=== PATIENT | male | born 1965 | race Caucasian/White ===

== ENCOUNTER → 2018-02-03 14:46 | Outpatient (POV) | payer MEDICAID, SELFPAY ==
[2018-02-03 14:58] VITALS: BP 137/94; PULSE 87; RESP 18; O2SAT 98
--- NOTE | 2018-02-03 16:59 | HMH.PMCON ---
Assessment and Plan (1) Degenerative disc disease Current visit: Yes Status: Chronic Qualifiers: Spinal region: lumbar Qualified Code(s): M51.36 - Other intervertebral disc degeneration, lumbar region Category: Medical (2) Radiculopathy Current visit: Yes Status: Chronic Qualifiers: Spinal region: lumbar Qualified Code(s): M54.16 - Radiculopathy, lumbar region Category: Medical Code(s): M54.10 - Radiculopathy, site unspecified - Assessment and plan all Dx Assessment and Plan for all problems:: We will schedule patient for an L4-L5 lumbar epidural steroid injection. We will also try him on Lyrica 75 mg 1 p.o. twice daily. Patient is not on any any anticoagulation therapy. Patient's tried and failed physical therapy, massage therapy. Patient is still doing stretching therapy. I will follow-up with the patient after his injection. This note was dictated using voice recognition software and may contain errors or omissions HPI - Data of Consult Consult date: 02/03/18 Requesting Physician: Alice Gu APRN Primary Care Provider: Melissa Cordero - Consult Narrative Reason for consult: Arthritic pain History of present illness: Patient is a pleasant 53-year-old male who presents today for consultation in regards to his overall pain. Patient has been getting epidural injections from Dr. Kamara however due to the clinic closing down he was unable to continue with this. Patient is also on gabapentin and tramadol he states that this does not help much. Patient and I had a long discussion about his MRI and treatment options. Patient would like to start with some injective therapy. Patient's tried and failed physical therapy along with chiropractic therapy. Patient rates his pain a 6 out of 10 today. CC: Alice Gu APRN [facility] History I have reviewed the patient's past medical history: Yes Medical History: Reports:: Diabetes Mellitus Type 2, Hypertension Other Medical History: Reports: Arthritis - *Social History Smoking Status: Never smoker Alcohol Intake: never Occupational Status: other Housing: house - Psychiatric History Expresses thoughts of harming self/others: None Suicide Plan Description: No Plan *Family Hx:: Unable to obtain Review of Systems - Review of Systems ROS General: no recent weight change, no fever, no sleep disturbances Respiratory: no cough, no shortness of air, no recurring pulmonary infections Cardiovascular/Peripheral Vascular: No chest pain, No palpitations, no edema, no shortness of breath. Gastrointestinal: no incontinence, normal bowel movements reported Genitourinary: no incontinence Musculoskeletal: Back pain, multi-joint pain Psychiatric: normal mood/ affect Neurological: [denies weakness in extremities], [denies balance issues] Meds Home Medications Medication Instructions Recorded Confirmed Type Amlodipine Besylate [Amlodipine 5 mg PO DAILY 02/03/18 02/03/18 History 10mg Tab] Gabapentin [Gabapentin 400mg Cap] 400 mg PO DAILY 02/03/18 02/03/18 History Metformin HCl [Metformin 500mg 1,000 mg PO BID 02/03/18 02/03/18 History Tablet] Simvastatin 10 mg PO DAILY 02/03/18 02/03/18 History glyBURIDE [Diabeta 5mg tablet] 5 mg PO DAILY 02/03/18 02/03/18 History Objective Vital signs: Pulse Resp BP Pulse Ox 87 18 137/94 98 02/03/18 14:58 02/03/18 14:58 02/03/18 14:58 02/03/18 14:58 Narrative: Physical Exam General: Alert and oriented x3, no acute distress, pleasant and cooperative, [on room air] Lungs: Resps E/U, Symmetrical chest expansion Eyes: PERRL Musculoskeletal: Flexion and extension of lumbar spine somewhat guarded secondary to pain, deep tendon reflexes normal, strength in upper and lower extremities [5/5], [abnormal gait noted] Neurological: speech clear, director speech equal, no gross sensory deficits Opioid Risk Tool - Opioid Risk Tool-Female Family hx alcoh
--- NOTE | 2018-02-03 17:09 | P.CONS_ITS ---
Assessment and Plan (1) Degenerative disc disease Current visit: Yes Status: Chronic Qualifiers: Spinal region: lumbar Qualified Code(s): M51.36 - Other intervertebral disc degeneration, lumbar region Category: Medical (2) Radiculopathy Current visit: Yes Status: Chronic Qualifiers: Spinal region: lumbar Qualified Code(s): M54.16 - Radiculopathy, lumbar region Category: Medical Code(s): M54.10 - Radiculopathy, site unspecified - Assessment and plan all Dx Assessment and Plan for all problems:: We will schedule patient for an L4-L5 lumbar epidural steroid injection. We will also try him on Lyrica 75 mg 1 p.o. twice daily. Patient is not on any any anticoagulation therapy. Patient's tried and failed physical therapy, massage therapy. Patient is still doing stretching therapy. I will follow-up with the patient after his injection. This note was dictated using voice recognition software and may contain errors or omissions HPI - Data of Consult Consult date: 02/03/18 Requesting Physician: Alice Gu APRN Primary Care Provider: Melissa Cordero - Consult Narrative Reason for consult: Arthritic pain History of present illness: Patient is a pleasant 53-year-old male who presents today for consultation in regards to his overall pain. Patient has been getting epidural injections from Dr. Kamara however due to the clinic closing down he was unable to continue with this. Patient is also on gabapentin and tramadol he states that this does not help much. Patient and I had a long discussion about his MRI and treatment options. Patient would like to start with some injective therapy. Patient's tried and failed physical therapy along with chiropractic therapy. Patient rates his pain a 6 out of 10 today. CC: Alice Gu APRN [facility] History I have reviewed the patient's past medical history: Yes Medical History: Reports:: Diabetes Mellitus Type 2, Hypertension Other Medical History: Reports: Arthritis - *Social History Smoking Status: Never smoker Alcohol Intake: never Occupational Status: other Housing: house - Psychiatric History Expresses thoughts of harming self/others: None Suicide Plan Description: No Plan *Family Hx:: Unable to obtain Review of Systems - Review of Systems ROS General: no recent weight change, no fever, no sleep disturbances Respiratory: no cough, no shortness of air, no recurring pulmonary infections Cardiovascular/Peripheral Vascular: No chest pain, No palpitations, no edema, no shortness of breath. Gastrointestinal: no incontinence, normal bowel movements reported Genitourinary: no incontinence Musculoskeletal: Back pain, multi-joint pain Psychiatric: normal mood/ affect Neurological: [denies weakness in extremities], [denies balance issues] Meds Home Medications Medication Instructions Recorded Confirmed Type Amlodipine Besylate [Amlodipine 5 mg PO DAILY 02/03/18 02/03/18 History 10mg Tab] Gabapentin [Gabapentin 400mg Cap] 400 mg PO DAILY 02/03/18 02/03/18 History Metformin HCl [Metformin 500mg 1,000 mg PO BID 02/03/18 02/03/18 History Tablet] Simvastatin 10 mg PO DAILY 02/03/18 02/03/18 History glyBURIDE [Diabeta 5mg tablet] 5 mg PO DAILY 02/03/18 02/03/18 History Objective Vital signs: Pulse Resp BP Pulse Ox 87 18 137/94 98 02/03/18 14:58 02/03/18 14:58 02/03/18 14:58 0
== END ==
PROVIDERS: PCP Physician Assistant; Visit Provider Clinical Nurse Specialist Family Health
DX: M51.16 Intervertebral disc disorders with radiculopathy, lumbar region (principal)
CPT/HCPCS: 99202

== ENCOUNTER → 2018-02-24 12:12 | Outpatient (CLI) | payer MEDICAID, SELFPAY ==
--- NOTE | 2018-02-24 12:15 | XR_ITS ---
XR foot wt bearing RT 3V HISTORY: ITS.REASON: Pain ORDERING PHYSICIAN: Anh Langley DPM PATIENT AGE: 53 years COMPARISON: None FINDINGS: No fracture or dislocation. No lytic or blastic change. There is normal mineralization.. Flexion deformity involving the second through fifth toes. There is borderline pes planus with mild hypertrophic changes along the dorsal aspect of the navicular. There is mild lateral angulation of the distal phalanx of the great toe. Deformity involves the distal aspect of the fifth metatarsal which could be due to an old fracture best seen on the oblique view with mild osteoarthritic change of the metatarsophalangeal joint. IMPRESSION: Mild degenerative changes with flexion deformity of the toes with suspected old fracture at the distal aspect of the fifth metatarsal
--- NOTE | 2018-02-24 12:15 | XR_ITS ---
XR ankle wt bearing LT min 3V HISTORY: ITS.REASON: Pain ORDERING PHYSICIAN: Anh Langley DPM PATIENT AGE: 53 years Comparison: None FINDINGS: No fracture or dislocation. No lytic or blastic change. There is normal mineralization.. There is a separate calcific density at the medial malleolus region well-circumscribed and may be due to old injury. An usual appearance for an accessory center of ossification although that is a possibility as well. Otherwise negative. IMPRESSION: Old fracture versus accessory center of ossification at the medial malleolus
--- NOTE | 2018-02-24 12:15 | XR_ITS ---
XR ankle wt bearing RT min 3V HISTORY: ITS.REASON: pain ORDERING PHYSICIAN: Anh Langley DPM PATIENT AGE: 53 years Comparison: None FINDINGS: No fracture or dislocation. No lytic or blastic change. There is normal mineralization.. The joint spaces are well-preserved. No significant degenerative/arthritic changes. No erosive changes evident. IMPRESSION: Negative ankle, no acute finding
--- NOTE | 2018-02-24 12:15 | XR_ITS ---
XR foot wt bearing LT 3V HISTORY: ITS.REASON: Pain ORDERING PHYSICIAN: Anh Langley DPM PATIENT AGE: 53 years COMPARISON: None FINDINGS: There are mild osteoarthritic changes of the first metatarsophalangeal joint and there is mild pes planus. Small calcaneal spurs present at 5 mm. There is flexion of the second third and fourth toes with mild valgus angulation of the distal phalanx of the great toe. No fracture or dislocation. No lytic or blastic change. Small area of exostosis involves the distal tibia anteriorly IMPRESSION: 1. Pes planus with osteoarthritic change. 2. Flexion deformity of the toes
== END ==
PROVIDERS: PCP Physician Assistant; Visit Provider Podiatrist
DX: M79.671 Pain in right foot (principal); M79.672 Pain in left foot
CPT/HCPCS: 73610; 73630

== ENCOUNTER → 2018-03-11 10:22 | Outpatient (POV) | payer MEDICAID, SELFPAY ==
[2018-03-11 11:00] VITALS: BP 141/90; PULSE 65; RESP 18; O2SAT 98; BMI 36.9
--- NOTE | 2018-03-11 11:16 | P.CONS_ITS ---
[facility] Pain Management SOAP Note Subjective:: Is a pleasant 53-year-old white male who presents today for follow-up after his second lumbar epidural steroid injection. Patient states he got 80% relief from this injection. Patient is still having some relief. Patient rates his pain a 5 out of 10. Patient states he is having increased cervical pain. Patient also having radicular symptoms into his right shoulder. Patient has no recent imaging of this. I do believe it would be beneficial to get an MRI of his cervical spine. She would like to complete a series of epidural injections. he is not on any anticoagulation therapy. Patient was tried on Lyrica however he had side effects and limits unable to tolerate it. Patient rates his pain a 5 out of 10 today. ROS General: no recent weight change, no fever, no sleep disturbances Respiratory: no cough, no shortness of air, no recurring pulmonary infections Cardiovascular/Peripheral Vascular: No chest pain, No palpitations, no edema, no shortness of breath. Gastrointestinal: no incontinence, normal bowel movements reported Genitourinary: no incontinence Musculoskeletal: Cervical neck pain, low back pain, leg pain Psychiatric: normal mood/ affect Neurological: [denies weakness in extremities], [denies balance issues] Objective:: Physical Exam General: Alert and oriented x3, no acute distress, pleasant and cooperative, [on room air] Lungs: Resps E/U, Symmetrical chest expansion, Eyes: PERRL Musculoskeletal: Flexion and extension of cervical and lumbar spine somewhat guarded secondary to pain, deep tendon reflexes normal, strength in upper and lower extremities [5/5], slightly antalgic gait noted, positive straight leg raise test bilaterally at 30 degrees Neurological: speech clear, returned goods repairer equal, no gross sensory deficits Assessment:: Degenerative disc disease of the lumbar spine with lumbar radiculopathy, degenerative disc disease cervical spine Plan:: We will schedule cervical MRI for the patient to discern pathology. Patient has worsening pain along with new onset of radicular symptoms into his right shoulder. We will also schedule an L4-L5 lumbar epidural steroid injection to complete his series of injections. Patient states that he has had great relief with these and is much more functional. I will follow-up with the patient after his injection. This note was dictated using voice recognition software and may contain errors or omissions
== END ==
PROVIDERS: PCP Physician Assistant; Visit Provider Clinical Nurse Specialist Family Health
DX: M51.16 Intervertebral disc disorders with radiculopathy, lumbar region (principal); M50.30 Other cervical disc degeneration, unspecified cervical region
CPT/HCPCS: 99213

== ENCOUNTER → 2018-04-22 14:57 | Outpatient (POV) | payer MEDICAID, SELFPAY ==
[2018-04-22 15:04] VITALS: BP 143/87; PULSE 18; BMI 36.9
--- NOTE | 2018-04-22 15:22 | HMH.PAINSOAP ---
[facility] Pain Management SOAP Note Subjective:: Pleasant 53-year-old white male who presents today for follow-up after his second lumbar epidural steroid injection. Patient did get some relief for his pain is returning. Patient states most of his pain is when he is standing or walking. He says it is relieved if he is leaning forward. Patient does have an MRI showing spinal stenosis. Patient is going to bring the radiology disc for us to review for potential mild procedure. Patient states most of his pain today is in his cervical spine. He states is radiating into his arm. Patient is tried and failed 3 months of home stretching exercises however he continuing this. Patient is also on anti-inflammatories. Patient has failed 3 months of medications. Patient has no recent imaging and rates his pain 8 out of 10. ROS General: no recent weight change, no fever, no sleep disturbances Respiratory: no cough, no shortness of air, no recurring pulmonary infections Cardiovascular/Peripheral Vascular: No chest pain, No palpitations, no edema, no shortness of breath. Gastrointestinal: no incontinence, normal bowel movements reported Genitourinary: no incontinence Musculoskeletal: Neck pain, arm pain or back pain Psychiatric: normal mood/ affect Neurological: [denies weakness in extremities], [denies balance issues] Objective:: Physical Exam General: Alert and oriented x3, no acute distress, pleasant and cooperative, [on room air] Lungs: Resps E/U, Symmetrical chest expansion, Eyes: PERRL Musculoskeletal: Flexion and extension of lumbar and cervical spine somewhat guarded secondary to pain, deep tendon reflexes normal, strength in upper and lower extremities [5/5], slightly antalgic gait noted Neurological: speech clear, dry cure worker equal, no gross sensory deficits Assessment:: Degenerative disc disease lumbar spine with lumbar radiculopathy and spinal stenosis, degenerative disc disease cervical spine with cervical radiculopathy Plan:: Given the worsening of his cervical symptoms I believe that it would be beneficial to have a new MRI for the patient. Patient's tried and failed conservative measures. I will follow-up with the patient after his cervical MRI. We will review his lumbar MRI for potential mild procedure. This note was dictated using voice recognition software and may contain errors or omissions
--- NOTE | 2018-04-22 15:25 | P.CONS_ITS ---
[facility] Pain Management SOAP Note Subjective:: Pleasant 53-year-old white male who presents today for follow-up after his second lumbar epidural steroid injection. Patient did get some relief for his pain is returning. Patient states most of his pain is when he is standing or walking. He says it is relieved if he is leaning forward. Patient does have an MRI showing spinal stenosis. Patient is going to bring the radiology disc for us to review for potential mild procedure. Patient states most of his pain today is in his cervical spine. He states is radiating into his arm. Patient is tried and failed 3 months of home stretching exercises however he continuing this. Patient is also on anti-inflammatories. Patient has failed 3 months of medications. Patient has no recent imaging and rates his pain 8 out of 10. ROS General: no recent weight change, no fever, no sleep disturbances Respiratory: no cough, no shortness of air, no recurring pulmonary infections Cardiovascular/Peripheral Vascular: No chest pain, No palpitations, no edema, no shortness of breath. Gastrointestinal: no incontinence, normal bowel movements reported Genitourinary: no incontinence Musculoskeletal: Neck pain, arm pain or back pain Psychiatric: normal mood/ affect Neurological: [denies weakness in extremities], [denies balance issues] Objective:: Physical Exam General: Alert and oriented x3, no acute distress, pleasant and cooperative, [on room air] Lungs: Resps E/U, Symmetrical chest expansion, Eyes: PERRL Musculoskeletal: Flexion and extension of lumbar and cervical spine somewhat guarded secondary to pain, deep tendon reflexes normal, strength in upper and lower extremities [5/5], slightly antalgic gait noted Neurological: speech clear, warehouse manager equal, no gross sensory deficits Assessment:: Degenerative disc disease lumbar spine with lumbar radiculopathy and spinal st enosis, degenerative disc disease cervical spine with cervical radiculopathy Plan:: Given the worsening of his cervical symptoms I believe that it would be beneficial to have a new MRI for the patient. Patient's tried and failed conservative measures. I will follow-up with the patient after his cervical MRI. We will review his lumbar MRI for potential mild procedure. This note was dictated using voice recognition software and may contain errors or omissions
== END ==
PROVIDERS: PCP Physician Assistant; Visit Provider Clinical Nurse Specialist Family Health
DX: M51.16 Intervertebral disc disorders with radiculopathy, lumbar region (principal); M50.10 Cervical disc disorder with radiculopathy, unspecified cervical region; M48.00 Spinal stenosis, site unspecified
CPT/HCPCS: 99213

== ENCOUNTER → 2018-05-14 13:27 | Outpatient (CLI) | payer MEDICAID, SELFPAY ==
--- NOTE | 2018-05-14 13:30 | MR_ITS ---
MR cervical spine wo con, MR 3-d myelogram/MRCP HISTORY: Neck and RT shoulder pain XYRS. Neck pain when turning head from side to side. ITS.REASON: NECK PAIN ORDERING PHYSICIAN: Alice Gu PATIENT AGE: 53 years Comparison: None TECHNIQUE: Standard multiplanar multiecho sequences are performed without contrast. 3-D MIP and myelographic images are also rendered and reviewed FINDINGS: There is normal alignment. The craniocervical junction has an unremarkable appearance. There are hypertrophic changes of the posterior longitudinal ligament from C2 to C7 causing posterior longitudinal ridging from C2 to C7.. C2-C3: Unremarkable. C3-C4: Hypertrophic change of the posterior longitudinal ligament with mild bulging disc. There is narrowing of the canal at 10 mm with mild bilateral foraminal narrowing. Small central disc protrusion versus prominent posterior longitudinal ligament noted with mild narrowing of the canal with minimal flattening of the cord anteriorly C4-C5: Prominent posterior longitudinal ligament versus small central disc protrusion. There is moderate narrowing of the canal at 7 mm. There is mild impingement upon the anterior aspect of the cord with mild cord flattening. C5-C6: Degenerative disc disease with bulging disc eccentric towards the right with canal narrowing of 8 mm and moderate lateral recess and foraminal narrowing on the right. There is mild flattening of the cord anteriorly from the bulging disc. C6-C7: Unremarkable. C7-T1: Unremarkable. IMPRESSION: 1. C3-C4: Hypertrophic change of the posterior longitudinal ligament with mild bulging disc. There is narrowing of the canal at 10 mm with mild bilateral foraminal narrowing. Small central disc protrusion versus prominent posterior longitudinal ligament noted with mild narrowing of the canal with minimal flattening of the cord anteriorly 2. C4-C5: Prominent posterior longitudinal ligament versus small central disc protrusion. There is moderate narrowing of the canal at 7 mm. There is mild impingement upon the anterior aspect of the cord with mild cord flattening. 3. C5-C6: Degenerative disc disease with bulging disc eccentric towards the right with canal narrowing of 8 mm and moderate lateral recess and foraminal narrowing on the right. There is mild flattening of the cord anteriorly from the bulging disc 4. No extruded herniated disc evident.
== END ==
PROVIDERS: PCP Physician Assistant; Visit Provider Clinical Nurse Specialist Family Health
DX: M54.2 Cervicalgia (principal)
CPT/HCPCS: 72141; 76376

== ENCOUNTER → 2018-05-19 13:29 | Outpatient (POV) | payer MEDICAID, SELFPAY ==
[2018-05-19 13:48] VITALS: BP 164/97; PULSE 74; RESP 18; O2SAT 98; BMI 36.2
--- NOTE | 2018-05-19 15:46 | HMH.PAINSOAP ---
[facility] Pain Management SOAP Note Subjective:: Patient is a pleasant 53-year-old white male who presents today for follow-up after cervical MRI. Patient is having worsening neck pain. Patient does have degenerative disc disease along with bulging disc and stenosis. Patient is also having left foot pain. Patient states is been mostly in the arch of his foot. He rates his pain today at 8 out of 10. Patient states his low back is doing better since his lumbar epidural steroid injection. He is interested in doing injections in his neck. Patient states that any kind of movement makes his pain worse. He also has radiation into his right arm. ROS General: no recent weight change, no fever, no sleep disturbances Respiratory: no cough, no shortness of air, no recurring pulmonary infections Cardiovascular/Peripheral Vascular: No chest pain, No palpitations, no edema, no shortness of breath. Gastrointestinal: no incontinence, normal bowel movements reported Genitourinary: no incontinence Musculoskeletal: Neck pain, foot pain Psychiatric: normal mood/ affect Neurological: [denies weakness in extremities], [denies balance issues] Objective:: Physical Exam General: Alert and oriented x3, no acute distress, pleasant and cooperative, [on room air] Lungs: Resps E/U, Symmetrical chest expansion, Eyes: PERRL Musculoskeletal: Flexion and extension of cervical spine somewhat guarded secondary to pain, deep tendon reflexes normal, strength in upper and lower extremities [5/5], slightly antalgic gait noted, positive Spurling's test Neurological: speech clear, food and beverage assistant equal, no gross sensory deficits Assessment:: Degenerative disc disease cervical spine with cervical radiculopathy along with degenerative disc disease lumbar spine lumbar radiculopathy, foot pain Plan:: We will set the patient up for C5-C6 cervical epidural. Patient is done well with epidurals in the past. I believe it would be beneficial for him. We will also set him up with the java user interface developer for his foot pain. Patient is not on any anticoagulation therapy. Patient is continuing a home stretching regimen. This note was dictated using voice recognition software and may contain errors or omissions
--- NOTE | 2018-05-19 15:49 | P.CONS_ITS ---
[facility] Pain Management SOAP Note Subjective:: Patient is a pleasant 53-year-old white male who presents today for follow-up after cervical MRI. Patient is having worsening neck pain. Patient does have degenerative disc disease along with bulging disc and stenosis. Patient is also having left foot pain. Patient states is been mostly in the arch of his foot. He rates his pain today at 8 out of 10. Patient states his low back is doing better since his lumbar epidural steroid injection. He is interested in doing injections in his neck. Patient states that any kind of movement makes his pain worse. He also has radiation into his right arm. ROS General: no recent weight change, no fever, no sleep disturbances Respiratory: no cough, no shortness of air, no recurring pulmonary infections Cardiovascular/Peripheral Vascular: No chest pain, No palpitations, no edema, no shortness of breath. Gastrointestinal: no incontinence, normal bowel movements reported Genitourinary: no incontinence Musculoskeletal: Neck pain, foot pain Psychiatric: normal mood/ affect Neurological: [denies weakness in extremities], [denies balance issues] Objective:: Physical Exam General: Alert and oriented x3, no acute distress, pleasant and cooperative, [on room air] Lungs: Resps E/U, Symmetrical chest expansion, Eyes: PERRL Musculoskeletal: Flexion and extension of cervical spine somewhat guarded secondary to pain, deep tendon reflexes normal, strength in upper and lower extremities [5/5], slightly antalgic gait noted, positive Spurling's test Neurological: speech clear, medical information officer equal, no gross sensory deficits Assessment:: Degenerative disc disease cervical spine with cervical radiculopathy along with degenerative disc disease lumbar spine lumbar radiculopathy, foot pain Plan:: We will set the patient up for C5-C6 cervical epidural. Patient is done well with epidurals in the past. I believe it would be beneficial for him. We will also set him up with the dump worker for his foot pain. Patient is not on any anticoagulation therapy. Patient is continuing a home stretching regimen. This note was dictated using voice recognition software and may contain errors or omissions
== END ==
PROVIDERS: PCP Physician Assistant; Visit Provider Clinical Nurse Specialist Family Health
DX: M50.10 Cervical disc disorder with radiculopathy, unspecified cervical region (principal); M51.16 Intervertebral disc disorders with radiculopathy, lumbar region; M79.672 Pain in left foot
CPT/HCPCS: 99213

== ENCOUNTER → 2018-07-01 08:57 | Outpatient (POV) | payer MEDICAID, SELFPAY ==
[2018-07-01 09:08] VITALS: BP 155/91; PULSE 80; RESP 18; O2SAT 99; BMI 36.9
--- NOTE | 2018-07-01 09:10 | HMH.PAINSOAP ---
[facility] Pain Management SOAP Note Subjective:: Is a 53-year-old white male who presents today for follow-up after cervical epidural steroid injection. Patient states his neck pain is much better however his lower back pain is still quite present. He rates his pain a 6 out of 10 today. Patient has tried multiple therapies including anti-inflammatories, medications, home stretching routines, physical therapy. Patient would like to follow-up in 1 month and reassess his symptoms at that time. ROS General: no recent weight change, no fever, no sleep disturbances Respiratory: no cough, no shortness of air, no recurring pulmonary infections Cardiovascular/Peripheral Vascular: No chest pain, No palpitations, no edema, no shortness of breath. Gastrointestinal: no incontinence, normal bowel movements reported Genitourinary: no incontinence Musculoskeletal: Neck pain, back pain, leg pain Psychiatric: normal mood/ affect Neurological: [denies weakness in extremities], [denies balance issues] Objective:: Physical Exam General: Alert and oriented x3, no acute distress, pleasant and cooperative, [on room air] Lungs: Resps E/U, Symmetrical chest expansion Eyes: PERRL Musculoskeletal: Flexion and extension of lumbar and cervical spine somewhat guarded secondary to pain, deep tendon reflexes normal, strength in upper and lower extremities [5/5], slightly antalgic gait noted Neurological: speech clear, intranet support equal, no gross sensory deficits Assessment:: Degenerative disc disease cervical spine with cervical radiculopathy and lumbar disc degenerative disc disease with lumbar radiculopathy Plan:: We will follow-up with the patient in 1 month and reassess his symptoms at that time patient's been instructed to call the office if he has any issues prior to his next appointment. This note was dictated using voice recognition software and may contain errors or omissions
--- NOTE | 2018-07-01 09:13 | P.CONS_ITS ---
[facility] Pain Management SOAP Note Subjective:: Is a 53-year-old white male who presents today for follow-up after cervical epidural steroid injection. Patient states his neck pain is much better however his lower back pain is still quite present. He rates his pain a 6 out of 10 today. Patient has tried multiple therapies including anti-inflammatories, medications, home stretching routines, physical therapy. Patient would like to follow-up in 1 month and reassess his symptoms at that time. ROS General: no recent weight change, no fever, no sleep disturbances Respiratory: no cough, no shortness of air, no recurring pulmonary infections Cardiovascular/Peripheral Vascular: No chest pain, No palpitations, no edema, no shortness of breath. Gastrointestinal: no incontinence, normal bowel movements reported Genitourinary: no incontinence Musculoskeletal: Neck pain, back pain, leg pain Psychiatric: normal mood/ affect Neurological: [denies weakness in extremities], [denies balance issues] Objective:: Physical Exam General: Alert and oriented x3, no acute distress, pleasant and cooperative, [on room air] Lungs: Resps E/U, Symmetrical chest expansion Eyes: PERRL Musculoskeletal: Flexion and extension of lumbar and cervical spine somewhat guarded secondary to pain, deep tendon reflexes normal, strength in upper and lower extremities [5/5], slightly antalgic gait noted Neurological: speech clear, 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 This note was dictated using voice recognition software and may contain errors or omissions
== END ==
PROVIDERS: PCP Physician Assistant; Visit Provider Clinical Nurse Specialist Family Health
DX: M50.10 Cervical disc disorder with radiculopathy, unspecified cervical region (principal); M51.16 Intervertebral disc disorders with radiculopathy, lumbar region
CPT/HCPCS: 99213

== ENCOUNTER 2019-10-07 08:32 | Outpatient (CLI) | payer MEDICARE, OTHER, SELFPAY ==
[2019-10-07] VITALS (8 sets, daily range): BP systolic 99–118; BP diastolic 62–75; PULSE 70–80; RESP 18; TEMP 36.4; O2SAT 98–99; BMI 37.1
== END 2019-10-07 11:55 | disposition home or self-care (01) ==
LOC: INF 08:36
PROVIDERS: PCP Nurse Practitioner Family; Visit Provider Nurse Practitioner Family
DX: L40.59 Other psoriatic arthropathy (principal)
CPT/HCPCS: 96413; 96415; J1745

== ENCOUNTER 2019-11-18 08:50 | Outpatient (CLI) | payer MEDICARE, OTHER, SELFPAY ==
[2019-11-18] VITALS (9 sets, daily range): BP systolic 122–141; BP diastolic 71–92; PULSE 65–77; RESP 18; TEMP 36.1
== END 2019-11-18 12:15 | disposition home or self-care (01) ==
LOC: INF 08:54
PROVIDERS: Visit Provider Nurse Practitioner Family
DX: L40.59 Other psoriatic arthropathy (principal)
CPT/HCPCS: 96413; 96415; J1745

== ENCOUNTER 2019-12-30 08:32 | Outpatient (CLI) | payer MEDICARE, OTHER, SELFPAY ==
[2019-12-30] VITALS (9 sets, daily range): BP systolic 133–145; BP diastolic 77–88; PULSE 72–79; RESP 18–20; TEMP 36.3; O2SAT 99–100
== END 2019-12-30 11:35 | disposition home or self-care (01) ==
LOC: INF 08:35
PROVIDERS: Visit Provider Nurse Practitioner Family
DX: L40.59 Other psoriatic arthropathy (principal)
CPT/HCPCS: 96413; 96415; J1745

== ENCOUNTER 2020-02-10 08:35 | Outpatient (CLI) | payer MEDICARE, OTHER, SELFPAY ==
[2020-02-10] VITALS (9 sets, daily range): BP systolic 141–165; BP diastolic 73–97; PULSE 69–90; RESP 18–20; TEMP 35.9; O2SAT 97
== END 2020-02-10 11:55 | disposition home or self-care (01) ==
LOC: INF 08:38
PROVIDERS: Visit Provider Nurse Practitioner Family
DX: M15.9 Polyosteoarthritis, unspecified; L40.59 Other psoriatic arthropathy
CPT/HCPCS: 96413; 96415; J1745

== ENCOUNTER 2020-03-25 08:51 | Outpatient (CLI) | payer MEDICARE, OTHER, SELFPAY ==
[2020-03-25] VITALS (11 sets, daily range): BP systolic 110–138; BP diastolic 65–75; PULSE 68–77; RESP 16–18; TEMP 36.6–36.7; O2SAT 97–98; BMI 36.8
[2020-03-25 09:23] LABS: Basophils % 0.8 % (0.1-2.0); Eosinophils # 0.2 K/mm3 (0.0-0.4); Eosinophils % 3.1 % (0.1-12.0); Hematocrit 46.4 % (42.0-52.0); Hemoglobin 15.5 g/dL (14.1-18.0); Lymphocytes # 2.1 K/mm3 (0.7-4.5); Lymphocytes % 44.1 % (10-50); Mean Corpuscular HGB Conc 33.4 g/dL (31.8-35.4); Mean Corpuscular Hemoglobin 30.2 pg (27.0-31.2); Mean Corpuscular Volume 90.5 fl (80-94); Mean Platelet Volume 7.4 fl (7.4-10.4); Monocytes # 0.3 K/mm3 (0.1-1.0); Monocytes % 5.7 % (1.7-9.3); Neutrophils # 2.2 K/mm3 (1.8-7.8); Neutrophils % 46.2 % (37.0-80.0); Platelet Count 169 K/mm3 (142-424); Red Blood Count 5.13 M/mm3 (4.60-6.20); White Blood Count 4.8 K/mm3 (4.8-10.8)
[2020-03-25 09:57] LABS: Alanine Aminotransferase 64 U/L (12-78); Albumin Level 4.2 g/dl (3.5-5.0); Alkaline Phosphatase 43 U/L (38-126); Aspartate Amino Transferase 50 U/L (17-59); Bilirubin,Direct 0.1 mg/dl (0.0-0.4); Bilirubin,Indirect 1.8 mg/dL (0.0-0.9); Bilirubin,Total 1.9 mg/dl (0.2-1.3); Bilirubin,Unconjugated 1.8 mg/dL (0.0-1.1); Total Protein,Serum 7.2 g/dl (6.3-8.2)
== END 2020-03-25 13:30 | disposition home or self-care (01) ==
LOC: INF 08:51
PROVIDERS: Visit Provider Nurse Practitioner Family
DX: L40.59 Other psoriatic arthropathy (principal)
CPT/HCPCS: 80076; 85025; 96413; 96415; J1745

== ENCOUNTER 2020-05-03 09:06 | Outpatient (CLI) | payer MEDICARE, OTHER, SELFPAY ==
[2020-05-03] VITALS (10 sets, daily range): BP systolic 134–148; BP diastolic 75–86; PULSE 62–71; RESP 16–18; TEMP 36.2–36.6; O2SAT 97–98
== END 2020-05-03 13:35 | disposition home or self-care (01) ==
LOC: INF 09:06
PROVIDERS: Visit Provider Nurse Practitioner Family
DX: L40.59 Other psoriatic arthropathy (principal)
CPT/HCPCS: 96413; 96415; J1745

== ENCOUNTER 2020-06-14 08:46 | Outpatient (CLI) | payer MEDICARE, OTHER, SELFPAY ==
[2020-06-14] VITALS (10 sets, daily range): BP systolic 116–158; BP diastolic 68–79; PULSE 59–76; RESP 16–18; TEMP 36.6–36.7; O2SAT 97–99; BMI 38.0
[2020-06-14 09:13] LABS: Basophils % 0.5 % (0.1-2.0); Eosinophils # 0.1 K/mm3 (0.0-0.4); Eosinophils % 2.2 % (0.1-12.0); Hemoglobin 15.7 g/dL (14.1-18.0); Lymphocytes # 2.2 K/mm3 (0.7-4.5); Lymphocytes % 45.8 % (10-50); Mean Corpuscular HGB Conc 32.8 g/dL (31.8-35.4); Mean Corpuscular Hemoglobin 30.1 pg (27.0-31.2); Mean Corpuscular Volume 91.6 fl (80-94); Mean Platelet Volume 6.8 fl (7.4-10.4); Monocytes # 0.3 K/mm3 (0.1-1.0); Monocytes % 5.1 % (1.7-9.3); Neutrophils # 2.3 K/mm3 (1.8-7.8); Neutrophils % 46.4 % (37.0-80.0); Platelet Count 190 K/mm3 (142-424); Red Blood Count 5.24 M/mm3 (4.60-6.20); Red Cell Distribution Width 14.5 % (11.5-17.5); White Blood Count 4.9 K/mm3 (4.8-10.8)
[2020-06-14 09:22] LABS: Alanine Aminotransferase 71 U/L (12-78); Albumin Level 4.4 g/dl (3.5-5.0); Alkaline Phosphatase 45 U/L (38-126); Aspartate Amino Transferase 55 U/L (17-59); Bilirubin,Direct 0.2 mg/dl (0.0-0.4); Bilirubin,Total 2.2 mg/dl (0.2-1.3); Total Protein,Serum 7.8 g/dl (6.3-8.2)
== END 2020-06-14 13:00 | disposition home or self-care (01) ==
LOC: INF 08:46
PROVIDERS: Visit Provider Nurse Practitioner Family
DX: L40.59 Other psoriatic arthropathy (principal)
CPT/HCPCS: 80076; 85025; 96413; 96415; J1745

== ENCOUNTER 2020-07-26 08:40 | Outpatient (CLI) | payer MEDICARE, OTHER, SELFPAY ==
[2020-07-26] VITALS (11 sets, daily range): BP systolic 107–122; BP diastolic 70–80; PULSE 68–81; RESP 18–20; TEMP 36.9; O2SAT 95
== END 2020-07-26 13:32 | disposition home or self-care (01) ==
LOC: INF 08:40
PROVIDERS: Visit Provider Nurse Practitioner Family
DX: L40.59 Other psoriatic arthropathy (principal)
CPT/HCPCS: 96413; 96415; J1745

== ENCOUNTER 2020-09-08 08:45 | Outpatient (CLI) | payer MEDICARE, OTHER, SELFPAY ==
[2020-09-08] VITALS (15 sets, daily range): BP systolic 121–151; BP diastolic 62–87; PULSE 67–90; RESP 16–18; TEMP 36.1; O2SAT 97; BMI 37.3
[2020-09-08 09:22] LABS: Basophils % 0.4 % (0.1-2.0); Eosinophils # 0.1 K/mm3 (0.0-0.4); Eosinophils % 1.7 % (0.1-12.0); Hematocrit 46.7 % (42.0-52.0); Hemoglobin 15.5 g/dL (14.1-18.0); Lymphocytes % 42.7 % (10-50); Mean Corpuscular HGB Conc 33.2 g/dL (31.8-35.4); Mean Corpuscular Hemoglobin 29.9 pg (27.0-31.2); Mean Platelet Volume 7.4 fl (7.4-10.4); Monocytes # 0.2 K/mm3 (0.1-1.0); Monocytes % 4.6 % (1.7-9.3); Neutrophils # 2.3 K/mm3 (1.8-7.8); Neutrophils % 50.6 % (37.0-80.0); Platelet Count 174 K/mm3 (142-424); Red Blood Count 5.19 M/mm3 (4.60-6.20); Red Cell Distribution Width 14.5 % (11.5-17.5); White Blood Count 4.6 K/mm3 (4.8-10.8)
[2020-09-08 09:30] LABS: Alanine Aminotransferase 78 U/L (12-78); Alkaline Phosphatase 50 U/L (38-126); Aspartate Amino Transferase 62 U/L (17-59); Bilirubin,Indirect 2.1 mg/dL (0.0-0.9); Bilirubin,Total 2.1 mg/dl (0.2-1.3); Bilirubin,Unconjugated 2.2 mg/dL (0.0-1.1)
[2020-09-08 09:31] LABS: Albumin Level 4.6 g/dl (3.5-5.0); Total Protein,Serum 7.9 g/dl (6.3-8.2)
== END 2020-09-08 13:45 | disposition home or self-care (01) ==
LOC: INF 08:53
PROVIDERS: Visit Provider Nurse Practitioner Family
DX: L40.59 Other psoriatic arthropathy (principal)
CPT/HCPCS: 80076; 85025; 96413; 96415; J1745

== ENCOUNTER 2020-10-19 08:45 | Outpatient (CLI) | payer MEDICARE, OTHER, SELFPAY ==
[2020-10-19] VITALS (7 sets, daily range): BP systolic 125–137; BP diastolic 57–73; PULSE 61–84; RESP 16–17; TEMP 36.4; O2SAT 97–99
== END 2020-10-19 13:37 | disposition home or self-care (01) ==
PROVIDERS: Visit Provider Nurse Practitioner Family
DX: L40.59 Other psoriatic arthropathy (principal)
CPT/HCPCS: 96365; 96366; 96413; 96415; J1745

== ENCOUNTER 2020-12-28 08:30 | Outpatient (CLI) | payer MEDICARE, OTHER, SELFPAY ==
[2020-12-28] VITALS (8 sets, daily range): BP systolic 136–148; BP diastolic 74–88; PULSE 63–81; RESP 18; O2SAT 98; BMI 37.3
[2020-12-28 08:54] LABS: Basophils # 0.1 K/mm3 (0-0.2); Basophils % 0.9 % (0.1-2.0); Eosinophils # 0.1 K/mm3 (0.0-0.4); Eosinophils % 2.4 % (0.1-12.0); Hematocrit 43.5 % (42.0-52.0); Hemoglobin 15.3 g/dL (14.1-18.0); Lymphocytes # 2.6 K/mm3 (0.7-4.5); Lymphocytes % 47.6 % (10-50); Mean Corpuscular HGB Conc 35.3 g/dL (31.8-35.4); Mean Corpuscular Hemoglobin 30.2 pg (27.0-31.2); Mean Corpuscular Volume 85.6 fl (80-94); Mean Platelet Volume 7.2 fl (7.4-10.4); Monocytes # 0.3 K/mm3 (0.1-1.0); Neutrophils # 2.3 K/mm3 (1.8-7.8); Neutrophils % 43.2 % (37.0-80.0); Platelet Count 180 K/mm3 (142-424); Red Blood Count 5.08 M/mm3 (4.60-6.20); Red Cell Distribution Width 14.9 % (11.5-17.5); White Blood Count 5.4 K/mm3 (4.8-10.8)
[2020-12-28 09:27] LABS: Alanine Aminotransferase 50 U/L (12-78); Albumin Level 4.6 g/dl (3.5-5.0); Albumin/Globulin Ratio 1.4 (1.1-1.8); Alkaline Phosphatase 44 U/L (38-126); Anion Gap 16.8 mEq/L (5-15); Aspartate Amino Transferase 48 U/L (17-59); Bilirubin,Total 1.9 mg/dl (0.2-1.3); Blood Urea Nitrogen 15 mg/dl (9-20); Calcium 9.3 mg/dl (8.4-10.2); Carbon Dioxide 28 mmol/L (22.0-30.0); Chloride 99 mmol/L (98-107); Creatinine Clearance Estimated 124 mL/min (50-200); Estimated Glomerular Filt Rate 69 ml/min (>60); GFR (African American) 83 ML/MIN (>60); Globulin 3.3 g/dL (1.3-3.2); Glucose 205 mg/dl (74-100); Potassium 3.8 mmoL/L (3.5-5.1); Sodium 140 mmol/L (136-145); Total Protein,Serum 7.9 g/dl (6.3-8.2)
[2020-12-28 09:33] LABS: C-Reactive Protein 1.3 mg/L (0-4)
--- NOTE | 2020-12-28 15:29 | PC.NURSE ---
1535-faxed lab reports to
== END 2020-12-28 12:50 | disposition home or self-care (01) ==
LOC: INF 08:34
PROVIDERS: Visit Provider Internal Medicine
DX: L40.59 Other psoriatic arthropathy
CPT/HCPCS: 80053; 85025; 86140; 96413; 96415; J1745

== ENCOUNTER 2021-01-11 11:00 | Outpatient (RCR) | payer MEDICARE, OTHER, SELFPAY | END 2021-02-14 13:26 | disposition home or self-care (01) | LOC: PT.CARL 11:00 | PROVIDERS: PCP Nurse Practitioner Family; Visit Provider Podiatrist Foot & Ankle Surgery | DX: M20.41 Other hammer toe(s) (acquired), right foot (principal) | CPT/HCPCS: 97010; 97012; 97110; 97140; 97163 ==

== ENCOUNTER 2021-02-08 08:37 | Outpatient (CLI) | payer MEDICARE, OTHER, SELFPAY ==
[2021-02-08] VITALS (14 sets, daily range): BP systolic 127–154; BP diastolic 73–91; PULSE 67–86; RESP 16–18; TEMP 36.6; O2SAT 96
== END 2021-02-08 13:40 | disposition home or self-care (01) ==
LOC: INF 08:39
PROVIDERS: PCP Nurse Practitioner Family; Visit Provider Internal Medicine
DX: L40.59 Other psoriatic arthropathy (principal)
CPT/HCPCS: 96413; 96415; J1745

== ENCOUNTER 2021-03-22 08:39 | Outpatient (CLI) | payer MEDICARE, OTHER, SELFPAY ==
[2021-03-22] VITALS (10 sets, daily range): BP systolic 106–134; BP diastolic 64–78; PULSE 68–77; RESP 18; TEMP 36.4; O2SAT 98; BMI 37.1
[2021-03-22 09:10] LABS: Basophils % 0.9 % (0.1-2.0); Eosinophils # 0.1 K/mm3 (0.0-0.4); Eosinophils % 1.8 % (0.1-12.0); Hematocrit 46.3 % (42.0-52.0); Hemoglobin 15.3 g/dL (14.1-18.0); Lymphocytes # 1.9 K/mm3 (0.7-4.5); Lymphocytes % 42.2 % (10-50); Mean Corpuscular Hemoglobin 29.9 pg (27.0-31.2); Mean Corpuscular Volume 90.6 fl (80-94); Mean Platelet Volume 8.4 fl (7.4-10.4); Monocytes # 0.3 K/mm3 (0.1-1.0); Monocytes % 6.9 % (1.7-9.3); Neutrophils # 2.2 K/mm3 (1.8-7.8); Neutrophils % 48.2 % (37.0-80.0); Platelet Count 179 K/mm3 (142-424); Red Blood Count 5.11 M/mm3 (4.60-6.20); Red Cell Distribution Width 14.4 % (11.5-17.5); White Blood Count 4.5 K/mm3 (4.8-10.8)
[2021-03-22 09:17] LABS: Chloride 97 mmol/L (98-107); Potassium 3.2 mmoL/L (3.5-5.1); Sodium 137 mmol/L (136-145)
[2021-03-22 09:20] LABS: Alanine Aminotransferase 51 U/L (12-78); Albumin/Globulin Ratio 1.3 (1.1-1.8); Alkaline Phosphatase 48 U/L (38-126); Anion Gap 14.2 mEq/L (5-15); Aspartate Amino Transferase 41 U/L (17-59); Bilirubin,Total 1.7 mg/dl (0.2-1.3); Blood Urea Nitrogen 9 mg/dl (9-20); Carbon Dioxide 29 mmol/L (22.0-30.0); Creatinine Clearance Estimated 167 mL/min (50-200); Estimated Glomerular Filt Rate 99 ml/min (>60); GFR (African American) 120 ML/MIN (>60); Globulin 3.1 g/dL (1.3-3.2); Total Protein,Serum 7.1 g/dl (6.3-8.2)
[2021-03-22 09:21] LABS: Calcium 9.1 mg/dl (8.4-10.2); Glucose 225 mg/dl (74-100)
== END 2021-03-22 13:25 | disposition home or self-care (01) ==
PROVIDERS: PCP Nurse Practitioner Family; Visit Provider Internal Medicine
DX: L40.59 Other psoriatic arthropathy (principal)
CPT/HCPCS: 80053; 85025; 86140; 96413; 96415; J1745

== ENCOUNTER 2021-05-03 08:38 | Outpatient (CLI) | payer MEDICARE, OTHER, SELFPAY ==
[2021-05-03] VITALS (16 sets, daily range): BP systolic 135–160; BP diastolic 58–92; PULSE 57–76; RESP 17; TEMP 36.7; O2SAT 98
== END 2021-05-03 13:42 | disposition home or self-care (01) ==
LOC: INF 08:39
PROVIDERS: PCP Nurse Practitioner Family; Visit Provider Internal Medicine
DX: L40.59 Other psoriatic arthropathy (principal)
CPT/HCPCS: 96413; 96415; J1745

== ENCOUNTER 2021-06-28 08:36 | Outpatient (CLI) | payer MEDICARE, OTHER, SELFPAY ==
[2021-06-28] VITALS (14 sets, daily range): BP systolic 120–156; BP diastolic 68–99; PULSE 59–82; RESP 16–18; O2SAT 98; BMI 37.1
[2021-06-28 09:24] LABS: Basophils # 0.1 K/mm3 (0-0.2); Basophils % 0.9 % (0.1-2.0); Eosinophils # 0.1 K/mm3 (0.0-0.4); Eosinophils % 2.1 % (0.1-12.0); Hematocrit 51.5 % (42.0-52.0); Hemoglobin 16.8 g/dL (14.1-18.0); Lymphocytes # 2.5 K/mm3 (0.7-4.5); Lymphocytes % 43.6 % (10-50); Mean Corpuscular HGB Conc 32.7 g/dL (31.8-35.4); Mean Corpuscular Hemoglobin 30.3 pg (27.0-31.2); Mean Corpuscular Volume 92.7 fl (80-94); Mean Platelet Volume 7.6 fl (7.4-10.4); Monocytes # 0.4 K/mm3 (0.1-1.0); Monocytes % 6.2 % (1.7-9.3); Neutrophils # 2.7 K/mm3 (1.8-7.8); Neutrophils % 47.2 % (37.0-80.0); Platelet Count 221 K/mm3 (142-424); Red Blood Count 5.56 M/mm3 (4.60-6.20); Red Cell Distribution Width 14.8 % (11.5-17.5); White Blood Count 5.7 K/mm3 (4.8-10.8)
[2021-06-28 09:43] LABS: Alanine Aminotransferase 71 U/L (12-78); Albumin Level 4.6 g/dl (3.5-5.0); Albumin/Globulin Ratio 1.4 (1.1-1.8); Alkaline Phosphatase 48 U/L (38-126); Anion Gap 14.5 mEq/L (5-15); Aspartate Amino Transferase 67 U/L (17-59); Bilirubin,Total 2.4 mg/dl (0.2-1.3); Blood Urea Nitrogen 18 mg/dl (9-20); Calcium 9.7 mg/dl (8.4-10.2); Carbon Dioxide 31 mmol/L (22.0-30.0); Chloride 92 mmol/L (98-107); Creatinine Clearance Estimated 134 mL/min (50-200); Estimated Glomerular Filt Rate 77 ml/min (>60); GFR (African American) 93 ML/MIN (>60); Globulin 3.3 g/dL (1.3-3.2); Glucose 345 mg/dl (74-100); Potassium 3.5 mmoL/L (3.5-5.1); Sodium 134 mmol/L (136-145); Total Protein,Serum 7.9 g/dl (6.3-8.2)
[2021-06-28 09:48] LABS: C-Reactive Protein 1.6 mg/L (0-4)
== END 2021-06-28 13:25 | disposition home or self-care (01) ==
LOC: INF 08:38
PROVIDERS: PCP Nurse Practitioner Family; Visit Provider Internal Medicine
DX: L40.59 Other psoriatic arthropathy (principal)
CPT/HCPCS: 80053; 85025; 86140; 96413; 96415; J1745

== ENCOUNTER → 2021-06-29 08:03 | Outpatient (POV) | payer MEDICARE, OTHER, SELFPAY ==
[2021-06-29 08:31] VITALS: BP 148/83; PULSE 88; RESP 18; O2SAT 96; BMI 35.5
--- NOTE | 2021-06-29 08:53 | HMH.PMCON ---
Assessment and Plan (1) Degenerative joint disease of cervical spine Status: Chronic Category: Medical Code(s): M47.812 - Spondylosis without myelopathy or radiculopathy, cervical region (2) Cervical radiculopathy Status: Chronic Category: Medical Code(s): M54.12 - Radiculopathy, cervical region (3) Low back pain Status: Chronic Category: Medical Code(s): M54.50 - Low back pain, unspecified (4) Lumbar radiculopathy Status: Chronic Category: Medical Code(s): M54.16 - Radiculopathy, lumbar region - Assessment and plan all Dx Assessment and Plan for all problems:: Patient is referred for chronic neck and low back pain. He has had injections in the past. MRI shows patient to have mild flattening of cord see if for C5 C5-C6. He does not have recent imaging of lumbar spine. For now he would like to proceed with an injection to cervical spine. We will schedule him for a cervical epidural steroid injection at C5-C6 area. He is diabetic and is not on anticoagulation therapy. Following the epidural to the cervical spine we will then proceed to the lumbar spine. He has deferred on any imaging lumbar spine at this time. Possible side effects of corticosteroids have been discussed with the patient. Risks and benefits of the procedure have been explained to the patient. Patient would like to proceed with the procedure. Patient has been instructed to contact the clinic with any concerns before the next appointment. Dr. Negro has reviewed this note and agrees with this plan of care. This note was dictated using voice recognition software and make contain errors or omissions. HPI - Data of Consult Patient: new to practice Consult date: 06/29/21 Requesting Physician: Martina Medina APRN - Consult Narrative Reason for consult: Neck and low back pain History of present illness: Mr. Knapp is a 56 year old male who presents today for consultation for chronic neck and low back pain. He has been seen in the clinic in the past and did undergo epidural steroid injections with a series of injections to his lumbar spine and 1 injection to his cervical spine. He does feel he got relief, however, the pain has returned. He has had pain for many years. In the low back, he has radiation into right leg and right foot. Patient is having pain in his neck that radiates into bilateral upper extremities. He does have numbness and tingling in bilateral upper and lower extremities. He does have a history of neuropathy and is diabetic. He did have a right foot hammertoe surgery November 2020. Following that surgery, he does feel it did improve his low back pain somewhat. The pain is worse with standing and walking and improves with sitting. Bending forward does ease the pain. The pain is described as aching and throbbing to the low back and a aching sensation to the neck. The pain is not made worse in the neck with movement. He has tried physical therapy for more than 6 weeks in the past and continues with home stretching. He has also tried anti-inflammatories in the past with minimal relief. He has not had any recent injective therapy. CC: Martina Medina APRN [facility] History I have reviewed the patient's past medical history: Yes Medical History: Reports:: Diabetes Mellitus Type 2, Gastroesophageal Reflux Disease(GERD), Hyperlipidemia, Hypertension Denies:: Cancer, Diabetes Mellitus Type 1, MRSA, Seizures *Have you ever received a pneumonia vaccine?: Yes *Have you received a flu vaccine this season?: Yes Other Medical History: Reports: Arthritis (PSORIATIC), Cataracts. Denies: Blood Transfusion Reaction Other Surgeries: Yes: No Previous Surgery, Cholecystectomy, Colonoscopy, EGD Amputation: No Fractures: No - *Social History Smoking Status: Never smoker Alcohol Intake: never Alcohol Intake Frequency:: other *Occupational Status:: retired Housing: house Household Members: none *Travel in the last 8 weeks: None Family Hx:: Cancer, Diabetes,
== END ==
PROVIDERS: Visit Provider Clinical Nurse Specialist Family Health
DX: M47.892 Other spondylosis, cervical region (principal); M54.12 Radiculopathy, cervical region; M54.50 Low back pain, unspecified; M54.16 Radiculopathy, lumbar region
CPT/HCPCS: 99202; G0463

== ENCOUNTER 2021-07-14 08:43 | Day surgery (SDC) | payer MEDICARE, OTHER, SELFPAY ==
[2021-07-14 09:00] VITALS: BP 159/95; PULSE 70; RESP 18; TEMP 36.3; O2SAT 98; BMI 36.2
[2021-07-14 09:44] VITALS: BP 137/86; PULSE 67; RESP 18; O2SAT 96
[2021-07-14 09:45] VITALS: PULSE 69; RESP 18; O2SAT 97
--- NOTE | 2021-07-14 09:59 | HMH.PMPROC ---
- Procedure Date: 07/14/21 Time: 10:04 Anesthesiologist:: Gigi Negro MD Complications:: None Pre-procedure Diagnosis:: Degenerative disc disease of the cervical spine with cervical radiculopathy symptoms Post-procedure Diagnosis:: Same Indications for Procedure:: This patient is a pleasant 56-year-old white male who we are treating for neck pain with cervical radicular symptoms. He has increasing neck pain radiating to the shoulders. We will plan on cervical epidural steroid injection today to see if this helps with his pain symptoms. Procedure Details:: Cervical epidural steroid injection under fluoroscopy Informed consent was obtained and the risks and benefits of the procedure was explained to the patient. The patient was taken to the procedure room placed prone on the procedure table. The neck was prepped using ChloraPrep. The skin and subcutaneous tissues were anesthetized using lidocaine. I placed a 18-gauge epidural needle into the C5-C6 interspace and advanced using [id number] to air and fluoroscopic guidance. After confirmation of needle placement in the epidural space with dye, I injected 3 mL's lidocaine 1.5% and Depo-Medrol 80 mg. The patient tolerated the procedure well with no complications. Plan and Disposition:: We will follow-up with him in 2 weeks. Will reevaluate symptoms at that time.
[2021-07-14 10:05] VITALS: BP 157/89; PULSE 63; RESP 20; O2SAT 98
== END 2021-07-14 10:05 | disposition home or self-care (01) ==
LOC: SC.PAINP 08:43
PROVIDERS: PCP Nurse Practitioner Family; Visit Provider Anesthesiology
DX: E78.5 Hyperlipidemia, unspecified; I10 Essential (primary) hypertension; K21.9 Gastro-esophageal reflux disease without esophagitis; E11.9 Type 2 diabetes mellitus without complications; M50.13 Cervical disc disorder with radiculopathy, cervicothoracic region
CPT/HCPCS: 62321; J1040; Q9966

== ENCOUNTER → 2021-07-31 10:03 | Outpatient (POV) | payer MEDICARE, OTHER, SELFPAY ==
[2021-07-31 10:21] VITALS: BP 138/91; PULSE 69; RESP 20; TEMP 36.6; O2SAT 96; BMI 36.2
--- NOTE | 2021-07-31 11:25 | HMH.PAINSOAP ---
[facility] Pain Management SOAP Note Subjective:: This patient is a very pleasant 56-year-old white male who presents today for follow-up. He is currently being treated for degenerative disease of the cervical spine with cervical radiculopathy. He recently underwent cervical epidural steroid injection at C5-C6 under fluoroscopy #[address] NHUNG Rodrigues on July 06, 2021 and unfortunately he states he only received 10% pain relief for a very short time. He states the pain has since returned. He continues to experience chronic neck pain that radiates into his arms. He notes very minimal shoulder pain. He is not taking any controlled substances currently. He rates his pain today is a 4 out of 10. Objective:: General: Alert and oriented x3, no acute distress, pleasant and cooperative Lungs: Resps E/U, symmetric chest expansion Eyes: PERRL Musculoskeletal: limited flexion and extension of the cervical spine secondary to pain. Deep tendon reflexes were normal in bilateral or and lower extremities. Motor exam was grossly intact in the bilateral and lower extremities, antalgic gait noted. Positive Spurling's on the right Neurological: Speech is clear, roll icer equal, no gross sensory deficits Assessment:: Degenerative disc disease of the cervical spine Cervical radiculopathy Plan:: I discussed with the patient that we will schedule him for repeat cervical epidural steroid injection under fluoroscopy at C7-T1 for better pain relief of his chronic pain symptoms. We will schedule him for the above injection to be performed in 2 to 3 weeks. [facility] #[id number] and prior drug screens were reviewed and appropriate. [facility] History Medical History: Reports:: Diabetes Mellitus Type 2, Gastroesophageal Reflux Disease(GERD), Hyperlipidemia, Hypertension Denies:: Cancer, Diabetes Mellitus Type 1, MRSA, Seizures *Have you ever received a pneumonia vaccine?: No *Have you received a flu vaccine this season?: Yes Other Medical History: Reports: Anemia, Arthritis (PSORIATIC), Cataracts. Denies: Blood Transfusion Reaction Other Surgeries: Yes: No Previous Surgery, Cholecystectomy, Colonoscopy, EGD Amputation: No Fractures: No - *Social History Smoking Status: Never smoker Alcohol Intake: never Alcohol Intake Frequency:: other *Occupational Status:: employed Housing: house Household Members: none *Travel in the last 8 weeks: None Family Hx:: Other
== END ==
PROVIDERS: Visit Provider Anesthesiology Pain Medicine
DX: M50.10 Cervical disc disorder with radiculopathy, unspecified cervical region (principal)
CPT/HCPCS: 99212; G0463

== ENCOUNTER 2021-08-22 08:47 | Outpatient (CLI) | payer MEDICARE, OTHER, SELFPAY ==
[2021-08-22] VITALS (11 sets, daily range): BP systolic 122–145; BP diastolic 70–96; PULSE 65–81; RESP 20; TEMP 36.7; O2SAT 98–99; BMI 37.3
[2021-08-22 09:16] LABS: Basophils # 0.1 K/mm3 (0-0.2); Basophils % 1.8 % (0.1-2.0); Eosinophils # 0.1 K/mm3 (0.0-0.4); Eosinophils % 1.9 % (0.1-12.0); Hematocrit 48.9 % (42.0-52.0); Hemoglobin 15.8 g/dL (14.1-18.0); Lymphocytes # 2.1 K/mm3 (0.7-4.5); Lymphocytes % 44.5 % (10-50); Mean Corpuscular HGB Conc 32.3 g/dL (31.8-35.4); Mean Corpuscular Hemoglobin 30.1 pg (27.0-31.2); Mean Corpuscular Volume 93.2 fl (80-94); Mean Platelet Volume 7.5 fl (7.4-10.4); Monocytes # 0.3 K/mm3 (0.1-1.0); Monocytes % 6.2 % (1.7-9.3); Neutrophils # 2.2 K/mm3 (1.8-7.8); Neutrophils % 45.7 % (37.0-80.0); Platelet Count 228 K/mm3 (142-424); Red Blood Count 5.25 M/mm3 (4.60-6.20); Red Cell Distribution Width 15.1 % (11.5-17.5); White Blood Count 4.7 K/mm3 (4.8-10.8)
[2021-08-22 09:24] LABS: Alanine Aminotransferase 70 U/L (12-78); Albumin Level 4.2 g/dl (3.5-5.0); Albumin/Globulin Ratio 1.4 (1.1-1.8); Alkaline Phosphatase 40 U/L (38-126); Anion Gap 11.5 mEq/L (5-15); Aspartate Amino Transferase 55 U/L (17-59); Bilirubin,Total 2.1 mg/dl (0.2-1.3); Blood Urea Nitrogen 13 mg/dl (9-20); Calcium 8.7 mg/dl (8.4-10.2); Carbon Dioxide 27 mmol/L (22.0-30.0); Chloride 99 mmol/L (98-107); Creatinine Clearance Estimated 149 mL/min (50-200); Estimated Glomerular Filt Rate 87 ml/min (>60); GFR (African American) 105 ML/MIN (>60); Globulin 2.9 g/dL (1.3-3.2); Glucose 325 mg/dl (74-100); Potassium 3.5 mmoL/L (3.5-5.1); Sodium 134 mmol/L (136-145); Total Protein,Serum 7.1 g/dl (6.3-8.2)
[2021-08-22 09:30] LABS: C-Reactive Protein 2.6 mg/L (0-4)
== END 2021-08-22 13:55 | disposition home or self-care (01) ==
LOC: INF 08:48
PROVIDERS: PCP Nurse Practitioner Family; Visit Provider Internal Medicine
DX: L40.59 Other psoriatic arthropathy (principal)
CPT/HCPCS: 80053; 85025; 86140; 96413; 96415; J1745

== ENCOUNTER 2021-08-25 08:49 | Day surgery (SDC) | payer MEDICARE, OTHER, SELFPAY ==
[2021-08-25 08:53] VITALS: BP 146/92; BP 147/90; PULSE 75; PULSE 95; RESP 18; TEMP 36.3; O2SAT 97; O2SAT 98; BMI 36.2
[2021-08-25 09:05] VITALS: BP 164/99; PULSE 72; RESP 20; O2SAT 99
[2021-08-25 09:10] VITALS: BP 150/94; PULSE 79; RESP 20; O2SAT 95
--- NOTE | 2021-08-25 09:30 | HMH.PMPROC ---
- Procedure Date: 08/25/21 Time: 09:30 Anesthesiologist:: Gigi Negro MD Complications:: None Pre-procedure Diagnosis:: Degenerative disc disease of the cervical spine with cervical radiculopathy symptoms Post-procedure Diagnosis:: Same Indications for Procedure:: Patient is a pleasant 56-year-old white male who we are treating for neck pain with cervical radicular symptoms. Most of his pain is in the neck radiating to the right shoulder and right arm. We will plan on cervical epidural steroid injection today to see if this helps with his pain symptoms. Procedure Details:: Cervical epidural steroid injection under fluoroscopy Informed consent was obtained and the risks and benefits of the procedure was explained to the patient. The patient was taken to the procedure room placed prone on the procedure table. The neck was prepped using ChloraPrep. The skin and subcutaneous tissues were anesthetized using lidocaine. I placed a 18-gauge epidural needle into the C7-T1 interspace and advanced using [id number] to air and fluoroscopic guidance. After confirmation of needle placement in the epidural space with dye, I injected 3 mL's lidocaine 1.5% and Depo-Medrol 80 mg. The patient tolerated the procedure well with no complications. Plan and Disposition:: We will follow-up with him in 2 weeks. Will reevaluate symptoms at that time.
== END 2021-08-25 09:05 | disposition home or self-care (01) ==
LOC: SC.PAINP 08:50
PROVIDERS: PCP Nurse Practitioner Family; Visit Provider Anesthesiology
DX: E78.5 Hyperlipidemia, unspecified; I10 Essential (primary) hypertension; K21.9 Gastro-esophageal reflux disease without esophagitis; E11.9 Type 2 diabetes mellitus without complications; M50.13 Cervical disc disorder with radiculopathy, cervicothoracic region
CPT/HCPCS: 62321; J1040; Q9966

== ENCOUNTER → 2021-09-21 09:14 | Outpatient (POV) | payer MEDICARE, OTHER, SELFPAY ==
[2021-09-21 09:19] VITALS: BP 153/89; PULSE 75; RESP 20; O2SAT 98; BMI 35.5
--- NOTE | 2021-09-21 10:11 | HMH.PAINSOAP ---
[facility] Pain Management SOAP Note Subjective:: Patient is a pleasant 56-year-old male who is here for a follow up after cervical epidural steroid injection on August 25, 2021. Patient is currently being treated for degenerative disc disease of the cervical and lumbar spine with cervical and lumbar radiculopathy symptoms, right hip pain. After the procedure, patients reports 80 to 90% relief that lasted for about a week and rates pain today at 4 out of 10. Patient denies any issues after the procedure. Today, patient is complaining more of pain around his right upper buttock that radiates to his right thigh and does not cross his knee. Patient states that he can tolerate his neck pain but his right hip pain is more debilitating. Patient states that he cannot tolerate any prolonged activity such as sitting, standing, and walking. He says that he has been having trouble watching dishes and doing daily tasks because of the pain. Denies any recent falls or traumas. Denies any loss of bowel and bladder functions. We have done lumbar epidural steroid injections with this patient with some relief in his low back but no relief in his right hip. He has tried physical therapy and at home exercises for greater than 6 weeks in the past with minimal relief of symptoms. [facility] number [phone] with an active morphine equivalent 0. Drug screens have been reviewed and appropriate. Review of Systems: General: No recent weight changes, no fever, no sleep disturbances Respiratory: No cough, no shortness of air, no recurring pulmonary infections Cardiovascular/peripheral vascular: No chest pain, no palpitations, no edema, no shortness of breath Gastrointestinal: No new onset incontinence, normal bowel movements reported Genitourinary: No new onset incontinence Musculoskeletal: Neck pain, low back pain, right hip pain Psychiatric: [Normal mood/affect] Neurological: [Denies weakness in extremities], [denies balance issues] Objective:: Physical Exam: General: Alert and oriented x3, no acute distress, pleasant and cooperative, [on room air] Lungs: Respirations even and unlabored, symmetrical chest expansion Eyes: PERRL Musculoskeletal: Flexion and extension of cervical and lumbar [spine] somewhat guarded secondary to pain, [antalgic gait noted]; right SI is positive for FABBY, Ashvin's, [place]'s, [place]ens[place]'s, compression, and distraction. Neurological: Speech clear, no gross sensory deficit Assessment:: Degenerative disc disease of the cervical and lumbar spine with cervical and lumbar radiculopathy symptoms Right sacroiliitis Plan:: Patient has significant relief after the cervical epidural steroid injection that lasted for about a week. He says that he started to have some neck pain back. He states that he does not need any repeat cervical epidural steroid injection at the moment. He says that his right hip pain is bothering him more. He says that he cannot tolerate any prior activity such as standing, sitting, and walking. His right SI is positive for FABBY, Ashvin's, [place]'s, [place]'s, compression, and distraction. Patient has tried physical therapy and at home exercise program in 6 weeks in the past. We will schedule the patient for a right SI injection. Risk and benefits have been discussed with the patient. Patient would like to proceed with the procedure. If patient continues to have increasing neck and low back pain. We will consider getting updated imaging of his cervical and lumbar spine. His cervical MRI in 2018 showed multilevel central canal stenosis and multiple degenerative disc changes. We can also refer this patient to neurosurgery for further evaluation. Patient is a bit hesitant in moving forward with any surgical interventions at this moment. Patient has been instructed to contact the clinic with any concerns before the next appointment. Dr. Negro has reviewed this note and agrees with this plan of care. This note was dictated
== END ==
PROVIDERS: Visit Provider Student in an Organized Health Care Education/Training Program
DX: M50.10 Cervical disc disorder with radiculopathy, unspecified cervical region (principal); M51.16 Intervertebral disc disorders with radiculopathy, lumbar region; M46.1 Sacroiliitis, not elsewhere classified
CPT/HCPCS: 99212; G0463

== ENCOUNTER 2021-09-29 08:37 | Day surgery (SDC) | payer MEDICARE, OTHER, SELFPAY ==
[2021-09-29 08:41] VITALS: BP 141/85; PULSE 70; RESP 16; TEMP 36.3; O2SAT 96; BMI 35.5
[2021-09-29 09:12] VITALS: BP 154/101; PULSE 72; RESP 20; O2SAT 93
[2021-09-29 09:13] VITALS: BP 158/101; PULSE 72; RESP 20; O2SAT 94
--- NOTE | 2021-09-29 09:17 | HMH.PMPROC ---
- Procedure Date: 09/29/21 Time: 09:17 Anesthesiologist:: Kaushal Hernandez CRNA Complications:: None Pre-procedure Diagnosis:: Right sacroiliitis Post-procedure Diagnosis:: Same Indications for Procedure:: Very pleasant 56-year-old white male that comes our clinic today for right SI joint injection. He is had some response in a positive manner to epidural injections. In the lumbar spine. However, still having some right SI joint pain. We will inject his right SI joint today. Procedure Details:: Procedure: Right sacroliliac joint injection under fluoroscopy Informed consent was obtained and the risk and benefits of the procedure were explained to the patient.~ The patient was taken to the procedure room and noninvasive monitors were placed including noninvasive blood pressure cuff and pulse oximeter.~ The patient was placed prone on the procedure table.~ The~ right hip was cleansed using Betadine as a cleansing solution.~ C-arm fluorosocpy was used to view the right SI joint.~ The skin and subcutaneous tissues were anesthetized using Lidocaine 1.5% and a 25-gauge needle.~ After this, a 22-gauge spinal needle was inserted under fluoroscopic guidance into the inferior aspect of the right SI joint.~ Omnipaque dye was injected and a good spread was seen throughout the joint.~ After this, approximately 5 mL of bupivacaine 0.25% and Depo-Medrol 40 mg was incrementally injected into the sacroiliac joint.~ The patient tolerated the procedure well with no complications.~ The patient was observed in the Pain Clinic, then discharged home neurologically intact.~ Plan and Disposition:: Patient was reevaluated 15 minutes post procedure. Patient reports significant improvement terms of right hip pain.
[2021-09-29 09:22] VITALS: BP 136/84; PULSE 67; RESP 18; O2SAT 97
== END 2021-09-29 09:23 | disposition home or self-care (01) ==
LOC: SC.PAINP 08:38
PROVIDERS: PCP Nurse Practitioner Family; Visit Provider Nurse Anesthetist, Certified Registered
DX: M46.1 Sacroiliitis, not elsewhere classified (principal); E11.9 Type 2 diabetes mellitus without complications; K21.9 Gastro-esophageal reflux disease without esophagitis; E78.5 Hyperlipidemia, unspecified; I10 Essential (primary) hypertension; D64.9 Anemia, unspecified; M19.90 Unspecified osteoarthritis, unspecified site
CPT/HCPCS: 27096; G0260; J1040

== ENCOUNTER 2021-10-03 08:42 | Outpatient (CLI) | payer MEDICARE, OTHER, SELFPAY ==
[2021-10-03] VITALS (16 sets, daily range): BP systolic 125–158; BP diastolic 69–85; PULSE 59–81; RESP 16–19; TEMP 35.9–36.6; O2SAT 97–99
== END 2021-10-03 13:35 | disposition home or self-care (01) ==
LOC: INF 08:43
PROVIDERS: PCP Nurse Practitioner Family; Visit Provider Internal Medicine
DX: L40.59 Other psoriatic arthropathy (principal)
CPT/HCPCS: 96413; 96415; J1745

== ENCOUNTER 2021-11-14 08:34 | Outpatient (CLI) | payer MEDICARE, OTHER, SELFPAY ==
[2021-11-14] VITALS (12 sets, daily range): BP systolic 135–161; BP diastolic 70–85; PULSE 56–68; RESP 14–18; TEMP 36.4–36.6; O2SAT 97–99; BMI 37.8
[2021-11-14 09:18] LABS: Basophils # 0.1 K/mm3 (0-0.2); Basophils % 2.1 % (0.1-2.0); Eosinophils # 0.1 K/mm3 (0.0-0.4); Eosinophils % 1.8 % (0.1-12.0); Hematocrit 43.5 % (42.0-52.0); Hemoglobin 15.1 g/dL (14.1-18.0); Lymphocytes # 2.1 K/mm3 (0.7-4.5); Lymphocytes % 35.9 % (10-50); Mean Corpuscular HGB Conc 34.6 g/dL (31.8-35.4); Mean Corpuscular Hemoglobin 31.8 pg (27.0-31.2); Mean Corpuscular Volume 91.9 fl (80-94); Monocytes # 0.4 K/mm3 (0.1-1.0); Monocytes % 6.4 % (1.7-9.3); Neutrophils # 3.1 K/mm3 (1.8-7.8); Neutrophils % 53.7 % (37.0-80.0); Platelet Count 177 K/mm3 (142-424); Red Blood Count 4.73 M/mm3 (4.60-6.20); Red Cell Distribution Width 14.9 % (11.5-17.5); White Blood Count 5.7 K/mm3 (4.8-10.8)
[2021-11-14 09:33] LABS: Alanine Aminotransferase 46 U/L (12-78); Albumin/Globulin Ratio 1.3 (1.1-1.8); Anion Gap 12.6 mEq/L (5-15); Aspartate Amino Transferase 64 U/L (17-59); Bilirubin,Total 2.9 mg/dl (0.2-1.3); Blood Urea Nitrogen 16 mg/dl (9-20); Calcium 8.9 mg/dl (8.4-10.2); Carbon Dioxide 26 mmol/L (22.0-30.0); Chloride 98 mmol/L (98-107); Creatinine Clearance Estimated 152 mL/min (50-200); Estimated Glomerular Filt Rate 87 ml/min (>60); GFR (African American) 105 ML/MIN (>60); Globulin 3.2 g/dL (1.3-3.2); Glucose 293 mg/dl (74-100); Potassium 4.6 mmoL/L (3.5-5.1); Sodium 132 mmol/L (136-145); Total Protein,Serum 7.2 g/dl (6.3-8.2)
[2021-11-14 09:34] LABS: Alkaline Phosphatase < 20 U/L (38-126)
[2021-11-14 09:38] LABS: C-Reactive Protein 1.3 mg/L (0-4)
== END 2021-11-14 13:21 | disposition home or self-care (01) ==
PROVIDERS: PCP Nurse Practitioner Family; Visit Provider Internal Medicine
DX: L40.50 Arthropathic psoriasis, unspecified (principal)
CPT/HCPCS: 80053; 85025; 86140; 96413; 96415; J1745

== ENCOUNTER 2021-12-26 08:51 | Outpatient (CLI) | payer MEDICARE, OTHER, SELFPAY ==
[2021-12-26] VITALS (9 sets, daily range): BP systolic 122–149; BP diastolic 71–91; PULSE 65–80; RESP 18; O2SAT 96
== END 2021-12-26 13:13 | disposition home or self-care (01) ==
LOC: INF 08:52
PROVIDERS: PCP Nurse Practitioner Family; Visit Provider Nurse Practitioner Family
DX: L40.59 Other psoriatic arthropathy (principal)
CPT/HCPCS: 96413; 96415; J1745

== ENCOUNTER 2022-02-06 08:40 | Outpatient (CLI) | payer MEDICARE, OTHER, SELFPAY ==
[2022-02-06] VITALS (11 sets, daily range): BP systolic 127–152; BP diastolic 72–90; PULSE 65–88; RESP 18; TEMP 36.4; O2SAT 96–97; BMI 36.6
[2022-02-06 09:09] LABS: Basophils # 0.1 K/mm3 (0-0.2); Basophils % 1.3 % (0.1-2.0); Eosinophils # 0.1 K/mm3 (0.0-0.4); Eosinophils % 2.1 % (0.1-12.0); Hematocrit 51.6 % (42.0-52.0); Hemoglobin 15.8 g/dL (14.1-18.0); Lymphocytes % 40.5 % (10-50); Mean Corpuscular HGB Conc 30.5 g/dL (31.8-35.4); Mean Corpuscular Hemoglobin 29.1 pg (27.0-31.2); Mean Corpuscular Volume 95.5 fl (80-94); Mean Platelet Volume 7.8 fl (7.4-10.4); Monocytes # 0.3 K/mm3 (0.1-1.0); Monocytes % 6.7 % (1.7-9.3); Neutrophils # 2.4 K/mm3 (1.8-7.8); Neutrophils % 49.4 % (37.0-80.0); Platelet Count 190 K/mm3 (142-424); Red Blood Count 5.41 M/mm3 (4.60-6.20); Red Cell Distribution Width 14.2 % (11.5-17.5); White Blood Count 4.8 K/mm3 (4.8-10.8)
[2022-02-06 09:12] LABS: Chloride 98 mmol/L (98-107); Sodium 135 mmol/L (136-145)
[2022-02-06 09:13] LABS: Potassium 3.5 mmoL/L (3.5-5.1)
[2022-02-06 09:15] LABS: Alanine Aminotransferase 57 U/L (12-78); Albumin Level 4.2 g/dl (3.5-5.0); Albumin/Globulin Ratio 1.4 (1.1-1.8); Alkaline Phosphatase 47 U/L (38-126); Anion Gap 9.5 mEq/L (5-15); Aspartate Amino Transferase 46 U/L (17-59); Bilirubin,Total 2.6 mg/dl (0.2-1.3); Blood Urea Nitrogen 14 mg/dl (9-20); Carbon Dioxide 31 mmol/L (22.0-30.0); Creatinine Clearance Estimated 145 mL/min (50-200); Estimated Glomerular Filt Rate 86 ml/min (>60); GFR (African American) 105 ML/MIN (>60); Globulin 3.1 g/dL (1.3-3.2); Total Protein,Serum 7.3 g/dl (6.3-8.2)
[2022-02-06 09:16] LABS: Calcium 8.7 mg/dl (8.4-10.2); Glucose 266 mg/dl (74-100)
[2022-02-06 09:28] LABS: C-Reactive Protein 1.3 mg/L (0-4)
== END 2022-02-06 13:10 | disposition home or self-care (01) ==
PROVIDERS: PCP Nurse Practitioner Family; Visit Provider Internal Medicine
DX: L40.59 Other psoriatic arthropathy (principal)
CPT/HCPCS: 80053; 85025; 86140; 96413; 96415; J1745

== ENCOUNTER 2022-03-21 08:38 | Outpatient (CLI) | payer MEDICARE, OTHER, SELFPAY ==
[2022-03-21] VITALS (11 sets, daily range): BP systolic 123–141; BP diastolic 62–85; PULSE 65–78; RESP 18; TEMP 36.4; O2SAT 97–98
== END 2022-03-21 13:10 | disposition home or self-care (01) ==
LOC: INF 08:39
PROVIDERS: PCP Nurse Practitioner Family; Visit Provider Nurse Practitioner Family
DX: L40.59 Other psoriatic arthropathy (principal)
CPT/HCPCS: 96413; 96415; J1745

== ENCOUNTER 2022-04-10 14:53 | Emergency (ER) | payer MEDICARE, OTHER, SELFPAY ==
--- NOTE | 2022-04-10 15:55 | EXP.UTC ---
Discharge Plan Disposition Patient Disposition: Home, Self-Care Condition: Good Prescriptions Prescriptions: No Action Remicade 100 mg recon soln 1,200 mg IV DIRECTED Rx Instructions: infusion every 6 weeks hydrochlorothiazide 25 mg tablet 25 mg PO DAILY 30 Days Qty: 30 atenolol 100 mg tablet 100 mg PO DAILY 30 Days Qty: 60 diclofenac sodium [Voltaren] 1 % gel 4 g Topical QID Qty: 30 2RF Rx Instructions: apply to single knee, ankle, foot; gently massage into area; for foot includes sole/toes/top of foot metformin 500 MG tablet 1,000 mg PO BID glyburide 5 tablet 5 mg PO BID gabapentin 400 capsule 400 mg PO DAILY PRN (Reason: neuropathy) simvastatin 10 tablet 10 mg PO DAILY amlodipine 10 MG tablet 5 mg PO DAILY clonidine HCl 0.1 MG tablet 0.1 mg PO DAILY losartan-hydrochlorothiazide 1 EACH tablet 1 each PO DAILY tramadol 50 MG tablet 50 mg PO NEEDED PRN (Reason: Moderate Pain) tamsulosin 0.4 MG capsule 0.4 mg PO BID Referrals Follow up/Referrals: Provider,Referral, MD [Primary Care Provider] - See instructions Activity Restrictions/Add. Instructions Additional Instructions/Restrictions: Go home and quarantine until test results back Further instructions per the Health Dept make sure to stay in contact with them Follow up with your Family Doctor if needed Straight to ER if any life threatening symptoms Monkeypox is usually a self-limited disease with symptoms lasting from two weeks to four weeks. Most people with monkeypox get better on their own without treatment. There?s currently not an approved antiviral treatment for monkeypox Make sure to drink plenty of fluids to keep yourself hydrated Monkeypox normally takes about two weeks to four weeks to run its course Clinical Impressions Clinical Impression: Skin problem Discharge ED Provider: Carmenza Palencia [facility] HPI General Stated complaint: MonkeyPox test Time Seen by Provider: 04/10/22 15:55 History of Present Illness Provider Complaint: Patient states that he was recently around a friend that told him that they thought he had Monkey Pox States that he had the vaccine the other day but noticed he was starting to have some areas of break out on both his arms States that Health Dept told him that he needed to come in and get tested Related Data Home Medications Medication Instructions Recorded Confirmed amlodipine 10 mg tablet 5 mg PO DAILY High blood pressure 02/03/18 03/21/22 gabapentin 400 mg capsule 400 mg PO DAILY PRN neuropathy 02/03/18 03/21/22 glyburide 5 mg tablet 5 mg PO BID Diabetes 02/03/18 03/21/22 metformin 500 mg tablet 1,000 mg PO BID Diabetes 02/03/18 03/21/22 simvastatin 10 mg tablet 10 mg PO DAILY High cholesterol 02/03/18 03/21/22 atenolol 100 mg tablet 100 mg PO DAILY bp 30 days #60 tabs 02/24/18 03/21/22 hydrochlorothiazide 25 mg tablet 25 mg PO DAILY Fluid 30 days #30 02/24/18 03/21/22 tabs infliximab 100 mg intravenous 1,200 mg IV DIRECTED Psoriatic 02/24/18 03/21/22 solution (Remicade) Arthritis clonidine HCl 0.1 mg tablet 0.1 mg PO DAILY blood pressure 10/07/19 03/21/22 losartan 100 1 each PO DAILY blood pressure 10/07/19 03/21/22 mg-hydrochlorothiazide 25 mg tablet tramadol 50 mg tablet 50 mg PO NEEDED PRN Moderate 10/07/19 03/21/22 Pain tamsulosin 0.4 mg capsule 0.4 mg PO BID urine output 11/14/21 03/21/22 Previous Rx's Medication Instructions Recorded diclofenac sodium 1 % topical gel 4 g Topical QID pain ##30 02/24/18 (Voltaren) Allergies Allergy/AdvReac Type Severity Reaction Status Date / Time No Known Allergies Allergy Verified 04/10/22 16:26 [facility] Medical History Bilateral cataracts Diabetes mellitus Gallbladder disease GERD (gastroesophageal reflux disease) HLD (hyperlipidemia) HTN (hypertension) Neuropathy Normal colonos
[2022-04-10 16:00] VITALS: BP 120/66; PULSE 75; RESP 16; TEMP 36.6; O2SAT 97; BMI 40.3
[2022-04-10 16:39] VITALS: BP 120/66; PULSE 75; RESP 16; TEMP 36.6
[2022-04-23 09:09] LABS: Monkeypox PCR Inconclusive
== END 2022-04-10 16:39 | disposition home or self-care (01) ==
PROVIDERS: Emergency Provider Nurse Practitioner; PCP Nurse Practitioner Family
DX: L98.9 Disorder of the skin and subcutaneous tissue, unspecified (principal)
CPT/HCPCS: 87593; 99212; G0463

== ENCOUNTER 2022-05-02 08:51 | Outpatient (CLI) | payer MEDICARE, OTHER, SELFPAY ==
[2022-05-02] VITALS (8 sets, daily range): BP systolic 118–148; BP diastolic 67–94; PULSE 68–82; RESP 18; TEMP 36.3; O2SAT 97–99; BMI 36.7
[2022-05-02 09:31] LABS: Basophils # 0.1 K/mm3 (0-0.2); Eosinophils # 0.1 K/mm3 (0.0-0.4); Eosinophils % 1.9 % (0.1-12.0); Hematocrit 45.9 % (42.0-52.0); Hemoglobin 15.4 g/dL (14.1-18.0); Lymphocytes # 1.9 K/mm3 (0.7-4.5); Lymphocytes % 33.8 % (10-50); Mean Corpuscular HGB Conc 33.4 g/dL (31.8-35.4); Mean Corpuscular Hemoglobin 30.3 pg (27.0-31.2); Mean Corpuscular Volume 90.5 fl (80-94); Mean Platelet Volume 7.8 fl (7.4-10.4); Monocytes # 0.3 K/mm3 (0.1-1.0); Monocytes % 4.7 % (1.7-9.3); Neutrophils # 3.2 K/mm3 (1.8-7.8); Neutrophils % 58.4 % (37.0-80.0); Platelet Count 203 K/mm3 (142-424); Red Blood Count 5.07 M/mm3 (4.60-6.20); Red Cell Distribution Width 15.1 % (11.5-17.5); White Blood Count 5.5 K/mm3 (4.8-10.8)
[2022-05-02 09:34] LABS: Chloride 94 mmol/L (98-107); Potassium 3.4 mmoL/L (3.5-5.1); Sodium 136 mmol/L (136-145)
[2022-05-02 09:36] LABS: Alanine Aminotransferase 62 U/L (12-78); Alkaline Phosphatase 52 U/L (38-126); Aspartate Amino Transferase 52 U/L (17-59); Bilirubin,Total 2.5 mg/dl (0.2-1.3); Blood Urea Nitrogen 13 mg/dl (9-20); Creatinine Clearance Estimated 131 mL/min (50-200); Estimated Glomerular Filt Rate 76 ml/min (>60); GFR (African American) 93 ML/MIN (>60)
[2022-05-02 09:37] LABS: Albumin Level 4.1 g/dl (3.5-5.0); Albumin/Globulin Ratio 1.4 (1.1-1.8); Anion Gap 16.4 mEq/L (5-15); Calcium 9.5 mg/dl (8.4-10.2); Carbon Dioxide 29 mmol/L (22.0-30.0); Glucose 359 mg/dl (74-100); Total Protein,Serum 7.1 g/dl (6.3-8.2)
== END 2022-05-02 13:40 | disposition home or self-care (01) ==
LOC: INF 08:53
PROVIDERS: PCP Nurse Practitioner Family; Visit Provider Nurse Practitioner Family
DX: L40.59 Other psoriatic arthropathy (principal)
CPT/HCPCS: 80053; 85025; 86140; 96413; 96415; J1745

== ENCOUNTER 2022-06-13 08:36 | Outpatient (CLI) | payer MEDICARE, OTHER, SELFPAY ==
[2022-06-13] VITALS (12 sets, daily range): BP systolic 137–155; BP diastolic 68–89; PULSE 72–91; RESP 18–20; TEMP 36.4; O2SAT 97–98
== END 2022-06-13 13:05 | disposition home or self-care (01) ==
LOC: INF 08:37
PROVIDERS: PCP Nurse Practitioner Family; Visit Provider Nurse Practitioner Family
DX: L40.59 Other psoriatic arthropathy (principal)
CPT/HCPCS: 96413; 96415; J1745

== ENCOUNTER 2022-07-25 08:43 | Outpatient (CLI) | payer MEDICARE, OTHER, SELFPAY ==
[2022-07-25] VITALS (11 sets, daily range): BP systolic 127–141; BP diastolic 64–82; PULSE 65–91; RESP 18; TEMP 36.4; O2SAT 97–98; BMI 36.7
[2022-07-25 09:30] LABS: Basophils # 0.1 K/mm3 (0-0.2); Basophils % 1.3 % (0.1-2.0); Eosinophils # 0.2 K/mm3 (0.0-0.4); Eosinophils % 2.3 % (0.1-12.0); Hematocrit 48.6 % (42.0-52.0); Hemoglobin 16.1 g/dL (14.1-18.0); Lymphocytes # 2.7 K/mm3 (0.7-4.5); Lymphocytes % 41.1 % (10-50); Mean Corpuscular HGB Conc 33.1 g/dL (31.8-35.4); Mean Corpuscular Hemoglobin 29.8 pg (27.0-31.2); Mean Corpuscular Volume 90.1 fl (80-94); Mean Platelet Volume 7.2 fl (7.4-10.4); Monocytes # 0.4 K/mm3 (0.1-1.0); Monocytes % 6.7 % (1.7-9.3); Neutrophils # 3.1 K/mm3 (1.8-7.8); Neutrophils % 48.5 % (37.0-80.0); Platelet Count 227 K/mm3 (142-424); Red Blood Count 5.39 M/mm3 (4.60-6.20); Red Cell Distribution Width 14.3 % (11.5-17.5); White Blood Count 6.5 K/mm3 (4.8-10.8)
[2022-07-25 09:35] LABS: Alanine Aminotransferase 58 U/L (12-78); Albumin Level 4.5 g/dl (3.5-5.0); Albumin/Globulin Ratio 1.4 (1.1-1.8); Alkaline Phosphatase 44 U/L (38-126); Anion Gap 12.4 mEq/L (5-15); Aspartate Amino Transferase 49 U/L (17-59); Bilirubin,Total 2.3 mg/dl (0.2-1.3); Blood Urea Nitrogen 19 mg/dl (9-20); Calcium 9.9 mg/dl (8.4-10.2); Carbon Dioxide 29 mmol/L (22.0-30.0); Chloride 100 mmol/L (98-107); Creatinine Clearance Estimated 109 mL/min (50-200); Estimated Glomerular Filt Rate 62 ml/min (>60); GFR (African American) 75 ML/MIN (>60); Globulin 3.2 g/dL (1.3-3.2); Glucose 223 mg/dl (74-100); Potassium 3.4 mmoL/L (3.5-5.1); Sodium 138 mmol/L (136-145); Total Protein,Serum 7.7 g/dl (6.3-8.2)
[2022-07-25 09:40] LABS: C-Reactive Protein 1.7 mg/L (0-4)
== END 2022-07-25 13:48 | disposition home or self-care (01) ==
LOC: INF 08:43
PROVIDERS: PCP Nurse Practitioner Family; Visit Provider Nurse Practitioner Family
DX: L40.59 Other psoriatic arthropathy (principal)
CPT/HCPCS: 80053; 85025; 86140; 96413; 96415; J1745

== ENCOUNTER 2022-09-05 08:42 | Outpatient (CLI) | payer MEDICARE, OTHER, SELFPAY ==
[2022-09-05] VITALS (11 sets, daily range): BP systolic 112–134; BP diastolic 67–84; PULSE 70–85; RESP 18; TEMP 36.4; O2SAT 97–99
== END 2022-09-05 13:05 | disposition home or self-care (01) ==
LOC: INF 08:43
PROVIDERS: PCP Nurse Practitioner Family; Visit Provider Nurse Practitioner Family
DX: L40.59 Other psoriatic arthropathy (principal)
CPT/HCPCS: 96413; 96415; J1745

== ENCOUNTER 2022-10-17 08:41 | Outpatient (CLI) | payer MEDICARE, OTHER, SELFPAY ==
[2022-10-17] VITALS (12 sets, daily range): BP systolic 110–127; BP diastolic 59–73; PULSE 61–78; RESP 18; O2SAT 98; BMI 35.7
[2022-10-17 09:04] LABS: Basophils % 0.8 % (0.1-2.0); Eosinophils # 0.1 K/mm3 (0.0-0.4); Eosinophils % 2.2 % (0.1-12.0); Hematocrit 44.1 % (42.0-52.0); Hemoglobin 14.4 g/dL (14.1-18.0); Lymphocytes # 2.4 K/mm3 (0.7-4.5); Mean Corpuscular HGB Conc 32.7 g/dL (31.8-35.4); Mean Corpuscular Hemoglobin 29.6 pg (27.0-31.2); Mean Corpuscular Volume 90.6 fl (80-94); Mean Platelet Volume 7.3 fl (7.4-10.4); Monocytes # 0.3 K/mm3 (0.1-1.0); Monocytes % 5.7 % (1.7-9.3); Neutrophils # 2.6 K/mm3 (1.8-7.8); Neutrophils % 47.3 % (37.0-80.0); Platelet Count 173 K/mm3 (142-424); Red Blood Count 4.87 M/mm3 (4.60-6.20); Red Cell Distribution Width 14.5 % (11.5-17.5); White Blood Count 5.5 K/mm3 (4.8-10.8)
[2022-10-17 09:09] LABS: Chloride 95 mmol/L (98-107); Sodium 137 mmol/L (136-145)
[2022-10-17 09:10] LABS: Potassium 3.1 mmoL/L (3.5-5.1)
[2022-10-17 09:12] LABS: Alanine Aminotransferase 44 U/L (12-78); Albumin/Globulin Ratio 1.3 (1.1-1.8); Alkaline Phosphatase 37 U/L (38-126); Anion Gap 16.1 mEq/L (5-15); Aspartate Amino Transferase 40 U/L (17-59); Bilirubin,Total 2.1 mg/dl (0.2-1.3); Blood Urea Nitrogen 20 mg/dl (9-20); Carbon Dioxide 29 mmol/L (22.0-30.0); Creatinine Clearance Estimated 116 mL/min (50-200); Estimated Glomerular Filt Rate 69 ml/min (>60); GFR (African American) 83 ML/MIN (>60); Globulin 3.2 g/dL (1.3-3.2); Total Protein,Serum 7.2 g/dl (6.3-8.2)
[2022-10-17 09:13] LABS: Calcium 8.7 mg/dl (8.4-10.2); Glucose 197 mg/dl (74-100)
[2022-10-17 09:18] LABS: C-Reactive Protein 1.4 mg/L (0-4)
== END 2022-10-17 12:57 | disposition home or self-care (01) ==
LOC: INF 08:42
PROVIDERS: PCP Nurse Practitioner Family; Visit Provider Nurse Practitioner Family
DX: L40.59 Other psoriatic arthropathy (principal)
CPT/HCPCS: 80053; 85025; 86140; 96413; 96415; J1745

== ENCOUNTER 2022-11-28 08:46 | Outpatient (CLI) | payer MEDICARE, OTHER, SELFPAY ==
[2022-11-28] VITALS (14 sets, daily range): BP systolic 125–145; BP diastolic 70–83; PULSE 58–77; RESP 16; TEMP 36.1; O2SAT 96; BMI 35.7
== END 2022-11-28 13:15 | disposition home or self-care (01) ==
PROVIDERS: PCP Nurse Practitioner Family; Visit Provider Nurse Practitioner Family
DX: L40.59 Other psoriatic arthropathy (principal)
CPT/HCPCS: 96413; 96415; J1745

== ENCOUNTER → 2022-12-03 14:48 | Outpatient (POV) | payer MEDICARE, OTHER, SELFPAY ==
[2022-12-03 15:31] VITALS: BP 134/86; PULSE 74; RESP 18; BMI 34.2
--- NOTE | 2022-12-03 15:36 | XR_ITS ---
FINAL REPORT TECHNIQUE: 5 views CLINICAL HISTORY: LBP x yrs, Rt sided radiating down leg. Worsened recently. NKT FINDINGS: There is no fracture present. There is no malalignment. There are moderate anterior osteophytes present at multiple levels with preservation of the disc spaces. IMPRESSION: No acute process. Moderate anterior osteophytes present at multiple levels with preservation of disc space height. Reviewed, Interpreted and Dictated by Moses Headley MD Transcribed by Zita Wakefield Authenticated and . [facility]
--- NOTE | 2022-12-03 15:36 | XR_ITS ---
FINAL REPORT CLINICAL HISTORY: Cervical pain x yrs, NKT worsened x last several mos. Rt sided. COMPARISON: None FINDINGS: CERVICAL SPINE 5 views were obtained. There is no acute fracture or malalignment. Inter-vertebral disc and vertebral body heights are preserved. There neuroforamen are adequately patent. Cervical lordosis is preserved. Facet joints are properly aligned. There is mild anterior osteophyte formation at C4-5 and C5-6. No significant degenerative changes are present. IMPRESSION: No acute process. Reviewed, Interpreted and Dictated by Moses Headley MD Transcribed by Becky Smith Authenticated and . [facility]
--- NOTE | 2022-12-03 15:45 | EXP.PAIN.OV ---
HPI Data of Consult Patient: known to practice within the last 3 years Consult date: 12/03/22 Requesting Physician: Sheba Clayton APRN Primary Care Provider: Swathi Patino Consult Narrative Reason for consult: Neck pain, low back pain, right hip pain History of present illness: Mr. Knapp is a 57 year old male who presents today as a new patient. Patient was referred from Swathi Patino's office. Patient was previously a patient of ours with his last visit around September of last year. Patient rates his pain today a 4 out of 10. He states his pain is all at his neck with radiating symptoms to his bilateral shoulders and low back pain that radiates to his right hip. Patient denies any new trauma or injury since his last visit from our office. He states his pain has been going on for some time and has progressively worsened since. Patient did previously get multiple injections including lumbar epidurals and SI injections that did provide significant relief. Patient does state that his neck pain is a constant toothache like sensation however it is not as bad as his low back pain that is a constant aching, throbbing sensation that is worse with increased activity. Patient has tried dxhd-oea-bypatli medications along with heat and ice and topicals with minimal relief. Patient denies any recent imaging. Patient is interested in repeating injective therapy. Patient does just use coba-exd-auwatdl medications at this time. He does state he has a significant health history including diabetes, psoriatic arthritis as well as osteoarthritis. He states he does get Remicade infusions. He is not on any scheduled medications his Carroll is [phone]. Its been reviewed and appropriate. CC: Sheba Clayton APRN [facility] Disclaimer: The information contained in this section may have been updated after the patient was seen, as this information can be updated by other users. Medical History (Updated 12/03/22 @ 15:50 by Sheba Clayton APRN) Bilateral cataracts Diabetes mellitus Gallbladder disease GERD (gastroesophageal reflux disease) HLD (hyperlipidemia) HTN (hypertension) Neuropathy Normal colonoscopy Psoriatic arthritis Surgical History H/O prostate biopsy History of esophagogastroduodenoscopy (EGD) S/P foot surgery, right Family History Other Cancer Diabetes Heart attack Hyperlipidemia Hypertension Stroke Social History (Updated 12/03/22 @ 15:32 by Sara Christianson RN) Smoking Status: Never smoker second hand exposure: No alcohol intake: never current occupational status: retired Travel in the last 8 weeks: None household members: none housing: house lives independently: Yes marital status: single number of children: 0 education level: college service: No group home: No caffeine: Yes Review of Systems Review of Systems Review of systems:: pertinent systems reviewed and negative unless documented below Review of systems (narrative): Review of Systems: General: No recent weight changes, no fever, no sleep disturbances Respiratory: No cough, no shortness of air, no recurring pulmonary infections Cardiovascular/peripheral vascular: No chest pain, no palpitations, no edema, no shortness of breath Gastrointestinal: No new onset incontinence, normal bowel movements reported Genitourinary: No new onset incontinence Musculoskeletal: Neck pain, low back pain, right hip pain Psychiatric: [Normal mood/affect] Neurological: [Denies weakness in extremities], [denies balance issues] Meds Home Medications and Allergies Home Medications Medication Instructions Recorded Confirmed Type amlodipine 10 mg tablet 5 mg PO DAILY High blood pressure 02/03/18 12/03/22 History gabapentin 400 mg capsule 400 mg PO DAILY PRN neuropathy 02/03/18 12/03/22 History glyburide 5 mg tablet 5 mg PO BID Sol
== END ==
PROVIDERS: PCP Nurse Practitioner Family; Visit Provider Nurse Practitioner Family
DX: M47.22 Other spondylosis with radiculopathy, cervical region (principal); M54.50 Low back pain, unspecified; M25.551 Pain in right hip; M51.16 Intervertebral disc disorders with radiculopathy, lumbar region
CPT/HCPCS: 72050; 72110; 99202; 99212; G0463

== ENCOUNTER → 2022-12-03 15:31 | Outpatient (CLI) | payer MEDICARE, OTHER, SELFPAY | PROVIDERS: PCP Nurse Practitioner Family; Visit Provider Anesthesiology | DX: M54.2 Cervicalgia (principal); M54.50 Low back pain, unspecified ==

== ENCOUNTER → 2022-12-14 13:02 | Outpatient (CLI) | payer MEDICARE, OTHER, SELFPAY ==
--- NOTE | 2022-12-14 13:05 | MR_ITS ---
FINAL REPORT CLINICAL HISTORY: NECK AND LOW BACK PAIN. right sided low back pain. numbness in right leg and foot FINDINGS: Multiplanar MR imaging of the lumbar spine was performed without contrast. On the sagittal T2-weighted images, disc degeneration is seen throughout. Mild endplate changes and Schmorl's nodes are seen at multiple levels. The vertebral alignment is normal. There is no evidence of fracture. No bony mass is identified. The conus is seen at approximately the L1 level and has an unremarkable appearance. T12-L1: Annular disc bulge with facet arthropathy and osteophytes. There is mild bilateral neuroforaminal narrowing. L1-2: Annular disc bulge with facet arthropathy and osteophytes with mild right and moderate left neuroforaminal narrowing. There is mild central canal stenosis with AP diameter of the thecal sac measuring 9 mm. L2-3: Annular disc bulge with facet arthropathy and osteophytes with mild bilateral neuroforaminal narrowing. There is mild central canal stenosis with AP diameter of the thecal sac measuring 9 mm. L3-4: Annular disc bulge with facet arthropathy and osteophytes. There is mild right and moderate left neuroforaminal narrowing. There is moderate central canal stenosis with AP diameter of the thecal sac measuring 5 mm. L4-5: Annular disc bulge with facet arthropathy and osteophytes with moderate bilateral neuroforaminal narrowing. There is mild central canal stenosis with AP diameter of the thecal sac measuring 8 mm. L5-S1: Annular disc bulge with right paracentral annular tear and disc protrusion resulting in right S1 nerve root impingement. There is severe right and moderate left neuroforaminal narrowing. IMPRESSION: Multilevel degenerative disc disease with mild to moderate central canal stenosis at L1-2 through L4-5. Right paracentral annular tear and disc protrusion at L5-S1 resulting in right S1 nerve root impingement and severe right neuroforaminal narrowing. Reviewed, Interpreted and Dictated by Newton Nino III, MD Transcribed by Maddie Dubon Authenticated and [facility][1]
--- NOTE | 2022-12-14 13:05 | MR_ITS ---
FINAL REPORT CLINICAL HISTORY: NECK AND LOW BACK PAIN. neck pain worse on the right side. right arm pain, numbness and tingling. COMPARISON: 05/14/2018 FINDINGS: Multiplanar MR imaging of the cervical spine was performed without contrast. On the sagittal T2-weighted images, disc degeneration is seen throughout. There is no evidence of fracture. The vertebral alignment is normal. There is a hemangioma noted in T1. The cervical spinal cord has an unremarkable appearance without evidence of mass, edema or syrinx. The cervicomedullary junction is normal. C2-3: Uncovertebral osteophytes with small right paracentral disc protrusion. C3-4: Annular disc bulge and right paracentral disc protrusion which indents the thecal sac. There is moderate right and mild left neuroforaminal narrowing. There is mild central canal stenosis with AP diameter of the thecal sac measuring 9 mm. C4-5: Annular disc bulge and uncovertebral osteophytes. A central disc protrusion is seen resulting in cord contouring. There is moderate central canal stenosis with AP diameter of the thecal sac measuring 6 mm. There is moderate right and mild left neuroforaminal narrowing. C5-6: Disc osteophyte complex and right paracentral disc protrusion with probable right C6 nerve root impingement. There is severe right and moderate left neuroforaminal narrowing. There is mild central canal stenosis with AP diameter of the thecal sac measuring 8 mm. C6-7: Small central disc protrusion with severe right and moderate left neuroforaminal narrowing. There is mild central canal stenosis with AP diameter of the thecal sac measuring 8 mm. C7-T1: There are uncovertebral osteophytes without significant canal stenosis or neural foraminal narrowing. IMPRESSION: Multilevel degenerative disc disease with central disc fusion at L4-5 resulting in cord contouring and moderate central canal stenosis. Reviewed, Interpreted and Dictated by Newton Nino III, MD Transcribed by Maddie Dubon Authenticated and [facility]
== END ==
PROVIDERS: PCP Nurse Practitioner Family; Visit Provider Nurse Practitioner Family
DX: M54.50 Low back pain, unspecified (principal); M54.2 Cervicalgia
CPT/HCPCS: 72141; 72148; 76376

== ENCOUNTER → 2022-12-24 09:02 | Outpatient (POV) | payer MEDICARE, OTHER, SELFPAY ==
[2022-12-24 09:12] VITALS: BP 134/78; PULSE 68; RESP 18; O2SAT 97; BMI 34.2
--- NOTE | 2022-12-24 09:14 | EXP.PAIN.SOA ---
[facility] Pain Management SOAP Note Subjective:: Patient is a pleasant 57-year-old male who presents today for MRI follow-up of his cervical and lumbar spine. We are currently treating the patient for degenerative disc disease of lumbar spine with lumbar radiculopathy symptoms, chronic pain syndrome, low back pain, right hip pain. Today he rates his pain a 6 out of 10. Patient denies any new trauma or injury. Patient denies any change location or type of pain he experiences. He does continue to have low back pain with radiating symptoms into his lower extremities and does describe this as an aching, throbbing sensation that is worse with increased activity. Patient does state that his symptoms are worse into the right leg compared to the left. Patient does state the pain interferes with his ability perform activities of daily living such as cooking and cleaning. He also has neck pain with radiating symptoms into his upper arms. He does state that his neck pain is not as bothersome as his low back pain. He has tried frlp-nkw-dafoiea Tylenol and ibuprofen along with heat and ice and topicals with minimal relief. In the past he has had lumbar epidurals that did provide significant improvement of more than 50% lasting several months. Patient does state he was also given previously tramadol 1 to 2 tablets at night and that this did help. He does have a history of diabetes, psoriatic arthritis and osteoarthritis. Patient is not on any scheduled medications. His Carroll is [phone]. Its been reviewed and appropriate. Review of Systems: General: No recent weight changes, no fever, no sleep disturbances Respiratory: No cough, no shortness of air, no recurring pulmonary infections Cardiovascular/peripheral vascular: No chest pain, no palpitations, no edema, no shortness of breath Gastrointestinal: No new onset incontinence, normal bowel movements reported Genitourinary: No new onset incontinence Musculoskeletal: Low back pain, bilateral leg pain Psychiatric: [Normal mood/affect] Neurological: [Denies weakness in extremities], [denies balance issues] Objective:: Physical Exam: General: Alert and oriented x3, no acute distress, pleasant and cooperative Lungs: Respirations even and unlabored, symmetrical chest expansion Eyes: PERRL Musculoskeletal: Flexion and extension of lumbar [spine] somewhat guarded secondary to pain, [antalgic gait noted] Neurological: Speech clear, no gross sensory deficit FINAL REPORT CLINICAL HISTORY: NECK AND LOW BACK PAIN. right sided low back pain. numbness in right leg and foot FINDINGS: Multiplanar MR imaging of the lumbar spine was performed without contrast. On the sagittal T2-weighted images, disc degeneration is seen throughout. Mild endplate changes and Schmorl's nodes are seen at multiple levels. The vertebral alignment is normal. There is no evidence of fracture. No bony mass is identified. The conus is seen at approximately the L1 level and has an unremarkable appearance. T12-L1: Annular disc bulge with facet arthropathy and osteophytes. There is mild bilateral neuroforaminal narrowing. L1-2: Annular disc bulge with facet arthropathy and osteophytes with mild right and moderate left neuroforaminal narrowing. There is mild central canal stenosis with AP diameter of the thecal sac measuring 9 mm. L2-3: Annular disc bulge with facet arthropathy and osteophytes with mild bilateral neuroforaminal narrowing. There is mild central canal stenosis with AP diameter of the thecal sac measuring 9 mm. L3-4: Annular disc bulge with facet arthropathy and osteophytes. There is mild right and moderate left neuroforaminal narrowing. There is moderate central canal stenosis with AP diameter of the thecal sac measuring 5 mm. L4-5: Annular disc bulge with facet arthropathy and osteophytes with moderate bilateral neuroforaminal narrowing. There is mild central canal stenosis with AP diameter of the thecal sac measuring 8 mm.
== END | disposition home or self-care (01) ==
PROVIDERS: PCP Nurse Practitioner Family; Visit Provider Nurse Practitioner Family
DX: M50.10 Cervical disc disorder with radiculopathy, unspecified cervical region (principal); M51.16 Intervertebral disc disorders with radiculopathy, lumbar region; M48.02 Spinal stenosis, cervical region; M48.061 Spinal stenosis, lumbar region without neurogenic claudication; M47.26 Other spondylosis with radiculopathy, lumbar region; M25.551 Pain in right hip
CPT/HCPCS: 99212; G0463

== ENCOUNTER 2023-01-02 08:56 | Outpatient (CLI) | payer MEDICARE, OTHER, SELFPAY ==
[2023-01-02] VITALS (11 sets, daily range): BP systolic 145–170; BP diastolic 73–93; PULSE 60–82; RESP 18; O2SAT 97
== END 2023-01-02 13:24 | disposition home or self-care (01) ==
LOC: INF 08:56
PROVIDERS: PCP Nurse Practitioner Family; Visit Provider Nurse Practitioner Family
DX: L40.59 Other psoriatic arthropathy (principal)
CPT/HCPCS: 96413; 96415; J1745

== ENCOUNTER 2023-01-08 08:01 | Day surgery (SDC) | payer MEDICARE, OTHER, SELFPAY ==
[2023-01-08 08:18] VITALS: BP 135/76; PULSE 66; RESP 18; TEMP 36.1; O2SAT 96; BMI 33.5
[2023-01-08 09:04] VITALS: BP 161/79; PULSE 64; RESP 20
--- NOTE | 2023-01-08 09:12 | EXP.PAIN.PRO ---
Procedure Date: 01/08/23 Time: 09:00 Anesthesiologist:: Kaushal Hernandez CRNA Complications:: None Pre-procedure Diagnosis:: Degenerative disc lumbar spine multilevels. Lumbar radiculopathy. Lumbar spondylosis. Multilevel lumbar facet arthropathy. Lumbar radiculopathy Post-procedure Diagnosis:: Same. Indications for Procedure:: Patient is a very pleasant 57-year-old male that comes to our clinic today for lumbar epidural steroid injection at the L5-S1 level. Patient has had this injection in the past with significant improvement terms of his overall low back pain as well as bilateral hip and leg radicular symptoms. Patient rates his pain today 7/10. Procedure Details:: Procedure: Lumbar epidural steroid injection under fluoroscopy Informed consent was obtained and the risks and benefits of the procedure were explained to the patient. The patient was taken to the procedure room and noninvasive monitors placed, including noninvasive blood pressure cuff and pulse oximeter. The back was viewed using C-arm Fluoroscopy and prepped using Chloraprep as a cleansing solution and the L4-L5 interspace was palpated. Skin and subcutaneous tissues were anesthetized using lidocaine 1.5% and a 25-gauge needle. After this, an 18-gauge Touhy epidural needle was placed into the L4-L5 interspace and advanced using fluoroscopic guidance and loss of resistance to air until the epidural space was encountered. After confirmation of needle placement in the epidural space, with dye, a solution containing normal saline, 3 mL and Depo-Medrol 80 mg were incrementally injected into the lumbar epidural space. The patient tolerated the procedure well with no complications. The patient was observed in the Pain Clinic and then discharged home neurologically intact. Plan and Disposition:: Patient was discharged without incident.
[2023-01-08 09:37] VITALS: BP 161/72; PULSE 61; RESP 18; O2SAT 98
== END 2023-01-08 09:15 | disposition home or self-care (01) ==
PROVIDERS: PCP Nurse Practitioner Family; Visit Provider Nurse Anesthetist, Certified Registered
DX: M51.16 Intervertebral disc disorders with radiculopathy, lumbar region (principal); M47.26 Other spondylosis with radiculopathy, lumbar region
CPT/HCPCS: 62323; J1040

== ENCOUNTER → 2023-01-23 09:01 | Outpatient (POV) | payer MEDICARE, OTHER, SELFPAY ==
[2023-01-23 09:34] VITALS: BP 106/65; PULSE 62; RESP 18; O2SAT 98; BMI 34.2
--- NOTE | 2023-01-23 09:54 | EXP.PAIN.SOA ---
[facility] Pain Management SOAP Note Subjective:: Patient is a pleasant 57-year-old male who presents today for follow-up of lumbar epidural steroid injection L5-S1 on 01/08/2023. We are currently treating the patient for degenerative disc disease of lumbar spine with lumbar radiculopathy symptoms, lumbar spinal stenosis, chronic pain syndrome, low back pain, right hip pain. Today he states his pain is a 6 out of 10. Patient denies any new trauma or injury. Patient denies any change in location or type of pain he experiences. He states he only had approximately 30% relief following this injection and still continues to have significant pain in his low back along the right side and radiating into his right hip and right leg. Patient does describe this as an aching, throbbing sensation that is worse with increased activity. It does interfere with his ability to perform activities of daily living such as cooking and cleaning. Patient is currently managed on tramadol 50 mg daily with 7 tablets provided at her last visit. Patient states he has not used any of this medication at this time. Patient does have a history of diabetes, psoriatic arthritis and osteoarthritis. Patient denies any imaging of his right hip. His Carroll is [phone]. It has been reviewed and appropriate. Review of Systems: General: No recent weight changes, no fever, no sleep disturbances Respiratory: No cough, no shortness of air, no recurring pulmonary infections Cardiovascular/peripheral vascular: No chest pain, no palpitations, no edema, no shortness of breath Gastrointestinal: No new onset incontinence, normal bowel movements reported Genitourinary: No new onset incontinence Musculoskeletal: Low back pain, right hip pain, right leg pain Psychiatric: [Normal mood/affect] Neurological: [Denies weakness in extremities], [denies balance issues] Objective:: Physical Exam: General: Alert and oriented x3, no acute distress, pleasant and cooperative Lungs: Respirations even and unlabored, symmetrical chest expansion Eyes: PERRL Musculoskeletal: Flexion and extension of lumbar [spine] somewhat guarded secondary to pain, [antalgic gait noted] positive right leg raise with decreased Achilles reflex and sensation to light touch along the right leg Neurological: Speech clear, no gross sensory deficit FINAL REPORT CLINICAL HISTORY: NECK AND LOW BACK PAIN. right sided low back pain. numbness in right leg and foot FINDINGS: Multiplanar MR imaging of the lumbar spine was performed without contrast. On the sagittal T2-weighted images, disc degeneration is seen throughout. Mild endplate changes and Schmorl's nodes are seen at multiple levels. The vertebral alignment is normal. There is no evidence of fracture. No bony mass is identified. The conus is seen at approximately the L1 level and has an unremarkable appearance. T12-L1: Annular disc bulge with facet arthropathy and osteophytes. There is mild bilateral neuroforaminal narrowing. L1-2: Annular disc bulge with facet arthropathy and osteophytes with mild right and moderate left neuroforaminal narrowing. There is mild central canal stenosis with AP diameter of the thecal sac measuring 9 mm. L2-3: Annular disc bulge with facet arthropathy and osteophytes with mild bilateral neuroforaminal narrowing. There is mild central canal stenosis with AP diameter of the thecal sac measuring 9 mm. L3-4: Annular disc bulge with facet arthropathy and osteophytes. There is mild right and moderate left neuroforaminal narrowing. There is moderate central canal stenosis with AP diameter of the thecal sac measuring 5 mm. L4-5: Annular disc bulge with facet arthropathy and osteophytes with moderate bilateral neuroforaminal narrowing. There is mild central canal stenosis with AP diameter of the thecal sac measuring 8 mm. L5-S1: Annular disc bulge with right paracentral annular tear and disc protrusion resulting in right S1 nerve root impingement. Th
== END ==
PROVIDERS: PCP Nurse Practitioner Family; Visit Provider Nurse Practitioner Family
DX: M51.16 Intervertebral disc disorders with radiculopathy, lumbar region (principal); M48.061 Spinal stenosis, lumbar region without neurogenic claudication; G89.4 Chronic pain syndrome; M25.551 Pain in right hip; G54.4 Lumbosacral root disorders, not elsewhere classified
CPT/HCPCS: 99212; G0463

== ENCOUNTER 2023-02-05 08:48 | Day surgery (SDC) | payer MEDICARE, OTHER, SELFPAY ==
[2023-02-05 09:04] VITALS: BP 152/79; PULSE 77; RESP 18; TEMP 36.7; O2SAT 98; BMI 34.2
[2023-02-05 09:33] VITALS: BP 120/70; PULSE 83; RESP 18; O2SAT 98
--- NOTE | 2023-02-05 09:34 | P.PCN_ITS ---
Procedure Date: 02/05/23 Time: 09:30 Anesthesiologist:: Kaushal Hernandez CRNA Complications:: None Pre-procedure Diagnosis:: Degenerative disc lumbar spine multilevels. Lumbar radiculopathy. Lumbar disc bulge L4-5, L5-S1. Post-procedure Diagnosis:: Same. Indications for Procedure:: Patient is a very pleasant 58-year-old male who comes our clinic today for right L4-5, L5-S1 transforaminal epidural steroid injection. Patient has had intralaminar epidurals in the past with some degree of relief. However, his main complaint is right hip and leg radicular symptoms. Some right low lumbar pain as well. He rates his pain 7/10. Procedure Details:: Details of the procedure were explained to the patient. The patient was taken the procedure room placed in the prone position. The area of the lumbar spine was cleansed using chlorhexidine as a cleansing solution. At this time using fluoroscopy guidance markers were placed on the right lateral border of the L4 and L5 vertebral body. The skin and subcutaneous tissue was anesthetized using 1% lidocaine and 25-gauge needle. At this time using a 22-gauge 3-1/2 inch spinal needle the right upper one third of the L4-5 foramen was accessed. The same was done at the right L5-S1 foramen. Needle positions were confirmed and a lateral view using fluoroscopy and contrast dye. At this time 1 cc of 1% lidocaine +20 mg of Depo-Medrol was injected at each level after negative aspiration. [place] were removed. Band-Aid applied. Patient tolerated the procedure without difficulty. There are no complications. Plan and Disposition:: Patient was discharged without incident.
[2023-02-05 09:35] VITALS: BP 120/70; PULSE 83; RESP 18; O2SAT 98
[2023-02-05 09:43] VITALS: BP 139/85; PULSE 73; RESP 18; O2SAT 98
== END 2023-02-05 09:43 | disposition home or self-care (01) ==
PROVIDERS: PCP Nurse Practitioner Family; Visit Provider Nurse Anesthetist, Certified Registered
DX: M51.16 Intervertebral disc disorders with radiculopathy, lumbar region (principal)
CPT/HCPCS: 64483; 64484; J1030; Q9966

== ENCOUNTER 2023-02-06 08:38 | Outpatient (CLI) | payer MEDICARE, OTHER, SELFPAY ==
[2023-02-06] VITALS (10 sets, daily range): BP systolic 131–150; BP diastolic 70–85; PULSE 56–65; RESP 18; O2SAT 96–97; BMI 34.4
[2023-02-06 09:07] LABS: Basophils % 0.3 % (0.1-2.0); Eosinophils # 0.1 K/mm3 (0.0-0.4); Eosinophils % 1.1 % (0.1-12.0); Hematocrit 44.8 % (42.0-52.0); Hemoglobin 15.3 g/dL (14.1-18.0); Lymphocytes % 33.1 % (10-50); Mean Corpuscular HGB Conc 34.1 g/dL (31.8-35.4); Mean Corpuscular Hemoglobin 30.7 pg (27.0-31.2); Mean Platelet Volume 7.7 fl (7.4-10.4); Monocytes # 0.4 K/mm3 (0.1-1.0); Monocytes % 5.7 % (1.7-9.3); Neutrophils # 3.6 K/mm3 (1.8-7.8); Neutrophils % 59.7 % (37.0-80.0); Platelet Count 187 K/mm3 (142-424); Red Blood Count 4.97 M/mm3 (4.60-6.20); Red Cell Distribution Width 14.1 % (11.5-17.5); White Blood Count 6.1 K/mm3 (4.8-10.8)
[2023-02-06 09:14] LABS: Chloride 98 mmol/L (98-107); Potassium 3.5 mmoL/L (3.5-5.1); Sodium 139 mmol/L (136-145)
[2023-02-06 09:16] LABS: Alanine Aminotransferase 41 U/L (12-78); Aspartate Amino Transferase 31 U/L (17-59); Blood Urea Nitrogen 17 mg/dl (9-20); Creatinine Clearance Estimated 110 mL/min (50-200); Estimated Glomerular Filt Rate 68 ml/min (>60); GFR (African American) 83 ML/MIN (>60)
[2023-02-06 09:17] LABS: Albumin Level 4.2 g/dl (3.5-5.0); Albumin/Globulin Ratio 1.2 (1.1-1.8); Alkaline Phosphatase 38 U/L (38-126); Anion Gap 12.5 mEq/L (5-15); Calcium 9.7 mg/dl (8.4-10.2); Carbon Dioxide 32 mmol/L (22.0-30.0); Globulin 3.4 g/dL (1.3-3.2); Glucose 207 mg/dl (74-100); Total Protein,Serum 7.6 g/dl (6.3-8.2)
[2023-02-06 09:23] LABS: C-Reactive Protein 0.9 mg/L (0-4)
== END 2023-02-06 13:05 | disposition home or self-care (01) ==
LOC: INF 08:39
PROVIDERS: PCP Nurse Practitioner Family; Visit Provider Nurse Practitioner Family
DX: L40.59 Other psoriatic arthropathy (principal); Z51.12 Encounter for antineoplastic immunotherapy
CPT/HCPCS: 80053; 85025; 86140; 96413; 96415; J1745

== ENCOUNTER → 2023-02-27 09:41 | Outpatient (POV) | payer MEDICARE, OTHER, SELFPAY ==
--- NOTE | 2023-02-27 10:02 | EXP.PAIN.SOA ---
[facility] Pain Management SOAP Note Subjective:: Patient is a pleasant 58-year-old male who presents today for follow-up of right transforaminal epidural steroid injection L4-L5 and L5-S1 on 02/05/2023. We are currently treating the patient for degenerative disc disease of lumbar spine with lumbar radiculopathy symptoms, lumbar spinal stenosis, chronic pain syndrome, low back pain, right hip pain. Today he rates his pain a 5 out of 10. Patient denies any new trauma or injury. He does state that he had at least 50% improvement following this injection however it only lasted approximately 3 days. Patient does state he is back to his baseline today. He states he continues to have low back pain that radiates into his right hip and right leg as well as some numbness into his left leg. Patient does describe this as an aching, throbbing sensation that is worse with increased activity. It does interfere with his ability perform activities of daily living such as cooking and cleaning. Patient at this time is not interested in back surgery and would like to try another injection. Patient has tried and failed conservative therapy such as oral medication, heat and ice, topicals, physical therapy, at home exercise and stretching for longer than 12 weeks. Patient does have a health history including diabetes, psoriatic arthritis and osteoarthritis. His Carroll is [phone]. Its been reviewed and appropriate. Review of Systems: General: No recent weight changes, no fever, no sleep disturbances Respiratory: No cough, no shortness of air, no recurring pulmonary infections Cardiovascular/peripheral vascular: No chest pain, no palpitations, no edema, no shortness of breath Gastrointestinal: No new onset incontinence, normal bowel movements reported Genitourinary: No new onset incontinence Musculoskeletal: Low back pain, bilateral leg pain Psychiatric: [Normal mood/affect] Neurological: [Denies weakness in extremities], [denies balance issues] Objective:: Physical Exam: General: Alert and oriented x3, no acute distress, pleasant and cooperative Lungs: Respirations even and unlabored, symmetrical chest expansion Eyes: PERRL Musculoskeletal: Flexion and extension of lumbar [spine] somewhat guarded secondary to pain, [antalgic gait noted] Neurological: Speech clear, no gross sensory deficit Assessment:: Degenerative disc disease of lumbar spine with lumbar radiculopathy symptoms, chronic pain, lumbar spinal stenosis, low back pain, right hip pain Plan:: Patient is experiencing continued pain in his low back with radiating symptoms into his bilateral lower extremities. I have discussed with the patient that he may benefit from a lumbar epidural steroid injection. Risk and benefits were explained to the patient and he would like to proceed forward with this plan of care. Patient is not on any blood thinners. I will also order the patient a compounding cream. Patient will be scheduled for an LESI L4-L5. Patient has been instructed to contact the clinic with any concerns before the next appointment. Dr. Negro has reviewed this note and agrees with this plan of care. This note was dictated using voice recognition software and make contain errors or omissions. [facility] Disclaimer: The information contained in this section may have been updated after the patient was seen, as this information can be updated by other users. Medical History Bilateral cataracts Diabetes mellitus Gallbladder disease GERD (gastroesophageal reflux disease) HLD (hyperlipidemia) HTN (hypertension) Neuropathy Normal colonoscopy Psoriatic arthritis Surgical History H/O prostate biopsy History of esophagogastroduodenoscopy (EGD) S/P foot surgery, right Family History Other Cancer Diabetes Heart attack Hyperlipidemia Hyper
[2023-02-27 10:20] VITALS: BP 138/81; PULSE 70; RESP 18; O2SAT 98; BMI 34.2
== END ==
PROVIDERS: PCP Nurse Practitioner Family; Visit Provider Nurse Practitioner Family
DX: M51.16 Intervertebral disc disorders with radiculopathy, lumbar region (principal); M48.061 Spinal stenosis, lumbar region without neurogenic claudication; G89.4 Chronic pain syndrome; M25.551 Pain in right hip
CPT/HCPCS: 99212; G0463

== ENCOUNTER 2023-03-12 08:19 | Day surgery (SDC) | payer MEDICARE, OTHER, SELFPAY ==
[2023-03-12 08:48] VITALS: BP 128/79; PULSE 72; RESP 18; TEMP 36.7; O2SAT 99; BMI 33.5
[2023-03-12 08:50] VITALS: BP 128/75; PULSE 68; RESP 18; O2SAT 98
[2023-03-12 08:57] VITALS: BP 139/78; PULSE 70; RESP 16; O2SAT 99
--- NOTE | 2023-03-12 08:58 | EXP.PAIN.PRO ---
Procedure Date: 03/12/23 Time: 08:40 Anesthesiologist:: Kaushal Hernandez CRNA Complications:: None Pre-procedure Diagnosis:: Degenerative disc lumbar spine multilevels. Lumbar radiculopathy. Post-procedure Diagnosis:: Same. Indications for Procedure:: Patient is a very pleasant 58-year-old male that comes our clinic today for a lumbar epidural steroid injection at the L4-5 level. Patient had 3 days of moderate improvement terms of his overall low lumbar right side back pain and right hip and leg radicular symptoms with previous transforaminal epidural steroid injection at the L4-5 and L5-S1 level on the right. Patient presents for intralaminar epidural steroid injection today. He rates his pain 6/10 Procedure Details:: Procedure: Lumbar epidural steroid injection under fluoroscopy Informed consent was obtained and the risks and benefits of the procedure were explained to the patient. The patient was taken to the procedure room and noninvasive monitors placed, including noninvasive blood pressure cuff and pulse oximeter. The back was viewed using C-arm Fluoroscopy and prepped using Chloraprep as a cleansing solution and the L4-L5 interspace was palpated. Skin and subcutaneous tissues were anesthetized using lidocaine 1.5% and a 25-gauge needle. After this, an 18-gauge Touhy epidural needle was placed into the L4-L5 interspace and advanced using fluoroscopic guidance and loss of resistance to air until the epidural space was encountered. After confirmation of needle placement in the epidural space, with dye, a solution containing normal saline, 3 mL and Depo-Medrol 80 mg were incrementally injected into the lumbar epidural space. The patient tolerated the procedure well with no complications. The patient was observed in the Pain Clinic and then discharged home neurologically intact. Plan and Disposition:: Patient was discharged without incident.
== END 2023-03-12 08:57 | disposition home or self-care (01) ==
PROVIDERS: PCP Nurse Practitioner Family; Visit Provider Nurse Anesthetist, Certified Registered
DX: M51.16 Intervertebral disc disorders with radiculopathy, lumbar region (principal)
CPT/HCPCS: 62323; J1040

== ENCOUNTER 2023-03-13 08:38 | Outpatient (CLI) | payer MEDICARE, OTHER, SELFPAY ==
[2023-03-13] VITALS (11 sets, daily range): BP systolic 121–142; BP diastolic 69–88; PULSE 64–74; RESP 18; TEMP 36.4; O2SAT 97–98; BMI 35.2
== END 2023-03-13 13:05 | disposition home or self-care (01) ==
LOC: INF 08:39
PROVIDERS: PCP Nurse Practitioner Family; Visit Provider Nurse Practitioner Family
DX: Z51.12 Encounter for antineoplastic immunotherapy (principal); L40.59 Other psoriatic arthropathy
CPT/HCPCS: 96413; 96415; J1745

== ENCOUNTER → 2023-03-29 08:50 | Outpatient (POV) | payer MEDICARE, OTHER, SELFPAY ==
[2023-03-29 09:30] VITALS: BP 141/83; PULSE 78; RESP 20; BMI 34.2
--- NOTE | 2023-03-29 09:35 | A.OFFVIS_ITS ---
[facility] Pain Management SOAP Note Subjective:: This patient is a pleasant 58-year-old male that comes our clinic today for follow-up visit after receiving lumbar epidural steroid injection L4-5 level. Patient reports 75% relief in terms of low back pain as well as right hip and leg radicular symptoms. Patient spent 8 hours yesterday walking at a fair and had minimal pain. Today he rates his pain 4/10. He mentions he is a little sore from yesterday's walk. We have been treating the patient for quite some time regarding low back pain secondary to degenerative disc lumbar spine multilevels. Lumbar radiculopathy symptoms. Patient is xti-jrvciku-ogljjvkaf diabetic. We prescribed tramadol 50 mg 1 p.o. twice daily. Patient states he rarely takes it twice a day. However, patient states he typically takes the medication nightly. He does not report any side effects from the medication. Typically once a day. We will refill his prescription and give him a refill he will return to clinic in 2 months. Patient's [place] #[id number] has been reviewed and appropriate. Objective:: Patient is awake alert [place] x3. In no acute distress. Flexion-extension lumbar spine somewhat guarded secondary to pain. Deep tendon reflexes upper lower extremities normal. Motor strength upper and lower extremities normal. There is no sensory deficit. Gait is normal. Assessment:: Degenerative disc sees lumbar spine multilevels. Lumbar radiculopathy. Lumbar spondylosis. Multilevel lumbar facet arthropathy. Plan:: Patient will return to see us in 2 months. We will refill his tramadol pr escription 50 mg 1 p.o. twice daily. [facility] Disclaimer: The information contained in this section may have been updated after the patient was seen, as this information can be updated by other users. Medical History Bilateral cataracts Diabetes mellitus Gallbladder disease GERD (gastroesophageal reflux disease) HLD (hyperlipidemia) HTN (hypertension) Neuropathy Normal colonoscopy Psoriatic arthritis Surgical History (Updated 03/13/23 @ 10:28 by Anuel Curiel RN) H/O prostate biopsy History of esophagogastroduodenoscopy (EGD) History of squamous cell carcinoma excision S/P foot surgery, right Family History Other Cancer Diabetes Heart attack Hyperlipidemia Hypertension Stroke Social History (Updated 03/13/23 @ 10:27 by Anuel Curiel RN) Smoking Status: Never smoker second hand exposure: No alcohol intake: never substance use type: denies use current occupational status: retired Travel in the last 8 weeks: None household members: none housing: house lives independently: Yes marital status: single number of children: 0 education level: college service: No group home: No caffeine: Yes
== END | disposition home or self-care (01) ==
PROVIDERS: PCP Nurse Practitioner Family; Visit Provider Nurse Anesthetist, Certified Registered
DX: M51.16 Intervertebral disc disorders with radiculopathy, lumbar region (principal); M47.26 Other spondylosis with radiculopathy, lumbar region
CPT/HCPCS: 99212; G0463

== ENCOUNTER → 2023-04-23 08:37 | Outpatient (CLI) | payer MEDICARE, OTHER, SELFPAY ==
[2023-04-23] VITALS (11 sets, daily range): BP systolic 113–138; BP diastolic 61–78; PULSE 61–85; RESP 18; TEMP 36.8; O2SAT 97–98; BMI 35.2
[2023-04-23 09:06] LABS: Basophils % 0.4 % (0.1-2.0); Eosinophils # 0.1 K/mm3 (0.0-0.4); Eosinophils % 1.8 % (0.1-12.0); Hematocrit 41.1 % (42.0-52.0); Hemoglobin 14.6 g/dL (14.1-18.0); Lymphocytes # 2.1 K/mm3 (0.7-4.5); Lymphocytes % 32.1 % (10-50); Mean Corpuscular HGB Conc 35.5 g/dL (31.8-35.4); Mean Corpuscular Hemoglobin 31.7 pg (27.0-31.2); Mean Corpuscular Volume 89.4 fl (80-94); Mean Platelet Volume 7.4 fl (7.4-10.4); Monocytes # 0.4 K/mm3 (0.1-1.0); Monocytes % 6.3 % (1.7-9.3); Neutrophils # 3.8 K/mm3 (1.8-7.8); Neutrophils % 59.3 % (37.0-80.0); Platelet Count 202 K/mm3 (142-424); Red Cell Distribution Width 14.4 % (11.5-17.5); White Blood Count 6.4 K/mm3 (4.8-10.8)
[2023-04-23 09:21] LABS: C-Reactive Protein 2.4 mg/L (0-4)
[2023-04-23 09:33] LABS: Alanine Aminotransferase 38 U/L (12-78); Albumin/Globulin Ratio 1.4 (1.1-1.8); Alkaline Phosphatase 34 U/L (38-126); Anion Gap 13.1 mEq/L (5-15); Aspartate Amino Transferase 37 U/L (17-59); Bilirubin,Total 1.9 mg/dl (0.2-1.3); Blood Urea Nitrogen 12 mg/dl (9-20); Calcium 8.5 mg/dl (8.4-10.2); Carbon Dioxide 29 mmol/L (22.0-30.0); Chloride 98 mmol/L (98-107); Creatinine Clearance Estimated 123 mL/min (50-200); Estimated Glomerular Filt Rate 76 ml/min (>60); GFR (African American) 92 ML/MIN (>60); Globulin 2.8 g/dL (1.3-3.2); Glucose 167 mg/dl (74-100); Potassium 3.1 mmoL/L (3.5-5.1); Sodium 137 mmol/L (136-145); Total Protein,Serum 6.8 g/dl (6.3-8.2)
== END | disposition home or self-care (01) ==
PROVIDERS: PCP Nurse Practitioner Family; Visit Provider Nurse Practitioner Family
DX: Z51.12 Encounter for antineoplastic immunotherapy (principal); L40.59 Other psoriatic arthropathy
CPT/HCPCS: 80053; 85025; 86140; 96413; 96415; J1745

== ENCOUNTER 2023-05-21 08:31 | Outpatient (CLI) | payer MEDICARE, OTHER, SELFPAY ==
[2023-05-21] VITALS (11 sets, daily range): BP systolic 130–157; BP diastolic 71–89; PULSE 64–79; RESP 18; TEMP 36.6; O2SAT 98–99; BMI 36.9
== END 2023-05-21 13:00 | disposition home or self-care (01) ==
LOC: INF 08:32
PROVIDERS: PCP Nurse Practitioner Family; Visit Provider Nurse Practitioner Family
DX: Z51.12 Encounter for antineoplastic immunotherapy (principal); L40.59 Other psoriatic arthropathy
CPT/HCPCS: 96413; 96415; J1745

== ENCOUNTER 2023-07-02 08:48 | Outpatient (CLI) | payer MEDICARE, SELFPAY ==
[2023-07-02] VITALS (12 sets, daily range): BP systolic 127–156; BP diastolic 68–85; PULSE 71–85; RESP 18; O2SAT 99
[2023-07-02] MEDS: diphenhydrAMINE 25MG CAPSULE 25 MG PO (09:06)
[2023-07-02] MEDS: SODIUM CHLORIDE 0.9% 50ML BAG 50 ML IV (09:06)
[2023-07-02] MEDS: ACETAMINOPHEN 325MG TAB 650 MG PO (09:06)
[2023-07-02] MEDS: METHYLPREDNISOLONE SOD SUCC 40MG VIAL 40 MG IV (09:06)
[2023-07-02] MEDS: SODIUM CHLORIDE 0.9% IV (09:43)
[2023-07-02] MEDS: INFLIXIMAB IV (09:43)
== END 2023-07-02 13:10 | disposition home or self-care (01) ==
PROVIDERS: PCP Nurse Practitioner Family; Visit Provider Nurse Practitioner Family
DX: Z51.12 Encounter for antineoplastic immunotherapy (principal); L40.59 Other psoriatic arthropathy
CPT/HCPCS: 96413; 96415; J1745

== ENCOUNTER 2023-08-14 08:36 | Outpatient (CLI) | payer MEDICARE, SELFPAY ==
[2023-08-14] VITALS (8 sets, daily range): BP systolic 116–155; BP diastolic 66–75; PULSE 71–81; RESP 18; TEMP 36.8; O2SAT 99; BMI 35.9
[2023-08-14] MEDS: diphenhydrAMINE 25MG CAPSULE 25 MG PO (09:27)
[2023-08-14] MEDS: METHYLPREDNISOLONE SOD SUCC 40MG VIAL 40 MG IV (09:27)
[2023-08-14] MEDS: ACETAMINOPHEN 325MG TAB 650 MG PO (09:27)
[2023-08-14] MEDS: SODIUM CHLORIDE 0.9% 50ML BAG 50 ML IV (09:28)
[2023-08-14 09:31] LABS: Basophils % 0.1 % (0.1-2.0); Eosinophils # 0.2 K/mm3 (0.0-0.4); Eosinophils % 2.2 % (0.1-12.0); Hematocrit 41.7 % (42.0-52.0); Hemoglobin 15.1 g/dL (14.1-18.0); Lymphocytes # 2.3 K/mm3 (0.7-4.5); Lymphocytes % 30.2 % (10-50); Mean Corpuscular HGB Conc 36.3 g/dL (31.8-35.4); Mean Corpuscular Hemoglobin 32.6 pg (27.0-31.2); Mean Corpuscular Volume 89.9 fl (80-94); Mean Platelet Volume 7.9 fl (7.4-10.4); Monocytes # 0.5 K/mm3 (0.1-1.0); Monocytes % 6.1 % (1.7-9.3); Neutrophils # 4.6 K/mm3 (1.8-7.8); Neutrophils % 61.4 % (37.0-80.0); Platelet Count 166 K/mm3 (142-424); Red Blood Count 4.64 M/mm3 (4.60-6.20); Red Cell Distribution Width 14.6 % (11.5-17.5); White Blood Count 7.5 K/mm3 (4.8-10.8)
[2023-08-14 09:38] LABS: Alanine Aminotransferase 44 U/L (12-78); Alkaline Phosphatase 49 U/L (38-126); Anion Gap 14.4 mEq/L (5-15); Aspartate Amino Transferase 36 U/L (17-59); Bilirubin,Unconjugated 2.4 mg/dL (0.0-1.1); Blood Urea Nitrogen 16 mg/dl (9-20); Calcium 9.2 mg/dl (8.4-10.2); Carbon Dioxide 27 mmol/L (22.0-30.0); Chloride 100 mmol/L (98-107); Creatinine Clearance Estimated 105 mL/min (50-200); Estimated Glomerular Filt Rate 62 ml/min (>60); GFR (African American) 75 ML/MIN (>60); Glucose 195 mg/dl (74-100); Phosphorous 3.7 mg/dl (2.5-4.5); Potassium 3.4 mmoL/L (3.5-5.1); Sodium 138 mmol/L (136-145); Total Protein,Serum 7.4 g/dl (6.3-8.2)
[2023-08-14 09:44] LABS: C-Reactive Protein 7.5 mg/L (0-4)
[2023-08-14] MEDS: SODIUM CHLORIDE 0.9% IV (09:52)
[2023-08-14] MEDS: INFLIXIMAB IV (09:52)
== END 2023-08-14 13:20 | disposition home or self-care (01) ==
LOC: INF 08:37
PROVIDERS: PCP Nurse Practitioner Family; Visit Provider Nurse Practitioner Family
DX: L40.59 Other psoriatic arthropathy (principal); Z79.899 Other long term (current) drug therapy
CPT/HCPCS: 80069; 80076; 85025; 86140; 96413; 96415; J1745

== ENCOUNTER 2023-09-26 08:46 | Outpatient (CLI) | payer MEDICARE, SELFPAY ==
[2023-09-26] VITALS (15 sets, daily range): BP systolic 108–133; BP diastolic 50–79; PULSE 61–79; RESP 16–17; O2SAT 96–97
[2023-09-26] MEDS: METHYLPREDNISOLONE SOD SUCC 40MG VIAL 40 MG IV (09:11)
[2023-09-26] MEDS: ACETAMINOPHEN 325MG TAB 650 MG PO (09:11)
[2023-09-26] MEDS: SODIUM CHLORIDE 0.9% 50ML BAG 50 ML IV (09:12)
[2023-09-26] MEDS: diphenhydrAMINE 25MG CAPSULE 25 MG PO (09:12)
[2023-09-26] MEDS: SODIUM CHLORIDE 0.9% IV (09:54)
[2023-09-26] MEDS: INFLIXIMAB IV (09:54)
== END 2023-09-26 13:25 | disposition home or self-care (01) ==
LOC: INF 08:46
PROVIDERS: PCP Nurse Practitioner Family; Visit Provider Nurse Practitioner Family
DX: L40.59 Other psoriatic arthropathy (principal)
CPT/HCPCS: 96413; 96415; J1745

== ENCOUNTER 2023-10-31 08:39 | Outpatient (CLI) | payer MEDICARE, SELFPAY ==
[2023-10-31] VITALS (11 sets, daily range): BP systolic 105–120; BP diastolic 66–77; PULSE 60–76; RESP 18; TEMP 36.6; O2SAT 97–98; BMI 35.2
[2023-10-31] MEDS: diphenhydrAMINE 25MG CAPSULE 25 MG PO (09:17)
[2023-10-31] MEDS: SODIUM CHLORIDE 0.9% 10ML FLUSH SYRINGE 10 ML IV (09:17)
[2023-10-31] MEDS: METHYLPREDNISOLONE SOD SUCC 40MG VIAL 40 MG IV (09:17)
[2023-10-31] MEDS: ACETAMINOPHEN 325MG TAB 650 MG PO (09:17)
[2023-10-31] MEDS: SODIUM CHLORIDE 0.9% 50ML BAG 50 ML IV (09:17)
[2023-10-31 09:19] LABS: Basophils # 0.1 K/mm3 (0-0.2); Basophils % 1.1 % (0.1-2.0); Eosinophils # 0.1 K/mm3 (0.0-0.4); Eosinophils % 1.8 % (0.1-12.0); Hematocrit 49.7 % (42.0-52.0); Hemoglobin 15.9 g/dL (14.1-18.0); Lymphocytes # 2.6 K/mm3 (0.7-4.5); Lymphocytes % 49.5 % (10-50); Mean Corpuscular HGB Conc 31.9 g/dL (31.8-35.4); Mean Corpuscular Hemoglobin 29.3 pg (27.0-31.2); Mean Platelet Volume 7.7 fl (7.4-10.4); Monocytes # 0.3 K/mm3 (0.1-1.0); Monocytes % 5.8 % (1.7-9.3); Neutrophils # 2.2 K/mm3 (1.8-7.8); Neutrophils % 41.7 % (37.0-80.0); Platelet Count 182 K/mm3 (142-424); Red Blood Count 5.41 M/mm3 (4.60-6.20); Red Cell Distribution Width 16.8 % (11.5-17.5); White Blood Count 5.3 K/mm3 (4.8-10.8)
[2023-10-31] MEDS: SODIUM CHLORIDE 0.9% IV (09:57)
[2023-10-31] MEDS: INFLIXIMAB IV (09:57)
[2023-10-31 10:04] LABS: Alanine Aminotransferase 53 U/L (12-78); Albumin Level 4.6 g/dl (3.5-5.0); Albumin/Globulin Ratio 1.4 (1.1-1.8); Alkaline Phosphatase 43 U/L (38-126); Anion Gap 16.1 mEq/L (5-15); Aspartate Amino Transferase 56 U/L (17-59); Bilirubin,Total 1.9 mg/dl (0.2-1.3); Blood Urea Nitrogen 19 mg/dl (9-20); Calcium 10.1 mg/dl (8.4-10.2); Carbon Dioxide 26 mmol/L (22.0-30.0); Chloride 99 mmol/L (98-107); Creatinine Clearance Estimated 73 mL/min (50-200); Estimated Glomerular Filt Rate 41 ml/min (>60); GFR (African American) 50 ML/MIN (>60); Globulin 3.3 g/dL (1.3-3.2); Glucose 134 mg/dl (74-100); Potassium 4.1 mmoL/L (3.5-5.1); Sodium 137 mmol/L (136-145); Total Protein,Serum 7.9 g/dl (6.3-8.2)
[2023-10-31 10:09] LABS: C-Reactive Protein 0.7 mg/L (0-4)
== END 2023-10-31 13:30 | disposition home or self-care (01) ==
LOC: INF 08:40
PROVIDERS: PCP Nurse Practitioner Family; Visit Provider Nurse Practitioner Family
DX: Z51.12 Encounter for antineoplastic immunotherapy; L40.59 Other psoriatic arthropathy; Z79.899 Other long term (current) drug therapy
CPT/HCPCS: 80053; 85025; 86140; 96413; 96415; J1745

== ENCOUNTER 2023-12-04 08:56 | Outpatient (CLI) | payer MEDICARE, SELFPAY ==
[2023-12-04] VITALS (10 sets, daily range): BP systolic 124–136; BP diastolic 69–79; PULSE 64–81; RESP 18; TEMP 37; O2SAT 97–98; BMI 35.2
[2023-12-04] MEDS: diphenhydrAMINE 25MG CAPSULE 25 MG PO (09:22)
[2023-12-04] MEDS: ACETAMINOPHEN 325MG TAB 650 MG (09:22)
[2023-12-04] MEDS: METHYLPREDNISOLONE SOD SUCC 40MG VIAL 40 MG (09:22)
[2023-12-04] MEDS: 0.9 % SODIUM CHLORIDE 50 ML IV (09:23)
[2023-12-04 09:38] LABS: Creatinine Clearance Estimated 95 mL/min (50-200); Estimated Glomerular Filt Rate 56 ml/min (>60); GFR (African American) 68 ML/MIN (>60)
[2023-12-04] MEDS: INFLIXIMAB IV (10:10)
[2023-12-04] MEDS: SODIUM CHLORIDE 0.9% IV (10:10)
[2023-12-04] MEDS: SODIUM CHLORIDE 0.9% 10ML FLUSH SYRINGE 10 ML IV (14:24)
== END 2023-12-04 13:35 | disposition home or self-care (01) ==
LOC: INF 08:58
PROVIDERS: PCP Nurse Practitioner Family; Visit Provider Nurse Practitioner Family
DX: Z51.12 Encounter for antineoplastic immunotherapy (principal); L40.50 Arthropathic psoriasis, unspecified; Z79.620 Long term (current) use of immunosuppressive biologic; Z79.52 Long term (current) use of systemic steroids
CPT/HCPCS: 82565; 96413; 96415; J1745; J2919

== ENCOUNTER 2024-01-02 09:05 | Outpatient (CLI) | payer MEDICARE, SELFPAY ==
[2024-01-02] VITALS (13 sets, daily range): BP systolic 133–161; BP diastolic 75–95; PULSE 59–78; RESP 16–18; O2SAT 100; BMI 34.7
[2024-01-02] MEDS: ACETAMINOPHEN 325MG TAB 650 MG PO (09:36)
[2024-01-02] MEDS: SODIUM CHLORIDE 0.9% 50ML BAG 50 ML IV (09:36)
[2024-01-02] MEDS: diphenhydrAMINE 25MG CAPSULE 25 MG PO (09:37)
[2024-01-02] MEDS: METHYLPREDNISOLONE SOD SUCC 40MG VIAL 40 MG IV (09:37)
[2024-01-02 09:44] LABS: Basophils % 0.8 % (0.1-2.0); Eosinophils # 0.1 K/mm3 (0.0-0.4); Eosinophils % 1.6 % (0.1-12.0); Hematocrit 43.2 % (42.0-52.0); Hemoglobin 14.7 g/dL (14.1-18.0); Lymphocytes # 2.4 K/mm3 (0.7-4.5); Lymphocytes % 49.4 % (10-50); Mean Corpuscular Hemoglobin 30.5 pg (27.0-31.2); Mean Corpuscular Volume 89.7 fl (80-94); Mean Platelet Volume 7.4 fl (7.4-10.4); Monocytes # 0.3 K/mm3 (0.1-1.0); Monocytes % 5.8 % (1.7-9.3); Neutrophils # 2.1 K/mm3 (1.8-7.8); Neutrophils % 42.5 % (37.0-80.0); Platelet Count 168 K/mm3 (142-424); Red Blood Count 4.81 M/mm3 (4.60-6.20); Red Cell Distribution Width 16.3 % (11.5-17.5); White Blood Count 4.8 K/mm3 (4.8-10.8)
[2024-01-02 09:47] LABS: Alanine Aminotransferase 36 U/L (12-78); Alkaline Phosphatase 46 U/L (38-126); Aspartate Amino Transferase 32 U/L (17-59); Bilirubin,Indirect 2.3 mg/dL (0.0-0.9); Bilirubin,Total 2.3 mg/dl (0.2-1.3); Bilirubin,Unconjugated 2.5 mg/dL (0.0-1.1); Total Protein,Serum 7.3 g/dl (6.3-8.2)
[2024-01-02] MEDS: SODIUM CHLORIDE 0.9% IV (10:02)
[2024-01-02] MEDS: INFLIXIMAB IV (10:02)
[2024-01-02 10:05] LABS: C-Reactive Protein 1.6 mg/L (0-4)
== END 2024-01-02 13:40 | disposition home or self-care (01) ==
LOC: INF 09:06
PROVIDERS: PCP Nurse Practitioner Family; Visit Provider Nurse Practitioner Family
DX: L40.50 Arthropathic psoriasis, unspecified (principal); Z51.12 Encounter for antineoplastic immunotherapy; Z79.620 Long term (current) use of immunosuppressive biologic; Z79.52 Long term (current) use of systemic steroids
CPT/HCPCS: 80076; 85025; 86140; 96413; 96415; J1745; J2919

== ENCOUNTER 2024-02-05 08:37 | Outpatient (CLI) | payer MEDICARE, SELFPAY ==
[2024-02-05] VITALS (11 sets, daily range): BP systolic 104–123; BP diastolic 57–84; PULSE 60–71; RESP 20; TEMP 36.6; O2SAT 97–98
[2024-02-05] MEDS: METHYLPREDNISOLONE SOD SUCC 40MG VIAL 40 MG IV (09:04)
[2024-02-05] MEDS: ACETAMINOPHEN 325MG TAB 650 MG PO (09:04)
[2024-02-05] MEDS: diphenhydrAMINE 25MG CAPSULE 25 MG PO (09:04)
[2024-02-05] MEDS: SODIUM CHLORIDE 0.9% 50ML BAG 50 ML IV (09:04)
[2024-02-05] MEDS: SODIUM CHLORIDE 0.9% 10ML FLUSH SYRINGE 10 ML IV (09:05)
[2024-02-05] MEDS: SODIUM CHLORIDE 0.9% IV (09:35)
[2024-02-05] MEDS: INFLIXIMAB IV (09:35)
== END 2024-02-05 13:05 | disposition home or self-care (01) ==
LOC: INF 08:39
PROVIDERS: PCP Nurse Practitioner Family; Visit Provider Nurse Practitioner Family
DX: L40.50 Arthropathic psoriasis, unspecified (principal)
CPT/HCPCS: 96413; 96415; J1745; J2919

== ENCOUNTER 2024-03-04 08:50 | Outpatient (CLI) | payer MEDICARE, SELFPAY ==
[2024-03-04] VITALS (11 sets, daily range): BP systolic 111–138; BP diastolic 66–84; PULSE 64–79; RESP 16–18; TEMP 36.1; O2SAT 97–100; BMI 33.5
[2024-03-04] MEDS: SODIUM CHLORIDE 0.9% 10ML FLUSH SYRINGE 10 ML IV (09:15)
[2024-03-04] MEDS: SODIUM CHLORIDE 0.9% 50ML BAG 50 ML IV (09:15)
[2024-03-04] MEDS: diphenhydrAMINE 25MG CAPSULE 25 MG PO (09:15)
[2024-03-04] MEDS: ACETAMINOPHEN 325MG TAB 650 MG PO (09:15)
[2024-03-04] MEDS: METHYLPREDNISOLONE SOD SUCC 40MG VIAL 40 MG IV (09:15)
[2024-03-04] MEDS: SODIUM CHLORIDE 0.9% IV (09:51)
[2024-03-04] MEDS: INFLIXIMAB IV (09:51)
== END 2024-03-04 13:26 | disposition home or self-care (01) ==
PROVIDERS: PCP Nurse Practitioner Family; Visit Provider Nurse Practitioner Family
DX: M47.896 Other spondylosis, lumbar region (principal)
CPT/HCPCS: 96413; 96415; J1745; J2919

== ENCOUNTER 2024-04-07 08:56 | Outpatient (CLI) | payer MEDICARE, SELFPAY ==
[2024-04-07] VITALS (12 sets, daily range): BP systolic 108–127; BP diastolic 61–82; PULSE 74–85; RESP 14–18; TEMP 36.2–36.8; O2SAT 96–99; BMI 33.5
[2024-04-07] MEDS: ACETAMINOPHEN 325MG TAB 650 MG PO (09:23)
[2024-04-07] MEDS: METHYLPREDNISOLONE SOD SUCC 40MG VIAL 40 MG IV (09:23)
[2024-04-07] MEDS: diphenhydrAMINE 25MG CAPSULE 25 MG PO (09:23)
[2024-04-07] MEDS: SODIUM CHLORIDE 0.9% 50ML BAG 50 ML IV (09:48)
[2024-04-07] MEDS: SODIUM CHLORIDE 0.9% 10ML FLUSH SYRINGE 10 ML IV (09:49)
[2024-04-07] MEDS: SODIUM CHLORIDE 0.9% IV (09:55)
[2024-04-07] MEDS: INFLIXIMAB IV (09:55)
== END 2024-04-07 13:30 | disposition home or self-care (01) ==
LOC: INF 08:56
PROVIDERS: PCP Nurse Practitioner Family; Visit Provider Nurse Practitioner Family
DX: L40.50 Arthropathic psoriasis, unspecified (principal)
CPT/HCPCS: 96413; 96415; J1745; J2919

== ENCOUNTER 2024-05-20 08:52 | Outpatient (CLI) | payer MEDICARE, SELFPAY ==
[2024-05-20 09:06] VITALS: BMI 34.4
== END 2024-05-20 09:24 | disposition home or self-care (01) ==
LOC: INF 08:53
PROVIDERS: PCP Nurse Practitioner Family; Visit Provider Nurse Practitioner Family
DX: L40.50 Arthropathic psoriasis, unspecified (principal)

== ENCOUNTER 2024-05-28 08:36 | Outpatient (CLI) | payer MEDICARE, SELFPAY ==
[2024-05-28] VITALS (11 sets, daily range): BP systolic 111–131; BP diastolic 70–81; PULSE 64–72; RESP 18; TEMP 36.6; O2SAT 97–98; BMI 34.4
[2024-05-28] MEDS: diphenhydrAMINE 25MG CAPSULE 25 MG PO (09:04)
[2024-05-28] MEDS: SODIUM CHLORIDE 0.9% 50ML BAG 50 ML IV (09:04)
[2024-05-28] MEDS: ACETAMINOPHEN 325MG TAB 650 MG PO (09:05)
[2024-05-28] MEDS: METHYLPREDNISOLONE SOD SUCC 40MG VIAL 40 MG IV (09:05)
[2024-05-28 09:19] LABS: Basophils % 0.8 % (0.1-2.0); Eosinophils # 0.1 K/mm3 (0.0-0.4); Hematocrit 48.2 % (42.0-52.0); Hemoglobin 15.9 g/dL (14.1-18.0); Lymphocytes # 2.2 K/mm3 (0.7-4.5); Lymphocytes % 40.4 % (10-50); Mean Corpuscular HGB Conc 32.9 g/dL (31.8-35.4); Mean Corpuscular Hemoglobin 28.5 pg (27.0-31.2); Mean Corpuscular Volume 86.7 fl (80-94); Mean Platelet Volume 7.4 fl (7.4-10.4); Monocytes # 0.3 K/mm3 (0.1-1.0); Monocytes % 6.2 % (1.7-9.3); Neutrophils # 2.8 K/mm3 (1.8-7.8); Neutrophils % 50.7 % (37.0-80.0); Platelet Count 174 K/mm3 (142-424); Red Blood Count 5.56 M/mm3 (4.60-6.20); Red Cell Distribution Width 16.3 % (11.5-17.5); White Blood Count 5.5 K/mm3 (4.8-10.8)
[2024-05-28] MEDS: SODIUM CHLORIDE 0.9% 10ML FLUSH SYRINGE 10 ML IV (09:19)
[2024-05-28 09:24] LABS: Albumin Level 4.3 g/dl (3.5-5.0); Chloride 102 mmol/L (98-107); Potassium 3.6 mmoL/L (3.5-5.1); Sodium 134 mmol/L (136-145)
[2024-05-28 09:26] LABS: Bilirubin,Unconjugated 1.8 mg/dL (0.0-1.1)
[2024-05-28 09:27] LABS: Alanine Aminotransferase 37 U/L (12-78); Alkaline Phosphatase 39 U/L (38-126); Anion Gap 6.6 mEq/L (5-15); Aspartate Amino Transferase 46 U/L (17-59); Bilirubin,Direct 0.3 mg/dl (0.0-0.4); Bilirubin,Indirect 1.8 mg/dL (0.0-0.9); Bilirubin,Total 2.1 mg/dl (0.2-1.3); Blood Urea Nitrogen 21 mg/dl (9-20); Carbon Dioxide 29 mmol/L (22.0-30.0); Creatinine Clearance Estimated 92 mL/min (50-200); Estimated Glomerular Filt Rate 56 ml/min (>60); GFR (African American) 68 ML/MIN (>60); Phosphorous 3.8 mg/dl (2.5-4.5); Total Protein,Serum 7.5 g/dl (6.3-8.2)
[2024-05-28 09:28] LABS: Calcium 9.1 mg/dl (8.4-10.2); Glucose 154 mg/dl (74-100)
[2024-05-28] MEDS: SODIUM CHLORIDE 0.9% IV (09:47)
[2024-05-28] MEDS: INFLIXIMAB IV (09:47)
[2024-05-28 10:04] LABS: C-Reactive Protein 1.3 mg/L (0-4)
== END 2024-05-28 13:15 | disposition home or self-care (01) ==
LOC: INF 08:36
PROVIDERS: PCP Nurse Practitioner Family; Visit Provider Nurse Practitioner Family
DX: L40.50 Arthropathic psoriasis, unspecified (principal)
CPT/HCPCS: 80069; 80076; 85025; 86140; 96365; 96366; J1745; J2919

== ENCOUNTER 2024-06-25 08:44 | Outpatient (CLI) | payer MEDICARE, SELFPAY ==
[2024-06-25] VITALS (12 sets, daily range): BP systolic 129–161; BP diastolic 69–89; PULSE 70–83; RESP 18–20; TEMP 36.7; O2SAT 98–99
[2024-06-25] MEDS: ACETAMINOPHEN 325MG TAB 650 MG PO (09:08)
[2024-06-25] MEDS: METHYLPREDNISOLONE SOD SUCC 40MG VIAL 40 MG IV (09:08)
[2024-06-25] MEDS: SODIUM CHLORIDE 0.9% 50ML BAG 50 ML IV (09:09)
[2024-06-25] MEDS: diphenhydrAMINE 25MG CAPSULE 25 MG PO (09:09)
[2024-06-25] MEDS: SODIUM CHLORIDE 0.9% 10ML FLUSH SYRINGE 10 ML IV (09:09)
[2024-06-25] MEDS: INFLIXIMAB IV (09:39)
[2024-06-25] MEDS: SODIUM CHLORIDE 0.9% IV (09:39)
== END 2024-06-25 13:45 | disposition home or self-care (01) ==
LOC: INF 08:45
PROVIDERS: PCP Nurse Practitioner Family; Visit Provider Nurse Practitioner Family
DX: L40.50 Arthropathic psoriasis, unspecified (principal)
CPT/HCPCS: 96413; 96415; J1745; J2919

== ENCOUNTER 2024-07-23 08:41 | Outpatient (CLI) | payer MEDICARE, SELFPAY ==
[2024-07-23] VITALS (11 sets, daily range): BP systolic 98–120; BP diastolic 55–76; PULSE 61–80; RESP 20; TEMP 36.7; O2SAT 96–97; BMI 34.4
[2024-07-23] MEDS: diphenhydrAMINE 25MG CAPSULE 25 MG PO (09:06)
[2024-07-23] MEDS: SODIUM CHLORIDE 0.9% 50ML BAG 50 ML IV (09:06)
[2024-07-23] MEDS: SODIUM CHLORIDE 0.9% 10ML FLUSH SYRINGE 10 ML IV (09:06)
[2024-07-23] MEDS: METHYLPREDNISOLONE SOD SUCC 40MG VIAL 40 MG IV (09:06)
[2024-07-23] MEDS: ACETAMINOPHEN 325MG TAB 650 MG PO (09:06)
[2024-07-23 09:08] LABS: Basophils % 0.9 % (0.1-2.0); Eosinophils # 0.1 K/mm3 (0.0-0.4); Eosinophils % 3.1 % (0.1-12.0); Hematocrit 44.4 % (42.0-52.0); Hemoglobin 14.2 g/dL (14.1-18.0); Lymphocytes % 43.3 % (10-50); Mean Corpuscular Volume 84.4 fl (80-94); Mean Platelet Volume 8.7 fl (7.4-10.4); Monocytes # 0.4 K/mm3 (0.1-1.0); Monocytes % 8.2 % (1.7-9.3); Neutrophils % 44.5 % (37.0-80.0); Platelet Count 174 K/mm3 (142-424); Red Blood Count 5.26 M/mm3 (4.60-6.20); Red Cell Distribution Width 17.1 % (11.5-17.5); White Blood Count 4.5 K/mm3 (4.8-10.8)
[2024-07-23 09:17] LABS: Albumin Level 4.3 g/dl (3.5-5.0); Chloride 100 mmol/L (98-107); Potassium 3.6 mmoL/L (3.5-5.1); Sodium 137 mmol/L (136-145)
[2024-07-23 09:20] LABS: Anion Gap 12.6 mEq/L (5-15); Blood Urea Nitrogen 15 mg/dl (9-20); Carbon Dioxide 28 mmol/L (22.0-30.0); Creatinine Clearance Estimated 109 mL/min (50-200); Estimated Glomerular Filt Rate 68 ml/min (>60); GFR (African American) 82 ML/MIN (>60)
[2024-07-23 09:21] LABS: Calcium 9.4 mg/dl (8.4-10.2); Glucose 168 mg/dl (74-100); Phosphorous 3.8 mg/dl (2.5-4.5)
[2024-07-23 09:28] LABS: Albumin Level 4.2 g/dl (3.5-5.0)
[2024-07-23 09:30] LABS: Alanine Aminotransferase 38 U/L (12-78); Aspartate Amino Transferase 35 U/L (17-59); Bilirubin,Unconjugated 2.8 mg/dL (0.0-1.1); Total Protein,Serum 6.9 g/dl (6.3-8.2)
[2024-07-23 09:31] LABS: Alkaline Phosphatase 44 U/L (38-126); Bilirubin,Indirect 2.7 mg/dL (0.0-0.9); Bilirubin,Total 2.7 mg/dl (0.2-1.3)
[2024-07-23] MEDS: SODIUM CHLORIDE 0.9% IV (09:36)
[2024-07-23] MEDS: INFLIXIMAB IV (09:36)
[2024-07-23 09:52] LABS: C-Reactive Protein 1.5 mg/L (0-4)
== END 2024-07-23 13:00 | disposition home or self-care (01) ==
LOC: INF 08:42
PROVIDERS: PCP Nurse Practitioner Family; Visit Provider Nurse Practitioner Family
DX: L40.50 Arthropathic psoriasis, unspecified (principal)
CPT/HCPCS: 80069; 80076; 85025; 86140; 96413; 96415; J1745; J2919

== ENCOUNTER 2024-08-26 08:40 | Outpatient (CLI) | payer MEDICARE, SELFPAY ==
[2024-08-26] VITALS (11 sets, daily range): BP systolic 120–134; BP diastolic 50–88; PULSE 66–81; RESP 18–20; TEMP 36.6; O2SAT 97–98
[2024-08-26] MEDS: ACETAMINOPHEN 325MG TAB 650 MG PO (09:04)
[2024-08-26] MEDS: diphenhydrAMINE 25MG CAPSULE 25 MG PO (09:04)
[2024-08-26] MEDS: METHYLPREDNISOLONE SOD SUCC 40MG VIAL 40 MG IV (09:04)
[2024-08-26] MEDS: SODIUM CHLORIDE 0.9% 10ML FLUSH SYRINGE 10 ML IV (09:05)
[2024-08-26] MEDS: SODIUM CHLORIDE 0.9% 50ML BAG 50 ML IV (09:05)
[2024-08-26] MEDS: INFLIXIMAB IV (09:34)
[2024-08-26] MEDS: SODIUM CHLORIDE 0.9% IV (09:34)
== END 2024-08-26 13:05 | disposition home or self-care (01) ==
LOC: INF 08:40
PROVIDERS: PCP Nurse Practitioner Family; Visit Provider Nurse Practitioner Family
DX: L40.52 Psoriatic arthritis mutilans (principal)
CPT/HCPCS: 96413; 96415; J1745; J2919

== ENCOUNTER 2024-09-30 08:42 | Outpatient (CLI) | payer MEDICARE, SELFPAY ==
[2024-09-30] VITALS (11 sets, daily range): BP systolic 114–131; BP diastolic 64–75; PULSE 61–71; RESP 15–17; O2SAT 98; BMI 34.4
[2024-09-30] MEDS: SODIUM CHLORIDE 0.9% 50ML BAG 50 ML IV (09:05)
[2024-09-30] MEDS: diphenhydrAMINE 25MG CAPSULE 25 MG PO (09:06)
[2024-09-30] MEDS: ACETAMINOPHEN 325MG TAB 650 MG PO (09:06)
[2024-09-30] MEDS: METHYLPREDNISOLONE SOD SUCC 40MG VIAL 40 MG IV (09:06)
[2024-09-30 09:07] LABS: Basophils % 0.7 % (0.1-2.0); Eosinophils # 0.1 K/mm3 (0.0-0.4); Hemoglobin 14.9 g/dL (14.1-18.0); Lymphocytes % 45.7 % (10-50); Mean Corpuscular HGB Conc 32.4 g/dL (31.8-35.4); Mean Corpuscular Hemoglobin 27.5 pg (27.0-31.2); Mean Corpuscular Volume 84.9 fl (80-94); Mean Platelet Volume 8.8 fl (7.4-10.4); Monocytes # 0.4 K/mm3 (0.1-1.0); Monocytes % 9.6 % (1.7-9.3); Neutrophils # 1.9 K/mm3 (1.8-7.8); Neutrophils % 41.8 % (37.0-80.0); Nucleated Red Blood Cells # 0 10^3/uL; Nucleated Red Blood Cells % 0 %; Platelet Count 178 K/mm3 (142-424); Red Blood Count 5.42 M/mm3 (4.60-6.20); Red Cell Distribution Width 15.5 % (11.5-17.5); Red Cell Distribution Width-SD 47.8 fL; White Blood Count 4.5 K/mm3 (4.8-10.8)
[2024-09-30 09:28] LABS: Chloride 100 mmol/L (98-107)
[2024-09-30 09:29] LABS: Albumin Level 4.1 g/dl (3.5-5.0); Potassium 3.6 mmoL/L (3.5-5.1); Sodium 138 mmol/L (136-145)
[2024-09-30 09:31] LABS: Anion Gap 12.6 mEq/L (5-15); Blood Urea Nitrogen 19 mg/dl (9-20); Carbon Dioxide 29 mmol/L (22.0-30.0); Creatinine Clearance Estimated 92 mL/min (50-200); Estimated Glomerular Filt Rate 56 ml/min (>60); GFR (African American) 68 ML/MIN (>60)
[2024-09-30 09:32] LABS: Calcium 9.3 mg/dl (8.4-10.2); Glucose 151 mg/dl (74-100); Phosphorous 3.7 mg/dl (2.5-4.5)
[2024-09-30] MEDS: SODIUM CHLORIDE 0.9% IV (09:48)
[2024-09-30] MEDS: INFLIXIMAB IV (09:48)
[2024-09-30 09:57] LABS: Alanine Aminotransferase 30 U/L (12-78); Alkaline Phosphatase 42 U/L (38-126); Aspartate Amino Transferase 29 U/L (17-59); Bilirubin,Direct 0.4 mg/dl (0.0-0.4); Bilirubin,Indirect 2.5 mg/dL (0.0-0.9); Bilirubin,Total 2.9 mg/dl (0.2-1.3); Bilirubin,Unconjugated 2.5 mg/dL (0.0-1.1); Total Protein,Serum 7.4 g/dl (6.3-8.2)
[2024-09-30 10:02] LABS: C-Reactive Protein 1.3 mg/L (0-4)
== END 2024-09-30 13:30 | disposition home or self-care (01) ==
LOC: INF 08:43
PROVIDERS: PCP Nurse Practitioner Family; Visit Provider Nurse Practitioner Family
DX: L40.50 Arthropathic psoriasis, unspecified (principal)
CPT/HCPCS: 80069; 80076; 85025; 86140; 96413; 96415; J1745; J2919

== ENCOUNTER 2024-11-02 08:58 | Outpatient (CLI) | payer MEDICARE, SELFPAY ==
[2024-11-02] VITALS (9 sets, daily range): BP systolic 125–151; BP diastolic 67–82; PULSE 56–76; RESP 18; O2SAT 98
[2024-11-02] MEDS: ACETAMINOPHEN 325MG TAB 650 MG PO (09:05)
[2024-11-02] MEDS: diphenhydrAMINE 25MG CAPSULE 25 MG PO (09:05)
[2024-11-02] MEDS: METHYLPREDNISOLONE SOD SUCC 40MG VIAL 40 MG IV (09:05)
[2024-11-02] MEDS: INFLIXIMAB IV (09:35)
[2024-11-02] MEDS: SODIUM CHLORIDE 0.9% IV (09:35)
[2024-11-02] MEDS: SODIUM CHLORIDE 0.9% 50ML BAG 50 ML IV (09:36)
== END 2024-11-02 12:58 | disposition home or self-care (01) ==
LOC: INF 08:59
PROVIDERS: PCP Nurse Practitioner Family; Visit Provider Nurse Practitioner Family
DX: L40.59 Other psoriatic arthropathy (principal)
CPT/HCPCS: 96413; 96415; J1745; J2919

== ENCOUNTER 2024-11-30 08:48 | Outpatient (CLI) | payer MEDICARE, SELFPAY ==
[2024-11-30] VITALS (12 sets, daily range): BP systolic 133–161; BP diastolic 76–96; PULSE 65–77; RESP 16–18; TEMP 36.8; O2SAT 68–97; BMI 34.9
--- OUTSIDE RECORDS SUMMARY | 2024-11-30 08:53 | XMS_ITS | Encounter Summary ---
Author Organization Healthcare Address [address] [place] [address] Care Team Providers Care Residential Direct Support Professional Name Role Phone Swathi Patino JUAN Primary Care Provider Encounter Details Date Type Department Care Team (Late st Contact Info) Description 10/02/2024 Orders Only [facility] Medicine Specialties [address] [place] [address] ProviderSantiago MD [address] [place] [address] Social History Tobacco Use Types Packs/Day Years Used Date Smoking Tobacco: Never Smokeless Tobacco: Never Alcohol Use Standard Drinks/Week Comments Never 0 (1 standard drink = 0.6 oz pur e alcohol) PHQ-2 Answer Date Recorded Patient Health Questionnaire-2 Score 0 08/10/2024 PHQ-9 Answer Date Recorded Patient Health Questionnaire-9 Score 0 08/10/2024 PHQ-2A Answer Date Recorded Patient Health Questionnaire-2 Score 0 06/04/2022 Sex and Gender Information Value Date Recorded Sex Assigned at Male 11/30/2020 8:09 AM EDT Legal Sex Male 6:58 PM EDT Gender Identity Male 11/30/2020 8:09 AM EDT Sexual Orientation Not on file documented as of this encounter Plan of Treatment Upcoming Encounters Date Type Department Care Team (Late st Contact Info) Description 12/01/2024 10:20 AM EDT Office Visit [facility] Medicine Specialties [address] [place] [address] Cristina Gaffney APRN [address] [place] [address] documented as of this encounter Procedures Procedure Name Priority Date/Time Associated Diagnosis Comments CBC WITH AUTO DIFFERENTIAL Routine 10/02/2024 7:58 AM EDT RENAL FUNCTION PANEL, PLASMA Routine 10/02/2024 7:58 AM EDT documented in this encounter Results * CBC and Differential (10/02/2024 7:58 AM EDT) Blood Venous blood specimen / Unknown [facility] Provider MD LAB BLOOD ORDERABLES Anna l Result * Renal Function Panel, Plasma (10/02/2024 7:58 AM EDT) Blood Venous blood specimen / Unknown [facility] Provider MD LAB BLOOD ORDERABLES Anna l Result documented in this encounter Visit Diagnoses Not on filedocumented in this encounter Additional Health Concerns Assessment Noted Time PHQ-9 Depression Total Score: 0 08/10/19 25 10:44 AM EST A fall risk assessment has been complete d for the patient 06/02/2024 11:43 AM EST A Body Mass Index follow-up plan has been documented for the patient 08/12/2024 9:41 AM EST documented as of this encounter Care Teams Residential Direct Support Professional Relationship Specialty Start Date End Date Swathi Patino APRN [address] [place] [address] PCP - General 10/28/20 documented as of this encounter
--- OUTSIDE RECORDS SUMMARY | 2024-11-30 08:53 | XMS_ITS | Encounter Summary ---
Author Organization Healthcare Address [address] [place] [address] Care Team Providers Care Shipfitter Name Role Phone Swathi Patino JUAN Primary Care Provider [phone] Encounter Details Date Type Department Care Team (Latest Contact Info) Description 11/25/2024 Travel Social History Tobacco Use Types Packs/Day Years [...] Description 12/01/2024 10:20 AM EDT Office Visit [facility] Medicine Specialties [address] [place] [address] Cristina Gaffney APRN [address] [place] [address] documented as of this encounter Visit Diagnoses Not on filedocumented in this encounter Additional Health Concerns Assessment Noted Time PHQ-9 Depression Total Score: 0 08/10/19 10:44 AM EST A fall risk assessment has been complete d for the patient 06/02/2024 11:43 AM EST A Body Mass Index follow-up plan has been documented for the patient 08/12/2024 9:41 AM EST documented as of this encounter Care Teams Shipfitter Relationship Specialty Start Date End Date Swathi Patino APRN [address] [place] [address] PCP - General 10/28/20 documented as of this encounter
--- OUTSIDE RECORDS SUMMARY | 2024-11-30 08:53 | XMS_ITS | Encounter Summary ---
Author Organization Healthcare Address [address] [place] [address] Care Team Providers Care Post Closing Specialist Name Role Phone Patino, Swathi Esther MARTINEZ Primary Care Provider [phone] Encounter Details Date Type Department Care Team (Late st Contact Info) Description 11/11/2024 Telephone [facility] [address] [place] [address] Boris Macdonald PA [address] [facility][1] [address] [place] [address] Social History Tobacco Use Types Packs/Day Years [...] on file documented as of this encounter Miscellaneous Notes * Telephone Encounter - Concepcion Campos Viral - 11/11/2024 8:26 AM EDT Clinical Concern/Question Reason for Call: pt is calling to cx his apt with Boris he is not sexually active and does not think he is needing it at this time he is asking we let Boris know Best contact number: [phone] (mobile) Optimal time of day to reach caller: ANYTIME Additional comments/information from caller: Not Applicable Note: Please do not reply to this message. Follow-up communication and further actions as a result of this message need to be communicated with the patient directly, if the patient is not active onMyChart. If the patient is active on MyChart, they will receive notification of the communication/outcome via MyChart. documented in this encounter Plan of Treatment Upcoming Encounters Date Type Department Care Team (Late st Contact Info) Description 12/01/2024 10:20 AM EDT Office Visit [facility] Medicine Specialties [address] [place] [address] Cristina Gaffney APRN [address] [place] [address] documented as of this encounter [...] documented as of this encounter Care Teams Post Closing Specialist Relationship Specialty Start Date End Date Swathi Patino, JUAN [address] [place] [address] PCP - General 10/28/20 documented as of this encounter
--- OUTSIDE RECORDS SUMMARY | 2024-11-30 08:53 | XMS_ITS | Encounter Summary ---
Author Organization Healthcare Address [address] [place] [address] Care Team Providers Care Cartridge Gauger Name Role Phone Swathi Patino JUAN Primary Care Provider [phone] Encounter Details Date Type Department Care Team (Late st Contact Info) Description 10/01/2024 Orders Only [facility] Medicine Specialties [address] [place] [address] ProviderSantiago MD [address] [place] [address] Social History Tobacco Use Types Packs/Day [...] Description 12/01/2024 10:20 AM EDT Office Visit [facility] Medicine Specialties [address] [place] [address] Cristina Gaffney APRN [address] [place] [address] documented as of this encounter Procedures Procedure Name Priority Date/Time Associated Diagnosis Comments C-REACTIVE PROTEIN, PLASMA Routine 10/01/2024 9:14 AM EDT HEPATIC FUNCTION PANEL Routine 10/01/2024 9:14 AM EDT documented in this encounter Results * Hepatic Function Panel (10/01/2024 9:14 AM EDT) Blood Venous blood specimen / Unknown [facility] Provider MD LAB BLOOD ORDERABLES Anna l Result * C-Reactive Protein, Plasma (10/01/2024 9:14 AM EDT) Blood Venous blood specimen / Unknown [facility] Provider MD LAB BLOOD ORDERABLES Anna [...] documented as of this encounter Care Teams Cartridge Gauger Relationship Specialty Start Date End Date Swathi Patino APRN [address] [place] [address] PCP - General 10/28/20 documented as of this encounter
--- OUTSIDE RECORDS SUMMARY | 2024-11-30 08:53 | XMS_ITS | Encounter Summary ---
Author Organization [facility] Address [address] [place] [address] Care Team Providers Care Landing Support Specialist Name Role Phone Swathi Patino JUAN Primary Care Provider [phone] Encounter Details Date Type Department Care Team ([facility] Contact Info) Description 11/12/2024 Telephone [facility] [address] [place] [id number] Mariola Perry Social History Tobacco Use Types Packs/Day Years [...] encounter Miscellaneous Notes * Telephone Encounter - Mariola Perry - 11/12/2024 9:01 AM EDT PrEP Coordinator returned pt's call about discontinuing PrEP. Pt did not answer, so a generic VM was left letting pt know to call PrEP Coordinator back. documented in this encounter Plan of Treatment Upcoming Encounters Date Type Department Care Team ([facility] Contact Info) Description 12/01/2024 10:20 AM EDT Office Visit [facility] Medicine Specialties [address] [place] [address] Cristina Gaffney APRN [address] [place] [address] documented as of this encounter [...] documented as of this encounter Care Teams Landing Support Specialist Relationship Specialty Start Date End Date Swathi Patino, SECTION LEADER [employer] [address] [place] [address] PCP - General 10/28/20 documented as of this encounter
--- OUTSIDE RECORDS SUMMARY | 2024-11-30 08:54 | XMS_ITS | Clinical Summary ---
Author Organization [facility] Address [address] [place] [address] Care Team Providers Care Attending Radiologist Name Role Phone Carey Swathi Esther MARTINEZ Primary Care Provider [phone] Allergies No known active allergies Medications FreeStyle lancets 8 Active amLODIPine (Norvasc) 5 MG tablet Take 1 tablet (5 mg) by mouth daily. 8 Active atenolol (Tenormin) 100 MG tablet Take 1 tablet (100 mg) by mouth 2 (two) times a day. 8 Active cloNIDine (Catapres) 0.1 MG tablet Take 1 tablet (0.1 mg) by mouth daily. 8 Active glyBURIDE (Diabeta) 5 MG tablet 1 tablet (5 mg) 2 (two) times a day with meals. 8 Active hydroCHLOROthiazide (HYDRODiuril) 25 MG tablet Take 1 tablet (25 mg) by mouth daily. 8 Active metFORMIN (Glucophage) 1000 MG tablet Take 1 tablet (1,000 mg) by mouth 2 (two) times a day with meals. 8 Active simvastatin (Zocor) 10 MG tablet Take 1 tablet (10 mg) by mouth nightly. 8 Active tamsulosin (Flomax) 0.4 MG 24 hr capsule Take 1 capsule (0.4 mg) by mouth nightly. 0 Active tiZANidine (Zanaflex) 4 MG tablet Take 1 tablet (4 mg) by mouth every 6 hours as needed. 0 Active traMADol (Ultram) 50 MG tablet Take 1 tablet (50 mg) by mouth at night as needed. 8 Active SM Aspirin Adult Low Strength 81 MG EC tablet Take 1 tablet (81 mg) by mouth daily. 1 Active losartan (Cozaar) 100 MG tablet Take 1 tablet (100 mg) by mouth daily. 1 Active HYDROcodone-acetamin ophen (Oriskany) 5-325 MG tablet Take 1 tablet by mouth every 4 (four) hours if needed for severe pain. 24 tablet 1 Active Blood Glucose Monitoring Suppl (FreeStyle Lite) device 8 Active losartan-hydroCHLORO thiazide (Hyzaar) 100-25 MG tablet 8 Active famotidine (Pepcid) 10 MG tablet Take by mouth. Active acetaminophen (Tylenol) 325 MG tablet Take 2 tablets (650 mg) by mouth as needed. Active ketoconazole (NIZOral) 2 % shampoo MESSAGE INTO AREAS 2-3 TIMES WEEKLY IN THE SHOWER. LET SIT FOR 5 MINUTES BEFORE RINSING 3 Active omeprazole (PriLOSEC) [address] capsule Take 1 capsule (40 mg) by mouth daily. 3 Active Jardiance 25 MG Take 1 tablet every day by oral route, for diabetes. 4 Active inFLIXimab (Remicade) 100 MG injection Infuse 10 mg/kg IV every 35 days 12 each 11 4 Active fluorouracil (Efudex) 5 % cream APPLY A THIN LAYER OF CREAM TO AFFECTED AREA ON SCALP, EARS AND FACE ONCE DAILY FOR 4 WEEKS 4 Active tadalafil (Adcirca) 20 MG tablet TAKE 1 TABLET BY MOUTH ONCE DAILY 1 HOUR BEFORE SEXUAL ACTIVITY 5 Active Emtricitabine-Tenofo vir AF (Descovy) 200-25 MG tablet tabletIndications:Co ntact with and (suspected) exposure to human immunodeficiency virus (hiv) Take 1 tablet by mouth daily. 90 tablet 5 Active Active Problems Problem Noted Date Diagnosed Date Cervical radiculopathy 02/06/2024 Degenerative joint disease of cervical spine Lumbar radiculopathy 02/06/2024 Diabetes, polyneuropathy 02/06/2024 Onychogryphosis 02/06/2024 Pain in foot 02/06/2024 Pre-ulcerative corn or callous 02/06/2024 Skin problem 02/06/2024 Low back pain 02/06/2024 Contact with and (suspected) exposure to human immunodeficiency virus (hiv) 02/06/2024 Assessment & Plan (08/10/2024 12:02 PM EST): Discussed during visit: - Doing well with Descovy with good adherence and no side effects. Kidney function remaining stable - assessment of PrEP-associated side effects - PrEP adherence counseling - behavioral risk assessment and risk reduction recommendations - STI symptom assessment - vaccinations Plan: - Continue Descovy 200-25 mg 1 tablet, by mouth, daily - Discussed vaccinations today including Shingrex and Arexvy - reports he would like to wait until discussing with his PCP - labs ordered: HIV-1 & 2 Ab/Ag - follow up in 12 weeks, sooner if needed Assessment & Plan (05/08/2024 11:54 AM EST): Discussed during visit: - we discussed switching to Descovy- discussed informed of updates regarding weight neutral status of FTC/TAF (Descovy) based on recent study results as well as decreased risk of bone density changes and decreased risk of injury to kidneys. Pt reports kidney injury on labs at a recent PCP visit since starting truvada- I am repeating CMP and will monitor. Will plan to switch to Descovy. - assessment of PrEP-associated side effects - PrEP adherence counseling - behavioral risk assessment and risk reduction recommendations - STI symptom assessment - vaccinations Plan: - Stop Truvada. Start Descovy x 30 days with 2 refills (or 90 tablets) - vaccinations through pharmacy: Hep A #1 (next due no sooner than 6 months) and Tdap booster. Pt reports he will get COVID-19 booster at his next primary care visit and declined to get at our pharmacy today. - labs ordered: HIV-1 & 2 Ab/Ag CMP - follow up in 12 weeks, sooner if needed Assessment & Plan (02/06/2024 2:00 PM EDT): Discussed during visit: - assessment of PrEP-associated side effects - PrEP adherence counseling - behavioral risk assessment and risk reduction recommendations - STI symptom assessment - vaccinations Plan: - will order Truvada x 90 days with 0 refills (or 90 tablets) pending lab results - vaccinations: mpox #2 - labs ordered: HIV-1 & 2 Ab/Ag BMP GC/CT PCR urine T. Pallidum Ab w reflex Hepatitis C Ab Hepatitis A Ab and Hepatitis B sAg, sAb, cAb - follow up in 12 weeks, sooner if needed Severe obesity (BMI 35.0-39.9) with comorbidity 06/05/2023 Chronic back pain 11/30/2020 Neuropathy 11/30/2020 Overview (11/30/2020): Due to back issue High cholesterol 11/28/2020 HTN (hypertension) 11/28/2020 Diabetes mellitus, type 2 11/28/2020 Benign prostatic hyperplasia 11/28/2020 Good tolerance for activity 11/28/2020 Gastroesophageal reflux disease 11/28/2020 Psoriatic arthritis 11/23/2020 Psoriasis 03/22/2020 After-cataract with vision obscured 02/02/2020 Posterior capsular opacifica tion of right eye, obscuring vision 02/02/2020 Diabetes mellitus type 2 without retinopathy Chronic fatigue 09/15/2019 Osteoarthritis, generalized 09/15/2019 Cataract 04/30/2018 Cataract, nuclear sclerotic senile 04/30/2018 Diabetes 04/30/2018 Hypertension 04/30/2018 Encounters Date Type Department Care Team Description 11/25/2024 Travel 11/19/[address] [phone] Mariola Perry 11/12/[address] [phone] Boris Macdonald PA 11/12/[address] [phone] Mariola Perry 11/11/[address] [phone] Boris Macdonald PA 10/02/2024 Orders Only [facility] Medicine Specialties [address] [place] [address] Santiago Boswell MD 10/01/2024 Orders Only [facility] Medicine Specialties [address] [place] [address] ProviderSantiago MD from Last 3 Months Immunizations Immunization Administration Dates Next Due Hep A, Adult 05/08/2024 Hep B, adult 06/18/1996,01/15/1996 Influenza, injectable, MDCK, preservative free, quadrivalent 03/04/2020 Influenza, injectable, quadr ivalent, preservative free 04/08/2023,04/23/2022,04/04/2021 Influenza, seasonal, injectable 04/06/2024 [employer] COVID-19 Vac cine (Purple Cap) 12+ 04/04/2021 Tdap 05/08/2024 Vaccinia, Smallpox Monkeypox Vaccine Live, Pf 02/06/2024,04/10/2022 Family History Medical History Relation Name Comments Cancer Father Estefany Knapp Diabetes Father Estefany Knapp Cataracts Mother Anesthesia problems Other Malig Hyperthermia Other Cancer Sister Berta Knapp Marker Relation Name Status Comments Father Estefany Knapp Mother Other Sister Berta Knapp Marker Social History Tobacco Use Types Packs/Day Years Used Date Smoking Tobacco: Never Smokeless Tobacco: Never Tobacco Cessation:Counseling Given: Not Answered Alcohol Use Standard Drinks/Week Comments Never 0 [...] AM EDT Sexual Orientation Not on file Last Filed Vital Signs Vital Sign Reading Time Taken Comments Blood Pressure 101/66 08/10/2024 10:45 AM EST Pulse 67 08/10/2024 10:45 AM EST Temperature 36.8 C (98.3 F) 08/10/2024 10:45 AM EST Respiratory Rate 16 06/02/2024 11:36 AM EST Oxygen Saturation 98% 08/10/2024 10:45 AM EST Inhaled Oxygen Concentration - - Weight 113 kg (249 lb 1.9 oz) 08/10/2024 10:45 A M EST Height 180.3 cm (5' 11 ) 08/10/2024 10:45 AM EST Body Mass Index 34.75 08/10/2024 10:45 AM EST Plan of Treatment Upcoming Encounters Date Type Department Care Team (Late st Contact Info) Description 12/01/2024 10:20 AM EDT Office Visit [facility] Medicine Specialties [address] [place] [address] Cristina Gaffney, MANAGER MOBILE [address] [place] [address] Health Maintenance Due Date Last Done Comments [facility]-Diabetes: Hemoglobin A1C 1963 [facility]-Medicare Annual Wellness (AWV) 1963 [facility]-Infant/Child/Adol SDOH Screenings 1963 Diabetes: Dental Exam 1973 [facility]- SDOH Screenings 1981 [facility]-Adult SDOH Screenings 1981 [facility]-Pneumococcal Vaccine: 50+ Years (1 of 2 - PCV) 1982 [facility]-Zoster Vaccines (1 of 2) 1982 CT Colonography 01/26/2008 Colonoscopy 01/26/2008 FIT-DNA 01/26/2008 FIT 01/26/2008 FOBT 01/26/2008 Sigmoidoscopy 01/26/2008 [facility]-Colorectal Cancer Screening 01/26/2008 [facility]-RSV Vaccine: 60+ Years or (1 - Risk 60-74 years 1-dose series) 2023 [id number] Vaccine (7 - Pfizer risk 2023- season) 2025 07/28/2024, 07/03/2023, 05/01/2022, Additional history exists [facility]-Depression Screening 08/10/2025 08/10/2024, 07/19 [facility]-DTaP,Tdap,and Td Vaccines (2 - Td or Tdap) 05/08/2034 05/08/2024 [facility]-Hepatitis C Screening Completed 02/06/2024, [facility]-Influenza Vaccine Completed 04/06/2024 , 04/08/2023, 04/23/2022, Additional history exists [facility]-Hepatitis A Vaccines Aged Out 05/08/2024 No longer eligible based on patient's age to complete this topic [facility]-HIV Screening Completed 08/10/2024, , 02/06/2024, Additional history exists [facility]-Obesity Intervention Completed 025, 06/02/2024, 05/08/2024, Additional history exists HPV Vaccines Aged Out No longer eligi ble based on patient's age to complete this topic [facility]-HIB Vaccines Aged Out No longer e ligible based on patient's age to complete this topic [facility]-IPV Vaccines Aged Out No longer e ligible based on patient's age to complete this topic [facility]-Rotavirus Vaccines Aged Out No lo nger eligible based on patient's age to complete this topic Medical Devices Implanted Type [employer] Operator Device Identifier Shelf Expiration Date Model / Serial / Lot K-Wire Dual Trocar 045 X 152mm - [id number] - [id number] Implanted:Qty: 1 on 11/30/2020 by Red Sue DPM at [facility] Right: Foot [id number] 09/15/2024 1600-645 / [id number] / K-Wire Dual Trocar 045 X 152mm - [id number] - [id number] Implanted:Qty: 2 on 11/30/2020 by Red Sue DPM at [facility] Right: Foot [employer]-[id number] 09/05/2024 1600-645 / [id number] / Procedures Procedure Name Priority Date/Time Associated Diagnosis Comments CBC WITH AUTO DIFFERENTIAL Routine 10/02/2024 7:58 AM EDT RENAL FUNCTION PANEL, PLASMA Routine 10/02/2024 7:58 AM EDT HEPATIC FUNCTION PANEL Routine 9:14 AM EDT C-REACTIVE PROTEIN, PLASMA Routine 10/01/2024 9:14 AM EDT HIV 1/2 ANTIBODY/ANTIGEN SCREEN WITH REFLEX TO HIV I/II DIFFERENTIATION Routine 08/10/2024 11:47 AM EST Contact with and (suspected) exposure to human immunodeficiency virus (hiv) HEPATITIS C ANTIBODY W/REFLEX TO HCV QUANT PCR Routine 02/06/2024 1:55 PM EDT Contact with and (suspected) exposure to human immunodeficiency virus (hiv) from Last 3 Months or Most Recently Relevant to Health Maintenance Results * CBC and Differential (10/02/2024 7:58 AM EDT) Blood Venous blood specimen / Unknown Result [facility] Provider MD LAB BLOOD ORDERABLES Anna l Result * Renal Function Panel, Plasma (10/02/2024 7:58 AM EDT) Blood Venous blood specimen / Unknown Result [facility] Provider MD LAB BLOOD ORDERABLES Anna l Result * C-Reactive Protein, Plasma (10/01/2024 9:14 AM EDT) Blood Venous blood specimen / Unknown Result [facility] Provider MD LAB BLOOD ORDERABLES Anna l Result * Hepatic Function Panel (10/01/2024 9:14 AM EDT) Blood Venous blood specimen / Unknown [facility] Provider MD LAB BLOOD ORDERABLES Anna l Result * HIV 1 & 2 Antibody/Antigen Screen (08/10/2024 11:47 AM EST) HIV 1 & 2 Antibody/Antigen Screen Non Reactive Non Reactive 08/10/2024 4:13 PM EST [facility] Comment:Screening for HIV 1 & 2 antibodies, and P24 antigen is NONREACTIVE. No confirmatory testing is required. Blood Venous blood specimen / Unknown Venipuncture / Unknown 08/10/2024 11:47 AM EST 08/10/2024 11:47 AM EST us Boris BELLAMY LAB BLOOD ORDERABLES Final Res ult [facility] [address] [place] [address] * Hepatitis C Antibody w/Reflex to HCV Quant PCR (02/06/2024 1:55 PM EDT) Hepatitis C Antibody Negative Negative 02/06/2024 7:25 PM EDT [facility] Blood Venous blood specimen / Unknown Venipuncture / Unknown 02/06/2024 1:55 PM EDT 02/06/2024 1:55 PM EDT us Boris BELLAMY LAB BLOOD ORDERABLES Final Res ult [facility] [address] [place] [address] from Last 3 Months or Most Recently Relevant to Health Maintenance Insurance Care Teams Attending Radiologist Relationship Specialty Start Date End Date Swathi Patino APRN [facility] [place] [address] PCP - General 10/28/20
--- OUTSIDE RECORDS SUMMARY | 2024-11-30 08:54 | XMS_ITS | Encounter Summary ---
Author Organization [facility] Address [address] [place] [address] Care Team Providers Care Fluid Dynamicist Name Role Phone PatinoSwathi thorpe Esther MARTINEZ Primary Care Provider [phone] Encounter Details Date Type Department Care Team (Late st Contact Info) Description 11/19/2024 Telephone [facility] [address] [place] [id number] Mariola Perry Social History Tobacco Use Types [...] * Telephone Encounter - Mariola Perry - 11/19/2024 11:12 AM EDT PrEP Coordinator called and spoke with pt re: discontinuing PrEP. Per MIA Macdonald could we reach out to this patient and see if he wanted to switch to every 6 month follow up or once per year follow up sexual wellness visit if he is deciding on discontinuing PrEP? Also okay if he is wanting to just follow up as needed and let us know when/if he would like toreturn to care. PrEP Coordinator asked pt if they would like to schedule an appt with Boris to discuss discontinuing. Alternatively, PrEP Coordinator also offered to schedule pt with 6 mo f/u or once per year f/u sexual wellness if he discontinues PrEP. Pt reports that he is not sexually active and does not feel like he needs to be seen at this time. PrEP Coordinator informed pt he is welcome to call if he has any needs in the future. documented in this encounter Plan of Treatment Upcoming Encounters Date Type Department Care Team (Late st Contact Info) Description 12/01/2024 10:20 AM EDT Office Visit [facility] Medicine Specialties [address] [place] [address] Cristina Gaffney APRN [address] [place] [address] documented as of this encounter [...] documented as of this encounter Care Teams Fluid Dynamicist Relationship Specialty Start Date End Date Swathi Patino, JUAN [address] [place] [address] PCP - General 10/28/20 documented as of this encounter
--- OUTSIDE RECORDS SUMMARY | 2024-11-30 08:54 | XMS_ITS | Data Portability ---
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 Treatment with empiric antibiotics for possible prostatitis. Medical management of lower urinary symptoms with double dose tamsulosin. [email or web address] Not available 09/13/2021 15:38:00 10/12/2021 10/12/2021 PSA trended down appropriately. Medical management of lower urinary symptoms with double dose tamsulosin and patient wishes to proceed with endoscopic treatment. We reviewed risks and benefits of treatment options and he wishes to proceed with laser vaporization of prostate. [email or web address] Not available 10/15/2021 21:13:52 04/24/2023 04/24/2023 We reviewed potential etiologies of raised PSA. Proceed with transrectal ultrasound needle biopsy of prostate to rule out prostate carcinoma. Empiric antibiotics sent. Tamsulosin for medical management of lower urinary symptoms. [email or web address] Not available 05/07/2023 09:12:20 05/07/2023 05/07/2023 SURGERY DATE: 05/07/2023 PREOPERATIVE DIAGNOSIS: Elevated PSA POSTOPERATIVE DIAGNOSIS: Elevated PSA PROCEDURE: 1. Transrectal ultrasound prostate, 2. Ultrasound guidance for needle injection of local analgesia, 3. Transrectal ultrasound guided needle biopsy of prostate SURGEON: Elaine Salinas MD ANESTHESIA: Local ESTIMATED BLOOD LOSS: <2 ml COMPLICATIONS: None. SPECIMENS: A total of 12 prostate biopsies were obtained from 6 locations - right apex, right mid gland, right base, left apex, left mid gland, left base INDICATIONS: Elevated PSA OPERATIVE NOTE: Patient was correctly identified in the preoperative holding area. Informed consent was obtained. He is taken to the operating room and positioned in lateral decubitus knee tuck position. All pressure points padded. Timeout procedure completed. He had taken oral antibiotics. Transrectal ultrasonography performed showing prostate width of 62.7 mm, height of 50.1 mm, length of 58.3 mm for prostatic volume of 95.8 cm with a PSA density of 0.16 based upon a PSA of 15.28. Transrectal ultrasound guidance for needle injection of local analgesia was performed at the prostate and seminal vesicle junction bilaterally and the prostate apex. Once this was allowed to take effect transrectal ultrasound needle biopsy of the prostate was performed in the above-mentioned locations. Once adequate specimens had been obtained from all locations the procedure was then completed. Transrectal ultrasound was removed and patient was taken to the recovery room. DISPOSITION: The patient tolerated the procedure well. He was taken to the recovery room in stable condition. He will be discharged home with instructions for outpatient follow up. [email or web address] Not available 05/07/2023 16:00:16 05/30/2023 05/30/2023 Tamsulosin for medical management of lower urinary symptoms. We discussed additional treatment for benign prostatic hyperplasia and bladder outlet obstruction with endoscopic treatment. Due to prostate size recommend TURP. Not available 06/02/2023 11:40:59 Plan of Treatment Reminders Order Date Submit Date Provider Last Modified By Organization Details Last Modified Time Details Appointments None recorded. Lab urinalysis panel, auto 2022 023 [email or web address] 14 [facility] [place] [facility] With [facility], [address] [place] [address] Dr [address]ong, [place], [address], 3 18:00:29 PSA, total, serum or plasma 2022 023 [email or web address] [facility], [address] [place] [address], [address], 4 16:38:29 urinalysis panel, auto 2022 023 [email or web address] 14 [facility] Extended Services With [facility], [address] [place] [address] Dr Chong, [place], [address], 3 16:24:01 urinalysis panel, auto 2021 022 [email or web address] 14 [facility] Extended Services With [facility], [address] [place] [address] Dr Chong, [place], [address], 2 21:13:54 urinalysis panel, auto 2021 022 [email or web address] 14 [facility] Extended Services With [facility], [address] [place] [address] Dr Chong, [place], [address], 2 13:32:26 Referral None recorded. Procedures None recorded. Surgeries transurethr al resection of prostate (SURG) [id number] [facility] [address] [facility] , [place], [address], 4 10:51:28 prostate needle biopsy (SURG) 2022 023 [email or web address] [facility] Professional Charges, [address], [address], 3 16:13:24 green light laser transurethr al resection of prostate (SURG) [email or web address] [facility], [address], [address], 2 14:41:24 Imaging None recorded. Medication Orders tamsulosin 0.4 mg capsule 2022 023 [email or web address] 14 [facility], [address] [facility], [place], [address], 3 18:00:29 levofloxaci n 500 mg tablet 2022 023 [facility], [address] [place], [address], 3 15:43:44 tamsulosin 0.4 mg capsule 2022 023 [facility], [address] [place], [address], 3 11:17:42 tamsulosin 0.4 mg capsule 2021 022 [facility], [address] [place], [address], 2 13:33:00 Bactrim DS 800 mg-160 mg tablet 2021 022 [facility], [facility] [place], [address], 14:07:49 Patient TargetsNo targets recorded. Patient Instructions Encounter Date Encounter Id Patient Instructions Last Modified By Organization Details Last Modified Time 09/07/2021 [id number] learning about healthy weight [email or web address] Not available 09/07/2021 13:32:26 10/12/2021 [id number] learning about healthy weight [email or web address] Not available 10/15/2021 21:13:54 04/24/2023 [id number] learning about healthy weight [email or web address] Not available 04/24/2023 11:17:29 Reason for Referral None Reported. Results Created Date Observation Date Name Description Value Unit Range Abnormal Flag Note LastModifiedBy Organization Detail LastModifiedTime 09/08/1909/07/2021 urina lysis panel , auto Unknown Analyte Clean Catch Not Available [facility] [place] [facility] With [address], [place], [address], 09/07/2021 13:16:41 09/08/19 22 09/07/2021 urina lysis panel , auto Unknown Analyte Yellow Not Available [facility] [place] [facility] With [address], [place], [address], 09/07/2021 13:16:41 09/08/19 22 09/07/2021 urina lysis panel , auto Unknown Analyte Clear Not Available [facility] Extended Services With [address] [place], [address], 09/07/2021 13:16:41 09/08/19 22 09/07/2021 urina lysis panel , auto Unknown Analyte 1.005 Not Available [facility] Extended Services With [address] [place], [address], 09/07/2021 13:16:41 09/08/19 22 09/07/2021 urina lysis panel , auto Unknown Analyte 7.0 Not Available [facility] Extended Services With [address] [place], [address], 09/07/2021 13:16:41 09/08/19 22 09/07/2021 urina lysis panel , auto Unknown Analyte 5.0-8. 0 Not Available [facility] Extended Services With [address] [place], [address], 09/07/2021 13:16:41 09/08/19 22 09/07/2021 urina lysis panel , auto Unknown Analyte Negati ve Not Available [facility] Extended Services With [address] [place], [address], 09/07/2021 13:16:41 09/08/19 22 09/07/2021 urina lysis panel , auto Unknown Analyte Negati ve Not Available [facility] Extended Services With [address] [place], [address], 09/07/2021 13:16:41 09/08/19 22 09/07/2021 urina lysis panel , auto Unknown Analyte Negati ve Not Available [facility] Extended Services With [address]ong, [place], [address], 09/07/2021 13:16:41 09/08/19 22 09/07/2021 urina lysis panel , auto Unknown Analyte Negati ve Not Available [facility] Extended Services With [address] [place], [address], 09/07/2021 13:16:41 09/08/19 22 09/07/2021 urina lysis panel , auto Unknown Analyte Trace Not Available [facility] Extended Services With [address] [place], [address], 09/07/2021 13:16:41 09/08/19 22 09/07/2021 urina lysis panel , auto Unknown Analyte Negati ve Not Available [facility] Extended Services With [address] [place], [address], 09/07/2021 13:16:41 09/08/19 22 09/07/2021 urina lysis panel , auto Unknown Analyte >1000 mg/dl Not Available [facility] Extended Services With [address] [place], [address], 09/07/2021 13:16:41 09/08/19 22 09/07/2021 urina lysis panel , auto Unknown Analyte Normal Not Available [facility] Extended Services With [address] [place], [address], 09/07/2021 13:16:41 09/08/19 22 09/07/2021 urina lysis panel , auto Unknown Analyte Negati ve Not Available [facility] Extended Services With [address] [place], [place], [address], 09/07/2021 13:16:41 09/08/19 22 09/07/2021 urina lysis panel , auto Unknown Analyte Negati ve Not Available [facility] Extended Services With [address] [place], [address], 09/07/2021 13:16:41 09/08/19 22 09/07/2021 urina lysis panel , auto Unknown Analyte Normal Not Available [facility] Extended Services With [address] [place], [address], 09/07/2021 13:16:41 09/08/19 22 09/07/2021 urina lysis panel , auto Unknown Analyte Normal 1 mg/dl Not Available [facility] Extended Services With [address] [place], [address], 09/07/2021 13:16:41 09/08/19 22 09/07/2021 urina lysis panel , auto Unknown Analyte Negati ve Not Available [facility] Extended Services With [address] [place], [address], 09/07/2021 13:16:41 09/08/19 22 09/07/2021 urina lysis panel , auto Unknown Analyte Negati ve Not Available [facility] Extended Services With [address] [place], [address], 09/07/2021 13:16:41 09/08/19 22 09/07/2021 urina lysis panel , auto Unknown Analyte Negati ve Not Available [facility] Extended Services With [address] [place], [address], 09/07/2021 13:16:41 09/08/19 22 09/07/2021 urina lysis panel , auto Unknown Analyte Negati ve Not Available [facility] Extended Services With [address] [place], [address], 09/07/2021 13:16:41 10/13/19 22 10/12/2021 urina lysis panel , auto Unknown Analyte Clean Catch Not Available [facility] Extended Services With [address] [place], [address], 10/12/2021 14:08:36 10/13/19 22 10/12/2021 urina lysis panel , auto Unknown Analyte Yellow Not Available [facility] Extended Services With [address] [place], [address], 10/12/2021 14:08:36 10/13/19 22 10/12/2021 urina lysis panel , auto Unknown Analyte Clear Not Available [facility] Extended Services With [address] [place], [address], 10/12/2021 14:08:36 10/13/19 22 10/12/2021 urina lysis panel , auto Unknown Analyte 1.015 Not Available [facility] Extended Services With [address] [place], [address], 10/12/2021 14:08:36 10/13/19 22 10/12/2021 urina lysis panel , auto Unknown Analyte 1.003- 1.035 Not Available [facility] Extended Services With [address] [place], [address], 10/12/2021 14:08:36 10/13/19 22 10/12/2021 urina lysis panel , auto Unknown Analyte 6.0 Not Available [facility] Extended Services With [address] [place], [address], 10/12/2021 14:08:36 10/13/19 22 10/12/2021 urina lysis panel , auto Unknown Analyte 5.0-8. 0 Not Available [facility] Extended Services With [address] [place], [address], 10/12/2021 14:08:36 10/13/19 22 10/12/2021 urina lysis panel , auto Unknown Analyte Negati ve Not Available [facility] Extended Services With [address] [place], [address], 10/12/2021 14:08:36 10/13/19 22 10/12/2021 urina lysis panel , auto Unknown Analyte Negati ve Not Available [facility] Extended Services With [address] [place], [address], 10/12/2021 14:08:36 10/13/19 22 10/12/2021 urina lysis panel , auto Unknown Analyte Negati ve Not Available [facility] Extended Services With [address] [place], [address], 10/12/2021 14:08:36 10/13/19 22 10/12/2021 urina lysis panel , auto Unknown Analyte Negati ve Not Available [facility] Extended Services With [address] [place], [address], 10/12/2021 14:08:36 10/13/19 22 10/12/2021 urina lysis panel , auto Unknown Analyte Negati ve Not Available [facility] Extended Services With [address] [place], [address], 10/12/2021 14:08:36 10/13/19 22 10/12/2021 urina lysis panel , auto Unknown Analyte Negati ve Not Available [facility] [place] [facility] With [address] [place], [address], 10/12/2021 14:08:36 10/13/19 22 10/12/2021 urina lysis panel , auto Unknown Analyte Normal Not Available [facility] Extended Services With [address] [place], [address], 10/12/2021 14:08:36 10/13/19 22 10/12/2021 urina lysis panel , auto Unknown Analyte Normal Not Available [facility] Extended Services With [address] [place], [address], 10/12/2021 14:08:36 10/13/19 22 10/12/2021 urina lysis panel , auto Unknown Analyte Negati ve Not Available [facility] Extended Services With [address] [place], [address], 10/12/2021 14:08:36 10/13/19 22 10/12/2021 urina lysis panel , auto Unknown Analyte Negati ve Not Available [facility] Extended Services With [address] [place], [address], 10/12/2021 14:08:36 10/13/19 22 10/12/2021 urina lysis panel , auto Unknown Analyte Normal Not Available [facility] Extended Services With [address] [place], [address], 10/12/2021 14:08:36 10/13/19 22 10/12/2021 urina lysis panel , auto Unknown Analyte Normal 1 mg/dl Not Available [facility] Services With [address] [place], [address], 10/12/2021 14:08:36 10/13/19 22 10/12/2021 urina lysis panel , auto Unknown Analyte Negati ve Not Available [facility] [place] [facility] With [address], [place], [address], 10/12/2021 14:08:36 10/13/19 22 10/12/2021 urina lysis panel , auto Unknown Analyte Negati ve Not Available [facility] Extended Services With [address], [place], [address], 10/12/2021 14:08:36 10/13/19 22 10/12/2021 urina lysis panel , auto Unknown Analyte Negati ve Not Available [facility] Extended Services With [address], [place], [address], 10/12/2021 14:08:36 10/13/19 22 10/12/2021 urina lysis panel , auto Unknown Analyte Negati ve Not Available [facility] [address], [place], [address], 10/12/2021 14:08:36 05/07/20 23 05/07/2023 SURGI FILOMENA surgical SEE BELOW normal Depar tment of Patho logy Surgi filomena Patho logy Repor t NAME: GALEN NOBLEY PATH. :SS-2 [id number] 18 Copy to: Diagn osis: Prost ate needl e core biops ies: A) Left base: Benig n prost atic tissu e. B) Left mid: Benig n prost atic tissu e. C) Left apex: Benig n prost atic tissu e. D) Right base: Benig n prost atic tissu e. E) Right mid: Benig n prost atic tissu e. F) Right apex: Benig n prost atic tissu e. SOURC E OF SPECI MEN: PROST ATE BIOPS Y, A.) LEFT BASE & B.) LEFT MID PROST ATE BIOPS Y, C.) LEFT APEX & D.) RIGHT BASE PROST ATE BIOPS Y, E.) RIGHT MID & F.) RIGHT APEX CLINI FILOMENA INFOR MATIO N: R97.2 0 ELEVA SATINDER PSA / LEVEL - 15.28 VOLUM E 95.8c m3 Gross Descr iptio n: Recei wilson in forma rebel label ed with the patie nt's name are six separ ate speci mens desig nated as prost ate biops y. All tissu e consi sts of felder cylin ders 0.[address] If tissu e from two sites is place d in one casse tte, the latte r site is inked black ; e.g. if tissu es from site A and B are in one casse tte, the tissu es from site B are inked . SECTI ON LENGT H IN CENTI METER S A) Left Base 1.5 and 2.0 cm (2 cores ) B) Left Mid 0.7, 1.5, and 2.2 cm (3 cores ) C) Left Frost 1.7 and 1.9 cm (2 cores ) D) Right Base 0.5, 0.9, and 2.0 cm (3 cores ) E) Right Mid 2.0 and 2.0 cm (2 cores ) F) Right Frost 1.5 and 2.0 cm (2 cores ) LP 05/07 06:24 PM Micro scopi c Descr iptio n: A micro scopi c exami natio n has been perfo rmed and the resul t(s) are as noted above . KEVIN BAEZ M.D. Saumya perdomo Out Date: 05/10 11:18 Page 1 of 1 Not Available [facility] [address] [place] [address], [place], [address], 05/10/2023 11:18:59 05/30/20 23 05/30/2023 urina lysis panel , auto Unknown Analyte Clean Catch Not Available [facility] [place] [facility] With [address], [place], [address], 05/30/2023 13:52:20 12/14/20 23 05/30/2023 urina lysis panel , auto Unknown Analyte Yellow Not Available [facility] Extended Services With [address], [place], [address], 05/30/2023 13:52:20 05/30/20 23 05/30/2023 urina lysis panel , auto Unknown Analyte Clear Not Available [facility] Extended Services With [address] [place], [address], 05/30/2023 13:52:20 05/30/20 23 05/30/2023 urina lysis panel , auto Unknown Analyte 1.010 Not Available [facility] Extended Services With [address] [place], [address], 05/30/2023 13:52:20 05/30/20 23 05/30/2023 urina lysis panel , auto Unknown Analyte 1.003- 1.035 Not Available [facility] Extended Services With [address] [place], [address], 05/30/2023 13:52:20 05/30/20 23 05/30/2023 urina lysis panel , auto Unknown Analyte 6.0 Not Available [facility] Extended Services With [address] [place], [address], 05/30/2023 13:52:20 05/30/20 23 05/30/2023 urina lysis panel , auto Unknown Analyte 5.0-8. 0 Not Available [facility] Services With [address] [place], [address], 05/30/2023 13:52:20 05/30/20 23 05/30/2023 urina lysis panel , auto Unknown Analyte Negati ve Not Available [facility] Services With [address] [place], [address], 05/30/2023 13:52:20 05/30/20 23 05/30/2023 urina lysis panel , auto Unknown Analyte Negati ve Not Available [facility] Services With [address], [place], [address], 05/30/2023 13:52:20 05/30/20 23 05/30/2023 urina lysis panel , auto Unknown Analyte Negati ve Not Available [facility] Services With [address], [place], [address], 05/30/2023 13:52:20 05/30/20 23 05/30/2023 urina lysis panel , auto Unknown Analyte Negati ve Not Available [facility] Services With [address], [place], [address], 05/30/2023 13:52:20 05/30/20 23 05/30/2023 urina lysis panel , auto Unknown Analyte 30 mg/dl (+) Not Available [facility] With [address], [place], [address], 05/30/2023 13:52:20 05/30/20 23 05/30/2023 urina lysis panel , auto Unknown Analyte Negati ve Not Available [facility] Services With [address], [place], [address], 05/30/2023 13:52:20 05/30/20 23 05/30/2023 urina lysis panel , auto Unknown Analyte >1000 mg/dl Not Available [facility] Extended Services With [address] [place], [address], 05/30/2023 13:52:20 05/30/20 23 05/30/2023 urina lysis panel , auto Unknown Analyte Normal Not Available [facility] Services With [address], [place], [address], 05/30/2023 13:52:20 05/30/20 23 05/30/2023 urina lysis panel , auto Unknown Analyte Negati ve Not Available [facility] Extended Services With [address], [place], [address], 05/30/2023 13:52:20 05/30/2005/30/2023 urina lysis panel , auto Unknown Analyte Negati ve Not Available [facility] Extended Services With [address], [place], [address], 05/30/2023 13:52:20 05/30/20 23 05/30/2023 urina lysis panel , auto Unknown Analyte 1 mg/dl Not Available [facility] Extended Services With [address], [place], [address], 05/30/2023 13:52:20 05/30/20 23 05/30/2023 urina lysis panel , auto Unknown Analyte Normal 1 mg/dl Not Available [facility] Extended Services With [address] [place], [address], 05/30/2023 13:52:20 05/30/20 23 05/30/2023 urina lysis panel , auto Unknown Analyte Negati ve Not Available [facility] Extended Services With [address] [place], [address], 05/30/2023 13:52:20 05/30/20 23 05/30/2023 urina lysis panel , auto Unknown Analyte Negati ve Not Available [facility] Extended Services With [address], [place], [address], 05/30/2023 13:52:20 05/30/20 23 05/30/2023 urina lysis panel , auto Unknown Analyte Negati ve Not Available [facility] [address], [place], [address], 05/30/2023 13:52:20 05/30/20 23 05/30/2023 urina lysis panel , auto Unknown Analyte Negati ve Not Available [facility] Extended Services With [address], [place], [address], 05/30/2023 13:52:20 Result Notes None recorded. Procedures Surgical History Date Name Laterality Status Provider Name and Address Organization Details Recorded Time Cholecystectomy completed [facility] 04/20/2021 18:37:55 Unlisted px foot/toes completed Murelene Joe [facility] 04/20/2021 18:38:04 Imaging Results None recorded. Procedure Notes None recorded. Medical Equipment None Reported. Allergies No known drug allergies Medications Name Sig Start Date Stop Date Status Note LastModified by Organization Details LastModified Time tamsulosin 0.4 mg capsule Take 2 capsules by mouth once daily active Not Available Not Available No t Available Cipro 500 mg tablet Take 1 tablet every 12 hours by oral route for 3 days. 05/15 completed Not Available Not Available Not Available levofloxaci n 500 mg tablet Take 1 tablet every 24 hours by oral route for 7 days. 05/30 completed Not Available Not Available Not Available Bactrim DS 800 mg-160 mg tablet Take 1 tablet every 12 hours by oral route for 30 days. 10/12 completed Not Available Not Available Not Available clonidine active Not Available Not Emperatriz ilable Not Available tamsulosin active Not Available Not Av ailable Not Available glyburide active Not Available Not Emperatriz ilable Not Available hydrochloro thiazide active Not Available Not Available Not Available amlodipine active Not Available Not Av ailable Not Available simvastatin active Not Available Not A vailable Not Available losartan active Not Available Not Avai lable Not Available atenolol active Not Available Not Avai lable Not Available metformin active Not Available Not Emperatriz ilable Not Available Remicade active Not Available Not Avai lable Not Available Januvia active Not Available Not Avail able Not Available Vitals Date Recorded Body height Body mass index (BMI) Body weight Provider Name and Address Organization Details Last Updated DateTime 09/07/2021 180.34 cm 34.9 kg/m2 842675.09 g Alicja Diaz [facility] 09/07/2021 12:42:20 Date Recorded Body height Body mass index (BMI) Body weight Provider Name and Address Organization Details Last Updated DateTime 10/12/2021 180.34 cm 34.9 kg/m2 197789.09 g Alicja Diaz [facility] 10/12/2021 14:07:23 Date Recorded Body height Body mass index (BMI) Body weight Provider Name and Address Organization Details Last Updated DateTime 04/24/2023 180.34 cm 34.9 kg/m2 786488.09 g Jenna Diaspherd [facility] 04/26/2023 14:47:07 Date Recorded Body height Body mass index (BMI) Body weight Provider Name and Address Organization Details Last Updated DateTime 05/30/2023 180.34 cm 34.9 kg/m2 908579.09 shania Diaz [facility] 05/30/2023 15:14:32 Social History Question Answer Notes LastModified by Organizat ion Details LastModified Time Tobacco Smoking Status Never Smoker Alicja Diaz [facility] 04/20/2021 18:37:41 What Was The Date Of Your Most Recent Tobacco Screening? 05/30/2023 Information not available 05/30/2023 What Is Your Relationship Status? Single Information not available 04/20/2021 Sex: Male Functional Status Question Answer Note LastModified by Organization D etails LastModified Time What is your level of alcohol consumption? None Information not available 04/20/2021 Mental Status None recorded. Family History Relationship Description Onset Age of this Age Resolved Age Notes LastModified by Organization Details LastModified Time Unspecified Relation Diabetes mellitus Not available 2020 18:37:16 Brother Family history of malignant neoplasm rocío Not available 2020 18:37:27 Sister Family history of malignant neoplasm rocío Not available 2020 18:37:27 Medical History Condition Response Diabetes Y Arthritis Y High Cholesterol Y Past Encounters Encounter ID Performer Location Encounter Start Date Encounter Closed Date Diagnosis/Indication Diagnosis SNOMED-CT Code Diagnosis ICD10 Code Diagnosis Note [id number] [facility] [address] [place] [phone] 04/20/2021 15:19:13 04/20/2021 18:50:44 Prostate specific antigen above reference range 304629971 R97.20 Benign pro static hyperplasia with outflow obstruction 419042821 N40.1 [id number] ELAINE SALINAS MD SURGERY SCHEDULE [address] [place] [address] 05/02/2021 13:54:42 05/02/2021 13:56:59 [id number] ELAINE SALINAS MD [facility] [address] [place] [address] 05/15/2021 14:00:09 05/24/2021 09:50:58 Prostate specific antigen above reference range 771937367 R97.20 Benign pro static hyperplasia with outflow obstruction 282530722 N40.1 [id number] ELAINE SALINAS MD [facility] [place] [address] [address] 09/07/2021 12:41:42 09/13/2021 17:46:58 Prostate specific antigen above reference range 054046124 R97.20 Prostatitis 5321072 N41. 9 Benign pro static hyperplasia with outflow obstruction 686718628 N40.1 [id number] ELAINE SALINAS MD [facility] [address] [address] 10/12/2021 13:09:17 10/17/2021 14:04:19 Prostate specific antigen above reference range 091918245 R97.20 Benign pro static hyperplasia with outflow obstruction 999685728 N40.1 [id number] ELAINE SALINAS MD [facility] [address] [place] [address] 04/24/2023 10:18:27 04/24/2023 11:18:43 Prostate specific antigen above reference range 386490567 R97.20 Benign pro static hyperplasia with outflow obstruction 219901999 N40.1 [id number] ELAINE SALINAS MD SURGERY SCHEDULE [address] [place] [address] 05/07/2023 12:57:35 05/07/2023 12:57:54 [id number] ELAINE SALINAS MD [facility] [address] [facility] [address],[place] [address] 05/30/2023 13:46:48 05/30/2023 16:32:24 Prostate specific antigen above reference range 299820557 R97.20 Benign pro static hyperplasia with outflow obstruction 423259386 N40.1 Health Concerns Section Related Observation LastModified by Organization Detai ls LastModified Time None Recorded Concern Status LastModified by Organization Details LastModified Time None Recorded Advance Directives Directive None Recorded Payers Insurance Date Sequence Insurance Name Policy Number Policy Mittal Covered Member ID Mittal Member ID Guarantor Name 06/18/2023 2 [employer] (MEDICARE SUPPLEMENT) Tim Noble [id number] Tim Noble 06/18/2023 1 MED[place]ARE[place]ICARE[place] Tim Noble [id number] Tim Noble 05/29/2021 2 [employer] (MEDICARE SUPPLEMENT) Tim Noble Notes Date Note Type Note Provider Name and Address Organization Details Recorded Time 09/07/2021 text/html 56-year-old male in the office for follow-up evaluation of benign prostatic hyperplasia with lower urinary symptoms and raised PSA. He has history of benign prostate biopsy for PSA of 5.23. PSA was recently checked and found to be elevated at 11.11. Patient has daytime frequency. He has nocturia every 2 hours. No hematuria or dysuria. ELAINE SALINAS MD [address] [place] [address], [phone], [facility] 09/13/2021 15:38:27 10/12/2021 text/html 56-year-old male in the office for follow-up evaluation of benign prostatic hyperplasia with lower urinary symptoms. PSA was recently elevated at 11.11 and upon recheck was down to 2.2. He reports decreased force of stream with nocturia 2 or 3 times nightly. He has daytime frequency. He takes double dose tamsulosin daily. ELAINE SALINAS MD [address] [place] [address], [phone], [facility] 10/15/2021 21:14:20 04/24/2023 text/html 58-year-old male in the office for follow-up evaluation of elevated PSA. He was referred here by JUAN Juan. Patient reports decreased force of stream. He voids every 3 hours or 3 times nightly. Denies hesitancy. No hematuria or dysuria. PSA from March 2023 was 15.28. No family history of prostate malignancy. Prostate biopsy from April 2021 with benign pathology. ELAINE SALINAS MD [address] [place] [address], [phone], [facility] 05/07/2023 09:12:34 05/30/2023 text/html 58-year-old male in the office for follow-up evaluation of elevated PSA. He was referred here by JUAN Juan. No family history of prostate malignancy. Prostate biopsy from April 2023 with benign pathology. Prostatic volume of 95 cm . He is currently taking tamsulosin and recently finished a course of levofloxacin. Nocturia 3 times nightly. Decreased force of stream. ELAINE SALINAS MD [address] [place] [address], [phone], [facility] 06/02/2023 11:41:13
--- OUTSIDE RECORDS SUMMARY | 2024-11-30 08:54 | XMS_ITS | Encounter Summary ---
Author Organization [facility] Address [address] [place] [address] Care Team Providers Care Manager Room Name Role Phone Swathi Patino Esther MARTINEZ Primary Care Provider [phone] Encounter Details Date Type Department Care Team (Late st Contact Info) Description 11/12/2024 Telephone [facility] [address] [place] [address] Boris Macdonald PA [address] [facility] [address] [place] [address] Social History Tobacco Use Types Packs/Day Years [...] Description 12/01/2024 10:20 AM EDT Office Visit [facility]ties [address] [place] [phone] Cristina Gaffney, PATTERN ROOM ATTENDANT [address] [place] [address] documented as of this encounter Visit Diagnoses [...] documented as of this encounter Care Teams Manager Room Relationship Specialty Start Date End Date Swathi Patino, PATTERN ROOM ATTENDANT [address] [place] [address] PCP - General 10/28/20 documented as of this encounter
--- OUTSIDE RECORDS SUMMARY | 2024-11-30 08:54 | XMS_ITS | Clinical Summary ---
Author Organization [facility] Address [address] [place] [address] Care Team Providers Care Medical Center Director Name Role Phone Unavailable Primary Care Provider Unavailabl e Social History Tobacco Use Types Packs/Day Years Used Date Smoking Tobacco: Never Assessed Interpersonal Safety Answer Date Record ed Family or friends hurt you Not on file 07/06 Family or friends insult you Not on file Family or friends threaten you Not on file 0 07/06/2023 Family or friends scream or curse at you Not on file 07/06/2023 Housing Stability Answer Date Recorded Living situation today Not on file Living situation problems Not on file 2023 Food Insecurity Answer Date Recorded Food run out past 12 months Not on file 06/18 Food did not last past 12 months Not on file 07/06/2023 Employment Answer Date Recorded Help finding and keeping a job Not on file 0 07/06/2023 Family and Community Support Answer Pete e Recorded Help with Day to Day Activities Not on file 07/06/2023 Feeling Lonely or Isolated Not on file 07/06 Educational Attainment Answer Date Arthur rded Speak language other than French at home Not on file 07/06/2023 Want help with school or training Not on file 07/06/2023 Depression Answer Date Recorded PHQ-2 Risk Not on file 07/06/2023 Disabilities Answer Date Recorded Difficulty concentrating Not on file 024 Difficulty doing errands alone Not on file 0 07/06/2023 Substance Use Answer Date Recorded Used prescription meds for non-medical reasons N ot on file 07/06/2023 Used illegal drugs past 12 months Not on file 07/06/2023 Sex and Gender Information Value Date Recorded Sex Assigned at Not on file 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
--- OUTSIDE RECORDS SUMMARY | 2024-11-30 08:54 | XMS_ITS | Encounter Summary ---
Author Organization Healthcare Address [address] [place] [address] Care Team Providers Care Supervisor Meter Shop Name Role Phone Swathi Patino JUAN Primary Care Provider [phone] Encounter Details Date Type Department Care Team (Late Contact Info) Description 12/07/2020 Lab Requisition [facility] [address] [place] [address] Red Sue, DPM [address] [place] [address] Cellulitis of right lower limb Social History Tobacco Use Types Packs/Day Years Used Date Smoking Tobacco: Never Smokeless Tobacco: Never Alcohol Use Standard Drinks/Week Comments Never 0 (1 standard drink = 0.6 oz pur e alcohol) PHQ-2 Answer Date Recorded Patient Health Questionnaire-2 Score 3 11/23/2020 Sex and Gender Information Value Date Recorded Sex Assigned at Male 11/30/2020 8:09 AM EDT Legal Sex Male 6:58 PM EDT Gender Identity Male 11/30/2020 8:09 AM EDT Sexual Orientation Not on file COVID-19 Exposure Response Date Recorded In the last month, have you been in contact with someone who was confirmed or suspected to have Coronavirus / COVID-19? No / Unsure 11/30/2020 8:09 AM EDT documented as of this encounter Plan of Treatment Upcoming Encounters Date Type Department Care Team (Late Contact Info) Description 12/01/2024 10:20 AM EDT [facility] [address] [place] [address] Cristina Gaffney, BRUSH PAINTER [address] [place] [phone] documented as of this encounter Procedures Procedure Name Priority Date/Time Associated Diagnosis Comments ROUTINE CULTURE AND GRAM STAIN Routine 12/06/2020 10:00 AM EDT Cellulitis of right lower limb documented in this encounter Results * Routine Culture and Gram Stain (12/06/2020 10:00 AM EDT) Culture No growth at day 2 2020 10:37 AM EDT [facility] Gram Stain Result Few Polymorphonuclear leukocytes 12/08/2020 10:37 AM EDT HEALTH[facility]ARE LAB Gram Stain Result No organisms seen 12/08/2020 10:37 AM EDT [facility] Swab 12/06/2020 10:0 0 AM EDT 12/07/2020 9:10 AM EDT us Red Sue DPM LAB MICROBIOLOGY - GENERAL ORD ERABLES Final Result [facility] [address] [place] [address] documented in this encounter Visit Diagnoses Diagnosis Cellulitis of right lower limb documented in this encounter Additional Health Concerns Assessment Noted Time PHQ-9 Depression Total Score: 5 11/24/19 8:22 AM EDT A fall risk assessment has been complete d for the patient 11/23/2020 8:24 AM EDT documented as of this encounter Care Teams Supervisor Meter Shop Relationship Specialty Start Date End Date Swathi Patino, JUAN [address] [id number] PCP - General 10/28/20 documented as of this encounter
--- OUTSIDE RECORDS SUMMARY | 2024-11-30 08:54 | XMS_ITS | Referral Summary ---
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
--- OUTSIDE RECORDS SUMMARY | 2024-11-30 08:54 | XMS_ITS | Encounter Summary ---
Author Organization Healthcare Address [address] [place] [address] Care Team Providers Care Medical Numerical Control Operator Name Role Phone PatinoSwathi thorpe Esther MARTINEZ Primary Care Provider [phone] Reason for Visit * Reason Comments Med Refill Encounter Details Date Type Department Care Team (Late st Contact Info) Description 08/10/2024 [facility] [address] [place] [address] Boris Macdonald, MIA [address] [facility] [address] [place] [address] Contact with and (suspected) exposure to human immunodeficiency virus (hiv) Social History Tobacco Use Types Packs/Day Years [...] on file documented as of this encounter Functional Status * Over the past 2 weeks, how often have you been bothered by any of the following problems? Question Answer Date of Assessment Author Little interest or pleasure in doing things Not at all 08/10/2024 10:44 AM Stephanie Orourke Feeling down, depressed, or hopeless Not at all 08/10/2024 10:44 AM Stephanie Orourke Patient Health Questionnaire -2 Score 0 08/10/2024 10:44 AM Stephanie Orourke * Question Answer Date of Assessment Author Trouble falling or staying a sleep, or sleeping too much Not at all 08/10/2024 10:44 AM Stephanie Orourke Feeling tired or having rosa le energy Not at all 08/10/2024 10:44 AM Stephanie Orourke Poor appetite or overeating Not at all 08/10/2024 10 :44 AM Stephanie Orourke Feeling bad about yourself - or that you are a failure or have let yourself or your family down Not at all 08/10/2024 10:44 AM Stephanie Orourke Trouble concentrating on thi ngs, such as reading the newspaper or watching television Not at all 08/10/2024 10:44 AM Stephanie Orourke Moving or speaking so slowly that other people could have noticed? Or the opposite - being so fidgety or restless that you have been moving around a lot more than usual. Not at all 08/10/2024 10:44 AM Stephanie Orourke Thoughts that you would be b yelitza off or hurting yourself in some way Not at all 08/10/2024 10:44 AM Stephanie Orourke Patient Health Questionnaire -9 Score 0 08/10/2024 10:44 AM Stephanie Orourke * If you checked off any problems on this questionnaire so far, Question Answer Date of Assessment Author How difficult have these problems made it for you to do your work, take care of things at home, or get along with other people? Not difficult at all 08/10/2024 10:44 AM Stephanie Orourke documented as of this encounter Miscellaneous Notes * Telephone Encounter - Josie Saenz, RN - 08/10/2024 3:13 PM EST Duplicate request, filled per Boris BELLAMY today documented in this encounter Plan of Treatment Upcoming Encounters Date Type Department Care Team (Late st Contact Info) Description 12/01/2024 10:20 AM EDT [facility] Visit [facility] [address] [place] [address] Cristina Gaffney APRN [address] [place] [address] documented as of this encounter Visit Diagnoses Diagnosis Contact with and (suspected) exposure to human immunodeficiency virus (hiv) documented in this encounter Additional Health Concerns Assessment Noted Time PHQ-9 Depression Total Score: 0 08/10/19 25 10:44 AM EST A fall risk assessment has been complete d for the patient 06/02/2024 11:43 AM EST A Body Mass Index follow-up plan has been documented for the patient 08/12/2024 9:41 AM EST documented as of this encounter Care Teams Medical Numerical Control Operator Relationship Specialty Start Date End Date Swathi Patino, GRADE TAMPER [address] [place] [address] PCP - General 10/28/20 documented as of this encounter
--- OUTSIDE RECORDS SUMMARY | 2024-11-30 08:54 | XMS_ITS ---
Author Organization [facility] Address [address] [place] [address] Care Team Providers Care Machining Technician Name Role Phone Swathi Patino APRN Primary Care Provider [phone] PrEP Status:Active (Active) Start date:02/06/2024 Enrollment date:02/06/2024 Continued Care and Services Coordination
[2024-11-30] MEDS: diphenhydrAMINE 25MG CAPSULE 25 MG PO (09:01)
[2024-11-30] MEDS: ACETAMINOPHEN 325MG TAB 650 MG PO (09:01)
[2024-11-30] MEDS: METHYLPREDNISOLONE SOD SUCC 40MG VIAL 40 MG IV (09:01)
[2024-11-30 09:13] LABS: Basophils % 0.4 % (0.1-2.0); Eosinophils # 0.1 Kmm3 (0.0-0.4); Eosinophils % 1.5 % (0.1-12.0); Hematocrit 43.6 % (42.0-52.0); Immature Granulocytes # 0 10^3uL; Immature Granulocytes % 0 %; Lymphocytes # 2.4 K/mm3 (0.7-4.5); Lymphocytes % 52.2 % (10-50); Mean Corpuscular HGB Conc 32.1 g/dL (31.8-35.4); Mean Corpuscular Hemoglobin 27.1 pg (27.0-31.2); Mean Corpuscular Volume 84.5 fl (80-94); Mean Platelet Volume 8.5 fl (7.4-10.4); Monocytes # 0.5 K/mm3 (0.1-1.0); Monocytes % 9.9 % (1.7-9.3); Neutrophils # 1.6 K/mm3 (1.8-7.8); Nucleated Red Blood Cells # 0 10^3/uL; Nucleated Red Blood Cells % 0 %; Platelet Count 167 K/mm3 (142-424); Red Blood Count 5.16 M/mm3 (4.60-6.20); Red Cell Distribution Width 15.1 % (11.5-17.5); Red Cell Distribution Width-SD 46.4 fL; White Blood Count 4.5 K/mm3 (4.8-10.8)
[2024-11-30 09:24] LABS: Chloride 101 mmol/L (98-107)
[2024-11-30 09:25] LABS: Potassium 3.4 mmoL/L (3.5-5.1); Sodium 137 mmol/L (136-145)
[2024-11-30 09:27] LABS: Anion Gap 10.4 mEq/L (5-15); Bilirubin,Unconjugated 2.2 mg/dL (0.0-1.1); Blood Urea Nitrogen 15 mg/dl (9-20); Carbon Dioxide 29 mmol/L (22.0-30.0); Creatinine Clearance Estimated 110 mL/min (50-200); Estimated Glomerular Filt Rate 68 ml/min (>60); GFR (African American) 82 ML/MIN (>60)
[2024-11-30 09:28] LABS: Alanine Aminotransferase 26 U/L (12-78); Alkaline Phosphatase 39 U/L (38-126); Aspartate Amino Transferase 29 U/L (17-59); Bilirubin,Direct 0.3 mg/dl (0.0-0.4); Bilirubin,Indirect 2.2 mg/dL (0.0-0.9); Bilirubin,Total 2.5 mg/dl (0.2-1.3); Calcium 9.1 mg/dl (8.4-10.2); Glucose 114 mg/dl (74-100); Phosphorous 3.6 mg/dl (2.5-4.5)
[2024-11-30] MEDS: SODIUM CHLORIDE 0.9% IV (09:33)
[2024-11-30] MEDS: SODIUM CHLORIDE 0.9% 50ML BAG 50 ML IV (09:33)
[2024-11-30] MEDS: SODIUM CHLORIDE 0.9% 10ML FLUSH SYRINGE 10 ML IV (09:33)
[2024-11-30] MEDS: INFLIXIMAB IV (09:33)
[2024-11-30 09:34] LABS: C-Reactive Protein 0.8 mg/L (0-4)
== END 2024-11-30 13:25 | disposition home or self-care (01) ==
LOC: INF 08:48
PROVIDERS: PCP Nurse Practitioner Family; Visit Provider Nurse Practitioner Family
DX: L40.59 Other psoriatic arthropathy (principal)
CPT/HCPCS: 80069; 80076; 85025; 86140; 96413; 96415; J1745; J2919; J7040

== ENCOUNTER 2024-12-30 08:49 | Outpatient (CLI) | payer MEDICARE, SELFPAY ==
--- OUTSIDE RECORDS SUMMARY | 2024-12-01 10:20 | XMS_ITS | Encounter Summary ---
Author Organization Healthcare Address [address] [place] [address] Care Team Providers Care Noc Engineer Name Role Phone Swathi Patino MODEL BUILDER Primary Care Provider [phone] Reason for Visit * Reason Comments Follow-up PsA Encounter Details Date Type Department Care Team (Late st Contact Info) Description 12/01/2024 10:20 AM EDT Office Visit [facility] [address] [place] [address] Cristina Gaffney APRN [address] [place] [address] Psoriatic arthritis (CMS/HCC) (Primary Dx); High risk medication use Social History Tobacco Use Types Packs/Day Years Used Date Smoking Tobacco: Never Passive Smoke Exposure: Past Smokeless Tobacco: Never Tobacco Cessation:Counseling Given: Not Answered Alcohol Use Standard Drinks/Week Comments Never 0 (1 standard drink = 0.6 oz pur e alcohol) PHQ-2 Answer Date Recorded Patient Health Questionnaire-2 Score 0 12/01/2024 PHQ-9 Answer Date Recorded Patient Health Questionnaire-9 Score 0 08/10/2024 AUDIT-C Answer Date Recorded Q1: How often do you have a drink containing alc ohol? Monthly or less 12/01/2024 Q2: How many drinks containi ng alcohol do you have on a typical day when you are drinking? 1 or 2 12/01/2024 Q3: How often do you have si x or more drinks on one occasion? Never 12/01/2024 PHQ-2A Answer Date Recorded Patient Health Questionnaire-2 Score 0 06/04/2022 Sex and Gender Information Value Date Recorded Sex Assigned at Male 11/30/2020 8:09 AM EDT Legal Sex Male 6:58 PM EDT Gender Identity Male 11/30/2020 8:09 AM EDT Sexual Orientation Not on file documented as of this encounter Last Filed Vital Signs Vital Sign Reading Time Taken Comments Blood Pressure 121/76 12/01/2024 10:01 AM EDT Pulse 71 12/01/2024 10:01 AM EDT Temperature 36.6 C (97.8 F) 12/01/2024 10:01 AM EDT Respiratory Rate 16 12/01/2024 10:01 AM EDT Oxygen Saturation 97% 12/01/2024 10:01 AM EDT Inhaled Oxygen Concentration - - Weight 113 kg (248 lb 3.8 oz) 12/01/2024 10:01 A M EDT Height 180.3 cm (5' 11 ) 12/01/2024 10:01 AM EDT Body Mass Index 34.62 12/01/2024 10:01 AM EDT documented in this encounter Functional Status * AUDIT-C Score Answer Date of Assessment Author 1 12/01/2024 10:06 AM JUANT Barb Palencia * Question Answer Date of Assessment Author Q1: How often do you have a drink containing alcohol? Monthly or less 12/01/2024 10:06 AM JUANT David Palencia Q2: How many drinks containing alcohol do you have on a typical day when you are drinking? 1 or 2 12/01/2024 10:06 AM Barb Magdaleno Q3: How often do you have si x or more drinks on one occasion? Never 12/01/2024 10:06 AM Barb Magdaleno * Over the past 2 weeks, how often have you been bothered by any of the following problems? Question Answer Date of Assessment Author Little interest or pleasure in doing things Not at all 12/01/2024 10:05 AM Barb Magdaleno Feeling down, depressed, or hopeless Not at all 12/01/2024 10:05 AM Barb Magdaleno Patient Health Questionnaire -2 Score 0 12/01/2024 10:05 AM Barb Magdaleno documented as of this encounter Miscellaneous Notes * Progress Notes - Cristina Gaffney, MODEL BUILDER - 12/01/2024 10:20 AM EDT Images from the original note were not included. Subjective HPI Narinder Knapp is a 59 y.o. male with PMH significant for type II DM, Psoriasis, HTN, GERD, history ofskin cancer (2022), obesity, chronic back pain (DDD and nerve impingement), history of gilberts, who presents today for follow-up for treatment of Psoriatic Arthritis. Initial/Past History: Diagnosed Psoriatic Arthritis at the age of 23. Family History: No known FH of autoimmune diseases. Social History: No known exposure to HCV, HBV, HIV or TB. No hx IV drug use. No hx of tobacco use. No hx of alcohol abuse. Occupational hx: retired, worked for a [employer]. Last visit: With Alexa Tucker 12/04/2022-- Currently on Remicade infusions. Every 6 weeks. He feels itwears off about after 5 weeks. He has pain in his low back today ( sees pain management and has DDD). He follows with pain management for his neck and low back. The rest of his joints are good. His skin in clear today. Denies any swelling. He has had some squamous cell spots taken off his arms and scalp. No further treatment. 12/08 Continues to do well with remicade infusion. Has been on antibiotic three times since last, due to different infection. Has had a little of pso on his nose. Had impetigo, denies close contact with kids. Cleared sinus, dental and impetigo infections without issue. Reviewed labs 10/31/23, creatine found to be 1.7, disussed with patient, including avoiding NSAIDs, sodas, increasing water. 08/10 and prior all normal. 06/02/24 reviewed labs from 05/28/24, creatinine was 1.3. No antibiotic since 12/08. Neck and shoulder and low back continue to bother him, has known DDD. Has morning stiffness for 1-2 hours in back, hips and knees. Remicaide seems to be helping hand and foot pain. Had biopsies taken of skin - showed pre-cancerous changes. Follows with dermatology regularly. Today's Visit: (12/01/24): 12/01/24 doing okay, notes more hip pain after standing. Doing well with infusion otherwise, had labs yesterday, but not available yet. Overall, skin and joints doing well. Review of Systems Constitutional: Negative for chills and fever. Respiratory: Negative for shortness of breath. Cardiovascular: Negative for chest pain. Rheum medication hx: Has been on Humira, Enbrel and Simponi in the past, Methotrexate ( stopped due to liver issues) also. By previous providers. Remicaid 2008 - current The following portions of the chart were reviewed this encounter and updated as appropriate: No Known Allergies Current Outpatient Medications Medication Sig Dispense Refill acetaminophen (Tylenol) 325 MG tablet Take 2 tablets (650 mg) by mouth as needed. amLODIPine (Norvasc) 5 MG tablet Take 1 tablet (5 mg) by mouth daily. atenolol (Tenormin) 100 MG tablet Take 1 tablet (100 mg) by mouth 2 (two) times a day. Blood Glucose Monitoring Suppl (FreeStyle Lite) device cloNIDine (Catapres) 0.1 MG tablet Take 1 tablet (0.1 mg) by mouth daily. Emtricitabine-Tenofovir AF (Descovy) 200-25 MG tablet tablet Take 1 tablet by mouth daily. 90 tablet 0 famotidine (Pepcid) 10 MG tablet Take by mouth. fluorouracil (Efudex) 5 % cream APPLY A THIN LAYER OF CREAM TO AFFECTED AREA ON SCALP, EARS AND FACE ONCE DAILY FOR 4 WEEKS FreeStyle lancets glyBURIDE (Diabeta) 5 MG tablet 1 tablet (5 mg) 2 (two) times a day with meals. hydroCHLOROthiazide (HYDRODiuril) 25 MG tablet Take 1 tablet (25 mg) by mouth daily. HYDROcodone-acetaminophen (Lima) 5-325 MG tablet Take 1 tablet by mouth every 4 (four) hours if needed for severe pain. 24 tablet 0 inFLIXimab (Remicade) 100 MG injection Infuse 10 mg/kg IV every 35 days 12 each 11 Jardiance 25 MG Take 1 tablet every day by oral route, for diabetes. ketoconazole (NIZOral) 2 % shampoo MESSAGE INTO AREAS 2-3 TIMES WEEKLY IN THE SHOWER. LET SIT FOR 5MINUTES BEFORE RINSING losartan (Cozaar) 100 MG tablet Take 1 tablet (100 mg) by mouth daily. losartan-hydroCHLOROthiazide (Hyzaar) 100-25 MG tablet metFORMIN (Glucophage) 1000 MG tablet Take 1 tablet (1,000 mg) by mouth 2 (two) times a day with meals. omeprazole (PriLOSEC) [address] capsule Take 1 capsule (40 mg) by mouth daily. simvastatin (Zocor) 10 MG tablet Take 1 tablet (10 mg) by mouth nightly. SM Aspirin Adult Low Strength 81 MG EC tablet Take 1 tablet (81 mg) by mouth daily. tadalafil (Adcirca) 20 MG tablet TAKE 1 TABLET BY MOUTH ONCE DAILY 1 HOUR BEFORE SEXUAL ACTIVITY tamsulosin (Flomax) 0.4 MG 24 hr capsule Take 1 capsule (0.4 mg) by mouth nightly. tiZANidine (Zanaflex) 4 MG tablet Take 1 tablet (4 mg) by mouth every 6 hours as needed. traMADol (Ultram) 50 MG tablet Take 1 tablet (50 mg) by mouth at night as needed. No current facility-administered medications for this visit. Past Medical History: Diagnosis Date Age-related nuclear cataract, unspecified eye Cataract, nuclear sclerotic senile Arthritis Esophageal candidiasis (CMS/HCC) GERD (gastroesophageal reflux disease) Hypertension Joint pain Personal history of diseases of the skin and subcutaneous tissue History of psoriasis Personal history of other endocrine, nutritional and metabolic disease History of diabetes mellitus Skin cancer Type 2 diabetes mellitus without complications (CMS/HCC) Diabetes Unspecified cataract Cataract Past Surgical History: Procedure Laterality Date CATARACT EXTRACTION CHOLECYSTECTOMY COLONOSCOPY EYE SURGERY GALLBLADDER SURGERY N/A gallbladder surgery from [employer] HAMMER TOE SURGERY Right LASIK N/A Corneal lasik from [employer] Objective Last visit labs: Appointment on 08/10/2024 Component Date Value Ref Range Status CRP, Plasma 08/10/2024 <3.0 <=8.0 mg/L Final WBC Count 08/10/2024 5.25 3.70 - 10.30 10*3/uL Final RBC Count 08/10/2024 5.09 4.60 - 6.10 10*6/uL Final HGB 08/10/2024 14.1 13.7 - 17.5 g/dL Final HCT 08/10/2024 45.3 40.0 - 51.0 % Final Platelet Count 08/10/2024 183 155 - 369 10*3/uL Final MCV 08/10/2024 89 79 - 98 fL Final MCH 08/10/2024 27.7 26.0 - 32.0 pg Final MCHC 08/10/2024 31.1 30.7 - 35.5 g/dL Final RDW 08/10/2024 17.4 (H) 11.5 - 14.5 % Final MPV 08/10/2024 9.1 8.8 - 12.5 fL Final nRBC 08/10/2024 0.0 <=0.0 per 100 WBCs Final Differential Type 08/10/2024 Automated Final Neutrophils % 08/10/2024 47 % Final Lymphocytes % 08/10/2024 38 % Final Monocytes % 08/10/2024 7 % Final Eosinophils % 08/10/2024 7 % Final Basophils % 08/10/2024 1 % Final Immature Granulocytes % 08/10/2024 0 % Final Neutrophils Absolute 08/10/2024 2.47 1.60 - 6.10 10*3/uL Final Lymphocytes Absolute 08/10/2024 2.00 1.20 - 3.90 10*3/uL Final Monocytes Absolute 08/10/2024 0.38 0.30 - 0.90 10*3/uL Final Eosinophils Absolute 08/10/2024 0.36 0.00 - 0.50 10*3/uL Final Basophils Absolute 08/10/2024 0.03 0.00 - 0.10 10*3/uL Final Immature Granulocytes Absolute 08/10/2024 0.01 0.00 - 0.06 10*3/uL Final HIV 1 & 2 Antibody/Antigen Screen 08/10/2024 Non Reactive Non Reactive Final Screening for HIV 1 & 2 antibodies, and P24 antigen is NONREACTIVE. No confirmatory testing is required. There were no vitals filed for this visit. Physical Exam Constitutional: General: He is not in acute distress. Appearance: Normal appearance. He is well-developed. He is obese. He is not diaphoretic. HENT: Head: Normocephalic and atraumatic. Eyes: General: No scleral icterus. Right eye: No discharge. Left eye: No discharge. Conjunctiva/sclera: Conjunctivae normal. Cardiovascular: Heart sounds: No murmur heard. Pulmonary: Effort: Pulmonary effort is normal. No respiratory distress. Musculoskeletal: Comments: Fusions and flexion deformity multiple PIP joints. Some thickening over DIP joints, see clinical image. Skin: General: Skin is warm and dry. Neurological: Mental Status: He is alert and oriented to person, place, and time. Psychiatric: Mood and Affect: Mood normal. Behavior: Behavior normal. Thought Content: Thought content normal. Judgment: Judgment normal. 10/19/22 There is currently no information documented on the homunculus. Go to the Rheumatology activity andcomplete the homunculus joint exam. Joint Exam 12/01/2024 No joint exam has been documented for this visit No data to display Swollen Joint Count: Swollen: -- Tender Joint Count: Tender: -- Patient global assessment: 10 Rapid 3 score: CDAI: CDAI Interpretation: 0-2.8 Remission 2.9 -10 Low disease activity 10.1-22.0 Moderate Activity 22.1-76.0 High Activity Pt reports 100 % improvement while on current medication Assessment and Plan of Care: Plan of care developed with Narinder Knapp on (12/01/24): 1.PsA: -Continue remicaid infusion (10mg/kg frequency to every 5 weeks) -requesting labs from 11/30/24, and recommend continue follow up with primary care provider regarding kidney function. 2. High risk medications: High risk medication use HBV, HCV: negative 08/2019 TB quant: negative 12/05 Chest x-ray: none - CBC, Cr., hepatic function panel reviewed from 05/28/24, creatinine 1.3, will recheck, follow up with me and primary care provider. Patient has discontinued heavy NSAID use, has chronically high soda consumption (working on this), started jardiance. - Recommend to hold with infection and contact us with any concern for injection site reaction (if applicable) or medication question. 3. Generalized OA: L spine, C spine RTC 6 months. Time Spent: I personally spent a total of 44 minutes on this encounter. This time includes face to face with patient, counseling and discussion and/or coordination of care. The patient was counseled about diagnostic results, instruction for management, risk factors reduction, prognosis, compliance with visits and treatment, risks and benefits of treatments options. Prior notes (by external physicians) and results were reviewed by me with independent interpretation of labs and imaging. My note will be sent to PCP and other consulting physicians. documented in this encounter Plan of Treatment Upcoming Encounters Date Type Department Care Team (Late st Contact Info) Description 06/01/2025 10:20 AM EST Office Visit [facility] [address] [place] [address] Cristina Gaffney APRN [address] [place] [address] documented as of this encounter Visit Diagnoses Diagnosis Psoriatic arthritis (CMS/[facility])- Primary Psoriatic arthropathy High risk medication use documented in this encounter Additional Health Concerns Assessment Noted Time PHQ-9 Depression Total Score: 0 08/10/19 25 10:44 AM EST A fall risk assessment has been complete d for the patient 12/01/2024 10:05 AM EDT A Body Mass Index follow-up plan has been documented for the patient 12/01/2024 10:49 AM EDT documented as of this encounter Care Teams Noc Engineer Relationship Specialty Start Date End Date Swathi Patino, MODEL BUILDER [address] [place] [address] PCP - General 10/28/20 documented as of this encounter
--- OUTSIDE RECORDS SUMMARY | 2024-12-23 15:31 | XMS_ITS | Encounter Summary ---
Author Organization [facility] Address [address] [place] [address] Care Team Providers Care Phlebotomist Associate Name Role Phone Swathi Patino JUAN Primary Care Provider [phone] Reason for Referral * Consultation (Routine) - Authorized Specialty Diagnoses / Procedures [facility] To Contact Physical Therapy Diagnoses Visual loss, left eye Carol Sue MD [address] [address] Phone: tel: fax: Referral ID Status Reason Start Date Expiration Date Visits Requested Visits Authorized [id number] Authorized Consult and Treat 12/25/2024 06/26/2026 1 1 * Consultation (Routine) - Authorized Specialty Diagnoses / Procedures Referred By Contac t Referred To Contact Diagnoses Diabetes mellitus type 2 without retinopathy (CMS/HCC) Hypertension, unspecified type Carol Sue MD [address] [address] Phone: tel: fax: Referral ID Status Reason Start Date Expiration Date V isits Requested Visits Authorized [id number] Authorized 12/25/2024 06/26/2026 1 1 Scheduling Instructions Follow-up with PCP within one week * Consultation (Routine) - Authorized Specialty Diagnoses / Procedures Referred By Contac t Referred To Contact Sleep Medicine Diagnoses DAVID (obstructive sleep apnea) Carol Sue MD [address] [address] Phone: tel: fax: [facility] 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 Carol Sue MD [address] [address] Phone: tel: fax: [facility] [address] [place] [address] Phone: tel: fax: Referral ID Status Reason Start Date Expiration Date V isits Requested Visits Authorized [id number] Authorized 12/25/2024 06/26/2026 1 1 Reason for Visit * Reason Comments Eye Problem * Auth/Cert (Routine) Specialty Diagnoses / Procedures Referred By Oleksandr lucas Referred To Contact Diagnoses Visual loss, left eye Carol Sue MD [address] [address] Phone: tel: fax: [facility] [address] [place] [address] Phone: tel: Referral ID Status Reason Start Date Expiration Date Visits Re quested Visits Authorized [id number] 1 1 Encounter Details Date Type Department Care Team (Latest Contact Info) Description 12/23/2024 3:31 PM EDT - 12/25/2024 1:06 PM EDT Hospital Encounter [facility] [address] [place] [address] Theodore Roper MD [address] [place] [address] Carol Sue MD [address] [place] [address] Visual loss, left eye (Primary [...] answer 12/25/2024 How often do you attend [facility] or yarsanism services? Patient unable to answer 12/25/2024 Do you belong to any clubs o r organizations such as druze groups, unions, fraternal or athletic groups, or [...] and heating? Patient unable to answer 12/25/2024 [facility] - Occupational [...] were you homeless or living in a jail (including now)? Patient unable to answer 12/25/2024 Utilities Answer Date Recorded In the past 12 months has th e [employer], gas, oil, or water company threatened to [...] Indicated 12/23/2024 3:42 PM EDT Orquidea Whipple * Question Answer Date of Assessment Author 1. Wish to be (Past 1 Month) No 025 3:42 PM EDT Orquidea Shoemaker 2. Non-Specific Active Suici portillo Thoughts (Past 1 Month) No 12/23/2024 3:42 PM EDT Scarlett Shoemaker 6. Suicidal Behavior (Lifetime) No 5 3:42 PM EDT Orquidea Shoemaker documented as of this encounter Discharge Instructions [...] Neuro-Ophthalmology: You will need to see a neuro-automotive shop foreman for further evaluation and management of your [...] 10 days before admission. Referred by his [employer] [employer] due to papilledema. Presentation Painless left eye [...] Note Narinder Mane 59 y.o. male CSN: [id number] Admission: 12/23/2024 3:31 PM Primary Problem: Visual loss, left eye Primary Bridge Game Director: Assistance Available at Discharge: Housing Circumstances-Z Codes: [...] in last 30 days Medicare Documentation: Follow-up: [facility] [address] [facility] [address] [facility] [address] [facility] [address] Discharge Transportation: Transportation Anticipated: family or friend will provide Transportation Home at Discharge: Family/Friend will Provide What day is the transport expected?: 12/25/24 Follow Up Transport: Transportation Needed to Follow up Appoinments: Family/Friend will Provide Additional Comments: Unable to complete IA prior to pt dcBarney Argueta RN * Discharge Summary - Valdez Cordero MD - 12/25/2024 12:24 PM EDT Hospitalization Admit Date/Time: 12/23/2024 3:31 PM Admitting Attending: Carol Sue Discharge Date: 12/25/2044 Discharge Attending Physician: Carol Sue MD PCP name and Address: Swathi Patino, CORRECTIONS UNIT SUPERVISOR [address] [facility] [place] [address] Referring provider name and address: No referring provider defined for this encounter. Chief Concern, Brief History of Present Illness, and Hospital Course Narinder Mane is a 59 y.o. male with h/o diabetes, psoriatic arthritis, and HTN who experienced painless L monocular visual loss 10 days before admission. Referred by his [employer] due to papilledema. Presentation Painless left eye [...] preserved and symmetric No limb ataxia with rdnjyj-jn-vblr or zikp-fy-zmto Cortical: No Extinction Gait: Deferred Discharge Disposition/Condition [...] ambulating to the cafeteria. Visitors Present No Funeral Car Chauffeur (if applicable) PRESENTATION Oxygen None (Room air) [...] admission Level of Mobility Ambulatory- community Mobility Calloway Independent gait without device History of Falls [...] Sensation Muscle Tone BED MOBILITY Level of [place]alloway Physical/Non-physical Assist Adaptive Equipment Utilized Rolling/ Turning Scooting/ Bridging Independent Supine to Sit Independent Sit to Supine TRANSFERS Level of Calloway Physical/Non- physical Assist Adaptive Equipment Utilized Sit to Stand Independent Stand to sit Independent Bed to Chair Toilet Transfer Shower Transfer FUNCTIONAL MOBILITY Level of Calloway Distance Adaptive Equipment Utilized Ambulation Independent No device BALANCE Postural Appearance INTERVENTIONS Level of Calloway Balance Support Interventions Static Sit Independent Dynamic [...] AM. * Progress Notes - Mamadou Li - 12/25/2024 8:38 AM EDT Physical Therapy [...] mobility. Participants in Care Family/Caregiver Present: No Funeral Car Chauffeur: Not Applicable PRESENTATION Oxygen None (Room air) [...] admission Level of Mobility Ambulatory- community Mobility Calloway Independent gait without device History of Falls [...] Extremity: Intact BED MOBILITY Interventions Level of Calloway Physical/Non- physical Assist Adaptive Equipment Utilized Rolling/ Turning Scooting/ Bridging Independent Supine to Sit Independent Sit to Supine TRANSFERS Interventions Level of Calloway Physical/Non- physical Assist Adaptive Equipment Utilized Sit to Stand Independent Stand to sit Independent Bed to Chair Toilet Transfer Shower Transfer AMBULATION Level of Calloway Distance Adaptive Equipment Utilized Ambulation Independent >250' No device Comments swing through gait, good tiffanie BALANCE Postural Appearance Posture: Within Functional Limits Level of Calloway Balance Support Interventions Static Sit Independent Dynamic Sit Independent Static Stand Independent Dynamic Stand Independent Standardized Assessments [facility] 6-Clicks Mobility Assessment Difficulty patient has turning [...] climbing 3-5 steps with a railing?: None [facility] 6-Clicks Mobility Assessment Total : 24 Assessment [...] Review Outcome: Ongoing, Progressing Flowsheets (Taken 12/24/2024 2227) Progress: no change Plan of Care Reviewed [...] Develop Pain Management Plan Flowsheets (Taken 12/24/2024 030 by Gianni Faith, RN) Pain Management Interventions: care clustered medication (see MAR) Intervention: Prevent or Manage Pain Flowsheets Taken 12/24/2024 1015 by Radha Pfeiffer, KARLA Bowel Elimination Promotion: ambulation promoted Taken 12/24/2024 0303 by Gianni aFith, RN Sensory Stimulation Regulation: quiet environment promoted Sleep/Rest Enhancement: natural light exposure provided Medication Review/Management: medications reviewed Problem: Communication Impairment Goal: Effective Communication Skills Outcome: Ongoing, Progressing Intervention: Optimize Communication Skills Flowsheets (Taken 12/24/2024 030 by Gianni Faith, RN) Communication Enhancement Strategies: call light answered in person one-step directions provided verbal communication attempts encouraged verbal and visual cues paired * Progress Notes - Amirah Mathews MBBS - 12/24/2024 8:09 AM EDT General Neurology Progress Note Brief Summary Narinder Mane is a 59 y.o. male with h/o diabetes, psoriatic arthritis, and HTN who experienced painless L monocular visual loss x2 weeks associated with lower field deficits. referred by his [employer] due to papilledema . Neurology is consulted [...] with the left eye, he visited the [employer] [employer] on 12/23. From that visit he was [...] bladder distention. Musculoskeletal: No appreciable joint swelling. [place] neck joint deformities in DIP. No appreciable [...] reflex downgoing. Coordination: No limb ataxia with pgdauw-ix-dzct or dfyc-tq-jsmx. Gait: Deferred Labs: Labs personally reviewed and [...] with lower field deficits. referred by his [employer] due to papilledema . Neurology is consulted for additional workup to evaluate for underlying etiology. This is 59 y.o. gentleman with medical history of diabetes, psoriatic arthritis, and HTN who presents to [facility] for evaluation of left eye vision loss [...] pager with questions. DEBBIE Long PGY1 Neurology Cosigned by Carol Sue MD at 12/27/2024 8:36 PM EDT Associated attestation - Carol Sue MD - 12/27/2024 8:36 PM EDT I saw and evaluated the patient with the resident/fellow. I discussed the case with the resident/fellow and agree with the findings and plan as documented. * Care Plan - Gianni Faith RN - 12/24/2024 3:07 AM EDT Problem: Adult Inpatient Plan of Care Goal: Plan of Care Review Outcome: Ongoing, Progressing Flowsheets (Taken 12/24/2024 0303) Progress: no change Plan of Care Reviewed [...] and Manage Fall Risk Flowsheets (Taken 12/24/2024 0303) Safety Promotion/Fall Prevention: activity supervised Intervention: Prevent Skin Injury Flowsheets (Taken 12/24/2024 0303) Body Position: weight shifting Skin Protection: protective [...] Intervention: Provide Person-Centered Care Flowsheets (Taken 12/24/2024 0303) Trust Relationship/Rapport: care explained choices provided Goal: [...] encouraged Intervention: Promote Injury-Free Environment Flowsheets (Taken 12/24/2024 030) Safety Promotion/Fall Prevention: activity supervised Problem: Pain Acute Goal: Optimal Pain Control and Function Outcome: Ongoing, Progressing Intervention: Optimize Psychosocial Wellbeing Flowsheets (Taken 12/24/2024302) Supportive Measures: decision-making supported Diversional Activities: movies Spiritual Activities Assistance: hope instilled Intervention: Develop Pain Management Plan Flowsheets (Taken 12/24/2024 030) Pain Management Interventions: care clustered medication (see MAR) Intervention: Prevent or Manage Pain Flowsheets (Taken 12/24/2024302) Sensory Stimulation Regulation: quiet environment promoted Sleep/Rest Enhancement: natural light exposure provided Medication Review/Management: medications reviewed Problem: Communication Impairment Goal: Effective Communication Skills Outcome: Ongoing, Progressing Intervention: Optimize Communication Skills Flowsheets (Taken 12/24/2024302) Communication Enhancement Strategies: call light answered in [...] EDT Report called to Gianni ACOSTA at [facility]. Patient transported via wheelchair. Denies any pain [...] psoriatic arthritis, and HTN who presents to [facility] for evaluation of left eye vision loss and optic disc edema. Patient states he noted acute vision loss in the lower half of his left eye 10 days ago. He describes the appearance of a villalba haze over that part of his VF. Patient presented to [facility] [employer] today who noted left eye optic disc edema and encouraged patient to present to [facility]. Patient states his vision has been stable [...] meals hydroCHLOROthiazide (HYDRODIURIL) 25 mg, Daily HYDROcodone-acetaminophen ([place]) 5-325 MG tablet 1 tablet, Oral, Every [...] preserved and symmetric No limb ataxia with vmbtwr-sa-iikw or nkpg-wj-ssde Cortical: No Extinction Gait: Deferred Relevant Results [...] psoriatic arthritis, and HTN who presents to [facility] for evaluation of left eye vision loss [...] SURGERY GALLBLADDER SURGERY N/A gallbladder surgery from [facility] HAMMER TOE SURGERY Right LASIK N/A Corneal lasik from [facility] [3] Family History Problem Relation Name Age [...] by: Francois Salinas MD Authorized by: Theodore Ropre MD Procedure specific details: Ocular Ultrasound A [...] ocular ultrasound The images were Saved in [employer] - E. The study was technically adequate. [...] lost about half of his vision. Per [facility] ophthalmology paperwork, Giant cell arteritis vs optic [...] vomiting, and diarrhea. History provided by: Patient science interpreter used: No Patient is a 59-year-old with past medical history significant for psoriatic arthritis hypertensiontype 2 diabetes presents emergency department with left vision loss. Two weeks ago patient noted that has left vision was blurry no headaches nausea vomiting eye pain or history of similar symptoms. No trauma to the eye. Patient went to [facility] [employer] today who was concerned about papilledema of [...] baseline. Comments: Awake Psychiatric: Behavior: Behavior normal. [place] Coma Scale Score: 15 ED Course & [...] 12/23/241919 Basic metabolic panel Morning draw Ordered BARRY, CORRY E 12/23/241919 Vital Signs Every 4 hours Ordered BARRY, CORRY E 12/23/241919 Pulse Oximetry Every 4 hours Ordered BARRY, CRORY E 12/23/241919 Intake and output Every 4 hours Ordered ALFREDTCH, CORRY E 12/23/241919 Neuro checks Every 4 hours Ordered BARRY CORRY E 12/23/241919 POCT glucose manually resulted Daily Order ID Start Status Ordering Provider [id number] 12/23/241920 Ordered CORRY PHILIPPE 12/24/24 0600 Scheduled BURTCH, CORRY E 12/25/24 0600 Scheduled BURTCH, CORRY E 12/26/24 0600 Scheduled BURTCH, CORRY E 12/27/24 [...] w and wo IV Contrast Once Ordered ALLI PHILIPPEE Jessica 12/23/241919 Full code Continuous Ordered ALLI PHILIPPEE E 12/23/241919 Adult diet Diet texture: Regular Diet effective now Ordered ALLI PHILIPPEE Jessica 12/23/241919 Mobility Orders Until discontinued Ordered BARRY CORRY E 12/23/241919 Notify physician (specify parameters) Until discontinued Ordered ALLI PHILIPPEE Jessica 12/23/241919 Insert peripheral IV Once Placed in And Linked Group Ordered ALLI PHILIPPEE Jessica 12/23/241919 Saline lock IV Once Placed in And Linked Group Ordered BARRY, CORRY E 12/23/241919 Apply sequential compression device Until discontinued Comments: For non-ambulatory patients. Discontinue when ambulating > 100 feet. Ordered ALFREDENRIKECORRY Jessica 12/23/241919 Do Not Give Nicotine Replacement Until discontinued Ordered ALFREDENRIKECORRY Jessica 12/23/241919 Admit to inpatient Once Ordered BARRY CORRY Jessica 12/23/24 1810 Consult to Neurology Once Specialty: [...] None Disposition Admit Admitting/Attending Physician: CAROL SUE [[id number]] Provider Care Team: [facility] [103] [...] SURGERY Right LASIK N/A Corneal lasik from [facility] [3] Family History Problem Relation Name Age of Onset Cataracts Mother Diabetes Father Estefany Mane Cancer Father Estefany Mane Anesthesia problems Other Malig Hyperthermia Other Cancer Sister eBrta Mane Marker [4] Tobacco Use Smoking status: [...] Description 06/01/2025 10:20 AM EST [facility] [address] [place] [address] Cristina Gaffney M, CORRECTIONS UNIT SUPERVISOR [address] [place] [address] Scheduled Referrals Name Type Priority Associated Diagnoses [...] Routine Diabetes mellitus type 2 without retinopathy ([facility]/HCC) Hypertension, unspecified type Expected: 01/01/2025, Expires: 06/28/2026 [...] PANEL, PLASMA STAT 12/23/2024 3:29 PM EDT [facility] ED POCUS PROCDOC Routine 12/23/2024 2:46 PM EDT documented in this encounter Results * (ABNORMAL) POCT glucose meter (12/25/2024 12:12 PM EDT) POCT Glucose 175(H) 74 - 99 mg/dL 12/25/2024 12:14 PM EDT [facility] Comment:Accuracy of a glucos e result [...] Comment 12/25/2024 12:14 PM EDT HEALTHCARE LAB Cattle Inspector ID Bhavana Barahona 12/25/2024 12:14 PM EDT HEALTHCARE LAB Device ID [id number] 12/25/2024 12:14 PM EDT HEALTH[facility]ARE LAB Specimen Type POC Capillary 12/25/2024 12:14 PM EDT [facility]ARE [facility] Blood Capillary blood specimen / Unknown 12/25/2024 12:12 PM EDT 12/25/2024 12:14 PM EDT us Carol Sue MD LAB POINT OF CARE TE ST DOCKED DEVICE UNSOLICITED RESULTS Final Result Performing Organization Address City/State/[facility] Phone Number [facility]ARE [facility] [address] [place] [address] * VAS US Carotid Duplex Bilateral (12/25/2024 [...] by Evan Fernandez MD, FACS, FSVS, RPVI on12/25/2024 2:33 PM Carol Sue MD CV VASCULAR PROCEDURES Final [...] for testing. Comment 12/25/2024 8:45 AM EDT [facility]ALTH[facility]ARE [facility] Cattle Inspector ID Bhavana Barahona 12/25/2024 8:45 AM EDT HEALTHCARE LAB Device ID [id number] 12/25/2024 8:45 AM EDT HEALTHCARE LAB Specimen Type POC Capillary 12/25/2024 8:45 AM EDT [facility]ALTH[facility]ARE [facility] Blood Capillary blood specimen / Unknown 12/25/2024 8:43 AM EDT 12/25/2024 8:45 AM EDT us Carol Sue MD LAB POINT OF CARE TE ST DOCKED DEVICE UNSOLICITED RESULTS Final Result [facility] [address] [place] [address] * (ABNORMAL) Lipid panel (12/25/2024 4:11 AM EDT) Cholesterol, Plasma 138 <200 mg/dL 12/25/2024 8:53 AM EDT [facility] Comment: Cholesterol Reference Range (age >17 years): Desirable <200 mg/dL Borderline 200 to 239 mg/dL Undesirable >239 mg/dL HDL 39(L) >=40 mg/dL 12/25/2024 8:53 AM EDT [facility] Comment: HDL Cholesterol Reference Ranges (age >17 years): Female, acceptable > or = 50 mg/dL Male, acceptable > or = 40 mg/dL Triglycerides, Plasma 156(H) <150 mg/dL 12/25/2024 8:53 AM EDT [facility] Comment: Triglyceride Reference Range (age >17 years): Desirable: <150 mg/dL Borderline high: 150 to 199 mg/dL High: 200 to 499 mg/dL Very high: >499 mg/dL Increased risk of pancreatitis: >1000 mg/dL Cholesterol/HDL Ratio 4 12/25/2024 8:53 AM EDT [facility] LDL, Calculated 72 <100 mg/dL 8:53 AM EDT [facility] Comment: LDL Cholesterol Reference Range [...] 12 hours? Unknown 12/25/2024 8:53 AM EDT [facility] Blood Venous blood specimen / Unknown Venipuncture / Unknown 12/25/2024 4:11 AM EDT 12/25/2024 4:28 AM EDT us Carol Sue MD LAB BLOOD ORDERABLES Final Res ult [facility] [address] [place] [address] * (ABNORMAL) Basic metabolic panel (12/25/2024 4:11 AM EDT) Glucose, Plasma 152(H) 74 - 99 mg/dL 12/25/2024 4:57 AM EDT [facility] BUN, Plasma 14 8 - 23 mg/dL 12/25/2024 4:57 AM EDT [facility] Creatinine, Plasma 1.15 0.70 - 1.20 mg/dL 12/25/2024 4:57 AM EDT [facility] BUN/Creatinine Ratio 12 12/25/2024 4:57 AM EDT [facility] Sodium, Plasma 139 136 - 145 mmol/L 12/25/2024 4:57 AM EDT [facility] Potassium, Plasma 3.4(L) 3.6 - 4.9 mmol/L 12/25/2024 4:57 AM EDT [facility] Chloride, Plasma 101 97 - 107 mmol/L 12/25/2024 4:57 AM EDT [facility] CO2, Plasma 25 22 - 29 mmol/L 12/25/2024 4:57 AM EDT [facility] Anion Gap 13 6 - 16 mmol/L 12/25/2024 4:57 AM EDT [facility] Total Calcium, Plasma 9.0 8.9 - 10.2 mg/dL 12/25/2024 4:57 AM EDT [facility] eGFRcr 72.4 mL/min/1.7 3m*2 12/25/2024 4:57 AM EDT [facility] Comment:Reported eGFRcr in m L/min/1.73m2 is based the CKD-EPI 2020 equation that does not use a race coefficient. Blood Venous blood specimen / Unknown Venipuncture / Unknown 12/25/2024 4:11 AM EDT 12/25/2024 4:28 AM EDT us Carol Sue MD LAB BLOOD ORDERABLES Final Res ult [facility] [address] [place] [address] * (ABNORMAL) POCT glucose meter (12/24/2024 8:07 PM EDT) POCT Glucose 197(H) 74 - 99 mg/dL 12/24/2024 8:09 PM EDT [facility] Comment:Accuracy of a glucos e result [...] for testing. Comment 12/24/2024 8:09 PM EDT [facility]ALTH[facility]ARE [facility] Cattle Inspector ID Xander Hurt 12/25/19 8:09 PM EDT HEALTHCARE LAB Device ID [id number] 12/24/2024 8:09 PM EDT [facility]ALTH[facility]ARE LAB Specimen Type POC Capillary 12/24/2024 8:09 PM EDT [facility] Blood Capillary blood specimen / Unknown 12/24/2024 8:07 PM EDT 12/24/2024 8:09 PM EDT us Carol Sue MD LAB POINT OF CARE TE ST DOCKED DEVICE UNSOLICITED RESULTS Final Result Performing Organization Address City/State/[facility] de Phone Number HEALTHCARE LAB [address] [place] [address] * (ABNORMAL) POCT glucose meter (12/24/2024 4:13 PM EDT) [facility] Signature POCT Glucose 168(H) 74 - 99 mg/dL 12/24/2024 4:15 PM EDT [facility]ARE [facility] Comment:Accuracy of a [...] for testing. Comment 12/24/2024 4:15 PM EDT [facility]ARE [facility] Cattle Inspector ID Sonja Peters 12/25/19 4:15 PM EDT HEALTHCARE LAB Device ID [id number] 12/24/2024 4:15 PM EDT [facility]ALTH[facility]ARE LAB Specimen Type POC Capillary 12/24/2024 4:15 PM EDT [facility] Blood Capillary blood specimen / Unknown 12/24/2024 4:13 PM EDT 12/24/2024 4:15 PM EDT us Carol Sue MD LAB POINT OF CARE TE ST DOCKED DEVICE UNSOLICITED RESULTS Final Result [facility] [address] [place] [address] * (ABNORMAL) POCT glucose meter (12/24/2024 11:57 AM EDT) POCT Glucose 187(H) 74 - 99 mg/dL 12/24/2024 11:59 AM EDT [facility]ALTH[facility]ARE [facility] Comment:Accuracy of a [...] Comment 12/24/2024 11:59 AM EDT [facility]ALTH[facility]ARE LAB Cattle Inspector ID Sonja Peters 12/25/19 11:59 AM EDT HEALTHCARE LAB Device ID [id number] 12/24/2024 11:59 AM EDT [facility] Specimen Type POC Capillary 12/24/2024 11:59 AM EDT [facility] Blood Capillary blood specimen / Unknown 12/24/2024 11:57 AM EDT 12/24/2024 11:59 AM EDT Carol Sue MD LAB POINT OF CARE TE ST DOCKED DEVICE UNSOLICITED RESULTS Final Result [facility] [address] [place] [address] * (ABNORMAL) POCT glucose meter (12/24/2024 8:18 [...] for testing. Comment 12/24/2024 8:20 AM EDT [facility] Cattle Inspector ID Sonja Peters 12/25/19 8:20 AM EDT HEALTHCARE LAB Device ID [id number] 12/24/2024 8:20 AM EDT [facility]ALTHCARE LAB Specimen Type POC Capillary 12/24/2024 8:20 AM EDT [facility] Blood Capillary blood specimen / Unknown 12/24/2024 8:18 AM EDT 12/24/2024 8:20 AM EDT Carol Sue MD LAB POINT OF CARE TE ST DOCKED DEVICE UNSOLICITED RESULTS Final Result [facility] [address] [place] [address] * MR Orbits w and wo IV [...] COMMUNICATION: Per this written report. Drafted by Joes Cheung MD on 12/24/2024 9:47 AM Final [...] Pattern Speckled(A ) 12/26/2024 1:22 PM EDT [facility] ([facility]) RAJESH Titer 1:80(A) 12/26/2024 1:[address] [facility] ([facility]) Blood Venous blood specimen / Unknown Venipuncture / Unknown 12/23/2024 8:59 PM EDT 12/23/2024 9:16 PM EDT Narrative [facility] ([facility]) - 12/26/2024 1:22 PM EDT Performed By: [facility] [address] [place] [address] Tree And Shrub Worker: George Andersen MD, PhD CLIA Number: [id number] us Theodore Roper MD LAB BLOOD ORDERABLES Fin al Result [facility] [employer] [facility] ([facility]) [address] [id number] * ENAII (SO) (12/23/2024 8:59 PM EDT) SSA-52 (RO52) (SAMIR) Antibody, IgG 2 0 - 40 AU/mL 12/26/2024 10:49 PM EDT [facility] ([facility]) SSA-60 (RO60) (SAMIR) Antibody, IgG 0 0 - 40 AU/mL 12/26/2024 10:49 PM EDT [facility] ([facility]) SSB (LA) (SAMIR) Antibody, IgG 0 0 - 40 AU/mL 12/26/2024 10:[address] [facility] ([facility]) Blood Venous blood specimen / Unknown Venipuncture / Unknown 12/23/2024 8:59 PM EDT 12/23/2024 9:16 PM EDT Narrative [facility] ([facility]) - 12/26/2024 10:49 PM EDT INTERPRETIVE INFORMATION: [...] (PSS) also have this antibody. Performed By: [facility] [address] [place] [address] [employer] And Shrub Worker: George Andersen MD, PhD CLIA Number: [id number] us Theodoer Roper MD LAB BLOOD ORDERABLES Fin al Result [facility] ([facility] [address] [place] [address] * ANCA Vasculitis Profile (SO) (12/23/2024 8:59 PM EDT) Myeloperoxidase (MPO) Ab, IgG 0 0 - 19 AU/mL 12/26/2024 3:26 PM EDT [facility] ([facility]) Serine Proteinase 3 (PR3) Ab, IgG 0 0 - 19 AU/mL 12/26/2024 3:[address] [facility] ([facility]) ANCA IFA Titer <1:20 <1:20 12/26/2024 3:26 PM EDT [facility] ([facility]) ANCA IFA Pattern None Detected None Detected 12/26/2024 3:26 PM EDT [facility] ([facility]) Blood Venous blood specimen / Unknown Venipuncture / Unknown 12/23/2024 8:59 PM EDT 12/23/2024 9:16 PM EDT Narrative [facility] ([facility]) - 12/26/2024 3:26 PM EDT INTERPRETIVE INFORMATION: [...] collagen vascular disease or arthritis. Performed By: [facility] [address] [place] [address] Tree And Shrub Worker: George Andersen MD, PhD CLIA Number: [id number] us Theodore Roper MD LAB BLOOD ORDERABLES Fin al Result [facility]) [address] [place] [address] * (ABNORMAL) Antinuclear Antibody (RAJESH), HEp-2, IgG (SO) (12/23/2024 8:59 PM EDT) RAJESH INTERPRETIVE COMMENT See Note 12/26/2024 1:22 PM EDT [facility] ([facility]) Anti Nuc Ab Screen Detected( H) <1:80 12/26/2024 1:22 PM EDT [employer] ([facility]) Blood Venous blood specimen / Unknown Venipuncture / Unknown 12/23/2024 8:59 PM EDT 12/23/2024 9:16 PM EDT Narrative [facility] ([facility]) - 12/26/2024 1:22 PM EDT Speckled Pattern Clinical associations: SLE, SSc, SjS, DM, PM, MCTD, UCTD. May also be found in healthy individuals Main autoantibodies: Anti-SSA-52 (Ro52), anti-SSA-60 (Ro60), anti-SS-B/LA, anti-Rafa-1 (anti-Scl-70), Campos, anti-U1-DRY CELL ASSEMBLY MACHINE TENDER, anti-U2-DRY CELL ASSEMBLY MACHINE TENDER, anti-Mi-2, anti-p155/140 (TIF1g), anti-Ku, anti-RNA polymerase, anti-DFS70/LEDGF-P75 [...] not necessarily rule out SARD. Performed By: [employer] [address] [place], [place] [id number] Tree And Shrub Worker: George Andersen MD, PhD CLIA Number: [id number] Theodore Roper MD LAB BLOOD ORDERABLES [facility] al Result [facility]) [address] [place] [id number] * Angiotensin Converting Enzyme, Serum (SO) (12/23/2024 8:59 PM EDT) ANGIOTENSIN CONVERTING ENZYME 21 16 - 85 U/L 12/26/2024 7:31 AM EDT [facility] ([facility]) Blood Venous blood specimen / Unknown Venipuncture / Unknown 12/23/2024 8:59 PM EDT 12/23/2024 9:16 PM EDT Narrative [facility] ([facility]) - 12/26/2024 7:31 AM EDT Performed By: [employer] [address] [place] [address] [employer] And Shrub Worker: George Andersen MD, PhD CLIA Number: [id number] Theodore Roper MD LAB BLOOD ORDERABLES Fin al Result Performing Organization Address [facility]/ZIP Co de Phone Number [facility] ([facility]) [address] [place] [address] * Anti-Beta 2 Glycoprotein, IgG and IgM (12/23/2024 8:59 PM EDT) Anti-Beta 2 Glycoprotein 1, IgG <1.4 <20.0 U/mL 12/23/2024 10:29 PM EDT [facility] Anti-Beta 2 Glycoprotein IgG Interpretation Negative Negative 12/23/2024 10:29 PM EDT [facility] Anti-Beta 2 Glycoprotein 1, IgM <1.5 <20.0 U/mL 12/23/2024 10:29 PM EDT [facility] Anti-Beta 2 Glycoprotein IgM Interpretation Negative Negative 12/23/2024 10:29 PM EDT [facility] Blood Venous blood specimen / Unknown Venipuncture / Unknown 12/23/2024 8:59 PM EDT 12/23/2024 9:15 PM EDT us Theodore Roper MD LAB BLOOD ORDERABLES Fin al Result [facility] [address] [place] [address] * Anticardiolipin IgG and IgM (12/23/2024 8:59 PM EDT) IgG Anticardiolipin <1.60 <20.00 GPL Units/mL 12/23/2024 10:29 PM EDT [facility] Anticardiolipin IgG Interpretation Negative Negative 12/23/2024 10:29 PM EDT [facility] IgM Anticardiolipin <1.50 <20.00 MPL Units/mL 12/23/2024 10:29 PM EDT [facility] Anticardiolipin IgM Interpretation Negative Negative 12/23/2024 10:29 PM EDT [facility] Blood Venous blood specimen / Unknown Venipuncture / Unknown 12/23/2024 8:59 PM EDT 12/23/2024 9:15 PM EDT Theodore Roper MD LAB BLOOD ORDERABLES Fin al Result Performing Organization Address City/[facility]/ZIP Co de Phone Number [facility] [address] [place] [address] * NMO/AQP4 FACS Serum (SO) (12/23/2024 8:59 PM EDT) NMO/AQP4 FACS,S Negative Negative 8:58 AM EDT [facility] (HAMZAH) Comment: Recommend repeat testing in 6 months if clinical suspicion is high. Negative result can occur in the setting of immunosuppression. ADDITIONAL INFORMATION This test was developed and its performance characteristics determined by [facility] in a manner consistent with CLIA requirements. This test has not been cleared or approved by the U.S. Food and Drug Administration. Test Performed by: [facility] - [address] [address] Quality Assurance Test Program Manager: Isa Espinoza Ph.D.; CLIA# [id number] Blood Venous blood specimen / Unknown Venipuncture / Unknown 12/23/2024 8:59 PM EDT 12/23/2024 9:20 PM EDT Theodore Roper MD LAB BLOOD ORDERABLES Fin al Result [facility] ([facility]) * Toxoplasma gondii antibody, IgG (SO) (12/23/2024 8:59 PM EDT) TOXOPLASMA IGG AB <3.0 <=8.8 IU/mL 12/26/2024 4:40 AM EDT [facility] (JULIO) Blood Venous blood specimen / Unknown Venipuncture / Unknown 12/23/2024 8:59 PM EDT 12/23/2024 9:16 PM EDT Narrative [facility] EMANUEL) - 12/26/2024 4:40 AM EDT INTERPRETIVE [...] the amount of antibody present. Performed By: [facility] [address] [place] [address] Tree And Shrub Worker: George Andersen MD, PhD CLIA Number: [id number] Theodore Roper MD LAB BLOOD ORDERABLES Fin al Result Performing Organization Address City/[facility] Co de Phone Number [facility] E[facility]) [address] [place] [address] * HIV 1 & 2 Antibody/Antigen Screen (12/23/2024 7:39 PM EDT) HIV 1 & 2 Antibody/Antigen Screen Non Reactive Non Reactive 12/23/2024 8:37 PM EDT [facility] Comment:Screening for HIV 1 & 2 antibodies, and P24 antigen is NONREACTIVE. No confirmatory testing is required. Blood Venous blood specimen / Unknown Venipuncture / Unknown 12/23/2024 7:39 PM EDT 12/23/2024 7:55 PM EDT Theodore Roper MD LAB BLOOD ORDERABLES Fin al Result Performing Organization Address City/[facility]/ZIP Co de Phone Number [facility] [address] [place] [address] * Lupus Anticoagulant Profile (12/23/2024 7:39 PM EDT) Lupus Anticoagulant Result Lupus anticoagulant (LA) not detected by either LA-sensitive aPTT or dRVVT assays. If clinical suspicion for antiphospholipid syndrome is high, consider testing for antibodies against cardiolipin and ymun-[id number] n I. 12/25/2024 11:37 AM EDT [facility] aPTT Lupus Anticoagulant Sensitive 33.4 <=41.0 sec LAB COAGULATION METHOD 12/25/2024 11:37 AM EDT [facility] DRVVT Screen 36.3 sec LAB COAGULATION METHOD 12/25/2024 11:37 AM EDT [facility] DRVVT Screen Ratio 0.92 <1.20 LAB COAGULATION METHOD 12/25/2024 11:37 AM EDT [facility] Blood Venous blood specimen / Unknown Venipuncture / Unknown 12/23/2024 7:39 PM EDT 12/23/2024 7:54 PM EDT us Theodore Roper MD LAB BLOOD ORDERABLES Fin al Result [facility] [address] [place] [address] * (ABNORMAL) Hemoglobin A1c (12/23/2024 7:39 PM EDT) Hemoglobin A1c 7.5(H) <5.7 % 12/23/2024 8:37 PM EDT [facility] Blood Venous blood specimen / Unknown Venipuncture / Unknown 12/23/2024 7:39 PM EDT 12/23/2024 7:55 PM EDT Narrative [facility] - 12/23/2024 8:37 PM EDT HA1C Interpretive Data: Diagnosis of Diabetes: Diabetic > or = 6.5% Pre-diabetic 5.7 to 6.4% Non-diabetic < or = 5.6% Glycemic Targets for Type I and Type II Diabetics: Non- Adults <7.0% Adults <6.0% Children and Adolescents <7.5% Source: [place] [employer]. Standards of medical care in diabetes,2017. Diabetes Care.2017:40 (suppl 1):S1-S135. Theodore Roper MD LAB BLOOD ORDERABLES Fin al Result [facility] [address] [place] [address] * Cytomegalovirus Antibody IgM (SO) (12/23/2024 7:39 PM EDT) CMV ANTIBODY IGM <8.0 <=29.9 AU/mL 12/26/2024 5:27 AM EDT [facility] ([facility]) Blood Venous blood specimen / Unknown Venipuncture / Unknown 12/23/2024 7:39 PM EDT 12/23/2024 7:54 PM EDT Narrative [facility] ([facility]) - 12/26/2024 5:27 AM EDT [...] Cellular and Tissue-Based Products (HCT/P). Performed By: [facility] [address] [place] [address] Tree And Shrub Worker: George Andersen MD, PhD CLIA Number: [id number] Theodore Roper MD LAB BLOOD ORDERABLES Fin al Result Performing Organization Address City/[facility]/ZIP Co de Phone Number [facility] ([facility]) [address] [place] [address] * (ABNORMAL) Cytomegalovirus Antibody IgG (SO) (12/23/2024 7:39 PM EDT) CMV ANTIBODY IGG 2.90(H) <=0.70 U/mL 12/26/2024 5:24 AM EDT [facility] ([facility]) Blood Venous blood specimen / Unknown Venipuncture / Unknown 12/23/2024 7:39 PM EDT 12/23/2024 7:54 PM EDT Narrative [facility] EMAN[facility]EL) - 12/26/2024 5:24 AM EDT INTERPRETIVE [...] laboratory at the same time. Performed By: [facility] [address] [place] [address] Tree And Shrub Worker: George Andersen MD, PhD CLIA Number: [id number] us Theodore Roper MD LAB BLOOD ORDERABLES Fin al Result [facility] [employer] [facility] EMANUEL) [address] [place], [place] [id number] * Toxoplasma gondii antibody, IgM (SO) (12/23/2024 7:39 PM EDT) [facility] TOXOPLASMA IGM AB <3.0 <=7.9 AU/mL 12/26/2024 5:[address] [facility] DAQUAN CASTELLANOS) Blood Venous blood specimen / Unknown Venipuncture / Unknown 12/23/2024 7:39 PM EDT 12/23/2024 7:54 PM EDT Narrative JUANITO CASTELLANOS) - 12/26/2024 5:06 AM EDT INTERPRETIVE INFORMATION: [...] post-infection. This test is performed using the [employer] LIAISON. As suggested by the CDC, any [...] the amount of antibody present. Performed By: [employer] [address] [place] [id number] [employer] Worker: George Andersen MD, PhD CLIA Number: [id number] Theodore Roper MD LAB BLOOD ORDERABLES [facility] al Result [facility]) [address] [place] [address] * (ABNORMAL) Basic metabolic panel (12/23/2024 7:39 PM EDT) Glucose, Plasma 103(H) 74 - 99 mg/dL 12/23/2024 8:10 PM EDT [facility] BUN, Plasma 16 8 - 23 mg/dL 12/23/2024 8:10 PM EDT [facility] Creatinine, Plasma 1.18 0.70 - 1.20 mg/dL 12/23/2024 8:10 PM EDT [facility] BUN/Creatinine Ratio 14 12/23/2024 8:10 PM EDT [facility] Sodium, Plasma 136 136 - 145 mmol/L 12/23/2024 8:10 PM EDT [facility] Potassium, Plasma 3.4(L) 3.6 - 4.9 mmol/L 12/23/2024 8:10 PM EDT [facility] Chloride, Plasma 101 97 - 107 mmol/L 12/23/2024 8:10 PM EDT [facility] CO2, Plasma 25 22 - 29 mmol/L 12/23/2024 8:10 PM EDT [facility] Anion Gap 10 6 - 16 mmol/L 12/23/2024 8:10 PM EDT [facility] Total Calcium, Plasma 9.3 8.9 - 10.2 mg/dL 12/23/2024 8:10 PM EDT [facility] eGFRcr 70.2 mL/min/1.7 3m*2 12/23/2024 8:10 PM EDT [facility] Comment:Reported eGFRcr in m L/min/1.73m2 is based the CKD-EPI 2020 equation that does not use a race coefficient. Blood Venous blood specimen / Unknown Venipuncture / Unknown 12/23/2024 7:39 PM EDT 12/23/2024 7:48 PM EDT us Carol Sue MD LAB BLOOD ORDERABLES Final Res ult [facility] [address] [place] [address] * (ABNORMAL) CBC (12/23/2024 7:39 PM EDT) WBC Count 6.39 3.70 - 10.30 10*3/uL LAB HEMATOLOGY METHOD 12/23/2024 7:50 PM EDT [facility] RBC Count 5.45 4.60 - 6.10 10*6/uL LAB HEMATOLOGY METHOD 12/23/2024 7:50 PM EDT [facility] HGB 14.9 13.7 - 17.5 g/dL LAB HEMATOLOGY METHOD 12/23/2024 7:50 PM EDT [facility] HCT 46.2 40.0 - 51.0 % LAB HEMATOLOGY METHOD 12/23/2024 7:50 PM EDT [facility] Platelet Count 205 155 - 369 10*3/uL LAB HEMATOLOGY METHOD 12/23/2024 7:50 PM EDT [facility] MCV 85 79 - 98 fL LAB HEMATOLOGY METHOD 12/23/2024 7:50 PM EDT [facility] MCH 27.3 26.0 - 32.0 pg LAB HEMATOLOGY METHOD 12/23/2024 7:50 PM EDT [facility] MCHC 32.3 30.7 - 35.5 g/dL LAB HEMATOLOGY METHOD 12/23/2024 7:50 PM EDT [facility] RDW 15.4(H) 11.5 - 14.5 % LAB HEMATOLOGY METHOD 12/23/2024 7:50 PM EDT [facility] MPV 9.0 8.8 - 12.5 fL LAB HEMATOLOGY METHOD 12/23/2024 7:50 PM EDT [facility] nRBC 0.0 <=0.0 per 100 WBCs LAB HEMATOLOGY METHOD 12/23/2024 7:50 PM EDT [facility] Blood Venous blood specimen / Unknown Venipuncture / Unknown 12/23/2024 7:39 PM EDT 12/23/2024 7:48 PM EDT us Carol Sue MD LAB BLOOD ORDERABLES Final Res ult [facility] [address] [place] [address] * POCT glucose meter (12/23/2024 7:38 PM EDT) [facility] POCT Glucose 99 74 - 99 mg/dL 12/23/2024 7:40 PM EDT [facility] Comment:Accuracy of [...] Comment 12/23/2024 7:40 PM EDT [facility] Cattle Inspector ID Orquidea Shoemaker 12/23/2024 7:40 PM EDT [facility] Device ID [id number] 12/23/2024 7:40 PM EDT [facility] Specimen Type POC Capillary 12/23/2024 7:40 PM EDT [facility] Blood Capillary blood specimen / Unknown 12/23/2024 7:38 PM EDT 12/23/2024 7:40 PM EDT us Carol Sue MD LAB POINT OF CARE TE ST DOCKED DEVICE UNSOLICITED RESULTS Final Result Performing Organization Address City/State/[facility] Co de Phone Number [facility] [address] [place] [address] * (ABNORMAL) POCT glucose meter (12/23/2024 7:35 PM EDT) [facility] POCT Glucose 64(L) 74 - 99 mg/dL 12/23/2024 7:37 PM EDT [facility] Comment:Accuracy of [...] the main labortory for testing. Comment 12/23/2024 7:37 PM EDT [facility] Cattle Inspector ID Orquidea Shoemaker 12/23/2024 7:37 PM EDT [facility] Device ID [id number] 12/23/2024 7:37 PM EDT [facility] Specimen Type POC Capillary 12/23/2024 7:37 PM EDT [facility] Blood Capillary blood specimen / Unknown 12/23/2024 7:35 PM EDT 12/23/2024 7:37 PM EDT Carol Sue MD LAB POINT OF CARE TE ST DOCKED DEVICE UNSOLICITED RESULTS Final Result [facility] [address] [place] [address] * CT Angio Neck (12/23/2024 5:00 PM [...] TOTAL DLP (Dose-Length Product): 1374.82 mGy.cm (accession [id number]), 1374.82 mGy.cm (accession [id number]), 1374.82 mGy.cm (accession [id number]). Please note: The reported value represents the [...] No aneurysm of either internal carotid artery. False Pass of Ambrosio and Major Peripheral Branches: There [...] TOTAL DLP (Dose-Length Product): 1374.82 mGy.cm (accession [id number]),1374.82 mGy.cm (accession [id number]), 1374.82 mGy.cm (accession [id number]).Please note: The reported value represents the total [...] No aneurysm of either internal carotid artery. False Pass of Ambrosio and Major Peripheral Branches: There [...] Kwadwo Gusman MD on 12/23/2024 6:42 PM us Gay Fabian MD IMG CT PROCEDURES Final Res ult * CT Angio Head (12/23/2024 5:00 PM EDT) Anatomical Region Laterality Modality False Pass of Ambrosio Computed Tomogr aphy Impressions 12/23/2024 [...] TOTAL DLP (Dose-Length Product): 1374.82 mGy.cm (accession [id number]), 1374.82 mGy.cm (accession [id number]), 1374.82 mGy.cm (accession [id number]). Please note: The reported value represents the [...] No aneurysm of either internal carotid artery. False Pass of Ambrosio and Major Peripheral Branches: There [...] TOTAL DLP (Dose-Length Product): 1374.82 mGy.cm (accession [id number]),1374.82 mGy.cm (accession [id number]), 1374.82 mGy.cm (accession [id number]).Please note: The reported value represents the total [...] No aneurysm of either internal carotid artery. False Pass of Ambrosio and Major Peripheral Branches: There [...] Kwadwo Gusman MD on 12/23/2024 6:42 PM us Gay Fabian MD IMG CT PROCEDURES Final [...] TOTAL DLP (Dose-Length Product): 1374.82 mGy.cm (accession [id number]), 1374.82 mGy.cm (accession [id number]), 1374.82 mGy.cm (accession [id number]). Please note: The reported value represents the [...] No aneurysm of either internal carotid artery. False Pass of Ambrosio and Major Peripheral Branches: There [...] TOTAL DLP (Dose-Length Product): 1374.82 mGy.cm (accession [id number]),1374.82 mGy.cm (accession [id number]), 1374.82 mGy.cm (accession [id number]).Please note: The reported value represents the total [...] No aneurysm of either internal carotid artery. False Pass of Ambrosio and Major Peripheral Branches: There [...] Rheumatoid Factor, Plasma (12/23/2024 3:29 PM EDT) [facility] Rheumatoid Factor, Plasma <10 <14 IU/mL 12/23/2024 11:31 PM EDT [facility] Blood Venous blood specimen / Unknown Venipuncture / Unknown 12/23/2024 3:29 PM EDT 12/23/2024 3:34 PM EDT Theodore Roper MD LAB BLOOD ORDERABLES Fin al Result [facility] [address] [place] [address] * Myelin Oligodendrocyte Glycoprotein (MOG-IgG1) Fluorescence-Activated Cell Sorting (12/23/2024 3:29PM EDT) [facility] MOG FACS Negative Negative 12/29/2024 8:16 AM EDT [facility] (BEAKER) Comment: No informative autoantibodies were detected in this evaluation. A negative result does not preclude a diagnosis of an inflammatory ADVOCACY DIRECTOR demyelinating disorder. ADDITIONAL INFORMATION This test was developed and its performance characteristics determined by [facility] in a manner consistent with CLIA requirements. This test has not been cleared or approved by the U.S. Food and Drug Administration. Test Performed by: [facility] - [address] [address] Quality Assurance Test Program Manager: Isa Espinoza Ph.D.; CLIA# [id number] Blood Venous blood specimen / Unknown Venipuncture / Unknown 12/23/2024 3:29 PM EDT 12/23/2024 4:29 PM EDT Gay Fabian MD LAB BLOOD ORDERABLES Final Result [facility] (BEAKER) * Treponema Pallidum (Syphilis) Antibodies with Reflex to RPR and RPR Titer (Those with NO known Syphilis) (12/23/2024 3:29 PM EDT) Syphilis Antibody (IgG+IgM) Nonreactive Nonreactive 12/23/2024 5:01 PM EDT [facility] Comment:Nonreactive. No sero logic evidence of syphilis. No follow-up necessary unless clinically indicated (e.g., early syphilis). Blood Venous blood specimen / Unknown Venipuncture / Unknown 12/23/2024 3:29 PM EDT 12/23/2024 4:07 PM EDT Gay Fabian MD LAB BLOOD ORDERABLES Final Result Performing Organization Address City/[facility]/ZIP Co de Phone Number [facility] [address] [place] [address] * Antinuclear Antibody (RAJESH) with HEp-2 Substrate, IgG by IFA (12/23/2024 3:29 PM EDT) RAJESH INTERPRETIVE COMMENT See Note 12/26/2024 1:22 PM EDT [facility] ([facility]) Anti Nuc Ab Screen <1:80 <1:80 12/26/2024 1:22 PM EDT [facility] ([facility]) Blood Venous blood specimen / Unknown Venipuncture / Unknown 12/23/2024 3:29 PM EDT 12/23/2024 4:06 PM EDT Narrative [facility] ([facility]) - 12/26/2024 1:22 PM EDT Antinuclear [...] not necessarily rule out SARD. Performed By: [facility] [address] [place] [address] [employer] Worker: George Andersen MD, PhD CLIA Number: [id number] Gay Fabian MD LAB BLOOD ORDERABLES Final Result [facility] [address] [place] [address] * C-reactive protein (12/23/2024 3:29 PM EDT) CRP, Plasma <3.0 <=8.0 mg/L 12/23/2024 3:56 PM EDT [facility] Blood Venous blood specimen / Unknown Venipuncture / Unknown 12/23/2024 3:29 PM EDT 12/23/2024 3:34 PM EDT Narrative [facility] - 12/23/2024 3:56 PM EDT This CRP test is appropriate for assessment of infection, systemic inflammation and/or tissue injury. To assess cardiovascular disease risk order high sensitivity CRP (CRPH). us Gay Fabian MD LAB BLOOD ORDERABLES Final Result [facility] [address] [place] [address] * (ABNORMAL) Sed rate, automated (12/23/2024 3:29 PM EDT) Sedimentation Rate 30(H) <20 mm/hr 2024 4:15 PM EDT [facility] Blood Venous blood specimen / Unknown Venipuncture / Unknown 12/23/2024 3:29 PM EDT 12/23/2024 3:33 PM EDT Gay Fabian MD LAB BLOOD ORDERABLES Final Result Performing Organization Address [facility]/ZIP Co de Phone Number [facility] [address] [place] [address] * (ABNORMAL) CBC w/diff (12/23/2024 3:29 PM EDT) WBC Count 5.77 3.70 - 10.30 10*3/uL LAB HEMATOLOGY METHOD 12/23/2024 3:37 PM EDT [facility] RBC Count 5.17 4.60 - 6.10 10*6/uL LAB HEMATOLOGY METHOD 12/23/2024 3:37 PM EDT [facility] HGB 14.3 13.7 - 17.5 g/dL LAB HEMATOLOGY METHOD 12/23/2024 3:37 PM EDT [facility] HCT 43.6 40.0 - 51.0 % LAB HEMATOLOGY METHOD 12/23/2024 3:37 PM EDT [facility] Platelet Count 199 155 - 369 10*3/uL LAB HEMATOLOGY METHOD 12/23/2024 3:37 PM EDT [facility] MCV 84 79 - 98 fL LAB HEMATOLOGY METHOD 12/23/2024 3:37 PM EDT [facility] MCH 27.7 26.0 - 32.0 pg LAB HEMATOLOGY METHOD 12/23/2024 3:37 PM EDT [facility] MCHC 32.8 30.7 - 35.5 g/dL LAB HEMATOLOGY METHOD 12/23/2024 3:37 PM EDT [facility] RDW 15.2(H) 11.5 - 14.5 % LAB HEMATOLOGY METHOD 12/23/2024 3:37 PM EDT [facility] MPV 8.7(L) 8.8 - 12.5 fL LAB HEMATOLOGY METHOD 12/23/2024 3:37 PM EDT [facility] nRBC 0.0 <=0.0 per 100 WBCs LAB HEMATOLOGY METHOD 12/23/2024 3:37 PM EDT [facility] Differential Type Automated LAB HEMATOLOGY METHOD 12/23/2024 3:37 PM EDT [facility] Neutrophils % 39 % LAB HEMATOLOGY METHOD 12/23/2024 3:37 PM EDT [facility] Lymphocytes % 50 % LAB HEMATOLOGY METHOD 12/23/2024 3:37 PM EDT [facility] Monocytes % 8 % LAB HEMATOLOGY METHOD 12/23/2024 3:37 PM EDT [facility] Eosinophils % 2 % LAB HEMATOLOGY METHOD 12/23/2024 3:37 PM EDT [facility] Basophils % 1 % LAB HEMATOLOGY METHOD 12/23/2024 3:37 PM EDT [facility] Immature Granulocytes % 0 % LAB HEMATOLOGY METHOD 12/23/2024 3:37 PM EDT [facility] Neutrophils Absolute 2.27 1.60 - 6.10 10*3/uL LAB HEMATOLOGY METHOD 12/23/2024 3:37 PM EDT [facility] Lymphocytes Absolute 2.93 1.20 - 3.90 10*3/uL LAB HEMATOLOGY METHOD 12/23/2024 3:37 PM EDT [facility] Monocytes Absolute 0.44 0.30 - 0.90 10*3/uL LAB HEMATOLOGY METHOD 12/23/2024 3:37 PM EDT [facility] Eosinophils Absolute 0.09 0.00 - 0.50 10*3/uL LAB HEMATOLOGY METHOD 12/23/2024 3:37 PM EDT [facility] Basophils Absolute 0.03 0.00 - 0.10 10*3/uL LAB HEMATOLOGY METHOD 12/23/2024 3:37 PM EDT [facility] Immature Granulocytes Absolute 0.01 0.00 - 0.06 10*3/uL LAB HEMATOLOGY METHOD 12/23/2024 3:37 PM EDT [facility] Blood Venous blood specimen / Unknown Venipuncture / Unknown 12/23/2024 3:29 PM EDT 12/23/2024 3:33 PM EDT Narrative [facility] - 12/23/2024 3:37 PM EDT Therapeutic decision making should be based on absolute values, rather than percentages. us Gay Fabian MD LAB BLOOD ORDERABLES Final Result [facility] [address] [place] [address] * (ABNORMAL) CMP (12/23/2024 3:29 PM EDT) Glucose, Plasma 130(H) 74 - 99 mg/dL 12/23/2024 3:56 PM EDT [facility] BUN, Plasma 16 8 - 23 mg/dL 12/23/2024 3:56 PM EDT [facility] Creatinine, Plasma 1.19 0.70 - 1.20 mg/dL 12/23/2024 3:56 PM EDT [facility] BUN/Creatinine Ratio 13 12/23/2024 3:56 PM EDT [facility] Sodium, Plasma 137 136 - 145 mmol/L 12/23/2024 3:56 PM EDT [facility] Potassium, Plasma 3.8 3.6 - 4.9 mmol/L 12/23/2024 3:56 PM EDT [facility] Chloride, Plasma 103 97 - 107 mmol/L 12/23/2024 3:56 PM EDT [facility] CO2, Plasma 25 22 - 29 mmol/L 12/23/2024 3:56 PM EDT [facility] Anion Gap 9 6 - 16 mmol/L 12/23/2024 3:56 PM EDT [facility] Total Calcium, Plasma 9.1 8.9 - 10.2 mg/dL 12/23/2024 3:56 PM EDT [facility] Total Protein 7.0 6.3 - 7.9 g/dL 12/23/2024 3:56 PM EDT [facility] Albumin, Plasma 4.1 3.5 - 5.2 g/dL 12/23/2024 3:56 PM EDT [facility] AST, Plasma 19 10 - 50 U/L 12/23/2024 3:56 PM EDT [facility] ALT, Plasma 22 10 - 50 U/L 12/23/2024 3:56 PM EDT [facility] Alkaline Phosphatase, Plasma 35(L) 40 - 115 U/L 12/23/2024 3:56 PM EDT [facility] Total Bilirubin, Plasma 2.4(H) 0.2 - 1.1 mg/dL 12/23/2024 3:56 PM EDT [facility] eGFRcr 69.5 mL/min/1.7 3m*2 12/23/2024 3:56 PM EDT [facility] Comment:Reported eGFRcr in m L/min/1.73m2 is based the CKD-EPI 2020 equation that does not use a race coefficient. Blood Venous blood specimen / Unknown Venipuncture / Unknown 12/23/2024 3:29 PM EDT 12/23/2024 3:34 PM EDT Gay Fabian MD LAB BLOOD ORDERABLES Final Result [facility] [address] [place] [address] * [facility] ED POCUS PROCDOC (12/23/2024 2:46 PM EDT) [...] ocular ultrasound The images were Saved in [employer] - E. The study was technically adequate. [...] (pediatric) Diabetes mellitus type 2 without retinopathy ([facility]) Hypertension, unspecified type Non-arteritic anterior ischemic optic [...] Carcamo RN) 0844 (Given - Provider: Radha Carcamo RN) aspirin chewable tablet 81 mg 81 mg, Oral, Daily, First dose on Sat12/24/24 at 0900, Until Discontinued 0847 (Given - Provider: Radha Carcamo RN) 0844 (Given - Provider: Radha Carcamo RN) atenolol (Tenormin) tablet 100 mg 100 mg, [...] on Sat12/24/24 at 0900, Until Discontinued, Routine 847 (Given - Provider: Radha Carcamo RN) 0848 (Given - Provider: Radha Carcamo RN) enoxaparin (Lovenox) syringe 40 mg 40 mg, Subcutaneous, Daily, First dose on Sat12/24/24 at 0900, Until Discontinued, Routine 847 (Given - Provider: Radha Carcamo RN) 0845 (Given - Provider: Radha Carcamo RN) gadobutrol (Gadavist) injection 11.3 mL (COMPLETED) 11.3 mL (0.1 mL/kg 113 kg), Intravenous, Once in imaging, 1 dose, Starting on Sat12/24/24 at 0213, Until Sat12/24/24 at 0229, Routine, Imaging Protocol Orders 0229 (Given - Provider: Silverio Penn) hydroCHLOROthiazide (HYDRODiuril) tablet 25 mg 25 mg, Oral, Daily, First dose on Sat12/23/24 at 2000, Until Discontinued, Routine 2034 (Not Given - Provider: Shanae Bloom RN [...] Comment: [phone] (Given - Provider: Radha Carcamo, KARLA)1645 (Given - Provider: Radha Carcamo RN) 0845 [...] Sat12/23/24 at 1655, Routine, Imaging Protocol Orders 1654 (Given - Provider: Flaquita Eldridge) losartan (Cozaar) [...] dose on Sat12/24/24 at 0730, Until Discontinued 0830 (Given - Provider: Radha Carcamo RN) 0830 (Given - Provider: Radha Carcamo RN) potassium chloride (Klor-Con) packet 20 mEq (COMPLETED) 20 mEq, Oral, Once, 1 dose, On Lesli 12/24/24 at 1615, Routine 1612 (Given - Provider: [...] Orquidea Shoemaker) 0846 (Given - Provider: Radha Carcamo RN)1927 (Given - Provider: Joseph Haro RN) 0845 (Given - Provider: Radha Carcamo RN) tamsulosin (Flomax) 24 hr capsule 0.4 mg 0.4 mg, Oral, Nightly, First dose on Sat12/23/24 at 2100, Until Discontinued, Routine 2036 (Given - Provider: Shanae Bloom, KARLA) 2034 (Given - Provider: Joseph Haro, KARLA) PRN Medication Order 12/23/2024 12/24/2024 12/25/2024 dextrose [...] Routine, irritation 2042 (Given - Provider: Joseph Haro, KARLA) sodium chloride 0.9 % flush 10 mL(Linked [...] documented as of this encounter Care Teams Phlebotomist Associate Relationship Specialty Start Date End Date Swathi Patino APRN [address] [place] [address] PCP - General 10/28/20 documented as of this encounter
[2024-12-30] VITALS (14 sets, daily range): BP systolic 115–138; BP diastolic 64–88; PULSE 63–85; RESP 16–17; O2SAT 98
--- OUTSIDE RECORDS SUMMARY | 2024-12-30 08:53 | XMS_ITS | Encounter Summary ---
Author Organization [facility] Address [address] [place] [address] Care Team Providers Care Blower Mechanic Name Role Phone Swathi Patino JUAN Primary Care Provider [phone] Encounter Details Date Type Department Care Team (Late Contact Info) Description 11/12/2024 Telephone [facility] [address] [place] [address] Mariola Perry Social History Tobacco Use Types [...] Visit [place] [facility] [address], [address] [place] [address] Cristina Gaffney, SOLE CONDITIONER [address] [place] [address] documented as of this encounter [...] documented as of this encounter Care Teams Blower Mechanic Relationship Specialty Start Date End Date Swathi Patino, SOLE CONDITIONER [address] [place] [address] PCP - General 10/28/20 documented as of this encounter
--- OUTSIDE RECORDS SUMMARY | 2024-12-30 08:53 | XMS_ITS ---
Author Organization [facility] Address [address] [place] [address] Care Team Providers Care Supervisor Lime Name Role Phone Swathi Patino APRN Primary Care Provider [phone] PrEP Status:Active (Active) Start date:02/06/2024 Enrollment date:02/06/2024 Continued Care and Services Coordination
--- OUTSIDE RECORDS SUMMARY | 2024-12-30 08:53 | XMS_ITS | Encounter Summary ---
Author Organization Healthcare Address [address] [place] [address] Care Team Providers Care Leather Coater Name Role Phone Swathi Patino ELECTRICAL AND RADIO MOCK UP MECHANIC Primary Care Provider [phone] Encounter Details Date Type Department Care Team (Late st Contact Info) Description 12/07/2020 Lab Requisition [facility] [address] [place] [address] Red Sue, DPM [address] [place] [address] Cellulitis of right lower limb [...] Description 06/01/2025 10:20 AM EST Office Visit [place] [facility] [address] [place] [address] Cristina Gaffney, ELECTRICAL AND RADIO MOCK UP MECHANIC [address] [place] [address] documented as of this encounter Procedures Procedure [...] No organisms seen 12/08/2020 10:37 AM EDT [facility] Swab 12/06/2020 10:0 0 AM EDT 12/07/2020 9:10 AM EDT Red Sue DPM LAB MICROBIOLOGY - GENERAL ORD ERABLES Final Result [facility] [address] [place] [address] documented in this encounter Visit Diagnoses Diagnosis Cellulitis of right lower limb documented in this encounter Additional Health Concerns Assessment Noted Time PHQ-9 Depression Total Score: 5 11/24/19 21 8:22 AM EDT A fall risk assessment has been complete d for the patient 11/23/2020 8:24 AM EDT documented as of this encounter Care Teams Leather Coater Relationship Specialty Start Date End Date Swathi Patino, ELECTRICAL AND RADIO MOCK UP MECHANIC [facility] [place] [address] PCP - General 10/28/20 documented as of this encounter
--- OUTSIDE RECORDS SUMMARY | 2024-12-30 08:53 | XMS_ITS | Encounter Summary ---
Author Organization Healthcare Address [address] [place] [address] Care Team Providers Care Aircraft Structural Repair Mechanic Name Role Phone Swathi Patino JUAN Primary Care Provider [phone] Encounter Details Date Type Department Care Team (Late st Contact Info) Description 11/19/2024 Telephone [facility] [address] [place] [address] Mariola Perry Social History Tobacco Use Types [...] Description 06/01/2025 10:20 AM EST Office Visit [place] [facility] [address], [address] [place] [address] Cristina Gaffney APRN [address] [place] [address] documented as of this encounter [...] documented as of this encounter Care Teams Aircraft Structural Repair Mechanic Relationship Specialty Start Date End Date Swathi Patino, JUAN [address] [place] [address] PCP - General 10/28/20 documented as of this encounter
--- OUTSIDE RECORDS SUMMARY | 2024-12-30 08:53 | XMS_ITS | Encounter Summary ---
Author Organization Healthcare Address [address] [place] [address] Care Team Providers Care Airline Customer Service Agent Name Role Phone Swathi Patino JUAN Primary Care Provider [phone] Encounter Details Date Type Department Care Team (Late st Contact Info) Description 11/11/[address] [facility] [address] [place] [address] Boris Macdonald PA [address] [facility] [address] [place] [address] Social History Tobacco Use Types Packs/Day Years [...] Notes * Telephone Encounter - Concepcion Campos - 11/11/2024 8:26 AM EDT Clinical Concern/Question Reason for Call: pt is calling to cx his apt with Boris he is not sexually active and does not think he is needing it at this time he is asking we let Boris know Best contact number: [phone] (mobile) Optimal time of day to reach [...] Description 06/01/2025 10:20 AM EST Office Visit [place] [facility] [address] [place] [address] Cristina Gaffney APRN [address] [place] [address] documented as of this encounter [...] documented as of this encounter Care Teams Airline Customer Service Agent Relationship Specialty Start Date End Date Swathi Patino, JUAN [address] [place] [address] PCP - General 10/28/20 documented as of this encounter
--- OUTSIDE RECORDS SUMMARY | 2024-12-30 08:53 | XMS_ITS | Encounter Summary ---
Author Organization Healthcare Address [address] [place] [address] Care Team Providers Care Magnetic Tester Name Role Phone Swathi Patino DOCK OPERATOR Primary Care Provider [phone] Encounter Details Date Type Department Care Team (Late st Contact Info) Description 11/12/2024 Telephone [facility] [address] [place] [address] Boris Macdonald, MIA [address] [facility] [address] [place] [address] Social History Tobacco Use Types [...] Description 06/01/2025 10:20 AM EST Office Visit [place] [facility] [address] [place] [address] Cristina Gaffney APRN [address] [place] [address] documented as of this encounter Visit Diagnoses [...] documented as of this encounter Care Teams Magnetic Tester Relationship Specialty Start Date End Date Swathi Patino APRN [address] [place] [address] PCP - General 10/28/20 documented as of this encounter
--- OUTSIDE RECORDS SUMMARY | 2024-12-30 08:53 | XMS_ITS | Encounter Summary ---
Author Organization Healthcare Address [address] [place] [address] Care Team Providers Care Deliverer Merchandise Name Role Phone Swathi Patino LAYER OUT PLATE GLASS Primary Care Provider [phone] Encounter Details Date Type Department Care Team [...] Visit [place] [facility] [address], [address] [place] [address] Cristina Gaffney APRN [address] [place] [address] documented as of this encounter [...] documented as of this encounter Care Teams Deliverer Merchandise Relationship Specialty Start Date End Date Swathi Patino APRN [address] [place] [address] PCP - General 10/28/20 documented as of this encounter
--- OUTSIDE RECORDS SUMMARY | 2024-12-30 08:53 | XMS_ITS | Encounter Summary ---
Author Organization Healthcare Address [address] [place] [address] Care Team Providers Care Product Marketing Engineer Name Role Phone Swathi Patino JUAN Primary Care Provider [phone] Reason for Visit * Reason Comments Med Refill Encounter Details Date Type Department Care Team (Late st Contact Info) Description 08/10/2024 Refill [facility] [address] [place] [address] Boris Macdonald PA [address] [facility] [address] [place] [address] Contact with and (suspected) exposure to human [...] Description 06/01/2025 10:20 AM EST Office Visit [place] [facility] [address], [address] [place] [address] Cristina Gaffney APRN [address] [place] [address] documented as of this encounter [...] documented as of this encounter Care Teams Product Marketing Engineer Relationship Specialty Start Date End Date Swathi Patino, JUAN [address] [place] [address] PCP - General 10/28/20 documented as of this encounter
--- OUTSIDE RECORDS SUMMARY | 2024-12-30 08:54 | XMS_ITS | Encounter Summary ---
Author Organization [facility] Address [address] [place] [address] Care Team Providers Care Supervisor Water Treatment Plant Name Role Phone Swathi Patino JUAN Primary Care Provider [phone] Encounter Details Date Type Department Care Team (Latest Contact Info) Description 12/25/2024 Travel Social History Tobacco Use Types Packs/Day [...] answer 12/25/2024 How often do you attend [facility] or amish services? Patient unable to answer 12/25/2024 Do you belong to any clubs o r organizations such as taoist groups, unions, fraternal or athletic groups, or [...] and heating? Patient unable to answer 12/25/2024 [facility] - Occupational [...] any time in the past 12 m [facility], were you homeless or living in a fci (including now)? Patient unable to answer 12/25/2024 Utilities Answer Date Recorded In the past 12 months has th e electric, gas, oil, or water company threatened to [...] as of this encounter Functional Status * AUDIT-C Score Answer Date of Assessment Author -1 12/25/2024 2:31 PM EDT Orlando Argueta RN * Question Answer Date of Assessment Author Q1: How often do you have a drink containing alcohol? Patient unable to answer 12/25/2024 2:31 PM EDT Kyrie Argueta RN Q2: How many drinks containing alcohol do you have on a typical day when you are drinking? Patient unable to answer 12/25/2024 2:31 PM EDT Kyrie Argueta RN Q3: How often do you have six or more drinks on one occasion? Patient unable to answer 12/25/2024 2:31 PM JUANT Kyrie Argueta RN documented as of this encounter Plan of Treatment Upcoming Encounters Date Type Department Care Team (Late st Contact Info) Description 06/01/2025 10:20 AM EST Office Visit [place] [facility] [address] [place] [address] Cristina Gaffney, BLOWING WEASAND [address] [place] [address] documented as of this encounter Visit Diagnoses [...] as of this encounter Care Teams Supervisor Water Treatment Plant Relationship Specialty Start Date End Date Swathi Patino, JUAN [address] [place] [address] PCP - General 10/28/20 documented as of this encounter
--- OUTSIDE RECORDS SUMMARY | 2024-12-30 08:54 | XMS_ITS | Encounter Summary ---
Author Organization Healthcare Address [address] [place] [address] Care Team Providers Care Freelance Director Name Role Phone Swathi Patino [employer]ER Primary Care Provider Encounter Details Date Type Department Care Team (Latest Contact Info) Description 12/01/2024 Travel Social History Tobacco Use Types Packs/Day [...] of Assessment Author 1 12/01/2024 10:06 AM EDT Barb Palencia * Question Answer Date of Assessment Author Q1: How often do you have a drink containing alcohol? Monthly or less 12/01/2024 10:06 AM EDT David Palencia Q2: How many drinks containing alcohol do you have on a typical day when you are drinking? 1 or 2 12/01/2024 10:06 AM EDT Barb Palencia Q3: How often do you have si x or more drinks on one occasion? Never 12/01/2024 10:06 AM EDT Barb Palencia * Over the past 2 weeks, how often have you been bothered by any of the following problems? Question Answer Date of Assessment Author Little interest or pleasure in doing things Not at all 12/01/2024 10:05 AM JUANT Barb Palencia Feeling down, depressed, or hopeless Not at all 12/01/2024 10:05 AM JUANT Barb Palencia Patient Health Questionnaire -2 Score 0 12/01/2024 10:05 AM EDT Barb Palencia documented as of this encounter Plan of Treatment Upcoming Encounters Date Type Department Care Team (Late st Contact Info) Description 06/01/2025 10:20 AM EST Office Visit [place] [facility] [address], [address] [place] [address] Cristina Gaffney APRN [address] [place] [address] documented as of this encounter [...] documented as of this encounter Care Teams Freelance Director Relationship Specialty Start Date End Date Swathi Patino APRN [address] [place] [address] PCP - General 10/28/20 documented as of this encounter
--- OUTSIDE RECORDS SUMMARY | 2024-12-30 08:54 | XMS_ITS | Encounter Summary ---
Author Organization [facility] Address [address] [place] [address] Care Team Providers Care Circular Knitter Name Role Phone Swathi Patino JUAN Primary Care Provider [phone] Encounter Details Date Type Department Care Team (Latest Contact Info) Description 12/24/2024 Travel Social History Tobacco Use Types Packs/Day [...] answer 12/25/2024 How often do you attend [facility] or confucianist services? Patient unable to answer 12/25/2024 Do you belong to any clubs o r organizations such as worship groups, unions, fraternal or athletic groups, or [...] and heating? Patient unable to answer 12/25/2024 [facility] - Occupational [...] any time in the past 12 m [facility], were you homeless or living in a [...] Description 06/01/2025 10:20 AM EST Office Visit [place] [facility] [address] [place] [address] Cristina Gaffney APRN [address] [place] [address] documented as of this encounter [...] documented as of this encounter Care Teams Circular Knitter Relationship Specialty Start Date End Date Swathi Patino APRN [address] [place] [address] PCP - General 10/28/20 documented as of this encounter
--- OUTSIDE RECORDS SUMMARY | 2024-12-30 08:54 | XMS_ITS | Encounter Summary ---
Author Organization Healthcare Address [address] [place] [address] Care Team Providers Care Director Internal Control Name Role Phone Swathi Patino APRN Primary Care Provider [phone] Encounter Details Date Type Department Care Team (Late st Contact Info) Description 12/02/2024 Orders Only [place] [facility] [address] [place] [address] ProviderSantiago MD [facility] [place] [address] Social History Tobacco Use Types Packs/Day [...] Visit [place] [facility] [address], [address] [place] [address] Cristina Gaffney APRN [address] [place] [address] documented as of this encounter Procedures Procedure Name Priority Date/Time Associated Diagnosis Comments COMPLETE METABOLIC PROFILE (CMP) Routine 12/02/2024 4:57 PM EDT CBC WITH AUTO DIFFERENTIAL Routine 12/02/2024 4:57 PM EDT C-REACTIVE PROTEIN, PLASMA Routine 12/02/2024 4:57 PM EDT documented in this encounter Results * COMPLETE METABOLIC PROFILE (CMP) (12/02/2024 4:57 PM EDT) [facility] Provider MD LAB BLOOD ORDERABLES Anna l Result * C-Reactive Protein, Plasma (12/02/2024 4:57 PM EDT) Blood Venous blood specimen / Unknown [facility] Provider MD LAB BLOOD ORDERABLES Anna l Result * CBC and Differential (12/02/2024 4:57 PM EDT) Blood Venous blood specimen / Unknown [facility] Provider MD LAB BLOOD ORDERABLES [...] documented as of this encounter Care Teams Director Internal Control Relationship Specialty Start Date End Date Swathi Patino APRN [address] [place] [address] PCP - General 10/28/20 documented as of this encounter
--- OUTSIDE RECORDS SUMMARY | 2024-12-30 08:54 | XMS_ITS | Encounter Summary ---
Author Organization Healthcare Address [address] [place] [address] Care Team Providers Care Acting Professor Name Role Phone Swathi Patino STAPLER HAND Primary Care Provider [phone] Encounter Details Date Type Department Care Team (Latest Contact Info) Description 12/23/2024 Travel Social History Tobacco Use Types Packs/Day [...] as of this encounter Functional Status * Calculated C-SSRS Risk Score (Lifetime/Recent) Answer Date of Assessment Author No Risk Indicated 12/23/2024 3:42 PM EDT Orquidea Whipple * Question Answer Date of Assessment Author 1. Wish to be (Past 1 Month) No 07/09/2 025 3:42 PM EDT Orquidea Shoemaker 2. Non-Specific Active Suici portillo Thoughts (Past 1 Month) No 12/23/2024 3:42 PM EDT Scarlett Shoemaker 6. Suicidal Behavior (Lifetime) No 5 3:42 PM EDT Orquidea Shoemaker documented as of this encounter Plan of Treatment Upcoming Encounters Date Type Department Care Team (Late st Contact Info) Description 06/01/2025 10:20 AM EST Office Visit [place] [facility] [address] [place] [address] Cristina Gaffney, JUAN [address] [place] [address] documented as of this encounter [...] documented as of this encounter Care Teams Acting Professor Relationship Specialty Start Date End Date Swathi Patino, JUAN [address] [place] [address] PCP - General 10/28/20 documented as of this encounter
--- OUTSIDE RECORDS SUMMARY | 2024-12-30 08:54 | XMS_ITS | Encounter Summary ---
Author Organization Healthcare Address [address] [id number] Care Team Providers Care Tax Collection Coordinator Name Role Phone Swathi Patino LINEN CLERK Primary Care Provider [phone] Encounter Details Date Type Department Care Team (Late st Contact Info) Description 12/01/2024 Telephone [facility] [address] [place] [id number] George Clayton, [place] [address] Social History Tobacco Use Types Packs/Day Years [...] Assessment Author 1 12/01/2024 10:06 AM EDT Palencia, Day E * Question Answer Date of Assessment Author Q1: How often do you have a drink containing alcohol? Monthly or less 12/01/2024 10:06 AM EDT David Palencia Q2: How many drinks containing alcohol do you have on a typical day when you are drinking? 1 or 2 12/01/2024 10:06 AM JUANT Barb Palencia Q3: How often do you [...] Barb Palencia documented as of this encounter Miscellaneous Notes * Telephone Encounter - Cristina Gaffney APRN - 12/02/2024 10:09 AM EDT Possible, that is definitely not the story I got yesterday. We did discuss [facility] infusion, he was not opposed. Cristina documented in this encounter Plan of Treatment Upcoming Encounters Date Type Department Care Team (Late st Contact Info) Description 06/01/2025 10:20 AM EST Office Visit [facility] [address] [place] [address] Cristina Gaffney APRN [address] [place] [address] documented as of this encounter Visit Diagnoses [...] documented as of this encounter Care Teams Tax Collection Coordinator Relationship Specialty Start Date End Date Swathi Patino APRN [address] [place] [address] PCP - General 10/28/20 documented as of this encounter
--- OUTSIDE RECORDS SUMMARY | 2024-12-30 08:54 | XMS_ITS | Data Portability ---
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 Treatment with empiric antibiotics for possible prostatitis. Medical management of lower urinary symptoms with double dose tamsulosin. [email or web address] Not available 09/13/2021 15:38:00 10/12/2021 10/12/2021 PSA trended down appropriately. Medical management of lower urinary symptoms with double dose tamsulosin and patient wishes to proceed with endoscopic treatment. We reviewed risks and benefits of treatment options and he wishes to proceed with laser vaporization of prostate. [email or web address] Not available 10/15/2021 21:13:52 04/24/2023 04/24/2023 We reviewed potential etiologies of raised PSA. Proceed with transrectal ultrasound needle biopsy of prostate to rule out prostate carcinoma. Empiric antibiotics sent. Tamsulosin for medical management of lower urinary symptoms. [email or web address] Not available 05/07/2023 09:12:20 05/07/2023 05/07/2023 SURGERY [...] home with instructions for outpatient follow up. [email or web address] Not available 05/07/2023 16:00:16 05/30/2023 05/30/2023 Tamsulosin for medical management of lower urinary symptoms. We discussed additional treatment for benign prostatic hyperplasia and bladder outlet obstruction with endoscopic treatment. Due to prostate size recommend TURP. [email or web address] Not available 06/02/2023 11:40:59 Plan of Treatment Reminders Order Date Submit Date Provider Last Modified By Organization Details Last Modified Time Details Appointments None recorded. Lab urinalysis panel, auto 2022 023 [email or web address] 14 [facility] [place] [facility], [address] [place] [address] Dr Chong, [place], [address], 3 18:00:29 PSA, total, serum or plasma 2022 023 [email or web address] [facility], [address] [place] [address], [address], 4 16:38:29 urinalysis panel, auto 2022 023 [email or web address] 14 [facility], [address] [place] [address] Dr Cohng, [place], [address], 3 16:24:01 urinalysis panel, auto 2021 022 [email or web address] 14 [facility], [address] [place] [address] Dr Chong, [place], [address], 2 21:13:54 urinalysis panel, auto 2021 022 [email or web address] 14 [facility], [address] Chong, [place], [address], 2 13:32:26 Referral None recorded. Procedures None recorded. Surgeries transurethr al resection of prostate (SURG) 2022 024 [id number] [facility] ([facility]), [address] [facility] , [place], [address], 4 10:51:28 prostate needle biopsy (SURG) 2022 023 [email or web address] [facility] Professional Charges, [address], [address], 3 16:13:24 green light laser transurethr al resection of prostate (SURG) [email or web address] [facility], [address], [address], 2 14:41:24 Imaging None recorded. Medication Orders tamsulosin 0.4 mg capsule 2022 023 [email or web address] 14 [facility], [address] [facility], [place], [address], 3 18:00:29 levofloxaci n 500 mg tablet 2022 023 [facility], [address] [place] [address], [address], 3 15:43:44 tamsulosin 0.4 mg capsule 2022 023 [facility] [address], [address] [place] [address], [address], 11:17:42 tamsulosin 0.4 mg capsule 2021 022 [facility] [address], [address] [place] [address], [address], 13:33:00 Bactrim DS 800 mg-160 mg tablet 2021 022 [facility], [facility], [address] [place] [address], [address], 14:07:49 Patient TargetsNo targets recorded. Patient Instructions Encounter Date Encounter Id Patient Instructions Last Modified By Organization Details Last Modified Time 09/07/2021 [id number] learning about healthy weight [email or web address] Not available 09/07/2021 13:32:26 10/12/2021 [id number] learning about healthy weight [email or web address] Not available 10/15/2021 21:13:54 04/24/2023 [id number] learning about healthy weight [email or web address] Not available 04/24/2023 11:17:29 Reason for Referral None Reported. Results Created Date Observation Date Name Description Value Unit Range Abnormal Flag Note LastModifiedBy Organization Detail LastModifiedTime 09/08/1909/07/2021 urina lysis panel , auto Unknown Analyte Clean Catch Not Available [facility] [place] [facility] [address]ong, [place], [address], 09/07/2021 13:16:41 09/08/19 22 09/07/2021 urina lysis panel , auto Unknown Analyte Yellow Not Available [facility] With [address] [place], [address], 09/07/2021 13:16:41 09/08/19 22 09/07/2021 urina lysis panel , auto Unknown Analyte Clear Not Available [facility] With [address] [place], [address], 09/07/2021 13:16:41 09/08/19 22 09/07/2021 urina lysis panel , auto Unknown Analyte 1.005 Not Available [facility] With [address] [place], [address], 09/07/2021 13:16:41 09/08/19 22 09/07/2021 urina lysis panel , auto Unknown Analyte 7.0 Not Available [facility] With [address] [place], [address], 09/07/2021 13:16:41 09/08/19 22 09/07/2021 urina lysis panel , auto Unknown Analyte 5.0-8. 0 Not Available [facility] With [address] [place], [address], 09/07/2021 13:16:41 09/08/19 22 09/07/2021 urina lysis panel , auto Unknown Analyte Negati ve Not Available [facility] With [address] [place], [address], 09/07/2021 13:16:41 09/08/19 22 09/07/2021 urina lysis panel , auto Unknown Analyte Negati ve Not Available [facility] With [address] [place], [address], 09/07/2021 13:16:41 09/08/19 22 09/07/2021 urina lysis panel , auto Unknown Analyte Negati ve Not Available [facility] With [address]ong, [place], [address], 09/07/2021 13:16:41 09/08/19 22 09/07/2021 urina lysis panel , auto Unknown Analyte Negati ve Not Available [facility] With [address] [place], [address], 09/07/2021 13:16:41 09/08/19 22 09/07/2021 urina lysis panel , auto Unknown Analyte Trace Not Available [facility] With [address] [place], [address], 09/07/2021 13:16:41 09/08/19 22 09/07/2021 urina lysis panel , auto Unknown Analyte Negati ve Not Available [facility] With [address]ong, [place], [address], 09/07/2021 13:16:41 09/08/19 22 09/07/2021 urina lysis panel , auto Unknown Analyte >1000 mg/dl Not Available [facility] With [address] [place], [address], 09/07/2021 13:16:41 09/08/19 22 09/07/2021 urina lysis panel , auto Unknown Analyte Normal Not Available [facility] With [address] [place], [address], 09/07/2021 13:16:41 09/08/19 22 09/07/2021 urina lysis panel , auto Unknown Analyte Negati ve Not Available [facility] With [address], [place], [address], 09/07/2021 13:16:41 09/08/19 22 09/07/2021 urina lysis panel , auto Unknown Analyte Negati ve Not Available [facility] With [address] [place], [address], 09/07/2021 13:16:41 09/08/19 22 09/07/2021 urina lysis panel , auto Unknown Analyte Normal Not Available [facility] With [address] [place], [address], 09/07/2021 13:16:41 09/08/19 22 09/07/2021 urina lysis panel , auto Unknown Analyte Normal 1 mg/dl Not Available [facility] With [address] [place], [address], 09/07/2021 13:16:41 09/08/19 22 09/07/2021 urina lysis panel , auto Unknown Analyte Negati ve Not Available [facility] With [address] [place], [address], 09/07/2021 13:16:41 09/08/19 22 09/07/2021 urina lysis panel , auto Unknown Analyte Negati ve Not Available [facility] With [address] [place], [address], 09/07/2021 13:16:41 09/08/19 22 09/07/2021 urina lysis panel , auto Unknown Analyte Negati ve Not Available [facility] With [address] [place], [address], 09/07/2021 13:16:41 09/08/19 22 09/07/2021 urina lysis panel , auto Unknown Analyte Negati ve Not Available [facility] With [address]ong, [place], [address], 09/07/2021 13:16:41 10/13/19 22 10/12/2021 urina lysis panel , auto Unknown Analyte Clean Catch Not Available [facility] With [address] [place], [address], 10/12/2021 14:08:36 10/13/19 22 10/12/2021 urina lysis panel , auto Unknown Analyte Yellow Not Available [facility] With [address] [place], [address], 10/12/2021 14:08:36 10/13/19 22 10/12/2021 urina lysis panel , auto Unknown Analyte Clear Not Available [facility] With [address] [place], [address], 10/12/2021 14:08:36 10/13/19 22 10/12/2021 urina lysis panel , auto Unknown Analyte 1.015 Not Available [facility] With [address] [place], [address], 10/12/2021 14:08:36 10/13/19 22 10/12/2021 urina lysis panel , auto Unknown Analyte 1.003- 1.035 Not Available [facility] With [address] [place], [address], 10/12/2021 14:08:36 10/13/19 22 10/12/2021 urina lysis panel , auto Unknown Analyte 6.0 Not Available [facility] With [address] [place], [address], 10/12/2021 14:08:36 10/13/19 22 10/12/2021 urina lysis panel , auto Unknown Analyte 5.0-8. 0 Not Available [facility] With [address] [place], [address], 10/12/2021 14:08:36 10/13/19 22 10/12/2021 urina lysis panel , auto Unknown Analyte Negati ve Not Available [facility] With [address] [place], [address], 10/12/2021 14:08:36 10/13/19 22 10/12/2021 urina lysis panel , auto Unknown Analyte Negati ve Not Available [facility] With [address] [place], [address], 10/12/2021 14:08:36 10/13/19 22 10/12/2021 urina lysis panel , auto Unknown Analyte Negati ve Not Available [facility] With [address] [place], [address], 10/12/2021 14:08:36 10/13/19 22 10/12/2021 urina lysis panel , auto Unknown Analyte Negati ve Not Available [facility] With [address] [place], [address], 10/12/2021 14:08:36 10/13/19 22 10/12/2021 urina lysis panel , auto Unknown Analyte Negati ve Not Available [facility] With [address] [place], [address], 10/12/2021 14:08:36 10/13/19 22 10/12/2021 urina lysis panel , auto Unknown Analyte Negati ve Not Available [facility] [place] [facility] With [address] [place], [address], 10/12/2021 14:08:36 10/13/19 22 10/12/2021 urina lysis panel , auto Unknown Analyte Normal Not Available [facility] With [address] [place], [address], 10/12/2021 14:08:36 10/13/19 22 10/12/2021 urina lysis panel , auto Unknown Analyte Normal Not Available [facility] With [address] [place], [address], 10/12/2021 14:08:36 10/13/19 22 10/12/2021 urina lysis panel , auto Unknown Analyte Negati ve Not Available [facility] With [address] [place], [address], 10/12/2021 14:08:36 10/13/19 22 10/12/2021 urina lysis panel , auto Unknown Analyte Negati ve Not Available [facility] With [address] [place], [address], 10/12/2021 14:08:36 10/13/19 22 10/12/2021 urina lysis panel , auto Unknown Analyte Normal Not Available [facility] With [address] [place], [address], 10/12/2021 14:08:36 10/13/19 22 10/12/2021 urina lysis panel , auto Unknown Analyte Normal 1 mg/dl Not Available [facility] With [address] [place], [address], 10/12/2021 14:08:36 10/13/19 22 10/12/2021 urina lysis panel , auto Unknown Analyte Negati ve Not Available [facility] [place] [facility] With [address]ong, [place], [address], 10/12/2021 14:08:36 10/13/19 22 10/12/2021 urina lysis panel , auto Unknown Analyte Negati ve Not Available [facility] With [address]ong, [place], [address], 10/12/2021 14:08:36 10/13/19 22 10/12/2021 urina lysis panel , auto Unknown Analyte Negati ve Not Available [facility] With [address]ong, [place], [address], 10/12/2021 14:08:36 10/13/19 22 10/12/2021 urina lysis panel , auto Unknown Analyte Negati ve Not Available [facility] With [address]ong, [place], [address], 10/12/2021 14:08:36 05/07/20 23 05/07/2023 SURGI FILOMENA surgical SEE BELOW normal Depar tment of Patho logy Surgi filomena Patho logy Repor t NAME: TIM KNAPP PATH. :SS-2 3-124 18 Copy to: Diagn [...] 2.2 cm (3 cores ) C) Left [place] 1.7 and 1.9 cm (2 cores ) D) Right Base 0.5, 0.9, and 2.0 cm (3 cores ) E) Right Mid 2.0 and 2.0 cm (2 cores ) F) Right [place] 1.5 and 2.0 cm (2 cores ) LP 05/07 06:24 PM Micro scopi c Descr iptio n: A micro scopi c exami natio n has been perfo rmed and the resul t(s) are as noted above . Eduarda STANTON Out Date: 05/10 11:18 Page 1 of 1 Not Available [facility] [address] [place], [address], 05/10/2023 11:18:59 05/30/20 23 05/30/2023 urina lysis panel , auto Unknown Analyte Clean Catch Not Available [facility] [place] [facility] With [address]ong, [place], [address], 05/30/2023 13:52:20 05/30/20 23 05/30/2023 urina lysis panel , auto Unknown Analyte Yellow Not Available [facility] With [address]ong, [place], [address], 05/30/2023 13:52:20 05/30/20 23 05/30/2023 urina lysis panel , auto Unknown Analyte Clear Not Available [facility] With [address]ong, [place], [address], 05/30/2023 13:52:20 05/30/20 23 05/30/2023 urina lysis panel , auto Unknown Analyte 1.010 Not Available [facility] With [address]ong, [place], [address], 05/30/2023 13:52:20 05/30/20 23 05/30/2023 urina lysis panel , auto Unknown Analyte 1.003- 1.035 Not Available [facility] With [address]ong, [place], [address], 05/30/2023 13:52:20 05/30/20 23 05/30/2023 urina lysis panel , auto Unknown Analyte 6.0 Not Available [facility] With [address]ong, [place], [address], 05/30/2023 13:52:20 05/30/20 23 05/30/2023 urina lysis panel , auto Unknown Analyte 5.0-8. 0 Not Available [facility] With [address]ong, [place], [address], 05/30/2023 13:52:20 05/30/20 23 05/30/2023 urina lysis panel , auto Unknown Analyte Negati ve Not Available [facility] [address], [place], [address], 05/30/2023 13:52:20 05/30/20 23 05/30/2023 urina lysis panel , auto Unknown Analyte Negati ve Not Available [facility] With [address] [place], [address], 05/30/2023 13:52:20 05/30/20 23 05/30/2023 urina lysis panel , auto Unknown Analyte Negati ve Not Available [facility] With [address] [place], [address], 05/30/2023 13:52:20 05/30/20 23 05/30/2023 urina lysis panel , auto Unknown Analyte Negati ve Not Available [facility] With [address] [place], [address], 05/30/2023 13:52:20 05/30/20 23 05/30/2023 urina lysis panel , auto Unknown Analyte 30 mg/dl (+) Not Available [facility] With [address] [place], [address], 05/30/2023 13:52:20 05/30/20 23 05/30/2023 urina lysis panel , auto Unknown Analyte Negati ve Not Available [facility] With [address] [place], [address], 05/30/2023 13:52:20 05/30/20 23 05/30/2023 urina lysis panel , auto Unknown Analyte >1000 mg/dl Not Available [facility] With [address] [place], [address], 05/30/2023 13:52:20 05/30/20 23 05/30/2023 urina lysis panel , auto Unknown Analyte Normal Not Available [facility] With [address], [place], [address], 05/30/2023 13:52:20 05/30/20 23 05/30/2023 urina lysis panel , auto Unknown Analyte Negati ve Not Available [facility] With [address]ong, [place], [address], 05/30/2023 13:52:20 05/30/20 23 05/30/2023 urina lysis panel , auto Unknown Analyte Negati ve Not Available [facility] With [address], [place], [address], 05/30/2023 13:52:20 05/30/20 23 05/30/2023 urina lysis panel , auto Unknown Analyte 1 mg/dl Not Available [facility] With [address], [place], [address], 05/30/2023 13:52:20 05/30/20 23 05/30/2023 urina lysis panel , auto Unknown Analyte Normal 1 mg/dl Not Available [facility] With [address], [place], [address], 05/30/2023 13:52:20 05/30/20 23 05/30/2023 urina lysis panel , auto Unknown Analyte Negati ve Not Available [facility] With [address], [place], [address], 05/30/2023 13:52:20 05/30/20 23 05/30/2023 urina lysis panel , auto Unknown Analyte Negati ve Not Available [facility] With [address], [place], [address], 05/30/2023 13:52:20 05/30/20 23 05/30/2023 urina lysis panel , auto Unknown Analyte Negati ve Not Available [facility] With [address], [place], [address], 05/30/2023 13:52:20 05/30/20 23 05/30/2023 urina lysis panel , auto Unknown Analyte Negati ve Not Available [facility] With [address], [place], [address], 05/30/2023 13:52:20 Result Notes None recorded. Procedures Surgical History Date Name Laterality Status Provider Name and Address Organization Details Recorded Time Cholecystectomy completed Murelene Joe [facility] 04/20/2021 18:37:55 Unlisted px foot/toes completed Murelene Joe [facility] 04/20/2021 18:38:04 Imaging Results None recorded. Procedure [...] Updated DateTime 09/07/2021 180.34 cm 34.9 kg/m2 198835.09 g Alicja Diaz [facility] 09/07/2021 12:42:20 Date Recorded Body height Body mass index (BMI) Body weight Provider Name and Address Organization Details Last Updated DateTime 10/12/2021 180.34 cm 34.9 kg/m2 139747.09 g Alicja Diaz [facility] 10/12/2021 14:07:23 Date Recorded Body height Body mass index (BMI) Body weight Provider Name and Address Organization Details Last Updated DateTime 04/24/2023 180.34 cm 34.9 kg/m2 930569.09 g Jenna Diaspherd [facility] 04/26/2023 14:47:07 Date Recorded Body height Body mass index (BMI) Body weight Provider Name and Address Organization Details Last Updated DateTime 05/30/2023 180.34 cm 34.9 kg/m2 062688.09 g Alicja Diaz [facility] 05/30/2023 15:14:32 Social History Question Answer Notes LastModified by Organizat ion Details LastModified Time Tobacco Smoking Status Never Smoker Alicja Diaz [facility] 04/20/2021 18:37:41 What Was The Date Of [...] Details LastModified Time Unspecified Relation Diabetes mellitus rocío Not available 2020 18:37:16 Brother Family history of malignant neoplasm rocío Not available 2020 18:37:27 Sister Family history of malignant neoplasm rocío Not available 2020 18:37:27 Medical History Condition Response Diabetes Y Arthritis Y High Cholesterol Y Past Encounters Encounter ID Performer Location Encounter Start Date Encounter Closed Date Diagnosis/Indication Diagnosis SNOMED-CT Code Diagnosis ICD10 Code Diagnosis Note [id number] ELAINE SALINAS MD [facility] [address],[place] [address] 04/20/2021 15:19:13 04/20/2021 18:50:44 Prostate specific antigen above reference range 492053115 R97.20 Benign pro static hyperplasia with outflow obstruction 908324937 N40.1 [id number] ELAINE SALINAS MD SURGERY SCHEDULE [address] [place] [address] 05/02/2021 13:54:42 05/02/2021 13:56:59 [id number] ELAINE SALINAS MD [facility] [address] [place] [address] 05/15/2021 14:00:09 05/24/2021 09:50:58 Prostate specific antigen above reference range 159537033 R97.20 Benign pro static hyperplasia with outflow obstruction 776749117 N40.1 [id number] ELAINE SALINAS MD [facility] [address],[place] [address] 09/07/2021 12:41:42 09/13/2021 17:46:58 Prostate specific antigen above reference range 060132044 R97.20 Prostatitis 9330725 N41. 9 Benign pro static hyperplasia with outflow obstruction 706039904 N40.1 [id number] ELAINE SALINAS MD [facility] [address],[place] [address] 10/12/2021 13:09:17 10/17/2021 14:04:19 Prostate specific antigen above reference range 797235178 R97.20 Benign pro static hyperplasia with outflow obstruction 783991346 N40.1 [id number] ELAINE SALINAS MD [facility] [address] [place] [address] 04/24/2023 10:18:27 04/24/2023 11:18:43 Prostate specific antigen above reference range 316986411 R97.20 Benign pro static hyperplasia with outflow obstruction 255767078 N40.1 [id number] ELAINE SALINAS MD SURGERY SCHEDULE [address] [place] [address] 05/07/2023 12:57:35 05/07/2023 12:57:54 [id number] ELAINE SALINAS MD [facility] [address] [facility],[place] [address] 05/30/2023 13:46:48 05/30/2023 16:32:24 Prostate specific antigen above reference range 761937608 R97.20 Benign pro static hyperplasia with outflow obstruction 505984640 N40.1 Health Concerns Section Related Observation LastModified by Organization Detai ls LastModified Time None Recorded Concern Status LastModified by Organization Details LastModified Time None Recorded Advance Directives Directive None Recorded Payers Insurance Date Sequence Insurance Name Policy Number Policy Mittal Covered Member ID Mittal Member ID Guarantor Name 06/18/2023 2 [employer] (MEDICARE SUPPLEMENT) iTm Knapp [id number] Tim Knapp 06/18/2023 1 [place] Tim Knapp [id number] Tim [facility] 05/29/2021 2 [employer] (MEDICARE SUPPLEMENT) Tim Knapp Notes Date Note Type Note Provider Name [...] No hematuria or dysuria. ELAINE SALINAS MD [address] [place] [address], [phone], [facility] 09/13/2021 15:38:27 10/12/2021 text/html 56-year-old male in the office for follow-up evaluation of benign prostatic hyperplasia with lower urinary symptoms. PSA was recently elevated at 11.11 and upon recheck was down to 2.2. He reports decreased force of stream with nocturia 2 or 3 times nightly. He has daytime frequency. He takes double dose tamsulosin daily. ELAINE SALINAS MD [address] [place] [address], [phone], [facility] 10/15/2021 21:14:20 04/24/2023 text/html 58-year-old male in [...] 2021 with benign pathology. ELAINE SALINAS MD [address] [place] [address], [phone], [facility] 05/07/2023 09:12:34 05/30/2023 text/html 58-year-old male in [...] Decreased force of stream. ELAINE SALINAS MD [address] [place] [address], [phone], [facility] 06/02/2023 11:41:13
--- OUTSIDE RECORDS SUMMARY | 2024-12-30 08:55 | XMS_ITS | Clinical Summary ---
Author Organization [facility] Address [address] [place] [address] Care Team Providers Care Product Development Ecologist Name Role Phone Swathi Patino JUAN Primary Care Provider [phone] Allergies No known active allergies Medications amLODIPine (Norvasc) 5 MG tablet Take 1 tablet by mouth daily. Active atenolol (Tenormin) 100 MG tablet Take 1 tablet by mouth 2 times a day. Active cloNIDine (Catapres) 0.1 MG tablet Take 1 tablet by mouth 2 times a day. Active glyBURIDE (Diabeta) 5 MG tablet Take 1 tablet by mouth 2 times a day. Active hydroCHLOROthiazide (HYDRODiuril) 25 MG tablet Take 1 tablet by mouth daily. Active metFORMIN (Glucophage) 1000 MG tablet Take 1 tablet by mouth 2 times a day with meals. Active simvastatin (Zocor) 10 MG tablet Take 1 tablet by mouth nightly. Active tamsulosin (Flomax) 0.4 MG 24 hr capsule Take 1 capsule by mouth 2 times a day. Active SM Aspirin Adult Low Strength 81 MG EC tablet Take 1 tablet by mouth daily. Active losartan (Cozaar) 100 MG tablet Take 1 tablet by mouth daily. Active omeprazole (PriLOSEC) [address] capsule Take 1 capsule by mouth daily. Active Jardiance 25 MG Take 1 tablet by mouth daily. Active inFLIXimab (Remicade) 100 MG injection Infuse 10 mg/kg IV every 35 days 12 each 11 05/12/20 24 Active FreeStyle lancets 04/07/20 18 025 Discontin ued(Enter ed in Error) tiZANidine (Zanaflex) 4 MG tablet Take 1 tablet (4 mg) by mouth every 6 hours as needed. 03/22/20 025 Discontin ued(Enter ed in Error) traMADol (Ultram) 50 MG tablet Take 1 tablet by mouth at night as needed. 02/11/20 18 025 Discontin ued(Enter ed in Error) HYDROcodone-acetamin ophen ([place]) 5-325 MG tablet Take 1 tablet by mouth every 4 (four) hours if needed for severe pain. 24 tablet 12/01/19 21 025 Discontin ued(Enter ed in Error) Blood Glucose Monitoring Suppl (FreeStyle Lite) device 04/07/20 18 025 Discontin ued(Enter ed in Error) losartan-hydroCHLORO thiazide (Hyzaar) 100-25 MG tablet 04/30/20 Discontin ued(Enter ed in Error) famotidine (Pepcid) 10 MG tablet Take by mouth. Discontin ued(Enter ed in Error) acetaminophen (Tylenol) 325 MG tablet Take 2 tablets (650 mg) by mouth as needed. Discontin ued(Enter ed in Error) ketoconazole (NIZOral) 2 % shampoo MESSAGE INTO AREAS 2-3 TIMES WEEKLY IN THE SHOWER. LET SIT FOR 5 MINUTES BEFORE RINSING 03/11/20 Discontin ued(Enter ed in Error) fluorouracil (Efudex) 5 % cream APPLY A THIN LAYER OF CREAM TO AFFECTED AREA ON SCALP, EARS AND FACE ONCE DAILY FOR 4 WEEKS 05/25/20 Discontin ued(Enter ed in Error) tadalafil (Adcirca) 20 MG tablet Take 1 tablet by mouth daily as needed. Discontin ued(Stop Taking at Discharge ) Emtricitabine-Tenofo vir AF (Descovy) 200-25 MG tablet tabletIndications:Co ntact with and (suspected) exposure to human immunodeficiency virus (hiv) Take 1 tablet by mouth daily. 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 12/25/2024 Visual loss, left eye 12/23/2024 Cervical radiculopathy 02/06/2024 Degenerative joint disease of [...] Encounters Date Type Department Care Team Description 12/25/2024 Travel 12/24/2024 Travel 12/23/2024 3:31 PM EDT - 12/25/2024 1:06 PM EDT Hospital Encounter [facility] Inpatient [address] [place] [address] Theodore Roper MD King, Richard D, MD Visual loss, left eye (Primary Dx); DAVID (obstructive sleep apnea); Diabetes mellitus type 2 without retinopathy (CMS/HCC); Hypertension, unspecified type; 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 Discharge Disposition: Home or Self Care 12/23/2024 Travel 12/02/2024 Orders Only [facility] Medicine Specialties [address], [facility] [place] [address] Santiago Boswell MD 12/01/2024 10:20 AM EDT Office Visit [facility] Specialties [address], [address] [place] [address] Cristina Gaffney, AIR BRAKE WORKER Psoriatic arthritis ([facility]) (Primary Dx); High risk medication use 12/01/2024 Telephone [facility] Medicine Specialties [address], [address] [place] [phone] George Clayton, PharmD 12/01/2024 Travel 11/25/2024 Travel 11/19/[address] [phone] Mariola Perry 11/12/[address] [address] Boris Macdonald PA 11/12/[address] [address] Mariloa Perry 11/11/[address] [phone] Boris Macdonald PA 10/02/2024 Orders Only [facility] Medicine Specialties [address], [address] [place] [phone] Santiago Boswell MD 10/01/2024 Orders Only [facility] Medicine Specialties [facility] [address], [address] [place] [phone] Santiago Boswell MD from Last 3 Months Immunizations Immunization Administration Dates Next Due Hep A, Adult 05/08/2024 Hep B, adult 06/18/1996,01/15/1996 Influenza, injectable, MDCK, preservative free, quadrivalent 03/04/2020 Influenza, injectable, quadr ivalent, preservative free 04/08/2023,04/23/2022,04/04/2021 Influenza, seasonal, injectable 04/06/2024 [employer] COVID-19 Vac cine (Purple Cap) 12+ 04/04/2021 Tdap 05/08/2024 Vaccinia, Smallpox Monkeypox Vaccine Live, Pf 02/06/2024,04/10/2022 Family History Medical History Relation Name Comments Cancer Father Estefany Mane Diabetes Father Estefany Mane Cataracts Mother Anesthesia problems Other Malig Hyperthermia Other Cancer Sister Berta Mane Marker Relation Name Status Comments Father Estefany Mane Mother Other Sister Berta Mane Marker Social History Tobacco Use Types Packs/Day Years Used Date Smoking Tobacco: Never Passive Smoke Exposure: Past Smokeless Tobacco: Never Tobacco Cessation:Counseling Given: Not Answered Alcohol Use Standard Drinks/Week Comments Defer 0 [...] often do you attend [facility] or sikhism services? Patient unable to answer 12/25/2024 Do you belong to any clubs o r organizations such as rastafari groups, unions, fraternal or athletic groups, or [...] and heating? Patient unable to answer 12/25/2024 [facility] - Occupational Stress Questionnaire Answer Date Recorded [...] were you homeless or living in a care home (including now)? Patient unable to answer 12/25/2024 Utilities Answer Date Recorded In the past 12 months has th e [employer], gas, oil, or water [employer] threatened to shut off services in your [...] Mass Index 34.75 12/23/2024 3:43 PM EDT Plan of Treatment Upcoming Encounters Date Type Department Care Team (Late st Contact Info) Description 06/01/2025 10:20 AM EST [facility] Visit [facility] [address], [address] [place] [address] Cristina Gaffney M, AIR BRAKE WORKER [address] [place] [address] Health Maintenance Due Date Last Done Comments [facility]-Medicare Annual Wellness (AWV) 1965 [facility]-/Child/Adol SDOH Screenings 1965 Diabetes: Dental Exam 1973 [facility]-Pneumococcal Vaccine: 50+ Years (1 of 2 - PCV) 1982 [facility]-Zoster Vaccines (1 of 2) 1982 CT Colonography 01/26/2008 Colonoscopy 01/26/2008 FIT-DNA 01/26/2008 FIT 01/26/2008 FOBT 01/26/2008 Sigmoidoscopy 01/26/2008 [facility]-Colorectal Cancer Screening 01/26/2008 [facility]-RSV Vaccine: 60+ Years or (1 - Risk 60-74 years 1-dose series) 2023 [id number] Vaccine (7 - Pfizer risk 2023- season) 2025 07/28/2024, 07/03/2023, 05/01/2022, Additional history exists [facility]-Influenza Vaccine (#1) 02/15/202504/06, 04/08/2023, 04/23/2022, Additional history exists [facility]-Diabetes: Hemoglobin A1C 03/24/2025 12/23/2024 [facility]- SDOH Screenings 06/27/2025 [facility]-Adult SDOH Screenings 06/27/2025 12/25/2024 [facility]-Depression Screening 12/01/2025 12/01/2024, 07/19 [facility]-DTaP,Tdap,and Td Vaccines (2 - Td or Tdap) 05/08/2034 05/08/2024 [facility]-Hepatitis C Screening Completed 02/06/2024, [facility]-Hepatitis A Vaccines Aged Out 05/08/2024 No longer eligible based on patient's age to complete this topic [facility]-HIV Screening Completed 12/23/2024, , 05/08/2024, Additional history exists [facility]-Obesity Intervention Completed 025, 12/01/2024, 08/10/2024, Additional history exists HPV Vaccines Aged Out [...] this topic Medical Devices Implanted Type 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 Right: Foot [id number] 09/15/2024 1600-645 / [id number] / K-Wire Dual Trocar 045 X 152mm - [id number] - [id number] Implanted:Qty: 2 on 11/30/2020 by Red Sue DPM at [facility] Right: Foot [id number] 09/05/2024 1600-645 / [id number] / Procedures Procedure Name Priority Date/Time Associated [...] IV CONTRAST Routine 12/24/2024 2:40 AM EDT RAJESH SINGLE PATTERN (REFLEX ONLY) (SO) Routine 12/23/2024 8:59 PM EDT EXTRACTABLE NUCLEAR ANTIGEN ANTIBODIES (SSA 52, SSA 60, AND SSB) (SO) Routine 12/23/2024 8:59 PM EDT ANCA VASCULITIS PROFILE (SO) Routine 12/23/2024 8:59 PM EDT ANTINUCLEAR ANTIBODY (RAJESH) WITH HEP-2 SUBSTRATE, IGG BY IFA (SO) Routine 12/23/2024 8:59 PM EDT ANGIOTENSIN CONVERTING ENZYME, SERUM (SO) Routine 12/23/2024 8:59 PM EDT ANTI-BETA 2 GLYCOPROTEIN, IGG AND IGM Routine 12/23/2024 8:59 PM EDT ANTICARDIOLIPIN Routine 12/23/2024 8:59 PM EDT NMO/AQP4 FACS SERUM (SO) Routine 12/23/2024 8:59 PM EDT TOXOPLASMA GONDII ANTIBODY, IGG (SO) Routine 12/23/2024 8:59 PM EDT HIV 1/2 ANTIBODY/ANTIGEN SCREEN WITH REFLEX TO HIV I/II DIFFERENTIATION Routine 12/23/2024 7:39 PM EDT LUPUS ANTICOAGULANT PROFILE Routine 12/23/2024 7:39 PM EDT HEMOGLOBIN A1C Routine 12/23/2024 7:39 PM EDT HIV 1/2 ANTIBODY/ANTIGEN SCREEN W/REFLEX TO HIV 1/2 ANTIBODY DIFFERENTIATION Routine 12/23/2024 7:39 PM EDT CYTOMEGALOVIRUS ANTIBODY, IGM (SO) Routine 12/23/2024 7:39 PM EDT CYTOMEGALOVIRUS ANTIBODY, IGG Routine 12/23/2024 7:39 PM EDT TOXOPLASMA GONDII ANTIBODY, IGM (SO) Routine 12/23/2024 7:39 PM EDT BASIC METABOLIC PANEL, PLASMA Routine 12/23/2024 7:39 PM EDT CBC W/O DIFFERENTIAL Routine 12/23/2024 7:39 PM EDT POCT GLUCOSE METER UNSOLICITED RESULTS Routine 12/23/2024 7:38 PM EDT POCT GLUCOSE METER UNSOLICITED RESULTS Routine 12/23/2024 7:[address] ANGIO NECK STAT 12/23/2024 5:[address] ANGIO HEAD STAT 12/23/2024 5:[address] HEAD WO IV CONTRAST STAT 5:00 PM EDT RHEUMATOID FACTOR, PLASMA Add-On 12/23/2024 3:29 PM EDT MYELIN OLIGODENDROCYTE GLYCOPROTEIN (MOG-IGG1) FLUORESCENCE-) (SO) STAT 12/23/2024 3:29 PM EDT TREPONEMA PALLIDUM (SYPHILIS) ANTIBODIES WITH REFLEX TO RPR AND RPR TITER (THOSE WITH NO KNOWN SYPHILIS) STAT 12/23/2024 3:29 PM EDT ANTINUCLEAR ANTIBODY (RAJESH) WITH HEP-2 SUBSTRATE, IGG BY IFA (SO) STAT 12/23/2024 3:29 PM EDT C-REACTIVE PROTEIN, PLASMA STAT 12/23/2024 3:29 PM EDT SEDIMENTATION RATE, AUTOMATED STAT 12/23/2024 3:29 PM EDT CBC WITH AUTO DIFFERENTIAL STAT 12/23/2024 3:29 PM EDT COMPREHENSIVE METABOLIC PANEL, PLASMA STAT 12/23/2024 3:29 PM EDT [facility] ED POCUS PROCDOC Routine 12/23/2024 2:46 PM EDT COMPLETE METABOLIC PROFILE (CMP) Routine 12/02/2024 4:57 PM EDT C-REACTIVE PROTEIN, PLASMA Routine 12/02/2024 4:57 PM EDT CBC WITH AUTO DIFFERENTIAL Routine 12/02/2024 4:57 PM EDT CBC WITH AUTO DIFFERENTIAL Routine 10/02/2024 7:58 AM EDT RENAL FUNCTION PANEL, PLASMA Routine 10/02/2024 7:58 AM EDT HEPATIC FUNCTION PANEL Routine 9:14 AM EDT C-REACTIVE PROTEIN, PLASMA Routine 10/01/2024 9:14 AM EDT HEPATITIS C ANTIBODY W/REFLEX TO HCV QUANT PCR Routine 02/06/2024 1:55 PM EDT Contact with and (suspected) exposure to human immunodeficiency virus (hiv) from Last 3 Months or Most Recently Relevant to Health Maintenance Results * (ABNORMAL) POCT glucose meter (12/25/2024 12:12 PM EDT) Only the most recent of8 resultswithin the time period is included. [facility] POCT Glucose 175(H) 74 - 99 mg/dL 12/25/2024 12:14 PM EDT [facility] Comment:Accuracy of a glucos e result [...] Comment 12/25/2024 12:14 PM EDT [facility] Field Auto Appraiser ID Bhavana Barahona 12/25/2024 12:14 PM EDT [facility]ALTH[facility]ARE LAB Device ID [id number] 12/25/2024 12:14 PM EDT [facility] Specimen Type POC Capillary 12/25/2024 12:14 PM EDT [facility] Blood Capillary blood specimen / Unknown 12/25/2024 12:12 PM EDT 12/25/2024 12:14 PM EDT us Bud Sue MD LAB POINT OF CARE TE ST DOCKED DEVICE UNSOLICITED RESULTS Final Result [facility] [address] [place] [address] * VAS US Carotid Duplex Bilateral (12/25/2024 [...] FACS, FSVS, RPVI on12/25/2024 2:33 PM us Bud Sue MD CV VASCULAR PROCEDURES Final R esult * (ABNORMAL) Lipid panel (12/25/2024 4:11 AM EDT) Cholesterol, Plasma 138 <200 mg/dL 12/25/2024 8:53 AM EDT [facility] Comment: Cholesterol Reference Range (age >17 years): Desirable <200 mg/dL Borderline 200 to 239 mg/dL Undesirable >239 mg/dL HDL 39(L) >=40 mg/dL 12/25/2024 8:53 AM EDT [facility] Comment: HDL Cholesterol Reference Ranges (age >17 years): Female, acceptable > or = 50 mg/dL Male, acceptable > or = 40 mg/dL Triglycerides, Plasma 156(H) <150 mg/dL 12/25/2024 8:53 AM EDT [facility] Comment: Triglyceride Reference Range (age >17 years): Desirable: <150 mg/dL Borderline high: 150 to 199 mg/dL High: 200 to 499 mg/dL Very high: >499 mg/dL Increased risk of pancreatitis: >1000 mg/dL Cholesterol/HDL Ratio 4 12/25/2024 8:53 AM EDT [facility] LDL, Calculated 72 <100 mg/dL 8:53 AM EDT [facility] Comment: LDL Cholesterol Reference Range [...] 12 hours? Unknown 12/25/2024 8:53 AM EDT [facility] Blood Venous blood specimen / Unknown Venipuncture / Unknown 12/25/2024 4:11 AM EDT 12/25/2024 4:28 AM EDT us Bud Sue MD LAB BLOOD ORDERABLES Final Res ult [facility] [address] [place] [address] * (ABNORMAL) Basic metabolic panel (12/25/2024 4:11 AM EDT) Only the most recent of2 resultswithin the time period is included. Glucose, Plasma 152(H) 74 - 99 mg/dL 12/25/2024 4:57 AM EDT [facility] BUN, Plasma 14 8 - 23 mg/dL 12/25/2024 4:57 AM EDT [facility] Creatinine, Plasma 1.15 0.70 - 1.20 mg/dL 12/25/2024 4:57 AM EDT [facility] BUN/Creatinine Ratio 12 12/25/2024 4:57 AM EDT [facility] Sodium, Plasma 139 136 - 145 mmol/L 12/25/2024 4:57 AM EDT [facility] Potassium, Plasma 3.4(L) 3.6 - 4.9 mmol/L 12/25/2024 4:57 AM EDT [facility] Chloride, Plasma 101 97 - 107 mmol/L 12/25/2024 4:57 AM EDT [facility] CO2, Plasma 25 22 - 29 mmol/L 12/25/2024 4:57 AM EDT [facility] Anion Gap 13 6 - 16 mmol/L 12/25/2024 4:57 AM EDT [facility] Total Calcium, Plasma 9.0 8.9 - 10.2 mg/dL 12/25/2024 4:57 AM EDT [facility] eGFRcr 72.4 mL/min/1.7 3m*2 12/25/2024 4:57 AM EDT [facility] Comment:Reported eGFRcr in m L/min/1.73m2 is based the CKD-EPI 2020 equation that does not use a race coefficient. Blood Venous blood specimen / Unknown Venipuncture / Unknown 12/25/2024 4:11 AM EDT 12/25/2024 4:28 AM EDT us Bud Sue MD LAB BLOOD ORDERABLES Final Res ult [facility] [address] [place] [address] * MR Orbits w and wo IV [...] Cheung MD on 12/24/2024 9:56 AM us Bud Sue MD IMG MRI PROCEDURES Final Resul [...] Jose Cheung MD on 12/24/2024 9:56 AM Bud Sue MD IMG MRI PROCEDURES Final Resul t * ANCA Vasculitis Profile (SO) (12/23/2024 8:59 PM EDT) Myeloperoxidase (MPO) Ab, IgG 0 0 - 19 AU/mL 12/26/2024 3:26 PM EDT [facility] ([facility]) Serine Proteinase 3 (PR3) Ab, IgG 0 0 - 19 AU/mL 12/26/2024 3:26 PM EDT [facility] ([facility]) ANCA IFA Titer <1:20 <1:20 12/26/2024 3:26 PM EDT [facility] ([facility]) ANCA IFA Pattern None Detected None Detected 12/26/2024 3:26 PM EDT [facility] ([facility]) Blood Venous blood specimen / Unknown Venipuncture / Unknown 12/23/2024 8:59 PM EDT 12/23/2024 9:16 PM EDT Narrative [facility] ([facility]) - 12/26/2024 3:26 PM EDT INTERPRETIVE [...] collagen vascular disease or arthritis. Performed By: [facility] [address] [place] [address] Photographic Press Screwmaker: George Andersen MD, PhD CLIA Number: [id number] Theodore Roper MD LAB BLOOD ORDERABLES Fin al Result Performing Organization Address [facility] Co de Phone Number [facility] ([facility]) [address] [place] [address] * Anti-Beta 2 Glycoprotein, IgG and IgM (12/23/2024 8:59 PM EDT) Pathologist [facility] Anti-Beta 2 Glycoprotein 1, IgG <1.4 <20.0 U/mL 12/23/2024 10:29 PM EDT [facility] Anti-Beta 2 Glycoprotein IgG Interpretation Negative Negative 12/23/2024 10:29 PM EDT [facility] Anti-Beta 2 Glycoprotein 1, IgM <1.5 <20.0 U/mL 12/23/2024 10:29 PM EDT [facility] Anti-Beta 2 Glycoprotein IgM Interpretation Negative Negative 12/23/2024 10:29 PM EDT [facility] Blood Venous blood specimen / Unknown Venipuncture / Unknown 12/23/2024 8:59 PM EDT 12/23/2024 9:15 PM EDT Theodore Roper MD LAB BLOOD ORDERABLES Fin al Result Performing Organization Address City/[facility]/ZIP Co de Phone Number [facility] [address] [place] [address] * NMO/AQP4 FACS Serum (SO) (12/23/2024 8:59 PM EDT) NMO/AQP4 FACS,S Negative Negative 8:58 AM EDT [facility] ([facility]) Comment: Recommend repeat testing in 6 months if clinical suspicion is high. Negative result can occur in the setting of immunosuppression. ADDITIONAL INFORMATION This test was developed and its performance characteristics determined by [facility] in a manner consistent with CLIA requirements. This test has not been cleared or approved by the U.S. Food and Drug Administration. Test Performed by: [address] [address] Pcat Instructor: Isa Espinoza Ph.D.; CLIA# [id number] Blood Venous blood specimen / Unknown Venipuncture / Unknown 12/23/2024 8:59 PM EDT 12/23/2024 9:20 PM EDT Theodore Roper MD LAB BLOOD ORDERABLES Fin al Result Performing Organization Address [facility] Co de Phone Number [facility] ([facility]) * (ABNORMAL) RAJESH Single Pattern (Reflex only) (12/23/2024 8:59 PM EDT) RAJESH Pattern Speckled(A ) 12/26/2024 1:22 PM EDT [facility] ([facility]) RAJESH Titer 1:80(A) 12/26/2024 1:22 PM EDT [facility] ([facility]) Blood Venous blood specimen / Unknown Venipuncture / Unknown 12/23/2024 8:59 PM EDT 12/23/2024 9:16 PM EDT Narrative [facility] ([facility]) - 12/26/2024 1:22 PM EDT Performed By: [facility] [address] [place] [address] Photographic Press Screwmaker: George Andersen MD, PhD CLIA Number: [id number] Theodore Roper MD LAB BLOOD ORDERABLES Fin al Result Performing Organization Address [facility] Co de Phone Number [facility] ([address] [address] * ENAII (SO) (12/23/2024 8:59 PM EDT) SSA-52 (RO52) ([facility]) Antibody, IgG 2 0 - 40 AU/mL 12/26/2024 10:49 PM EDT [facility] ([employer]) SSA-60 (RO60) (SAMIR) Antibody, IgG 0 0 - 40 AU/mL 12/26/2024 10:49 PM EDT [facility] ([facility]) SSB (LA) (SAMIR) Antibody, IgG 0 0 - 40 AU/mL 12/26/2024 10:49 PM EDT [facility] ([facility]) Blood Venous blood specimen / Unknown Venipuncture / Unknown 12/23/2024 8:59 PM EDT 12/23/2024 9:16 PM EDT Narrative [facility] ([facility]) - 12/26/2024 10:49 PM EDT INTERPRETIVE INFORMATION: [...] (PSS) also have this antibody. Performed By: [facility] [address] [place] [id number] Photographic Press Screwmaker: George Andersen MD, PhD CLIA Number: [id number] Theodore Roper MD LAB BLOOD ORDERABLES Fin al Result Performing Organization Address [facility] de Phone Number [employer] [facility]) [address] [place] [address] * Anticardiolipin IgG and IgM (12/23/2024 8:59 PM EDT) IgG Anticardiolipin <1.60 <20.00 GPL Units/mL 12/23/2024 10:29 PM EDT [facility] Anticardiolipin IgG Interpretation Negative Negative 12/23/2024 10:29 PM EDT [facility] IgM Anticardiolipin <1.50 <20.00 MPL Units/mL 12/23/2024 10:29 PM EDT [facility] Anticardiolipin IgM Interpretation Negative Negative 12/23/2024 10:29 PM EDT [facility] Blood Venous blood specimen / Unknown Venipuncture / Unknown 12/23/2024 8:59 PM EDT 12/23/2024 9:15 PM EDT Theodore Roper MD LAB BLOOD ORDERABLES Fin al Result Performing Organization Address [facility] Co de Phone Number [facility] [address] [place] [address] * Toxoplasma gondii antibody, IgG (SO) (12/23/2024 8:59 PM EDT) TOXOPLASMA IGG AB <3.0 <=8.8 IU/mL 12/26/2024 4:40 AM EDT [employer]) Blood Venous blood specimen / Unknown Venipuncture / Unknown 12/23/2024 8:59 PM EDT 12/23/2024 9:16 PM EDT Narrative [employer] [facility]) - 12/26/2024 4:40 AM EDT INTERPRETIVE INFORMATION: [...] the amount of antibody present. Performed By: [facility] [address] [place] [address] Photographic Press Screwmaker: George Andersen MD, PhD CLIA Number: [id number] Theodore Roper MD LAB BLOOD ORDERABLES Fin al Result Performing Organization Address City/[facility]/ZIP Co de Phone Number [facility]) [address] [place] [address] * Angiotensin Converting Enzyme, Serum (SO) (12/23/2024 8:59 PM EDT) ANGIOTENSIN CONVERTING ENZYME 21 16 - 85 U/L 12/26/2024 7:31 AM EDT [facility] [employer]) Blood Venous blood specimen / Unknown Venipuncture / Unknown 12/23/2024 8:59 PM EDT 12/23/2024 9:16 PM EDT Narrative [facility] [employer]) - 12/26/2024 7:31 AM EDT Performed By: [facility] [address] [place] [address] Photographic Press Screwmaker: George Andersen MD, PhD CLIA Number: [id number] Theodore Roper MD LAB BLOOD ORDERABLES Fin al Result Performing Organization Address [facility]/ZIP Co de Phone Number [facility] [place] [address] * (ABNORMAL) Antinuclear Antibody (RAJESH), HEp-2, IgG (SO) (12/23/2024 8:59 PM EDT) Only the most recent of2 resultswithin the time period is included. RAJESH INTERPRETIVE COMMENT See Note 12/26/2024 1:22 PM EDT [facility] ([employer]) Anti Nuc Ab Screen Detected( H) <1:80 12/26/2024 1:22 PM EDT [facility] ([employer]) Blood Venous blood specimen / Unknown Venipuncture / Unknown 12/23/2024 8:59 PM EDT 12/23/2024 9:16 PM EDT Narrative [facility] ([employer]) - 12/26/2024 1:22 PM EDT Speckled Pattern Clinical associations: SLE, SSc, SjS, DM, PM, MCTD, UCTD. May also be found in healthy individuals Main autoantibodies: Anti-SSA-52 (Ro52), anti-SSA-60 (Ro60), anti-SS-B/LA, anti-Rafa-1 (anti-Scl-70), Campos, anti-U1-FUR CUTTER, anti-U2-FUR CUTTER, anti-Mi-2, anti-[id number] ([id number]), anti-Ku, anti-RNA polymerase, anti-[id number] [...] not necessarily rule out SARD. Performed By: [facility] [address] [place] [address] Photographic Press Screwmaker: George Andersen MD, PhD CLIA Number: [id number] Theodore Roper MD LAB BLOOD ORDERABLES Fin al Result Performing Organization Address City/[facility]/ZIP Co de Phone Number [facility] (HAMZAH) [address] [place] [address] * HIV 1 & 2 Antibody/Antigen Screen (12/23/2024 7:39 PM EDT) [facility] HIV 1 & 2 Antibody/Antigen Screen Non Reactive Non Reactive 12/23/2024 8:37 PM EDT [facility] Comment:Screening for HIV 1 & 2 antibodies, and P24 antigen is NONREACTIVE. No confirmatory testing is required. Blood Venous blood specimen / Unknown Venipuncture / Unknown 12/23/2024 7:39 PM EDT 12/23/2024 7:55 PM EDT Theodore Roper MD LAB BLOOD ORDERABLES Fin al Result [facility] [address] [place] [address] * Toxoplasma gondii antibody, IgM (SO) (12/23/2024 7:39 PM EDT) [facility] TOXOPLASMA IGM AB <3.0 <=7.9 AU/mL 12/26/2024 5:06 AM EDT [facility] (HAMZAH) Blood Venous blood specimen / Unknown Venipuncture / Unknown 12/23/2024 7:39 PM EDT 12/23/2024 7:54 PM EDT Narrative [facility] (HAMZAH) - 12/26/2024 5:06 AM EDT INTERPRETIVE [...] post-infection. This test is performed using the [employer] LIAISON. As suggested by the CDC, any [...] the amount of antibody present. Performed By: [facility] [address] [place] [address] Photographic Press Screwmaker: George Andersen MD, PhD CLIA Number: [id number] us Theodore Roepr MD LAB BLOOD ORDERABLES Fin al Result [facility] [employer] (HAMZAH) [address] [place] [address] * Cytomegalovirus Antibody IgM (SO) (12/23/2024 7:39 PM EDT) [facility] CMV ANTIBODY IGM <8.0 <=29.9 AU/mL 12/26/2024 5:27 AM EDT [facility] (HAMZAH) Blood Venous blood specimen / Unknown Venipuncture / Unknown 12/23/2024 7:39 PM EDT 12/23/2024 7:54 PM EDT Narrative [facility] EMANUEL) - 12/26/2024 5:27 AM EDT INTERPRETIVE INFORMATION: [...] Cellular and Tissue-Based Products (HCT/P). Performed By: [facility] [address] [place] [address] Photographic Press Screwmaker: George Andersen MD, PhD CLIA Number: [id number] Theodore Roper MD LAB BLOOD ORDERABLES Fin al Result [facility]AMZ[facility]) [address] [id number] * Lupus Anticoagulant Profile (12/23/2024 7:39 PM EDT) [facility] Lupus Anticoagulant Result Lupus anticoagulant (LA) not detected by either LA-sensitive aPTT or dRVVT assays. If clinical suspicion for antiphospholipid syndrome is high, consider testing for antibodies against cardiolipin and [id number] n I. 12/25/2024 11:37 AM EDT [facility] aPTT Lupus Anticoagulant Sensitive 33.4 <=41.0 sec LAB COAGULATION METHOD 12/25/2024 11:37 AM EDT [facility] DRVVT Screen 36.3 sec LAB COAGULATION METHOD 12/25/2024 11:37 AM EDT [facility] DRVVT Screen Ratio 0.92 <1.20 LAB COAGULATION METHOD 12/25/2024 11:37 AM EDT [facility] Blood Venous blood specimen / Unknown Venipuncture / Unknown 12/23/2024 7:39 PM EDT 12/23/2024 7:54 PM EDT us Theodore Roper MD LAB BLOOD ORDERABLES Fin al Result [facility] [address] [place] [address] * (ABNORMAL) Cytomegalovirus Antibody IgG (SO) (12/23/2024 7:39 PM EDT) CMV ANTIBODY IGG 2.90(H) <=0.70 U/mL 12/26/2024 5:24 AM EDT [facility] ([facility]) Blood Venous blood specimen / Unknown Venipuncture / Unknown 12/23/2024 7:39 PM EDT 12/23/2024 7:54 PM EDT Narrative [facility] (HAMZAH) - 12/26/2024 5:24 AM EDT INTERPRETIVE INFORMATION: [...] laboratory at the same time. Performed By: [facility] [address] [place] [address] Photographic Press Screwmaker: George Andersen MD, PhD CLIA Number: [id number] us Theodore Roper MD LAB BLOOD ORDERABLES Fin al Result [facility] (HAMZAH) [address] [place] [address] * (ABNORMAL) CBC (12/23/2024 7:39 PM EDT) WBC Count 6.39 3.70 - 10.30 10*3/uL LAB HEMATOLOGY METHOD 12/23/2024 7:50 PM EDT [facility] RBC Count 5.45 4.60 - 6.10 10*6/uL LAB HEMATOLOGY METHOD 12/23/2024 7:50 PM EDT [facility] HGB 14.9 13.7 - 17.5 g/dL LAB HEMATOLOGY METHOD 12/23/2024 7:50 PM EDT [facility] HCT 46.2 40.0 - 51.0 % LAB HEMATOLOGY METHOD 12/23/2024 7:50 PM EDT [facility] Platelet Count 205 155 - 369 10*3/uL LAB HEMATOLOGY METHOD 12/23/2024 7:50 PM EDT [facility] MCV 85 79 - 98 fL LAB HEMATOLOGY METHOD 12/23/2024 7:50 PM EDT [facility] MCH 27.3 26.0 - 32.0 pg LAB HEMATOLOGY METHOD 12/23/2024 7:50 PM EDT [facility] MCHC 32.3 30.7 - 35.5 g/dL LAB HEMATOLOGY METHOD 12/23/2024 7:50 PM EDT [facility] RDW 15.4(H) 11.5 - 14.5 % LAB HEMATOLOGY METHOD 12/23/2024 7:50 PM EDT [facility] MPV 9.0 8.8 - 12.5 fL LAB HEMATOLOGY METHOD 12/23/2024 7:50 PM EDT [facility] nRBC 0.0 <=0.0 per 100 WBCs LAB HEMATOLOGY METHOD 12/23/2024 7:50 PM EDT [facility] Blood Venous blood specimen / Unknown Venipuncture / Unknown 12/23/2024 7:39 PM EDT 12/23/2024 7:48 PM EDT us Bud Sue MD LAB BLOOD ORDERABLES Final Res ult Performing Organization Address City/[facility]/ZIP Co de Phone Number [facility] [address] [place] [address] * (ABNORMAL) Hemoglobin A1c (12/23/2024 7:39 PM EDT) Hemoglobin A1c 7.5(H) <5.7 % 12/23/2024 8:37 PM EDT [facility] Blood Venous blood specimen / Unknown Venipuncture / Unknown 12/23/2024 7:39 PM EDT 12/23/2024 7:55 PM EDT Narrative [facility] - 12/23/2024 8:37 PM EDT HA1C Interpretive Data: Diagnosis of Diabetes: Diabetic > or = 6.5% Pre-diabetic 5.7 to 6.4% Non-diabetic < or = 5.6% Glycemic Targets for Type I and Type II Diabetics: Non- Adults <7.0% Adults <6.0% Children and Adolescents <7.5% Source: [place] [employer]. Standards of medical care in diabetes,2017. Diabetes Care.2017:40 (suppl 1):S1-S135. us Theodore Roper MD LAB BLOOD ORDERABLES Fin al Result Performing Organization Address City/[facility]/ZIP Co de Phone Number [facility] [address] [place] [address] * CT Angio Neck (12/23/2024 5:00 PM [...] 12/23/2024 6:11 PM Final report signed by Kwadow Gusman MD on 12/23/2024 6:42 PM Narrative [...] TOTAL DLP (Dose-Length Product): 1374.82 mGy.cm (accession [id number]), 1374.82 mGy.cm (accession [id number]), 1374.82 mGy.cm (accession [id number]). Please note: The reported value represents the [...] No aneurysm of either internal carotid artery. [place] and Major Peripheral Branches: There [...] TOTAL DLP (Dose-Length Product): 1374.82 mGy.cm (accession [id number]),1374.82 mGy.cm (accession [id number]), 1374.82 mGy.cm (accession [id number]).Please note: The reported value represents the total [...] No aneurysm of either internal carotid artery. [place] and Major Peripheral Branches: There [...] Gusman MD on 12/23/2024 6:42 PM us Stephen Fabian MD IMG CT PROCEDURES Final Res [...] TOTAL DLP (Dose-Length Product): 1374.82 mGy.cm (accession [id number]), 1374.82 mGy.cm (accession [id number]), 1374.82 mGy.cm (accession [id number]). Please note: The reported value represents the [...] No aneurysm of either internal carotid artery. [place] and Major Peripheral Branches: There [...] TOTAL DLP (Dose-Length Product): 1374.82 mGy.cm (accession [id number]),1374.82 mGy.cm (accession [id number]), 1374.82 mGy.cm (accession [id number]).Please note: The reported value represents the total [...] No aneurysm of either internal carotid artery. [place] and Major Peripheral Branches: There [...] Gusman MD on 12/23/2024 6:42 PM us Stephen Fabian MD IMG CT PROCEDURES Final Res ult * CT Angio Head (12/23/2024 5:00 PM EDT) Anatomical Region Laterality Modality [place] Computed Tomogr aphy Impressions 12/23/2024 [...] TOTAL DLP (Dose-Length Product): 1374.82 mGy.cm (accession [id number]), 1374.82 mGy.cm (accession [id number]), 1374.82 mGy.cm (accession [id number]). Please note: The reported value represents the [...] No aneurysm of either internal carotid artery. [place] and Major Peripheral Branches: There [...] TOTAL DLP (Dose-Length Product): 1374.82 mGy.cm (accession [id number]),1374.82 mGy.cm (accession [id number]), 1374.82 mGy.cm (accession [id number]).Please note: The reported value represents the total [...] No aneurysm of either internal carotid artery. [place] and Major Peripheral Branches: There [...] Gusman MD on 12/23/2024 6:42 PM us Stephen Fabian MD IMG CT PROCEDURES Final Res ult * Myelin Oligodendrocyte Glycoprotein (MOG-IgG1) Fluorescence-Activated Cell Sorting (12/23/2024 3:29PM EDT) Pathologist [facility] MOG FACS Negative Negative 12/29/2024 8:16 AM EDT [facility] (HAMZAH) Comment: No informative autoantibodies were detected in this evaluation. A negative result does not preclude a diagnosis of an inflammatory CRIPPLE CHASER demyelinating disorder. ADDITIONAL INFORMATION This test was developed and its performance characteristics determined by [facility] in a manner consistent with CLIA requirements. This test has not been cleared or approved by the U.S. Food and Drug Administration. Test Performed by: [facility] [place] [address] Pcat Instructor: Isa Espinoza Ph.D.; CLIA# [id number] Blood Venous blood specimen / Unknown Venipuncture / Unknown 12/23/2024 3:29 PM EDT 12/23/2024 4:29 PM EDT Stephen Fabian MD LAB BLOOD ORDERABLES Final Result [facility] (HAMZAH) * Treponema Pallidum (Syphilis) Antibodies with Reflex to RPR and RPR Titer (Those with NO known Syphilis) (12/23/2024 3:29 PM EDT) Pathologist [facility] Syphilis Antibody (IgG+IgM) Nonreactive Nonreactive 12/23/2024 5:01 PM EDT [facility] Comment:Nonreactive. No sero logic evidence of syphilis. No follow-up necessary unless clinically indicated (e.g., early syphilis). Blood Venous blood specimen / Unknown Venipuncture / Unknown 12/23/2024 3:29 PM EDT 12/23/2024 4:07 PM EDT Stephen Fabian MD LAB BLOOD ORDERABLES Final Result [facility] [address] [place] [address] * (ABNORMAL) Sed rate, automated (12/23/2024 3:29 PM EDT) Sedimentation Rate 30(H) <20 mm/hr 2024 4:15 PM EDT [facility] Blood Venous blood specimen / Unknown Venipuncture / Unknown 12/23/2024 3:29 PM EDT 12/23/2024 3:33 PM EDT Stephen Fabian MD LAB BLOOD ORDERABLES Final Result [facility] [address] [place] [address] * (ABNORMAL) CBC w/diff (12/23/2024 3:29 PM EDT) Only the most recent of3 resultswithin the time period is included. WBC Count 5.77 3.70 - 10.30 10*3/uL LAB HEMATOLOGY METHOD 12/23/2024 3:37 PM EDT [facility] RBC Count 5.17 4.60 - 6.10 10*6/uL LAB HEMATOLOGY METHOD 12/23/2024 3:37 PM EDT [facility] HGB 14.3 13.7 - 17.5 g/dL LAB HEMATOLOGY METHOD 12/23/2024 3:37 PM EDT [facility] HCT 43.6 40.0 - 51.0 % LAB HEMATOLOGY METHOD 12/23/2024 3:37 PM EDT [facility] Platelet Count 199 155 - 369 10*3/uL LAB HEMATOLOGY METHOD 12/23/2024 3:37 PM EDT [facility] MCV 84 79 - 98 fL LAB HEMATOLOGY METHOD 12/23/2024 3:37 PM EDT [facility] MCH 27.7 26.0 - 32.0 pg LAB HEMATOLOGY METHOD 12/23/2024 3:37 PM EDT [facility] MCHC 32.8 30.7 - 35.5 g/dL LAB HEMATOLOGY METHOD 12/23/2024 3:37 PM EDT [facility] RDW 15.2(H) 11.5 - 14.5 % LAB HEMATOLOGY METHOD 12/23/2024 3:37 PM EDT [facility] MPV 8.7(L) 8.8 - 12.5 fL LAB HEMATOLOGY METHOD 12/23/2024 3:37 PM EDT [facility] nRBC 0.0 <=0.0 per 100 WBCs LAB HEMATOLOGY METHOD 12/23/2024 3:37 PM EDT [facility] Differential Type Automated LAB HEMATOLOGY METHOD 12/23/2024 3:37 PM EDT [facility] Neutrophils % 39 % LAB HEMATOLOGY METHOD 12/23/2024 3:37 PM EDT [facility] Lymphocytes % 50 % LAB HEMATOLOGY METHOD 12/23/2024 3:37 PM EDT [facility] Monocytes % 8 % LAB HEMATOLOGY METHOD 12/23/2024 3:37 PM EDT [facility] Eosinophils % 2 % LAB HEMATOLOGY METHOD 12/23/2024 3:37 PM EDT [facility] Basophils % 1 % LAB HEMATOLOGY METHOD 12/23/2024 3:37 PM EDT [facility] Immature Granulocytes % 0 % LAB HEMATOLOGY METHOD 12/23/2024 3:37 PM EDT [facility] Neutrophils Absolute 2.27 1.60 - 6.10 10*3/uL LAB HEMATOLOGY METHOD 12/23/2024 3:37 PM EDT [facility] Lymphocytes Absolute 2.93 1.20 - 3.90 10*3/uL LAB HEMATOLOGY METHOD 12/23/2024 3:37 PM EDT [facility] Monocytes Absolute 0.44 0.30 - 0.90 10*3/uL LAB HEMATOLOGY METHOD 12/23/2024 3:37 PM EDT [facility] Eosinophils Absolute 0.09 0.00 - 0.50 10*3/uL LAB HEMATOLOGY METHOD 12/23/2024 3:37 PM EDT [facility] Basophils Absolute 0.03 0.00 - 0.10 10*3/uL LAB HEMATOLOGY METHOD 12/23/2024 3:37 PM EDT [facility] Immature Granulocytes Absolute 0.01 0.00 - 0.06 10*3/uL LAB HEMATOLOGY METHOD 12/23/2024 3:37 PM EDT [facility] Blood Venous blood specimen / Unknown Venipuncture / Unknown 12/23/2024 3:29 PM EDT 12/23/2024 3:33 PM EDT Narrative [facility] - 12/23/2024 3:37 PM EDT Therapeutic decision making should be based on absolute values, rather than percentages. Stephen Fabian MD LAB BLOOD ORDERABLES Final Result Performing Organization Address City/[facility] Co de Phone Number [facility] [address] [place] [address] * Rheumatoid Factor, Plasma (12/23/2024 3:29 PM EDT) Rheumatoid Factor, Plasma <10 <14 IU/mL 12/23/2024 11:31 PM EDT [facility] Blood Venous blood specimen / Unknown Venipuncture / Unknown 12/23/2024 3:29 PM EDT 12/23/2024 3:34 PM EDT Theodore Roper MD LAB BLOOD ORDERABLES Fin al Result Performing Organization Address [facility] de Phone Number [facility] [address] [place] [address] * C-reactive protein (12/23/2024 3:29 PM EDT) Only the most recent of3 resultswithin the time period is included. [facility] CRP, Plasma <3.0 <=8.0 mg/L 12/23/2024 3:56 PM EDT [facility] Blood Venous blood specimen / Unknown Venipuncture / Unknown 12/23/2024 3:29 PM EDT 12/23/2024 3:34 PM EDT Narrative [facility] - 12/23/2024 3:56 PM EDT This CRP test is appropriate for assessment of infection, systemic inflammation and/or tissue injury. To assess cardiovascular disease risk order high sensitivity CRP (CRPH). Stephen Fabian MD LAB BLOOD ORDERABLES Final Result Performing Organization Address [facility] Co de Phone Number [facility] [address] [place] [address] * (ABNORMAL) CMP (12/23/2024 3:29 PM EDT) [facility] Glucose, Plasma 130(H) 74 - 99 mg/dL 12/23/2024 3:56 PM EDT [facility] BUN, Plasma 16 8 - 23 mg/dL 12/23/2024 3:56 PM EDT [facility] Creatinine, Plasma 1.19 0.70 - 1.20 mg/dL 12/23/2024 3:56 PM EDT [facility] BUN/Creatinine Ratio 13 12/23/2024 3:56 PM EDT [facility] Sodium, Plasma 137 136 - 145 mmol/L 12/23/2024 3:56 PM EDT [facility] Potassium, Plasma 3.8 3.6 - 4.9 mmol/L 12/23/2024 3:56 PM EDT [facility] Chloride, Plasma 103 97 - 107 mmol/L 12/23/2024 3:56 PM EDT [facility] CO2, Plasma 25 22 - 29 mmol/L 12/23/2024 3:56 PM EDT [facility] Anion Gap 9 6 - 16 mmol/L 12/23/2024 3:56 PM EDT [facility] Total Calcium, Plasma 9.1 8.9 - 10.2 mg/dL 12/23/2024 3:56 PM EDT [facility] Total Protein 7.0 6.3 - 7.9 g/dL 12/23/2024 3:56 PM EDT [facility] Albumin, Plasma 4.1 3.5 - 5.2 g/dL 12/23/2024 3:56 PM EDT [facility] AST, Plasma 19 10 - 50 U/L 12/23/2024 3:56 PM EDT [facility] ALT, Plasma 22 10 - 50 U/L 12/23/2024 3:56 PM EDT [facility] Alkaline Phosphatase, Plasma 35(L) 40 - 115 U/L 12/23/2024 3:56 PM EDT [facility] Total Bilirubin, Plasma 2.4(H) 0.2 - 1.1 mg/dL 12/23/2024 3:56 PM EDT [facility] eGFRcr 69.5 mL/min/1.7 3m*2 12/23/2024 3:56 PM EDT [facility] Comment:Reported eGFRcr in m L/min/1.73m2 is based the CKD-EPI 2020 equation that does not use a race coefficient. Blood Venous blood specimen / Unknown Venipuncture / Unknown 12/23/2024 3:29 PM EDT 12/23/2024 3:34 PM EDT Stephen Fabian MD LAB BLOOD ORDERABLES Final Result [facility] [address] [place] [address] * [facility] ED POCUS PROCDOC (12/23/2024 2:46 PM EDT) Narrative Theodore Roper MD - 12/23/2024 2:46 PM EDT Theodore Roper MD 12/23/2024 4:14 PM POC Ultrasound - Bedside Performed by: Alisha Salinas MD Authorized by: Theodore Roper MD [...] ocular ultrasound The images were Saved in [employer]. The study was technically adequate. Alisha Salinas MD Emergency Medicine PGY-1 Theodore Roper MD IN CLINIC/BEDSIDE ORDERA BLES Final Result * COMPLETE METABOLIC PROFILE (CMP) (12/02/2024 4:57 PM EDT) Santiago Boswell MD LAB BLOOD ORDERABLES Anna l Result * Renal Function Panel, Plasma (10/02/2024 7:58 AM EDT) Blood Venous blood specimen / Unknown Historical Provider LAB BLOOD ORDERABLES Anna l Result * Hepatic Function Panel (10/01/2024 9:14 AM EDT) Blood Venous blood specimen / Unknown Historical Provider LAB BLOOD ORDERABLES Anna l Result * Hepatitis C Antibody w/Reflex to HCV Quant PCR (02/06/2024 1:55 PM EDT) Hepatitis C Antibody Negative Negative 02/06/2024 7:25 PM EDT [facility] Blood Venous blood specimen / Unknown Venipuncture / Unknown 02/06/2024 1:55 PM EDT 02/06/2024 1:55 PM EDT Boris BELLAMY LAB BLOOD ORDERABLES Final Res ult Performing Organization Address City/State/[facility] Co de Phone Number [facility] [address] [place] [address] from Last 3 Months or Most Recently Relevant to Health Maintenance Insurance Advance Directives * Full Code (Latest Code Status on File) Date Activated Date Inactivated Comments 12/23/2024 7:20 PM 12/25/2024 3:11 PM Question Answer Comments Patient has decision-making capacity? Yes Care Teams Product Development Ecologist Relationship Specialty Start Date End Date Swathi Patino APRN [address] [place] [address] PCP - General 10/28/20
--- OUTSIDE RECORDS SUMMARY | 2024-12-30 08:55 | XMS_ITS | Clinical Summary ---
Author Organization [employer] ([place], [place], [place], [place]) Address [address] [place] [address] Care Team Providers Care Loan Services Professional Name Role Phone Unavailable Primary Care Provider Unavailabl e Social History Tobacco Use Types Packs/Day Years Used Date Smoking Tobacco: Never Assessed Food Insecurity Answer Date Recorded Food run [...] Date Arthur rded Speak language other than [place] at home Not on file 07/06/2023 Want help with school or training Not on file 07/06/2023 Substance Use Answer Date Recorded Used prescription meds for non-medical reasons N ot on file 07/06/2023 Used illegal drugs past 12 months Not on file 07/06/2023 Sex and Gender Information Value Date Recorded Sex Assigned at Not on file Legal 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
--- OUTSIDE RECORDS SUMMARY | 2024-12-30 08:55 | XMS_ITS | Referral Summary ---
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
[2024-12-30] MEDS: METHYLPREDNISOLONE SOD SUCC 40MG VIAL 40 MG IV (09:14)
[2024-12-30] MEDS: ACETAMINOPHEN 325MG TAB 650 MG PO (09:15)
[2024-12-30] MEDS: SODIUM CHLORIDE 0.9% IV (09:40)
[2024-12-30] MEDS: INFLIXIMAB IV (09:40)
== END 2024-12-30 13:05 | disposition home or self-care (01) ==
LOC: INF 08:49
PROVIDERS: PCP Nurse Practitioner Family; Visit Provider Nurse Practitioner Family
DX: L40.50 Arthropathic psoriasis, unspecified (principal)
CPT/HCPCS: 96413; 96415; J1745; J2919; J7040

== ENCOUNTER 2025-02-03 08:43 | Outpatient (CLI) | payer MEDICARE, SELFPAY ==
--- OUTSIDE RECORDS SUMMARY | 2024-12-23 15:31 | XMS_ITS | Encounter Summary ---
Author Organization [facility] Address [address] [place] [address] Care Team Providers Care Machine Stoppage Frequency Checker Name Role Phone Swathi Patino JUAN Primary Care Provider [phone] Reason for Referral * Consultation (Routine) - Authorized Specialty Diagnoses / Procedures [facility] Referred To Contact Physical Therapy Diagnoses Visual loss, left eye Carol Sue MD [address] [address] Phone: tel: fax: Referral ID Status Reason Start Date Expiration Date Visits Requested Visits Authorized [id number] Authorized Consult and Treat 12/25/2024 06/26/2026 1 1 * Consultation (Routine) - Authorized Specialty Diagnoses / Procedures Referred By Contac t Referred To Contact Diagnoses Diabetes mellitus type 2 without retinopathy (CMS/HCC) Hypertension, unspecified type Carol Sue MD [address] [address] Phone: tel: fax: Referral ID Status Reason Start Date Expiration Date V isits Requested Visits Authorized [id number] Authorized 12/25/2024 06/26/2026 1 1 Scheduling Instructions Follow-up with PCP within one week * Consultation (Routine) - Authorized Specialty Diagnoses / Procedures Referred By Contac t Referred To Contact Sleep Medicine Diagnoses DAVID (obstructive sleep apnea) Carol Sue MD [address] [address] Phone: tel: fax: [facility] 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 Carol Sue MD [address] [address] Phone: tel: fax: [facility] [address] [place] [address] Phone: tel: fax: Referral ID Status Reason Start Date Expiration Date V isits Requested Visits Authorized [id number] Authorized 12/25/2024 06/26/2026 1 1 Reason for Visit * Reason Comments Eye Problem * Auth/Cert (Routine) Specialty Diagnoses / Procedures Referred By Oleksandr lucas Referred To Contact Diagnoses Visual loss, left eye Carol Sue MD [address] [address] Phone: tel: fax: [facility] [address] [place] [address] Phone: tel: Referral ID Status Reason Start Date Expiration Date Visits Re quested Visits Authorized [id number] 1 1 Encounter Details Date Type Department Care Team (Latest Contact Info) Description 12/23/2024 3:31 PM EDT - 12/25/2024 1:06 PM EDT Hospital Encounter [facility] [address] [place] [address] Theodore Roper MD [address] [place] [address] Carol Sue MD [address] [place] [address] Visual loss, left eye (Primary Dx); DAVID (obstructive sleep apnea); Diabetes mellitus type 2 without retinopathy (CMS/HCC); Hypertension, unspecified type; 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 Patient unable to answer 12/25/2024 Within the last year, have y ou been humiliated or emotionally abused in other ways by your partner or ex-partner? Patient unable to answer 12/25/2024 Within the last year, have y ou been kicked, hit, slapped, or otherwise physically hurt by your partner or ex-partner? Patient unable to answer 12/25/2024 Within the last year, have y ou been raped or forced to have any kind of sexual activity by your partner or ex-partner? Patient unable to answer 12/25/2024 Social Connection and Isolation Panel Answer Date Recorded In a typical week, how many times do you talk on the phone with family, friends, or neighbors? Patient unable to answer 12/25/2024 How often do you get togethe r with friends or relatives? Patient unable to answer 12/25/2024 How often do you attend [facility] or syn[facility] services? Patient unable to answer 12/25/2024 Do you belong to any clubs o r organizations such as gnosticist groups, unions, fraternal or athletic groups, or school groups? Patient unable to answer 12/25/2024 How often do you attend meet ings of the clubs or organizations you belong to? Patient unable to answer 12/25/2024 Are you , , di vorced, , never , or living with a partner? Patient unable to answer 12/25/2024 AUDIT-C Answer Date Recorded Q1: How often do you have a drink containing alcohol? Patient unable to answer 12/25/2024 Q2: How many drinks containi ng alcohol do you have on a typical day when you are drinking? Patient unable to answer Q3: How often do you have si x or more drinks on one occasion? Patient unable to answer 12/25/2024 Overall Financial Resource Strain (CARDIA) Answe r Date Recorded How hard is it for you to pa y for the very basics like food, housing, medical care, and heating? Patient unable to answer 12/25/2024 [facility] - Occupational Stress Questionnaire Answer Date Recorded Do you feel stress - tense, restless, nervous, or anxious, or unable to sleep at night because your mind is troubled all the time - these days? Patient unable to answer 12/25/2024 Exercise Vital Sign Answer Date Recorde d On average, how many days pe r week do you engage in moderate to strenuous exercise (like a brisk walk)? Patient unable to answer 12/25/2024 Minutes of Exercise per Session Not on file 12/25/2024 Hunger Vital Sign Answer Date Recorded Within the past 12 months, y ou worried that your food would run out before you got the money to buy more. Patient unable to answer 12/25/2024 Within the past 12 months, t he food you bought just didn't last and you didn't have money to get more. Patient unable to answer 12/25/2024 PRAPARE - Transportation Answer Date Re corded In the past 12 months, has l ack of transportation kept you from medical appointments or from getting medications? Patient unable to answer 12/25/2024 In the past 12 months, has l ack of transportation kept you from meetings, work, or from getting things needed for daily living? Patient unable to answer 12/25/2024 Housing Stability Vital Sign Answer Pete e Recorded In the last 12 months, was t here a time when you were not able to pay the mortgage or rent on time? Patient unable to answer 12/25/2024 In the past 12 months, how m any times have you moved where you were living? 0 12/25/2024 At any time in the past 12 m onths, were you homeless or living in a halfway (including now)? Patient unable to answer 12/25/2024 Utilities Answer Date Recorded In the past 12 months has th e [employer], gas, oil, or water company threatened to shut off services in your home? Patient unable to answer 12/25/2024 PHQ-2A Answer Date Recorded Patient Health Questionnaire-2 Score 0 06/04/2022 Sex and Gender Information Value Date Recorded Sex Assigned at Male 11/30/2020 8:09 AM EDT Legal Sex Male 6:58 PM EDT Gender Identity Male 11/30/2020 8:09 AM EDT Sexual Orientation Not on file documented as of this encounter Last Filed Vital Signs Vital Sign Reading Time Taken Comments Blood Pressure 99/64 12/25/2024 11:12 AM EDT Pulse 62 12/25/2024 11:12 AM EDT Temperature 36.7 C (98 F) 12/25/2024 11:12 AM EDT Respiratory Rate 18 12/25/2024 7:22 AM EDT Oxygen Saturation 97% 12/25/2024 11:12 AM EDT Inhaled Oxygen Concentration - - Weight 113 kg (249 lb 1.9 oz) 12/23/2024 3:43 PM EDT Height 180.3 cm (5' 11 ) 12/23/2024 3:43 PM EDT Body Mass Index 34.75 12/23/2024 3:43 PM EDT documented in this encounter Functional Status * Calculated C-SSRS Risk Score (Lifetime/Recent) Answer Date of Assessment Author No Risk Indicated 12/23/2024 3:42 PM EDT Orquidea Whipple RN * Question Answer Date of Assessment Author 1. Wish to be (Past 1 Month) No 12/23/2024 3:42 PM EDT Robert Shoemaker RN 2. Non-Specific Active Suicidal Thoughts (Past 1 Month) No 12/23/2024 3:42 PM EDT Robert Shoemaker RN 6. Suicidal Behavior (Lifetime) No 12/23/2024 3:42 PM EDT Robert Shoemaker RN documented as of this encounter Discharge Instructions * Discharge Instructions* Valdez Cordero MD - 12/25/2024 12:23 PM EDT Diagnosis: You have been diagnosed with a condition called Non-Arteritic Anterior Ischemic Optic Neuropathy (NAION), which has caused vision loss in the lower part of your left eye. Test Results: Your MRI of the head and orbit and the ultrasound of your temporal artery were normal. Next Steps: Manage Health Conditions: Blood Pressure: Work with your primary care doctor to keep your blood pressure under control. Diabetes: It's important to manage your blood sugar levels. Follow your diabetes care plan and check in with your primary care doctor regularly. Sleep Apnea: You may have sleep apnea, which can affect your vision and overall health. We recommend seeing a sleep specialist for further evaluation and possible treatment. Follow-Up Appointments: Neuro-Ophthalmology: You will need to see a neuro-rn security for further evaluation and management of your eye condition. They will help monitor your vision and provide additional treatment options if needed. Physical Therapy: We have referred you to a physical therapist who can help you adjust to your new vision capacity. They will work with you on exercises and strategies to improve your daily functioning. Lifestyle Recommendations: Healthy Diet and Exercise: Eating a balanced diet and staying active can help manage your blood pressure and diabetes. Quit Smoking: If you smoke, consider quitting, as smoking can worsen your condition. When to Seek Immediate Help: If you experience sudden changes in your vision, such as new vision loss or increased blurriness, seek medical attention right away. documented in this encounter Medications at Time of Discharge amLODIPine (Norvasc) 5 MG tablet Take 1 tablet by mouth daily. atenolol (Tenormin) 100 MG tablet Take 1 tablet by mouth 2 times a day. cloNIDine (Catapres) 0.1 MG tablet Take 1 tablet by mouth 2 times a day. glyBURIDE (Diabeta) 5 MG tablet Take 1 tablet by mouth 2 times a day. hydroCHLOROthiazi de (HYDRODiuril) 25 MG tablet Take 1 tablet by mouth daily. inFLIXimab (Remicade) 100 MG injection Infuse 10 mg/kg IV every 35 days 12 each 05/12/2024 Jardiance 25 MG Take 1 tablet by mouth daily. losartan (Cozaar) 100 MG tablet Take 1 tablet by mouth daily. metFORMIN (Glucophage) 1000 MG tablet Take 1 tablet by mouth 2 times a day with meals. omeprazole (PriLOSEC) [address] capsule Take 1 capsule by mouth daily. simvastatin (Zocor) 10 MG tablet Take 1 tablet by mouth nightly. SM Aspirin Adult Low Strength 81 MG EC tablet Take 1 tablet by mouth daily. tamsulosin (Flomax) 0.4 MG 24 hr capsule Take 1 capsule by mouth 2 times a day. documented as of this encounter Miscellaneous Notes * Hospital Course - Valdez Cordero MD - 12/25/2024 1:06 PM EDT Narinder Mane is a 59 y.o. male with h/o diabetes, psoriatic arthritis, and HTN who experienced painless L monocular visual loss 10 days before admission. Referred by his lead game designer due to papilledema. Presentation Painless left eye visual loss On exam, no vision loss on lower quadrants (predominantly on nasal). Left eye with RAPD+. No other focal neurological signs. History of untreated DAVID. Denied any use of GLP-1 Investigation CBC unremarkable A1c 7.5, LDL 72 ESR 30 (high), but normal CRP Autoimmune workup: negative lupus AC, anticardiolipin, anti-B2 glycoprotein, RF MRI Head / MRI Orbits noted no evidence of intracranial mass, hemorrhage, or acute infarction. No orbital or retro-orbital anomaly identified. Bilateral temporal artery US: Low index of suspicion for Giant Cell Arteritis Intervention Home medications were started. No specific treatment indicated for suspected condition as below End-result & Outpatient recommendations Based on clinical presentation (altitudinal monocular painless vision loss), presence of risk factors (T2DM, HTN, DAVID) and unremarkable workup for inflammatory condition, the most likely condition was suspected to be Non- arteritic optic neuritis. At day of discharge, patient's vision loss was stable and denied any interval symptoms. Outpatient plan Neuro-ophthalmology referral for follow-up PT/OT instructed of care from now on Strict control of risk factors with PCP, such as T2DM and HTN Sleep medicine referral for untreated DAVID * Progress Notes - Kyrie Argueta RN - 12/25/2024 1:06 PM EDT Case Management Discharge Note Narinder Mane 59 y.o. male CSN: [id number] Admission: 12/23/2024 3:31 PM Primary Problem: Visual loss, left eye Primary Velvet Weaver: Assistance Available at Discharge: Housing Circumstances-Z Codes: Patient Referred to Financial or Community Resources: Discharge Facility/Level of Care Needs: Discharge Facility/Level of Care Needs: 1-Home or Self Care Patient's Choice of Community Agency(s): Patient's Choice of Community Agency(s): NA Patient/Family Anticipated Services at Transition: Patient/Family Anticipated Services at Transition: none DME/Equipment Needed after Discharge: Equipment Needed After Discharge: none Readmission Within the Last 30 Days: Readmission Within the Last 30 Days: no previous admission in last 30 days Medicare Documentation: Follow-up: [facility] [address] [facility] [address] [facility] [address] [facility] [address] Discharge Transportation: Transportation Anticipated: family or friend will provide Transportation Home at Discharge: Family/Friend will Provide What day is the transport expected?: 12/25/24 Follow Up Transport: Transportation Needed to Follow up Appoinments: Family/Friend will Provide Additional Comments: Unable to complete IA prior to pt dc. Kyrie Argueta RN * Discharge Summary - Valdez Cordero MD - 12/25/2024 12:24 PM EDT Hospitalization Admit Date/Time: 12/23/2024 3:31 PM Admitting Attending: Carol Sue Discharge Date: 12/25/2044 Discharge Attending Physician: Carol Sue MD PCP name and Address: Swathi Patino, [employer] PART[employer] AND SERVICE DIRECTOR [address] [facility] [place] [address] Referring provider name and address: No referring provider defined for this encounter. Chief Concern, Brief History of Present Illness, and Hospital Course Narinder Mane is a 59 y.o. male with h/o diabetes, psoriatic arthritis, and HTN who experienced painless L monocular visual loss 10 days before admission. Referred by his lead game designer due to papilledema. Presentation Painless left eye visual loss On exam, no vision loss on lower quadrants (predominantly on nasal). Left eye with RAPD+. No other focal neurological signs. History of untreated DAVID. Denied any use of GLP-1 Investigation CBC unremarkable A1c 7.5, LDL 72 ESR 30 (high), but normal CRP Autoimmune workup: negative lupus AC, anticardiolipin, anti-B2 glycoprotein, RF MRI Head / MRI Orbits noted no evidence of intracranial mass, hemorrhage, or acute infarction. No orbital or retro-orbital anomaly identified. Bilateral temporal artery US: Low index of suspicion for Giant Cell Arteritis Intervention Home medications were started. No specific treatment indicated for suspected condition as below End-result & Outpatient recommendations Based on clinical presentation (altitudinal monocular painless vision loss), presence of risk factors (T2DM, HTN, DAVID) and unremarkable workup for inflammatory condition, the most likely condition was suspected to be Non- arteritic optic neuritis. At day of discharge, patient's vision loss was stable and denied any interval symptoms. Outpatient plan Neuro-ophthalmology referral for follow-up PT/OT instructed of care from now on Strict control of risk factors with PCP, such as T2DM and HTN Sleep medicine referral for untreated DAVID Surgeries and Procedures Procedures performed in this encounter Procedures POC Ultrasound - Bedside Medication List .. amLODIPine 5 MG tablet Commonly known as: Norvasc Take 1 tablet by mouth daily. atenolol 100 MG tablet Commonly known as: Tenormin Take 1 tablet by mouth 2 times a day. cloNIDine 0.1 MG tablet Commonly known as: Catapres Take 1 tablet by mouth 2 times a day. glyBURIDE 5 MG tablet Commonly known as: Diabeta Take 1 tablet by mouth 2 times a day. hydroCHLOROthiazide 25 MG tablet Commonly known as: HYDRODiuril Take 1 tablet by mouth daily. inFLIXimab 100 MG injection Commonly known as: Remicade Infuse 10 mg/kg IV every 35 days Jardiance 25 MG Generic drug: empagliflozin Take 1 tablet by mouth daily. losartan 100 MG tablet Commonly known as: Cozaar Take 1 tablet by mouth daily. metFORMIN 1000 MG tablet Commonly known as: Glucophage Take 1 tablet by mouth 2 times a day with meals. omeprazole [address] capsule Commonly known as: PriLOSEC Take 1 capsule by mouth daily. simvastatin 10 MG tablet Commonly known as: Zocor Take 1 tablet by mouth nightly. SM Aspirin Adult Low Strength 81 MG EC tablet Generic drug: aspirin Take 1 tablet by mouth daily. tamsulosin 0.4 MG 24 hr capsule Commonly known as: Flomax Take 1 capsule by mouth 2 times a day. 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 Neuro-Ophthalmology follow-up for further evaluation and pending results as below. Outpatient Follow-Up Future Appointments Date Time Provider Department Center 06/01/2025 10:20 AM Cristina Gaffney APRN [facility] Test Results Pending At Discharge Pending Labs Order Current Status ANCA Vasculitis Profile (SO) In process Angiotensin Converting Enzyme, Serum (SO) In process Antinuclear Antibody (RAJESH) with HEp-2 Substrate, IgG by IFA In process Antinuclear Antibody (RAJESH), HEp-2, IgG (SO) In process Cytomegalovirus Antibody IgG (SO) In process Cytomegalovirus Antibody IgM (SO) In process ENAII (SO) In process Myelin Oligodendrocyte Glycoprotein (MOG-IgG1) Fluorescence-Activated Cell Sorting In process NMO/AQP4 FACS Serum (SO) In process Toxoplasma gondii antibody, IgG (SO) In process Toxoplasma gondii antibody, IgM (SO) In process Pertinent Physical Exam At Time of Discharge Physical exam Constitutional: in no acute distress HENT: normocephalic, non-erythematous oropharynx, anicteric sclera Cardiovascular: no appreciable murmurs, gallops, or rubs Respiratory: symmetric chest expansion, non-labored breathing Gastrointestinal: abdomen is soft, not distended, non-tender Musculoskeletal: no appreciable joint swelling, no appreciable LE warmth or erythema Psychiatric: appropriate mood and affect, cooperative. Neurological: Mental Status: The patient is alert and interactive, able to follow commands. Oriented to person, place, and time, Speech: Intact Articulation, Fluent language CN: II - PERRL, left RAPD+, Visual gomez: full on right eye. Left eye with lower quadrants vision loss, predominantly nasally III, IV, - EOMI V - Facial sensation intact VII - Brow raise and smile symmetrical VIII - Auditory acuity intact IX, X - Palate elevation symmetric, uvula midline XI - SCM and Trapezius strength intact XII - Tongue protrudes midline Motor: Normal bulk and tone, strength 5/5 throughout Reflexes 2+ and symmetric throughout. No ankle clonus. Plantar reflex mute Sensation to light touch in all four extremities is preserved and symmetric No limb ataxia with [id number]-gw-jwji or [id number] Cortical: No Extinction Gait: Deferred Discharge Disposition/Condition Disposition: Home Condition: Stable (s/sx potential problems absent or manageable) I spent >30 minutes of patient care and instruction time in preparation for this discharge. Cosigned by Carol Sue MD at 12/27/2024 8:36 PM EDT Associated attestation - Carol Sue MD - 12/27/2024 8:36 PM EDT I saw and evaluated the patient with the resident/fellow. I discussed the case with the resident/fellow and agree with the findings and plan as documented. * Care Plan - Radha Pfeiffer RN - 12/25/2024 9:41 AM EDT Problem: Adult Inpatient Plan of Care Goal: Patient-Specific Goal (Individualized) Outcome: Ongoing, Progressing Flowsheets (Taken 12/25/2024 0800) Patient/Family-Specific Goals (Include Timeframe): pt will remain free of falls/injuries during shift Individualized Care Needs: safety Anxieties, Fears or Concerns: none stated Problem: Adult Inpatient Plan of Care Goal: Readiness for Transition of Care Intervention: Mutually Develop Transition Plan Flowsheets (Taken 12/25/2024 0940) Readmission Within the Last 30 Days: no previous admission in last 30 days Patient/Family Anticipates Transition to: home Problem: Pain Acute Goal: Optimal Pain Control and Function Outcome: Ongoing, Progressing Intervention: Optimize Psychosocial Wellbeing Flowsheets (Taken 12/24/2024 1015) Supportive Measures: active listening utilized decision-making supported self-care encouraged relaxation techniques promoted Diversional Activities: movies reading Spiritual Activities Assistance: personal rituals encouraged Problem: Communication Impairment Goal: Effective Communication Skills Outcome: Ongoing, Progressing Intervention: Optimize Communication Skills Flowsheets (Taken 12/24/2024 0303 by Gianni Faith, RN) Communication Enhancement Strategies: call light answered in person one-step directions provided verbal communication attempts encouraged verbal and visual cues paired * Progress Notes - Berenice Gilmore - 12/25/2024 8:39 AM EDT OCCUPATIONAL THERAPY EVALUATION PATIENT DATA Patient Name Narinder Mane Session Date 12/25/2024 OT Discharge Recommendations Home Equipment Recommendations None Transportation Recommendations Family car HISTORY Narinder Mane is 59 y.o. male admitted 12/23/2024 for work-up of Visual loss, left eye. Hospital Course 1. Visual loss, left eye Procedures (if applicable) Past Medical History Patient has a past medical history of Age-related nuclear cataract, unspecified eye, Arthritis, Esophageal candidiasis (CMS/HCC) (-2023), GERD (gastroesophageal reflux disease),Hypertension, Joint pain, Personal history of diseases of the skin and subcutaneous tissue, Personal history of other endocrine, nutritional and metabolic disease, Skin cancer, Type 2 diabetes mellitus without complications, and Unspecified cataract. Past Surgical History Patient has a past surgical history that includes LASIK (N/A); Gallbladder surgery (N/A); Cholecystectomy; Eye surgery; Colonoscopy; Cataract extraction; and hammer toe surgery (Right). MOBILITY GUIDELINES Mobility Protocol: General - Mobility Guidelines Extremity Precautions: No Extremity Precautions Other mobility precautions: No other precautions required PRECAUTIONS Medical Precautions SUBJECTIVE PARTICIPANTS IN CARE Patient/Caregiver Comments Pt agreeable to OT session. Reports he's been ambulating to the cafeteria. Visitors Present No Litigation Counsel (if applicable) PRESENTATION Oxygen None (Room air) Telemetry Yes Lines and Tubes Peripheral IV 12/23/24 Right Antecubital (Active) Pre-Session Supine, Head of bed elevated Post-Session RN notified, Call light in reach, Sitting: edge of bed Bracing (if applicable) HOME LIVING/SET-UP Lives With Alone Home Type House Home Equipment None Home Layout Multi-level, Able to live on one level with bedroom/bathroom, Stairs to enter without rails (Loft upstairs) Number of Stairs: 2 Bathroom Layout Additional Comments PRIOR LEVEL OF FUNCTION Receives help from No assist required prior to admission Level of Mobility Ambulatory- community Mobility [place] Independent gait without device History of Falls No ADL Performance ADL Performance: Independent PATIENT/FAMILY GOALS Pt.'s goal is to return home. OBJECTIVE PAIN Pt with no complaints of pain. DELIRIUM SCREENING Pretty Agitation Sedation Scale (RASS): Alert and calm Confusion Assessment Method-ICU (CAM-ICU/PCAM-ICU) Feature 3: Altered Level of Consciousness: Negative COGNITION Overall Cognitive Status Within Functional Limits Arousal/Alertness Appropriate responses to stimuli Mood/Behavior Alert Orientation Oriented X4 Command Following Single Step Commands: Consistently Multi-Step Commands: Consistently Method of Communication Verbal Additional Observations VISION Baseline Vision Current Vision (if different) Patient Visual Report: Pt notes cloudiness in corner of L eye. Able to scan appropriately and identify objects during navigation. RIGHT UPPER EXTREMITY EXAMINATION Range of Motion Within Functional Limits Manual Muscle Testing Within functional limits Light Touch Sensation Intact Pain Sensation Muscle Tone LEFT UPPER EXTREMITY EXAMINATION Range of Motion Within Functional Limits Manual Muscle Testing Within functional limits Light Touch Sensation Intact Pain Sensation Muscle Tone RIGHT LOWER EXTREMITY EXAMINATION Range of Motion Within Functional Limits Manual Muscle Testing Within functional limits Light Touch Sensation Intact Pain Sensation Muscle Tone LEFT LOWER EXTREMITY EXAMINATION Range of Motion Within Functional Limits Manual Muscle Testing Within functional limits Light Touch Sensation Intact Pain Sensation Muscle Tone BED MOBILITY Level of [place] Physical/Non-physical Assist Adaptive Equipment Utilized Rolling/ Turning Scooting/ Bridging Independent Supine to Sit Independent Sit to Supine TRANSFERS Level of [place] Physical/Non- physical Assist Adaptive Equipment Utilized Sit to Stand Independent Stand to sit Independent Bed to Chair Toilet Transfer Shower Transfer FUNCTIONAL MOBILITY Level of [place] Distance Adaptive Equipment Utilized Ambulation Independent No device BALANCE Postural Appearance INTERVENTIONS Level of [place] Balance Support Interventions Static Sit Independent Dynamic Sit Independent Static Stand Independent Dynamic Stand Independent STANDARDIZED ASSESSMENTS Yue Index Feeding: Independent Bathing: Independent (or in Shower) Grooming: Independent face/hair/teeth/shaving (implements provided) Dressing: Independent (including buttons, zips, laces etc.) Bowels: Continent Bladder: Continent Toilet Use: Independent (on and off, dressing, wiping) Transfers (Bed to Chair and Back): Independent Mobility (on Level Surfaces): Independent (but may use any aid - for example, stick) > 50 yards Stairs: Independent Total Score: 100 ASSESSMENT Pt tolerated treatment session well without adverse effects, noted to have vital signs stable throughout. OT provided patient with visual impairment resource packet. Pt. demonstrates functional skills necessary to discharge home with assistance as needed. OT will sign off at this time. Pt. demonstrates no acute care OT service needs. Please reconsult if pt has a change in status. OT FINDINGS EVAL COMPLEXITY Occupational Profile Brief history including review of medical/therapy records relating to presenting problem Performance Deficits Clinical Decision Making Low Overall Eval Complexity Low OT RECOMMENDATIONS Discharge Destination Home Discharge Equipment None Recommendations for Referral to Another Service (if applicable) Written by Berenice Gilmore on 12/25/24 at 9:11 AM. * Progress Notes - Mamadou Li E - 12/25/2024 8:38 AM EDT Physical Therapy Evaluation/Discharge Patient Name: Narinder Mane Today's Date: 12/25/2024 PT Discharge Recommendations: Home Equipment Recommended: None History Narinder Mane is 59 y.o. male admitted 12/23/2024 for work-up of Visual loss, left eye. Hospital Course 1. Visual loss, left eye Procedures Past Medical History Patient has a past medical history of Age-related nuclear cataract, unspecified eye, Arthritis, Esophageal candidiasis (CMS/HCC) (-2023), GERD (gastroesophageal reflux disease), Hypertension, Joint pain, Personal history of diseases of the skin and subcutaneous tissue, Personal history of other end ocrine, nutritional and metabolic disease, Skin cancer, Type 2 diabetes mellitus without complications, and Unspecified cataract. Past Surgical History Patient has a past surgical history that includes LASIK (N/A); Gallbladder surgery (N/A); Cholecystectomy; Eye surgery; Colonoscopy; Cataract extraction; and hammer toe surgery (Right). Precautions None Subjective Pt reports cloudy vision in inferior portion of L eye. Pt denies impairments with mobility. Participants in Care Family/Caregiver Present: No Litigation Counsel: Not Applicable PRESENTATION Oxygen None (Room air) Lines and Tubes Peripheral IV 12/23/24 Right Antecubital (Active) Pre-Session Supine, Head of bed elevated Post-Session RN notified, Call light in reach, Sitting: edge of bed HOME LIVING/SET-UP Lives With Alone Home Type House Home Equipment None Home Layout Multi-level, Able to live on one level with bedroom/bathroom, Stairs to enter without rails (Loft upstairs) Number of Stairs: 2 PRIOR LEVEL OF FUNCTION Assist at Home No assist required prior to admission Level of Mobility Ambulatory- community Mobility [place] Independent gait without device History of Falls No Overall ADL Performance Independent PATIENT/FAMILY GOALS to return home aldo Objective Pain Pt with mild pain with L eye movement. No numerical value provided. Pt positioned for comfort. Delirium Screening Pretty Agitation Sedation Scale (RASS): Alert and calm Confusion Assessment Method-ICU (CAM-ICU/PCAM-ICU) Feature 3: Altered Level of Consciousness: Negative Cognition Overall Cognitive Status: Within Functional Limits Arousal/Alertness: Appropriate responses to stimuli Mood/Behavior: Alert Orientation Level: Oriented X4 Single Step Commands: Consistently Multi-Step Commands: Consistently Method of Communication: Verbal Vision - Complex Assessment Patient Visual Report: Pt notes cloudiness in bottom corner of L eye. Able to scan appropriately and identify objects during navigation. Right Upper Extremity Examination RUE Assessment: Within Functional Limits Manual Muscle Testing - RUE: Within functional limits Light Touch: Right Upper Extremity: Intact Left Upper Extremity Examination LUE Assessment: Within Functional Limits Manual Muscle Testing - LUE: Within functional limits Light Touch: Left Upper Extremity: Intact Right Lower Extremity Examination RLE Assessment: Within Functional Limits Manual Muscle Testing - RLE: Within functional limits Light Touch: Right Lower Extremity: Intact Left Lower Extremity Examination LLE Assessment: Within Functional Limits Manual Muscle Testing: Within functional limits Light Touch: Left Lower Extremity: Intact BED MOBILITY Interventions Level of [place] Physical/Non- physical Assist Adaptive Equipment Utilized Rolling/ Turning Scooting/ Bridging Independent Supine to Sit Independent Sit to Supine TRANSFERS Interventions Level of [place] Physical/Non- physical Assist Adaptive Equipment Utilized Sit to Stand Independent Stand to sit Independent Bed to Chair Toilet Transfer Shower Transfer AMBULATION Level of [place] Distance Adaptive Equipment Utilized Ambulation Independent >250' No device Comments swing through gait, good tiffanie BALANCE Postural Appearance Posture: Within Functional Limits Level of [place] Balance Support Interventions Static Sit Independent Dynamic Sit Independent Static Stand Independent Dynamic Stand Independent Standardized Assessments [facility] 6-Clicks Mobility Assessment Difficulty patient has turning over in bed (including adjusting bedclothes, sheets, and blankets)?:None Difficulty patient has sitting down on and standing up from a chair with arms (wheelchair, bedside commode, etc.)?: None Difficulty patient has moving from lying on back to sitting on the side of the bed?: None How much help does the patient need moving to and from a bed to a chair (including a wheelchair)?: None How much help does the patient need to walk in hospital room?: None How much help does the patient need climbing 3-5 steps with a railing?: None [facility] 6-Clicks Mobility Assessment Total : 24 Assessment Pt tolerated session without adverse effects. Pt appears to be at his baseline mobility level and compensates appropriately for L eye visual impairment. Pt educated on PT POC and provided with Low Vision Resource Packet. Pt demonstrates no further need for inpatient PT. PT will sign off. Impairments: Impaired vision/visual processing Activity Tolerance: Walking Evaluation/Treatment Tolerance: Other (Comment) (tolerated session without adverse effects) Diagnosis: Visual loss, Left eye Eval Complexity History Profile: 1 - 2 personal factors and/or comorbidities Clinical Presentation: Stable and/or uncomplicated characteristics Clinical Decision Making: Low complexity PT Recommendations Discharge Destination: Home Discharge Equipment: None Plan Patient no longer demonstrates need for inpatient physical therapy services. Patient to be discharged from physical therapy. Written by Mamadou Li on 12/25/24 at 9:18 AM. * Care Plan - Joseph Webster RN - 12/24/2024 10:27 PM EDT Problem: Adult Inpatient Plan of Care Goal: Plan of Care Review Outcome: Ongoing, Progressing Flowsheets (Taken 12/24/20247) Progress: no change Plan of Care Reviewed With: patient Goal: Patient-Specific Goal (Individualized) Outcome: Ongoing, Progressing Flowsheets (Taken 12/24/20241999) Patient/Family-Specific Goals (Include Timeframe): Patient will remain free of falls / injuries during this shift Individualized Care Needs: Safety Anxieties, Fears or Concerns: Wants to go home soon Goal: Absence of Hospital-Acquired Illness or Injury Outcome: Ongoing, Progressing Goal: Optimal Comfort and Wellbeing Outcome: Ongoing, Progressing Intervention: Provide Person-Centered Care Flowsheets (Taken 12/24/2024 0303 by Gianni Faith, RN) Trust Relationship/Rapport: care explained choices provided Goal: Readiness for Transition of Care Outcome: Ongoing, Progressing Problem: Fall Injury Risk Goal: Absence of Fall and Fall-Related Injury Outcome: Ongoing, Progressing Problem: Mobility Impairment Goal: Optimal Mobility Outcome: Ongoing, Progressing Intervention: Optimize Mobility Flowsheets (Taken 12/24/20241999) Activity Management: activity adjusted per tolerance Problem: Pain Acute Goal: Optimal Pain Control and Function Outcome: Ongoing, Progressing Problem: Communication Impairment Goal: Effective Communication Skills Outcome: Ongoing, Progressing * Progress Notes - Kyrie Argueta RN - 12/24/2024 2:03 PM EDT Unable to complete IA today do to time restraints, will re-attempt tomorrow. * Care Plan - Radha Pfeiffer RN - 12/24/2024 10:17 AM EDT Problem: Mobility Impairment Goal: Optimal Mobility Outcome: Ongoing, Progressing Intervention: Optimize Mobility Flowsheets Taken 12/24/2024 1015 Positioning/Transfer Devices: pillows Taken 12/24/2024 0800 Activity Management: activity adjusted per tolerance Problem: Pain Acute Goal: Optimal Pain Control and Function Outcome: Ongoing, Progressing Intervention: Optimize Psychosocial Wellbeing Flowsheets (Taken 12/24/2024 1015) Supportive Measures: active listening utilized decision-making supported self-care encouraged relaxation techniques promoted Diversional Activities: movies reading Spiritual Activities Assistance: personal rituals encouraged Intervention: Develop Pain Management Plan Flowsheets (Taken 12/24/2024302 by Gianni Faith, KARLA) Pain Management Interventions: care clustered medication (see MAR) Intervention: Prevent or Manage Pain Flowsheets Taken 12/24/2024 1015 by Radha Pfeiffer, KARLA Bowel Elimination Promotion: ambulation promoted Taken 12/24/2024302 by Gianni Faith, RN Sensory Stimulation Regulation: quiet environment promoted Sleep/Rest Enhancement: natural light exposure provided Medication Review/Management: medications reviewed Problem: Communication Impairment Goal: Effective Communication Skills Outcome: Ongoing, Progressing Intervention: Optimize Communication Skills Flowsheets (Taken 12/24/2024302 by Gianni Faith, KARLA) Communication Enhancement Strategies: call light answered in person one-step directions provided verbal communication attempts encouraged verbal and visual cues paired * Progress Notes - Carol Sue MD - 12/24/2024 8:09 AM EDT General Neurology Progress Note Brief Summary Narinder Mane is a 59 y.o. male with h/o diabetes, psoriatic arthritis, and HTN who experienced painless L monocular visual loss x2 weeks associated with lower field deficits. referred by his lead game designer due to papilledema . Neurology is consulted for additional workup to evaluate for underlying etiology. Subjective Narinder Mane has a h/o bilateral cataract surgery in 2018. Since then, he has had no difficulty withvision and states he had an eye exam 08/11 which revealed 20/20 for both eyes. He occasionally uses low level reading glasses for near sight. . Around two weeks ago he noticed that he had increased difficulty discerning between fine details. He was later able to locate the defect to his left eye. Since he did not notice any improvement with the left eye, he visited the lead game designer on 12/23. From that visit he was found to have optic disc edema in the left eye that required further investigation. His paperwork noted a differential between optic neuritis and giant cell arteritis. He was seen in the ER where he had an elevated ESR (30), a normal ocular ultrasound, and a CT/angiothat showed no evidence of hemorrhage or vessel occlusion. 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 The patient says that he is doing well. He has not had any change in vision since his admission. Hedescribes his left visual field as having a villalba cloud at the bottom. He says he is able to move the eye without pain and has no symptoms in the right. He has noted some additional tear production inthe left more than the right. He has the urge to touch his left eye but says he doesn't feel like there is anything in it. He denies exposure to any sick contacts or generalized symptoms prior to theepisode. He has experienced occasional diffuse headaches which he treats with Tylenol. He hasn't had any associated nausea or vomiting. Pt notes feelings of weakness and dizziness upon standing for long periods of time but no reported syncopal episodes. Review of Systems Constitutional: Negative for activity change. Eyes: Positive for visual disturbance. Negative for pain. Respiratory: Negative for cough and shortness of breath. Gastrointestinal: Negative for nausea and vomiting. Neurological: Positive for headaches. Negative for syncope. Objective Vitals: 12/23/24 1837 12/23/24 1947 12/23/24 2124 12/24/24 0300 BP: (!) 143/81 (!) 154/82 (!) 153/82 (!) 157/87 BP Location: Left arm Left arm Patient Position: Sitting Lying Pulse: 61 64 65 62 Resp: 18 20 20 Temp: 36.7 ??C (98.1 ??F) 36.6 ??C (97.8 ??F) 36.3 ??C (97.4 ??F) 36.4 ??C (97.5 ??F) TempSrc: Oral Oral Oral SpO2: 98% 98% 97% 98% Weight: Height: Physical Exam: Constitutional: Patient in no acute distress. Patient appears stated age. Ears, Nose, Mouth, Throat: Mucous membranes appear moist. No appreciable hearing impairment. Nares patent. Eyes: Anicteric sclera. No appreciable conjunctival injection. Cardiovascular: Appears well-perfused. No appreciable edema. Respiratory: Symmetric chest expansion. Non-labored breathing. Gastrointestinal: No appreciable abdominal distention. Genitourinary: No Way catheter present. No appreciable bladder distention. Musculoskeletal: No appreciable joint swelling. [place] neck joint deformities in DIP. No appreciable lower extremity warmth or erythema in either leg. Psychiatric: Appropriate mood and affect. Patient is cooperative. Neurological: Mental Status: A&O x4, interactive, able to follow commands Speech: Intact articulation, fluent language Cortical: No Extinction CN: II - PERRLA, VF full III, IV, - EOMI, Left afferent pupillary defect present, Altitudinal vision loss in the left eye(nasal > temporal visual field) V - Facial sensation intact VII - Brow raise and smile symmetrical VIII - Auditory acuity intact IX, X - Palate elevation symmetric, uvula midline XI - SCM and Trapezius strength intact XII - Tongue protrudes midline Motor: Normal bulk and tone. No adventitious movements. RUE: 5/5 strength LUE: 5/5 strength RLE: 5/5 strength LLE: 5/5 strength Sensory: Sensation to light touch intact and symmetric in all four extremities Reflexes: Reflexes 2+ and symmetric throughout. No ankle clonus. Plantar reflex downgoing. Coordination: No limb ataxia with [id number] or [id number]-ek-[id number]. Gait: Deferred Labs: Labs personally reviewed and summarized as CBC, Anticardiolipin IgG/IgM, Potassium 3.4 , HbA1C 7.5. CBC: Results from last 7 days Lab Units 12/23/24 19312/23/24 1529 WBC 10*3/uL 6.39 5.77 HEMOGLOBIN g/dL 14.9 14.3 HEMATOCRIT % 46.2 43.6 PLATELETS 10*3/uL 205 199 CMP/RFP: Results from last 7 days Lab Units 12/23/24 19312/23/24 1529 SODIUM mmol/L 136 137 POTASSIUM mmol/L 3.4* 3.8 CHLORIDE mmol/L 101 103 CO2 mmol/L 25 25 BUN mg/dL 16 16 CREATININE mg/dL 1.18 1.19 CALCIUM mg/dL 9.3 9.1 ALBUMIN g/dL -- 4.1 BILIRUBIN TOTAL mg/dL -- 2.4* ALKALINE PHOSPHATASE U/L -- 35* ALT U/L -- 22 AST U/L -- 19 GLUCOSE mg/dL 103* 130* Imaging: Images independently viewed and interpreted, MRI Head / MRI Orbits noted no evidence of intracranial mass, hemorrhage, or acute infarction. No orbital or retro-orbital anomaly identified. Imaging MRI Head / MRI Orbits reports personally reviewed, notable for no evidence of intracranial mass, hemorrhage, or acute infarction. No orbital or retro-orbital anomaly identified. CT Head wo IV Contrast Result Date: 12/23/2024 Impression: Head CT: No acute large cortical infarct or intracranial hemorrhage. If any further evaluation for an acute infarct or for the etiology of the patient's symptoms is warranted clinically, an MR scan could be performed if not contraindicated. Neck CTA: No hemodynamically significant stenosis is present within the cervical carotid and vertebral systems. Head CTA: No hemodynamically significant intracranial arterial stenosis or aneurysm is present. CRITICAL RESULT: None. COMMUNICATION: Per this written report. Drafted by Kwadwo Gusman MD on 12/23/2024 6:11 PM Final report signed by Kwadwo Gusman MD on 12/23/2024 6:[address] Angio Head Result Date: 12/23/2024 Impression: Head CT: No acute large cortical infarct or intracranial hemorrhage. If any further evaluation for an acute infarct or for the etiology of the patient's symptoms is warranted clinically, an MR scan could be performed if not contraindicated. Neck CTA: No hemodynamically significant stenosis is present within the cervical carotid and vertebral systems. Head CTA: No hemodynamically significant intracranial arterial stenosis or aneurysm is present. CRITICAL RESULT: None. COMMUNICATION: Per this written report. Drafted by Kwadwo Gusman MD on 12/23/2024 6:11 PM Final report signed by Kwadwo Gusman MD on 12/23/2024 6:[address] Angio Neck Result Date: 12/23/2024 Impression: Head CT: No acute large cortical infarct or intracranial hemorrhage. If any further evaluation for an acute infarct or for the etiology of the patient's symptoms is warranted clinically, an MR scan could be performed if not contraindicated. Neck CTA: No hemodynamically significant stenosis is present within the cervical carotid and vertebral systems. Head CTA: No hemodynamically significant intracranial arterial stenosis or aneurysm is present. CRITICAL RESULT: None. COMMUNICATION: Per this written report. Drafted by Kwadwo Gusman MD on 12/23/2024 6:11 PM Final report signed by Kwadwo Gusman MD on 12/23/2024 6:42 PM Assessment and Plan Narinder Mane is a 59 y.o. male with h/o diabetes, psoriatic arthritis, and HTN who experienced painless L monocular visual loss x2 weeks associated with lower field deficits. referred by his lead game designer due to papilledema . Neurology is consulted for additional workup to evaluate for underlying etiology. This is 59 y.o. gentleman with medical history of diabetes, psoriatic arthritis, and HTN who presents to [facility] for evaluation of left eye vision loss and optic disc edema. Given painless vision loss, optic disc edema leading differential is NAION. Patient also has multiple risk factors including poorly controlled diabetes and HTN that contribute to this presentation. Will rule out GCA given mild unilateral BECERRA, slight elevated ESR. Will also consider other infectious, inflammatory causes to opticneuritis. 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 #Acute monocular vision loss #Optic disc edema #Concern for NAION Plan: - F/U temporal artery US to rule out GCA. - Optic neuritis labs ANCA, SHANNAN, RAJESH, Borrelia, ENAII, NMO/MOG, Toxoplasma pending #Hypokalemia - Potassium chloride 20 mEq given Chronic Medical problems: #HTN - Continue home meds losartan, hydrochlorothiazide, Amlodipine, clonidine, atenolol #Diabetes - SSI, - Continue empagliflozin #BPH - Continue Tamsulosin 0.4 mg IAmirah, saw and evaluated the patient with the medical student. I discussed the case with the medical student and agree with the findings and plan as documented. I personally performed the Exam and Medical Decision Making. Patient staffed with Dr.Richard Marshall Sue. Thank you for the opportunity to participate in the care ofthis patient. Please page the general neurology consults pager with questions. DEBBIE Long PGY1 Neurology I saw and evaluated the patient. I discussed the case with the medical student and resident/fellow and agree with the findings and plan as documented. I personally participated in the management of the patient. Carol Sue MD * Care Plan - Gianni Faith RN - 12/24/2024 3:07 AM EDT Problem: Adult Inpatient Plan of Care Goal: Plan of Care Review Outcome: Ongoing, Progressing Flowsheets (Taken 12/24/2024 030) Progress: no change Plan of Care Reviewed With: patient Goal: Patient-Specific Goal (Individualized) Outcome: Ongoing, Progressing Flowsheets (Taken 12/24/2024 0254) Patient/Family-Specific Goals (Include Timeframe): Patient will be free from fall during 12 hour shift. Individualized Care Needs: safety Anxieties, Fears or Concerns: loss of vision Goal: Absence of Hospital-Acquired Illness or Injury Outcome: Ongoing, Progressing Intervention: Identify and Manage Fall Risk Flowsheets (Taken 12/24/2024 030) Safety Promotion/Fall Prevention: activity supervised Intervention: Prevent Skin Injury Flowsheets (Taken 12/24/2024 030) Body Position: weight shifting Skin Protection: protective footwear used Intervention: Prevent and Manage VTE (Venous Thromboembolism) Risk Flowsheets (Taken 12/24/2024 030) VTE Prevention/Management: medication Intervention: Prevent Infection Flowsheets (Taken 12/24/2024 030) Infection Prevention: environmental surveillance performed Goal: Optimal Comfort and Wellbeing Outcome: Ongoing, Progressing Intervention: Monitor Pain and Promote Comfort Flowsheets (Taken 12/24/2024 030) Pain Management Interventions: care clustered medication (see MAR) Intervention: Provide Person-Centered Care Flowsheets (Taken 12/24/2024 030) Trust Relationship/Rapport: care explained choices provided Goal: Readiness for Transition of Care Outcome: Ongoing, Progressing Intervention: Mutually Develop Transition Plan Flowsheets (Taken 12/24/2024 030) Concerns to be Addressed: medication Problem: Fall Injury Risk Goal: Absence of Fall and Fall-Related Injury Outcome: Ongoing, Progressing Intervention: Identify and Manage Contributors Flowsheets (Taken 12/24/2024 030) Medication Review/Management: medications reviewed Self-Care Promotion: independence encouraged Intervention: Promote Injury-Free Environment Flowsheets (Taken 12/24/2024302) Safety Promotion/Fall Prevention: activity supervised Problem: Pain Acute Goal: Optimal Pain Control and Function Outcome: Ongoing, Progressing Intervention: Optimize Psychosocial Wellbeing Flowsheets (Taken 12/24/2024 030) Supportive Measures: decision-making supported Diversional Activities: movies Spiritual Activities Assistance: hope instilled Intervention: Develop Pain Management Plan Flowsheets (Taken 12/24/2024 030) Pain Management Interventions: care clustered medication (see MAR) Intervention: Prevent or Manage Pain Flowsheets (Taken 12/24/2024 030) Sensory Stimulation Regulation: quiet environment promoted Sleep/Rest Enhancement: natural light exposure provided Medication Review/Management: medications reviewed Problem: Communication Impairment Goal: Effective Communication Skills Outcome: Ongoing, Progressing Intervention: Optimize Communication Skills Flowsheets (Taken 12/24/2024 030) Communication Enhancement Strategies: call light answered in person one-step directions provided verbal communication attempts encouraged verbal and visual cues paired Note: Patient having loss of eyesight in left eye. Nurse is moving to the front of patient to engage and discuss plan of care to minimized loss of vision and interested in speaking with nurse per patient. * ED Notes - Shanae Bloom RN - 12/23/2024 9:10 PM EDT Report called to Gianni ACOSTA at [facility]. Patient transported via wheelchair. Denies any pain * H&P - Corry Philippe DO - 12/23/2024 7:21 PM EDTAssociated Order(s): Consult to Neurology Consult to Neurology Consult performed by: Corry Philippe DO Consult ordered by: Theodore Roper MD General Neurology History and Physical Subjective History Of Present Illness Narinder Mane is a 59 y.o. male with medical history of diabetes, psoriatic arthritis, and HTN who presents to [facility] for evaluation of left eye vision loss and optic disc edema. Patient states he noted acute vision loss in the lower half of his left eye 10 days ago. He describes the appearance of a villalba haze over that part of his VF. Patient presented to lead game designer today who noted left eye optic disc edema and encouraged patient to present to [facility]. Patient states his vision has been stable since this began. He denies pain with eye movement. He denies temporal pain or jaw claudication. He does endorse some mild left sided intermittent BECERRA since this began. ED work up was significant for ESR of 30, normal CRP. RPR Ab negative. CTH showed old left lacunar infarct. CTA H/N no significant stenosis. 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 Review of Systems A complete 14 point review of systems was performed and was negative except as stated in the HPI. Past Medical and Surgical History as discussed above Past Medical History[1] Surgical History[2] Family History Family History[3] Social History reports that he has never smoked. He has been exposed to tobacco smoke. He has never used smokelesstobacco. He reports that he does not drink alcohol and does not use drugs. Allergies Patient has no known allergies. Home Medications Current Outpatient Medications Medication Instructions acetaminophen (TYLENOL) 650 mg, As needed amLODIPine (NORVASC) 5 mg, Daily atenolol (TENORMIN) 100 mg, 2 times daily Blood Glucose Monitoring Suppl (FreeStyle Lite) device No dose, route, or frequency recorded. cloNIDine (CATAPRES) 0.1 mg, Daily Emtricitabine-Tenofovir AF (Descovy) 200-25 MG tablet tablet 1 tablet, Oral, Daily famotidine (Pepcid) 10 MG tablet Take by mouth. fluorouracil (Efudex) 5 % cream APPLY A THIN LAYER OF CREAM TO AFFECTED AREA ON SCALP, EARS AND FACE ONCE DAILY FOR 4 WEEKS FreeStyle lancets No dose, route, or frequency recorded. glyBURIDE (DIABETA) 5 mg, 2 times daily with meals hydroCHLOROthiazide (HYDRODIURIL) 25 mg, Daily HYDROcodone-acetaminophen ([place]) 5-325 MG tablet 1 tablet, Oral, Every 4 hours PRN inFLIXimab (Remicade) 100 MG injection Infuse 10 mg/kg IV every 35 days Jardiance 25 MG Take 1 tablet every day by oral route, for diabetes. ketoconazole (NIZOral) 2 % shampoo MESSAGE INTO AREAS 2-3 TIMES WEEKLY IN THE SHOWER. LET SIT FOR 5MINUTES BEFORE RINSING losartan (COZAAR) 100 mg, Daily losartan-hydroCHLOROthiazide (Hyzaar) 100-25 MG tablet No dose, route, or frequency recorded. metFORMIN (GLUCOPHAGE) 1,000 mg, 2 times daily with meals omeprazole (PRILOSEC) 40 mg, Daily simvastatin (ZOCOR) 10 mg, Nightly SM Aspirin Adult Low Strength 81 mg, Daily tadalafil (Adcirca) 20 MG tablet TAKE 1 TABLET BY MOUTH ONCE DAILY 1 HOUR BEFORE SEXUAL ACTIVITY tamsulosin (FLOMAX) 0.4 mg, Nightly tiZANidine (ZANAFLEX) 4 mg, Every 6 hours PRN traMADol (ULTRAM) 50 mg, Nightly PRN Objective Vitals Vitals reviewed and are normal, afebrile and hemodynamically stable Blood pressure (!) 143/81, pulse 61, temperature 36.7 ??C (98.1 ??F), temperature source Oral, resp. rate 18, height 1.803 m (5' 11 ), weight 113 kg (249 lb 1.9 oz), SpO2 98%. Physical exam Constitutional: in no acute distress HENT: normocephalic, non-erythematous oropharynx, anicteric sclera Respiratory: symmetric chest expansion, non-labored breathing Gastrointestinal: abdomen is soft, not distended, non-tender Musculoskeletal: no appreciable joint swelling, no appreciable LE warmth or erythema Psychiatric: appropriate mood and affect, cooperative Neurological: Mental Status: The patient is alert and interactive, able to follow commands. Oriented to person, place, and time, Speech: Intact Articulation, Fluent language CN: II - PERRL, Visual gomez: inferior nasal/temporal VF loss in left eye. Right eye VF full. RAPD in left eye. III, IV, - EOMI V - Facial sensation intact VII - Brow raise and smile symmetrical VIII - Auditory acuity intact IX, X - Palate elevation symmetric, uvula midline XI - SCM and Trapezius strength intact XII - Tongue protrudes midline Motor: Normal bulk and tone RUE: 5/5 strength LUE: 5/5 strength RLE: 5/5 strength LLE: 5/5 strength Reflexes 2+ and symmetric throughout. No ankle clonus. Plantar reflex down-going Sensation to light touch in all four extremities is preserved and symmetric No limb ataxia with [id number] or mgjw-ir-kvzg Cortical: No Extinction Gait: Deferred Relevant Results Labs in last 18 hours CBC WBC 5.77 Hb 14.3 Plt 199 Hct 43.6 ANC 2.27 INR ??, PTT ??, Anti-Xa ?? BMP Na 137 Cl 103 BUN 16 Glu 130 (H) K 3.8 Co2 25 Cr 1.19 Ca 9.1 iCa ?? Mg ??, Phos ?? Lactate ?? LFT AST 19 AlkPhos 35 (L) T Prot 7.0 ALK 22 Bili 2.4 (H) Alb ?? D.Bili ?? Assessment/Plan Narinder Mane is a 59 y.o. male with medical history of diabetes, psoriatic arthritis, and HTN who presents to [facility] for evaluation of left eye vision loss and optic disc edema. Given painless vision loss, optic disc edema leading differential is NAION. Patient also has multiple risk factors includingpoorly controlled diabetes and HTN that contribute to this presentation. Will rule out GCA given mild unilateral BECERRA, slight elevated ESR. Will also consider other infectious, inflammatory causes to optic neuritis. #Acute monocular vision loss #Optic disc edema #Concern for NAION Plan: - Will admit general neurology for further workup - Will obtain MRI H and MRI Orbits w and wo. - Will obtain temporal artery US to rule out GCA. - Optic neuritis labs ANCA, SHANNAN, AB2 IgG/IgM, Anticardiolipin, RAJESH, Borrelia, ENAII, NMO/MOG, Toxoplasma pending Chronic Medical problems: #HTN- Continue home meds losartan, hydrochlorothiazide, Amlodipine, clonidine, atenolol #Diabetes- SSI, Continue Jardiance #BPH- Continue flomax Patient staffed with Dr. Sue who agrees with the above plan. Corry Philippe, PGY-3, Neurology [1] Past Medical History: Diagnosis Date Age-related nuclear cataract, unspecified eye Cataract, nuclear sclerotic senile Arthritis Esophageal candidiasis (CMS/HCC) 4-2023 GERD (gastroesophageal reflux disease) Hypertension Joint pain Personal history of diseases of the skin and subcutaneous tissue History of psoriasis Personal history of other endocrine, nutritional and metabolic disease History of diabetes mellitus Skin cancer Type 2 diabetes mellitus without complications Diabetes Unspecified cataract Cataract [2] Past Surgical History: Procedure Laterality Date CATARACT EXTRACTION CHOLECYSTECTOMY COLONOSCOPY EYE SURGERY GALLBLADDER SURGERY N/A gallbladder surgery from [facility] HAMMER TOE SURGERY Right LASIK N/A Corneal lasik from [facility] [3] Family History Problem Relation Name Age of Onset Cataracts Mother Diabetes Father Estefany Mane Cancer Father Estefany Mane Anesthesia problems Other Malig Hyperthermia Other Cancer Sister Berta Mane Marker Cosigned by Carol Sue MD at 12/27/2024 8:36 PM EDT Associated attestation - Carol Sue MD - 12/27/2024 8:36 PM EDT I saw and evaluated the patient with the resident/fellow. I discussed the case with the resident/fellow and agree with the findings and plan as documented. * ED Procedure Note - Francois Salinas MD - 12/23/2024 2:46 PM EDTAssociated Order(s): POC Ultrasound - Bedside Procedure Reason: Vision changes POC Ultrasound - Bedside Performed by: Francois Salinas MD Authorized by: Theodore Roper MD Procedure specific details: Ocular Ultrasound A focused ultrasound of the orbit was performed to evaluate for retinal detachment, lens dislocation, vitreous hemorrhage, and other ocular pathology. The ultrasound was performed with the following indications, as noted in the H&P: Vision changes Identified structures: Left eye Findings Exam of the above structures revealed the following findings: Left eye: Retina: Normal Lens: Normal; artificial lens from previous cataract surgery visualized Vitreous body: Anechoic Optic nerve sheath diameter: normal Foreign body: Not visualized Impression: Left eye: Normal ocular ultrasound The images were Saved in [employer] - E. The study was technically adequate. Francois Salinas MD Emergency Medicine PGY-1 Francois Salinas MD Resident 12/23/24 1602 Cosigned by Theodore Roper MD at 12/23/2024 4:14 PM EDT Associated attestation - Theodore Roper MD - 12/23/2024 4:14 PM EDT By electronically signing this report, I, the attending physician, attest that I have personally reviewed the image(s) for the above examination(s) and agree with the final edited report. * ED Provider Notes - Amadou Cobos MD - 12/23/2024 2:46 PM EDT Images from the original note were not included. - HPI Chief Complaint Patient presents with Eye Problem PIT Note Narinder Mane is a 59 y.o. male who presents to ED with eye problem. Pt reports that he has had vision problems out of his left eye for two weeks. Pt reports that he is partially blind out of his left eye, and that he has lost about half of his vision. Per OSH ophthalmology paperwork, Giant cell arteritis vs optic neuritis. Pt reports that he has felt more weak and lightheaded, and endorses having a couple headaches. Pt reports that his vision problems started all of the sudden two weeks ago. Pt reports that he has had cataracts surgery. Patient denies fever, chills, cough, chest pain, shortness of breath, nausea, vomiting, and diarrhea. 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 Two weeks ago patient noted that has left vision was blurry no headaches nausea vomiting eye pain or history of similar symptoms. No trauma to the eye. Patient went to lead game designer today who was concerned about papilledema of the left eye and referred to the emergency department for further evaluation. No weakness or sensory deficits. Patient History Past Medical History[1] Surgical History[2] Family History[3] Social History[4] Allergies: Allergies[5] Physical Exam ED Triage Vitals [12/23/24 1450] Temp Heart Rate Resp BP 36.6 ??C (97.8 ??F) 66 16 (!) 152/84 SpO2 Temp Source Heart Rate Source Patient Position 97 % Oral -- Sitting BP Location FiO2 (%) Right arm -- Physical Exam Vitals and nursing note reviewed. Constitutional: General: He is not in acute distress. HENT: Head: Normocephalic. Comments: No facial swelling Right Ear: External ear normal. Left Ear: External ear normal. Nose: Nose normal. Mouth/Throat: Mouth: Mucous membranes are moist. Pharynx: Oropharynx is clear. Eyes: Extraocular Movements: Extraocular movements intact. Conjunctiva/sclera: Conjunctivae normal. Comments: Left pupil minimally reactive, right eye intra-ocular pressure 13 left eye intra-ocular pressure 10, decreased visual acuity in the left monocular inferior visual gomez Cardiovascular: Rate and Rhythm: Normal rate and regular rhythm. Pulses: Normal pulses. Pulmonary: Effort: Pulmonary effort is normal. No respiratory distress. Breath sounds: Normal air entry. Comments: Speaking full sentences. Symmetric chest rise Abdominal: General: Abdomen is flat. There is no distension. Musculoskeletal: General: No deformity. Normal range of motion. Cervical back: Normal range of motion. Comments: Atraumatic, moves all extremities spontaneously Skin: General: Skin is warm and dry. Capillary Refill: Capillary refill takes less than 2 seconds. Coloration: Skin is not jaundiced or pale. Neurological: General: No focal deficit present. Mental Status: He is alert and oriented to person, place, and time. Mental status is at baseline. Comments: Awake Psychiatric: Behavior: Behavior normal. Niko Coma Scale Score: 15 ED Course & MDM PIT Note Date/Time: 12/23/2024/3:10 PM Entered by Kurt Eastman, acting as scribe for Dr. Gay Fabian Scribe Attestation: This note was dictated to me, Kurt Eastman, acting as a scribe for Dr. Gay Fabian Attending Attestation: The documentation was recorded by Kurt Eastman acting as scribe in my presence at the time of the encounter and accurately reflects the service I personally performed. - Assessment: 59 y.o. male presents to ED with complaint of blurry vision. It should be noted that the chronic conditions includes type 2 diabetes hypertension psoriatic arthritis, which currently is not at goal therapy. This complicates the clinical picture because it Comorbidities: may be exacerbating symptoms Upon presentation patient is hypertensive normal heart rate saturating appropriately on room air afebrile in no acute distress. Differential Diagnosis: CRAO, CRVO, intracranial hemorrhage, stroke, optic neuritis, giant cell arteritis, NAION In order to fully explore the differential diagnosis the following treatments and tests were ordered: ED Medication Administration from 12/23/2024 1346 to 12/23/2024 1920 Date/Time Order Dose Route Action 12/23/2024 1655 EDT iohexol (OMNIPaque) 350 MG/ML injection 60 mL 60 mL Intravenous Given All Other Orders Ordered Status Ordering Provider 12/23/241919 CBC Morning draw Ordered CORRY PHILIPPE 12/23/241919 Basic metabolic panel Morning draw Ordered CORRY PHILIPPE E 12/23/241919 Vital Signs Every 4 hours Ordered CORRY PHILIPPE 12/23/241919 Pulse Oximetry Every 4 hours Ordered BARRY CORRY E 12/23/241919 Intake and output Every 4 hours Ordered BURTCHALLIE E 12/23/241919 Neuro checks Every 4 hours Ordered BARRY CORRY Jessica 12/23/241919 POCT glucose manually resulted Daily Order ID Start Status Ordering Provider [id number] 12/23/241920 Ordered CORRY PHILIPPE 12/24/24 0600 Scheduled BURTCH, CORRY Lopez 12/25/24 0600 Scheduled BURTCH, CORRY Lopez 12/26/24 0600 Scheduled BURTCH, CORRY E 12/27/24 0600 Scheduled BURTCH, CORRY E Ordered BURTCH, CORRY E 12/23/241919 MR Orbits w and wo IV Contrast Once Ordered CORRY PHILIPPE 12/23/241919 VAS US Carotid Duplex Bilateral Once Comments: Orders entered after hours will be performed the next day. Hours: M-F 7a-5p, Sat-Sun 8a-4:30p Ordered CORRY PHILIPPE 12/23/241919 MR Head w and wo IV Contrast Once Ordered CORRY PHILIPPE 12/23/241919 Full code Continuous Ordered ALLI PHILIPPEE Jessica 12/23/241919 Adult diet Diet texture: Regular Diet effective now Ordered ALLI PHILIPPEE Jessica 12/23/241919 Mobility Orders Until discontinued Ordered ALLI PHILIPPEE Jessica 12/23/241919 Notify physician (specify parameters) Until discontinued Ordered ALLI PHILIPPEE Jessica 12/23/241919 Insert peripheral IV Once Placed in And Linked Group Ordered ALLI PHILIPPEE Jessica 12/23/241919 Saline lock IV Once Placed in And Linked Group Ordered CORRY PHILIPPE 12/23/241919 Apply sequential compression device Until discontinued Comments: For non-ambulatory patients. Discontinue when ambulating > 100 feet. Ordered CORRY PHILIPPE 12/23/241919 Do Not Give Nicotine Replacement Until discontinued Ordered BARRY CORRY E 12/23/241919 Admit to inpatient Once Ordered BARRY CORRY E 12/23/24 1810 Consult to Neurology Once Specialty: Neurology Provider: (Not yet assigned) Acknowledged AMADOU COBOS 12/23/24 1559 POC Ultrasound - Bedside Once Comments: This order was created via procedure documentation Final result FRANCOIS SALINAS 12/23/24 1521 Treponema Pallidum (Syphilis) Antibodies with Reflex to RPR and RPR Titer (Those withNO known Syphilis) Once Final result GAY FABIAN 12/23/24 1521 Myelin Oligodendrocyte Glycoprotein (MOG-IgG1) Fluorescence- Activated Cell Sorting Once In process GAY FABIAN 12/23/24 1521 NMO/AQP4 FACS Serum Once In process GAY FABIAN 12/23/24 1521 Antinuclear Antibody (RAJESH) with HEp-2 Substrate, IgG by IFA Once In process GAY FABIAN 12/23/[address] Angio Neck Once Final result GAY FABIAN 12/23/[address] Angio Head Once Final result GAY FABIAN 12/23/24 1518 CMP STAT Final result GAY FABIAN 12/23/24 1518 CBC w/diff STAT Final result GAY FABIAN 12/23/24 1518 Sed rate, automated STAT Final result GAY FABIAN 12/23/24 1518 C-reactive protein STAT Final result GAY FABIAN 12/23/[address] Head wo IV Contrast Once Final result GAY FABIAN 12/23/24 1448 EKG now - STAT (adult) Once Completed THEODORE ROPER ED Course as of 12/23/241924Dec 23, 20241923 Sed Rate(!): 30 Minimal elevation [FER] 1923 WBC: 5.77 No leukocytosis [FER] 1923 CT Head wo IV Contrast No intracranial hemorrhage [FER] 1923 CT Angio Head No large vessel occlusion [FER] 1923 I had interactive conversation with neurology with recommendations to admit to their service for further evaluation of papilledema [FER] ED Course User Index [FER] Amadou Cobos MD Clinical Impressions as of 12/23/241924 Visual loss, left eye Social Determinates of Health Risks (including Economic Stability, Education and level of understanding, Healthcare access and quality and concerning social factors): Social factors impacting patient's psychosocial well-being Ultimately, this patient was Was admitted (Admission) The encounter diagnosis was Visual loss, left eye.. Patient believed to require admission for the listed diagnoses. The Neurology service was consulted for admission and was agreeable to admit to Acute Floor (Med/Surg). ED Prescriptions None Disposition Admit Admitting/Attending Physician: CAROL SUE [[id number]] Provider Care Team: [facility] [[id number]] Are they the primary team?: Yes [1] - [1] Past Medical History: Diagnosis Date Age-related nuclear cataract, unspecified eye Cataract, nuclear sclerotic senile Arthritis Esophageal candidiasis (CMS/HCC) -2023 GERD (gastroesophageal reflux disease) Hypertension Joint pain Personal history of diseases of the skin and subcutaneous tissue History of psoriasis Personal history of other endocrine, nutritional and metabolic disease History of diabetes mellitus Skin cancer Type 2 diabetes mellitus without complications Diabetes Unspecified cataract Cataract [2] Past Surgical History: Procedure Laterality Date CATARACT EXTRACTION CHOLECYSTECTOMY COLONOSCOPY EYE SURGERY GALLBLADDER SURGERY N/A gallbladder surgery from [facility] HAMMER TOE SURGERY Right LASIK N/A Corneal lasik from [facility] [3] Family History Problem Relation Name Age of Onset Cataracts Mother Diabetes Father Estefany Mane Cancer Father Estefany Mane Anesthesia problems Other Malig Hyperthermia Other Cancer Sister Berta Mane Marker [4] Tobacco Use Smoking status: Never Passive exposure: Past Smokeless tobacco: Never Vaping Use Vaping status: Never Used Substance Use Topics Alcohol use: Never Drug use: Never [5] No Known Allergies Amadou Cobos MD Resident 12/23/241924 Cosigned by Theodore Roper MD at 12/23/2024 8:01 PM EDT Associated attestation - Theodore Roper MD - 12/23/2024 8:01 PM EDT I saw and evaluated the patient with the resident/fellow. I discussed the case with the resident/fellow and agree with the findings and plan as documented. * ED Triage Notes - Jeremias Li, RN - 12/23/2024 2:46 PM EDT Sent by optho for blurred vision and to rule out stroke. Says he lost vision in left eye. Says he was told his optic nerve pressure is high and he might have had a stroke. Onset s/s 2 weeks documented in this encounter Plan of Treatment Upcoming Encounters Date Type Department Care Team (Late st Contact Info) Description 03/24/2025 10:45 AM EDT Office Visit [facility] [address] [place] [phone] Paloma Baxter MD [address] [facility] [facility] [address] [place] [address] 06/01/2025 10:20 AM EST Office Visit [facility] [address] [place] [address] Cristina Gaffney, JUAN [address] [place] [phone] Scheduled Referrals Name Type Priority Associated Diagnoses Order Schedule Discharge Ambulatory referral to Ophthalmology Neuro Outpatient Referral Routine Visual loss, left eye 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 Expected: 2025, Expires: 06/28/2026 Discharge Ambulatory referral to Adult Sleep Medicine Outpatient Referral Routine DAVID (obstructive sleep apnea) Expected: 12/25/2024 (Approximate), Expires: 06/28/2026 Ambulatory referral for Follow Up Care Outpatient Referral Routine Diabetes mellitus type 2 without retinopathy ([facility]) Hypertension, unspecified type Expected: 01/01/2025, Expires: 06/28/2026 Discharge Ambulatory referral to Physical Therapy Outpatient Referral Routine Visual loss, left eye Expected: 12/25/2024 (Approximate), Expires: 06/27/2026 documented as of this encounter Procedures Procedure Name Priority Date/Time Associated Diagnosis Comments POCT GLUCOSE METER UNSOLICITED RESULTS Routine 12/25/2024 12:12 PM EDT VAS US CAROTID DUPLEX BILATERAL Routine 12/25/2024 9:28 AM EDT POCT GLUCOSE METER UNSOLICITED RESULTS Routine 12/25/2024 8:43 AM EDT LIPID PROFILE, PLASMA Add-On 12/25/2024 4:11 AM EDT BASIC METABOLIC PANEL, PLASMA Routine 12/25/2024 4:11 AM EDT POCT GLUCOSE METER UNSOLICITED RESULTS Routine 12/24/2024 8:07 PM EDT POCT GLUCOSE METER UNSOLICITED RESULTS Routine 12/24/2024 4:13 PM EDT POCT GLUCOSE METER UNSOLICITED RESULTS Routine 12/24/2024 11:57 AM EDT POCT GLUCOSE METER UNSOLICITED RESULTS Routine 12/24/2024 8:18 AM EDT MR ORBITS W AND WO IV CONTRAST Routine 12/24/2024 2:40 AM EDT MR HEAD W AND WO IV CONTRAST Routine 12/24/2024 2:40 AM EDT ANCA VASCULITIS PROFILE (SO) Routine 12/23/2024 8:59 PM EDT ANTI-BETA 2 GLYCOPROTEIN, IGG AND IGM Routine 12/23/2024 8:59 PM EDT NMO/AQP4 FACS SERUM (SO) Routine 12/23/2024 8:59 PM EDT RAJESH SINGLE PATTERN (REFLEX ONLY) (SO) Routine 12/23/2024 8:59 PM EDT EXTRACTABLE NUCLEAR ANTIGEN ANTIBODIES (SSA 52, SSA 60, AND SSB) (SO) Routine 12/23/2024 8:59 PM EDT ANTICARDIOLIPIN Routine 12/23/2024 8:59 PM EDT TOXOPLASMA GONDII ANTIBODY, IGG (SO) Routine 12/23/2024 8:59 PM EDT ANGIOTENSIN CONVERTING ENZYME, SERUM (SO) Routine 12/23/2024 8:59 PM EDT ANTINUCLEAR ANTIBODY (RAJESH) WITH HEP-2 SUBSTRATE, IGG BY IFA (SO) Routine 12/23/2024 8:59 PM EDT HIV 1/2 ANTIBODY/ANTIGEN SCREEN W/REFLEX TO HIV 1/2 ANTIBODY DIFFERENTIATION Routine 12/23/2024 7:39 PM EDT HIV 1/2 ANTIBODY/ANTIGEN SCREEN WITH REFLEX TO HIV I/II DIFFERENTIATION Routine 12/23/2024 7:39 PM EDT TOXOPLASMA GONDII ANTIBODY, IGM (SO) Routine 12/23/2024 7:39 PM EDT CYTOMEGALOVIRUS ANTIBODY, IGM (SO) Routine 12/23/2024 7:39 PM EDT LUPUS ANTICOAGULANT PROFILE Routine 12/23/2024 7:39 PM EDT CYTOMEGALOVIRUS ANTIBODY, IGG Routine 12/23/2024 7:39 PM EDT CBC W/O DIFFERENTIAL Routine 12/23/2024 7:39 PM EDT HEMOGLOBIN A1C Routine 12/23/2024 7:39 PM EDT BASIC METABOLIC PANEL, PLASMA Routine 12/23/2024 7:39 PM EDT POCT GLUCOSE METER UNSOLICITED RESULTS Routine 12/23/2024 7:38 PM EDT POCT GLUCOSE METER UNSOLICITED RESULTS Routine 12/23/2024 7:[address] ANGIO NECK STAT 12/23/2024 5:[address] HEAD WO IV CONTRAST STAT 5:[address] ANGIO HEAD STAT 12/23/2024 5:00 PM EDT MYELIN OLIGODENDROCYTE GLYCOPROTEIN (MOG-IGG1) FLUORESCENCE-) (SO) STAT 12/23/2024 3:29 PM EDT TREPONEMA PALLIDUM (SYPHILIS) ANTIBODIES WITH REFLEX TO RPR AND RPR TITER (THOSE WITH NO KNOWN SYPHILIS) STAT 12/23/2024 3:29 PM EDT SEDIMENTATION RATE, AUTOMATED STAT 12/23/2024 3:29 PM EDT CBC WITH AUTO DIFFERENTIAL STAT 12/23/2024 3:29 PM EDT RHEUMATOID FACTOR, PLASMA Add-On 12/23/2024 3:29 PM EDT C-REACTIVE PROTEIN, PLASMA STAT 12/23/2024 3:29 PM EDT ANTINUCLEAR ANTIBODY (RAJESH) WITH HEP-2 SUBSTRATE, IGG BY IFA (SO) STAT 12/23/2024 3:29 PM EDT COMPREHENSIVE METABOLIC PANEL, PLASMA STAT 12/23/2024 3:29 PM EDT [facility] ED POCUS PROCDOC Routine 12/23/2024 2:46 PM EDT documented in this encounter Results * (ABNORMAL) POCT glucose meter (12/25/2024 12:12 PM EDT) POCT Glucose 175(H) 74 - 99 mg/dL 12/25/2024 12:14 PM EDT [facility] Comment:Accuracy of a glucos e result obtained from a capillary whole blood specimen relies upon adequate, non-compromised capillary blood flow. If the capillary glucose result is not consistent with the patient's clinical signs and symptoms, glucose testing should be repeated with either an arterial or venous sample on the glucometer or sent to the main labortory for testing. Comment 12/25/2024 12:14 PM EDT [facility] Nozzle And Sleeve Worker ID Bhavana Barahona 12/25/2024 12:14 PM EDT [facility] Device ID [id number] 12/25/2024 12:14 PM EDT [facility] Specimen Type POC Capillary 12/25/2024 12:14 PM EDT [facility] Blood Capillary blood specimen / Unknown 12/25/2024 12:12 PM EDT 12/25/2024 12:14 PM EDT us Carol Sue MD LAB POINT OF CARE TE ST DOCKED DEVICE UNSOLICITED RESULTS Final Result Performing Organization Address City/State/[facility] Co de Phone Number [facility] [address] [place] [address] * VAS US Carotid Duplex Bilateral (12/25/2024 9:28 AM EDT) Anatomical Region Laterality Modality Head, Neck, Vascular Ultrasound Impressions 12/25/2024 2:33 PM EDT Right Carotid: No significant carotid plaque is demonstrated. Flow is present in the CCA, ICA, and ECA. ICA velocities do not demonstrate evidence of a hemodynamically significant stenosis (less than 50%). Low index of suspicion for Giant Cell Arteritis. Left Carotid: No significant carotid plaque is demonstrated. Flow is present in the CCA, ICA, and ECA. ICA velocities do not demonstrate evidence of a hemodynamically significant stenosis (less than 50%). Low index of suspicion for Giant Cell Arteritis. Vertebral artery flow is antegrade, bilaterally. Subclavian artery flow is multiphasic, bilaterally. COMMUNICATION: Per this written report. Preliminary report signed by Lissy Gamino RVT on 12/25/2024 10:39 AM By electronically signing this report, I, the attending physician, attest that I have personally reviewed the images/data for the above examination(s) and I agree with the final edited report. Drafted by Lissy Gamino RVT on 12/25/2024 9:50 AM Final report signed by Evan Fernandez MD, FACS, FSVS, RPVI on 12/25/2024 2:33 PM Narrative 12/25/2024 2:33 PM EDT CLINICAL INDICATION: GCA TECHNIQUE: Non-invasive, real time duplex exam of the extracranial carotid circulation, including bilateral temporal arteries with Doppler ultrasonic waveform and spectral analysis was performed. COMPARISON: None. FINDINGS: Right Carotid: CCA: 51 cm/s ICA: 65/27 cm/s; ICA/CCA ratio: 1.2 ECA: 54 cm/s Vertebral A: 33 cm/s Subclavian A: 51 cm/s Right Temporal artery: Entirety of artery assessed using B-mode, color-flow Doppler enhancement, and cine-loop imaging in both the longitudinal and axial planes. Intima-media thickness (IMT) measurements recorded within the right subclavian artery, axillary artery, temporal artery, frontal branch, and parietal branch are as follows (mm): Axillary artery: 0.47 mm Subclavian artery: 0.59 mm Superficial temporal artery: 0.22 mm Frontal branch: 0.13 mm Parietal branch: Unable to accurately measure There is not evidence for a halo. Left Carotid: CCA: 54 cm/s ICA: 69/27 cm/s; ICA/CCA ratio: 1.2 ECA: 61 cm/s Vertebral A: 29 cm/s Subclavian A: 53 cm/s Left Temporal artery: Entirety of artery assessed using B-mode, color-flow Doppler enhancement, and cine-loop imaging in both the longitudinal and axial planes. Intima-media thickness (IMT) measurements recorded within the left subclavian artery, axillary artery, temporal artery, frontal branch, and parietal branch are as follows (mm): Axillary artery: 0.47 mm Subclavian artery: 0.52 mm Superficial temporal artery: 0.21 mm Frontal branch: 0.15 mm Parietal branch: 0.16 mm There is not evidence for a halo. Procedure Note Evan Fernandez MD - 12/25/2024 CLINICAL INDICATION: GCA TECHNIQUE: Non-invasive, real time duplex exam of the extracranial carotidcirculation, including bilateral temporal arteries with Doppler ultrasonicwaveform and spectral analysis was performed. COMPARISON: None. FINDINGS: Right Carotid: CCA: 51 cm/s ICA: 65/27 cm/s; ICA/CCA ratio: 1.2 ECA: 54 cm/s Vertebral A: 33 cm/s Subclavian A: 51 cm/s Right Temporal artery: Entirety of artery assessed using B-mode,color-flow Doppler enhancement, and cine-loop imaging in both thelongitudinal and axial planes. Intima-media thickness (IMT) measurementsrecorded within the right subclavian artery, axillary artery, temporalartery, frontal branch, and parietal branch are as follows (mm): Axillary artery: 0.47 mm Subclavian artery: 0.59 mm Superficial temporal artery: 0.22 mm Frontal branch: 0.13 mm Parietal branch: Unable to accurately measure There is not evidence for a halo. Left Carotid: CCA: 54 cm/s ICA: 69/27 cm/s; ICA/CCA ratio: 1.2 ECA: 61 cm/s Vertebral A: 29 cm/s Subclavian A: 53 cm/s Left Temporal artery: Entirety of artery assessed using B-mode, color- flowDoppler enhancement, and cine-loop imaging in both the longitudinal andaxial planes. Intima-media thickness (IMT) measurements recorded withinthe left subclavian artery, axillary artery, temporal artery, frontalbranch, and parietal branch are as follows (mm): Axillary artery: 0.47 mm Subclavian artery: 0.52 mm Superficial temporal artery: 0.21 mm Frontal branch: 0.15 mm Parietal branch: 0.16 mm There is not evidence for a halo. IMPRESSION: Right Carotid: No significant carotid plaque is demonstrated. Flow ispresent in the CCA, ICA, and ECA. ICA velocities do not demonstrateevidence of a hemodynamically significant stenosis (less than 50%). Low index of suspicion for Giant Cell Arteritis. Left Carotid: No significant carotid plaque is demonstrated. Flow ispresent in the CCA, ICA, and ECA. ICA velocities do not demonstrateevidence of a hemodynamically significant stenosis (less than 50%). Low index of suspicion for Giant Cell Arteritis. Vertebral artery flow is antegrade, bilaterally. Subclavian artery flow is multiphasic, bilaterally. COMMUNICATION: Per this written report. Preliminary report signed by Lissy Gamino RVT on 12/25/2024 10:39AM By electronically signing this report, I, the attending physician, attestthat I have personally reviewed the images/data for the aboveexamination(s) and I agree with the final edited report. Drafted by Lissy Gamino RVT on 12/25/2024 9:50 AM Final report signed by Evna Fernandez MD, FACS, FSVS, RPVI on12/25/2024 2:33 PM us Carol Sue MD CV VASCULAR PROCEDURES Final R esult * (ABNORMAL) POCT glucose meter (12/25/2024 8:43 AM EDT) POCT Glucose 140(H) 74 - 99 mg/dL 12/25/2024 8:45 AM EDT [facility] Comment:Accuracy of a glucos e result obtained from a capillary whole blood specimen relies upon adequate, non-compromised capillary blood flow. If the capillary glucose result is not consistent with the patient's clinical signs and symptoms, glucose testing should be repeated with either an arterial or venous sample on the glucometer or sent to the main labortory for testing. Comment 12/25/2024 8:45 AM EDT [facility] Nozzle And Sleeve Worker ID Bhavana Barahona 12/25/2024 8:45 AM EDT [facility] Device ID [id number] 12/25/2024 8:45 AM EDT [facility] Specimen Type POC Capillary 12/25/2024 8:45 AM EDT [facility] Blood Capillary blood specimen / Unknown 12/25/2024 8:43 AM EDT 12/25/2024 8:45 AM EDT us Carol Sue MD LAB POINT OF CARE TE ST DOCKED DEVICE UNSOLICITED RESULTS Final Result [facility] [address] [place] [address] * (ABNORMAL) Lipid panel (12/25/2024 4:11 AM EDT) Cholesterol, Plasma 138 <200 mg/dL 12/25/2024 8:53 AM EDT [facility] Comment: Cholesterol Reference Range (age >17 years): Desirable <200 mg/dL Borderline 200 to 239 mg/dL Undesirable >239 mg/dL HDL 39(L) >=40 mg/dL 12/25/2024 8:53 AM EDT [facility] Comment: HDL Cholesterol Reference Ranges (age >17 years): Female, acceptable > or = 50 mg/dL Male, acceptable > or = 40 mg/dL Triglycerides, Plasma 156(H) <150 mg/dL 12/25/2024 8:53 AM EDT [facility] Comment: Triglyceride Reference Range (age >17 years): Desirable: <150 mg/dL Borderline high: 150 to 199 mg/dL High: 200 to 499 mg/dL Very high: >499 mg/dL Increased risk of pancreatitis: >1000 mg/dL Cholesterol/HDL Ratio 4 12/25/2024 8:53 AM EDT [facility] LDL, Calculated 72 <100 mg/dL 8:53 AM EDT [facility] Comment: LDL Cholesterol Reference Range (age >17 years): Optimal: <100 mg/dL Near or above optimal: 100 - 129 mg/dL Borderline high: 130 - 159 mg/dL High: 160 - 189 mg/dL Very high: >189 mg/dL LDL Cholesterol Reference Range (age <18 years): Desirable: <110 mg/dL Borderline: 110 - 129 mg/dL Undesirable: >130 mg/dL LDL Cholesterol is calculated using the Coronado/NIH equation. Fasting greater than or equal to 12 hours? Unknown 12/25/2024 8:53 AM EDT [facility] Blood Venous blood specimen / Unknown Venipuncture / Unknown 12/25/2024 4:11 AM EDT 12/25/2024 4:28 AM EDT us Carol Sue MD LAB BLOOD ORDERABLES Final Res ult [facility] [address] [place] [address] * (ABNORMAL) Basic metabolic panel (12/25/2024 4:11 AM EDT) Glucose, Plasma 152(H) 74 - 99 mg/dL 12/25/2024 4:57 AM EDT [facility] BUN, Plasma 14 8 - 23 mg/dL 12/25/2024 4:57 AM EDT [facility] Creatinine, Plasma 1.15 0.70 - 1.20 mg/dL 12/25/2024 4:57 AM EDT [facility] BUN/Creatinine Ratio 12 12/25/2024 4:57 AM EDT [facility] Sodium, Plasma 139 136 - 145 mmol/L 12/25/2024 4:57 AM EDT [facility] Potassium, Plasma 3.4(L) 3.6 - 4.9 mmol/L 12/25/2024 4:57 AM EDT [facility] Chloride, Plasma 101 97 - 107 mmol/L 12/25/2024 4:57 AM EDT [facility] CO2, Plasma 25 22 - 29 mmol/L 12/25/2024 4:57 AM EDT [facility] Anion Gap 13 6 - 16 mmol/L 12/25/2024 4:57 AM EDT [facility] Total Calcium, Plasma 9.0 8.9 - 10.2 mg/dL 12/25/2024 4:57 AM EDT [facility] eGFRcr 72.4 mL/min/1.7 3m*2 12/25/2024 4:57 AM EDT [facility] Comment:Reported eGFRcr in m L/min/1.73m2 is based the CKD-EPI 2020 equation that does not use a race coefficient. Blood Venous blood specimen / Unknown Venipuncture / Unknown 12/25/2024 4:11 AM EDT 12/25/2024 4:28 AM EDT us Carol Sue MD LAB BLOOD ORDERABLES Final Res ult [facility] [address] [place] [address] * (ABNORMAL) POCT glucose meter (12/24/2024 8:07 PM EDT) [facility] POCT Glucose 197(H) 74 - 99 mg/dL 12/24/2024 8:09 PM EDT [facility] Comment:Accuracy of a glucos e result obtained from a capillary whole blood specimen relies upon adequate, non-compromised capillary blood flow. If the capillary glucose result is not consistent with the patient's clinical signs and symptoms, glucose testing should be repeated with either an arterial or venous sample on the glucometer or sent to the main labortory for testing. Comment 12/24/2024 8:09 PM EDT [facility] No[employer] Sleeve Worker ID Xander Hurt 12/25/19 8:09 PM EDT [facility] Device ID [id number] 12/24/2024 8:09 PM EDT [facility] Specimen Type POC Capillary 12/24/2024 8:09 PM EDT [facility] Blood Capillary blood specimen / Unknown 12/24/2024 8:07 PM EDT 12/24/2024 8:09 PM EDT Carol Sue MD LAB POINT OF CARE TE ST DOCKED DEVICE UNSOLICITED RESULTS Final Result [facility] [address] [place] [address] * (ABNORMAL) POCT glucose meter (12/24/2024 4:13 PM EDT) [facility] POCT Glucose 168(H) 74 - 99 mg/dL 12/24/2024 4:15 PM EDT [facility] Comment:Accuracy of a glucos e result obtained from a capillary whole blood specimen relies upon adequate, non-compromised capillary blood flow. If the capillary glucose result is not consistent with the patient's clinical signs and symptoms, glucose testing should be repeated with either an arterial or venous sample on the glucometer or sent to the main labortory for testing. Comment 12/24/2024 4:15 PM EDT [facility] Nozzle And Sleeve Worker ID Sonja Peters 12/25/19 4:15 PM EDT [facility] Device ID [id number] 12/24/2024 4:15 PM EDT [facility] Specimen Type POC Capillary 12/24/2024 4:15 PM EDT [facility] Blood Capillary blood specimen / Unknown 12/24/2024 4:13 PM EDT 12/24/2024 4:15 PM EDT us Carol Sue MD LAB POINT OF CARE TE ST DOCKED DEVICE UNSOLICITED RESULTS Final Result Performing Organization Address City/[facility] Co de Phone Number [facility] [address] [place] [address] * (ABNORMAL) POCT glucose meter (12/24/2024 11:57 AM EDT) POCT Glucose 187(H) 74 - 99 mg/dL 12/24/2024 11:59 AM EDT [facility] Comment:Accuracy of a glucos e result obtained from a capillary whole blood specimen relies upon adequate, non-compromised capillary blood flow. If the capillary glucose result is not consistent with the patient's clinical signs and symptoms, glucose testing should be repeated with either an arterial or venous sample on the glucometer or sent to the main labortory for testing. Comment 12/24/2024 11:59 AM EDT [facility] Nozzle And Sleeve Worker ID Sonja Peters 12/25/19 11:59 AM EDT [facility] Device ID [id number] 12/24/2024 11:59 AM EDT [facility] Specimen Type POC Capillary 12/24/2024 11:59 AM EDT [facility] Blood Capillary blood specimen / Unknown 12/24/2024 11:57 AM EDT 12/24/2024 11:59 AM EDT us Carol Sue MD LAB POINT OF CARE TE ST DOCKED DEVICE UNSOLICITED RESULTS Final Result Performing Organization Address City/[facility] Co de Phone Number [facility] [address] [place] [address] * (ABNORMAL) POCT glucose meter (12/24/2024 8:18 AM EDT) POCT Glucose 131(H) 74 - 99 mg/dL 12/24/2024 8:20 AM EDT [facility] Comment:Accuracy of a glucos e result obtained from a capillary whole blood specimen relies upon adequate, non-compromised capillary blood flow. If the capillary glucose result is not consistent with the patient's clinical signs and symptoms, glucose testing should be repeated with either an arterial or venous sample on the glucometer or sent to the main labortory for testing. Comment 12/24/2024 8:20 AM EDT [facility] Nozzle And Sleeve Worker ID Sonja Peters 12/25/19 8:20 AM EDT [facility] Device ID [id number] 12/24/2024 8:20 AM EDT [facility] Specimen Type POC Capillary 12/24/2024 8:20 AM EDT [facility] Blood Capillary blood specimen / Unknown 12/24/2024 8:18 AM EDT 12/24/2024 8:20 AM EDT Carol Sue MD LAB POINT OF CARE TE ST DOCKED DEVICE UNSOLICITED RESULTS Final Result Performing Organization Address City/State/[facility] de Phone Number [facility] [address] [place] [address] * MR Orbits w and wo IV Contrast (12/24/2024 2:40 AM EDT) Anatomical Region Laterality Modality Orbital structure Magnetic Reson ance Impressions 12/24/2024 9:56 AM EDT * There is no evidence of intracranial mass, hemorrhage, or acute infarction. * No orbital or retro-orbital anomaly identified. CRITICAL RESULT: No. COMMUNICATION: Per this written report. Drafted by Jose Cheung MD on 12/24/2024 9:47 AM Final report signed by Jose Cheung MD on 12/24/2024 9:56 AM Narrative 12/24/2024 9:56 AM EDT CLINICAL INDICATION: Neuro deficit, acute, stroke suspected TECHNIQUE: Multiplanar multiecho sequences were performed through the brain utilizing T1 and T2 weighting, as well as either axial susceptibility weighted or gradient echo sequences, and axial diffusion weighted images. Imaging was performed with and without contrast administration: 11.3 mL of Gadavist. Multiplanar multiecho sequences were performed through the orbits utilizing T1 and T2 weighted, with and without contrast, and with and without fat-saturation. COMPARISON: None. FINDINGS: MRI BRAIN: Diagnostic Quality: Adequate. No midline shift, mass effect, parenchymal hemorrhage, or evidence of acute infarct. No abnormal parenchymal enhancement. No extra-axial fluid collections. Basal cisterns are patent. No hydrocephalus. There is mild prominence of the sulci, cisterns, and ventricles suggestive of generalized brain parenchymal volume loss without a regional predominance. The callosal angle is obtuse. Vascular Flow Voids: Normal. Extracranial Findings: None. Craniocervical Junction and Skull Base: No tonsillar ectopia or mass is present. MRI ORBIT: Diagnostic Quality: Adequate. Orbits: No orbital masses are present. Bilateral lens implants. The extraocular muscles are normal in size, signal and configuration. The lacrimal glands are normal. Optic Nerves: The optic nerves are normal in size and signal intensity. No abnormal enhancement is present within the optic nerves or of the optic nerve sheaths. Soft Tissues: No masses are present within the preseptal and periorbital soft tissues Sellar/Suprasellar Region: No sellar or suprasellar masses are present. No cavernous sinus masses are present. Paranasal Sinuses/Nasal Cavity: Right septal deviation with osseous spur. Paranasal sinuses are grossly clear. Procedure Note Jose Cheung MD - 12/24/2024 CLINICAL INDICATION: Neuro deficit, acute, stroke suspected TECHNIQUE: Multiplanar multiecho sequences were performed through the brain utilizingT1 and T2 weighting, as well as either axial susceptibility weighted orgradient echo sequences, and axial diffusion weighted images. Imaging wasperformed with and without contrast administration: 11.3 mL of Gadavist. Multiplanar multiecho sequences were performed through the orbitsutilizing T1 and T2 weighted, with and without contrast, and with andwithout fat-saturation. COMPARISON: None. FINDINGS: MRI BRAIN: Diagnostic Quality: Adequate. No midline shift, mass effect, parenchymal hemorrhage, or evidence ofacute infarct. No abnormal parenchymal enhancement. No extra-axial fluid collections. Basal cisterns are patent. Nohydrocephalus. There is mild prominence of the sulci, cisterns, andventricles suggestive of generalized brain parenchymal volume loss withouta regional predominance. The callosal angle is obtuse. Vascular Flow Voids: Normal. Extracranial Findings: None. Craniocervical Junction and Skull Base: No tonsillar ectopia or mass ispresent. MRI ORBIT: Diagnostic Quality: Adequate. Orbits: No orbital masses are present. Bilateral lens implants. Theextraocular muscles are normal in size, signal and configuration. Thelacrimal glands are normal. Optic Nerves: The optic nerves are normal in size and signal intensity. Noabnormal enhancement is present within the optic nerves or of the opticnerve sheaths. Soft Tissues: No masses are present within the preseptal and periorbitalsoft tissues Sellar/Suprasellar Region: No sellar or suprasellar masses are present. Nocavernous sinus masses are present. Paranasal Sinuses/Nasal Cavity: Right septal deviation with osseous spur.Paranasal sinuses are grossly clear. IMPRESSION: *There is no evidence of intracranial mass, hemorrhage, or acuteinfarction. *No orbital or retro-orbital anomaly identified. CRITICAL RESULT: No. COMMUNICATION: Per this written report. Drafted by Jose Cheung MD on 12/24/2024 9:47 AM Final report signed by Jose Cheung MD on 12/24/2024 9:56 AM Carol Sue MD IMG MRI PROCEDURES Final Resul t * MR Head w and wo IV Contrast (12/24/2024 2:40 AM EDT) Anatomical Region Laterality Modality Head Magnetic Resonan ce Impressions 12/24/2024 9:56 AM EDT * There is no evidence of intracranial mass, hemorrhage, or acute infarction. * No orbital or retro-orbital anomaly identified. CRITICAL RESULT: No. COMMUNICATION: Per this written report. Drafted by Jose Cheung MD on 12/24/2024 9:47 AM Final report signed by Jose Cheung MD on 12/24/2024 9:56 AM Narrative 12/24/2024 9:56 AM EDT CLINICAL INDICATION: Neuro deficit, acute, stroke suspected TECHNIQUE: Multiplanar multiecho sequences were performed through the brain utilizing T1 and T2 weighting, as well as either axial susceptibility weighted or gradient echo sequences, and axial diffusion weighted images. Imaging was performed with and without contrast administration: 11.3 mL of Gadavist. Multiplanar multiecho sequences were performed through the orbits utilizing T1 and T2 weighted, with and without contrast, and with and without fat-saturation. COMPARISON: None. FINDINGS: MRI BRAIN: Diagnostic Quality: Adequate. No midline shift, mass effect, parenchymal hemorrhage, or evidence of acute infarct. No abnormal parenchymal enhancement. No extra-axial fluid collections. Basal cisterns are patent. No hydrocephalus. There is mild prominence of the sulci, cisterns, and ventricles suggestive of generalized brain parenchymal volume loss without a regional predominance. The callosal angle is obtuse. Vascular Flow Voids: Normal. Extracranial Findings: None. Craniocervical Junction and Skull Base: No tonsillar ectopia or mass is present. MRI ORBIT: Diagnostic Quality: Adequate. Orbits: No orbital masses are present. Bilateral lens implants. The extraocular muscles are normal in size, signal and configuration. The lacrimal glands are normal. Optic Nerves: The optic nerves are normal in size and signal intensity. No abnormal enhancement is present within the optic nerves or of the optic nerve sheaths. Soft Tissues: No masses are present within the preseptal and periorbital soft tissues Sellar/Suprasellar Region: No sellar or suprasellar masses are present. No cavernous sinus masses are present. Paranasal Sinuses/Nasal Cavity: Right septal deviation with osseous spur. Paranasal sinuses are grossly clear. Procedure Note Jose Cheung MD - 12/24/2024 CLINICAL INDICATION: Neuro deficit, acute, stroke suspected TECHNIQUE: Multiplanar multiecho sequences were performed through the brain utilizingT1 and T2 weighting, as well as either axial susceptibility weighted orgradient echo sequences, and axial diffusion weighted images. Imaging wasperformed with and without contrast administration: 11.3 mL of Gadavist. Multiplanar multiecho sequences were performed through the orbitsutilizing T1 and T2 weighted, with and without contrast, and with andwithout fat-saturation. COMPARISON: None. FINDINGS: MRI BRAIN: Diagnostic Quality: Adequate. No midline shift, mass effect, parenchymal hemorrhage, or evidence ofacute infarct. No abnormal parenchymal enhancement. No extra-axial fluid collections. Basal cisterns are patent. Nohydrocephalus. There is mild prominence of the sulci, cisterns, andventricles suggestive of generalized brain parenchymal volume loss withouta regional predominance. The callosal angle is obtuse. Vascular Flow Voids: Normal. Extracranial Findings: None. Craniocervical Junction and Skull Base: No tonsillar ectopia or mass ispresent. MRI ORBIT: Diagnostic Quality: Adequate. Orbits: No orbital masses are present. Bilateral lens implants. Theextraocular muscles are normal in size, signal and configuration. Thelacrimal glands are normal. Optic Nerves: The optic nerves are normal in size and signal intensity. Noabnormal enhancement is present within the optic nerves or of the opticnerve sheaths. Soft Tissues: No masses are present within the preseptal and periorbitalsoft tissues Sellar/Suprasellar Region: No sellar or suprasellar masses are present. Nocavernous sinus masses are present. Paranasal Sinuses/Nasal Cavity: Right septal deviation with osseous spur.Paranasal sinuses are grossly clear. IMPRESSION: *There is no evidence of intracranial mass, hemorrhage, or acuteinfarction. *No orbital or retro-orbital anomaly identified. CRITICAL RESULT: No. COMMUNICATION: Per this written report. Drafted by Jose Cheung MD on 12/24/2024 9:47 AM Final report signed by Jose Cheung MD on 12/24/2024 9:56 AM us Carol Sue MD IMG MRI PROCEDURES Final Resul t * (ABNORMAL) RAJESH Single Pattern (Reflex only) (12/23/2024 8:59 PM EDT) RAJESH Pattern Speckled(A ) 12/26/2024 1:22 PM EDT [facility] ([facility]) RAJESH Titer 1:80(A) 12/26/2024 1:22 PM EDT [facility] ([facility]) Blood Venous blood specimen / Unknown Venipuncture / Unknown 12/23/2024 8:59 PM EDT 12/23/2024 9:16 PM EDT Narrative [facility] ([facility]) - 12/26/2024 1:22 PM EDT Performed By: [facility] [address] [place] [address] Water Manager: George Andersen MD, PhD CLIA Number: [id number] us Theodore Roepr MD LAB BLOOD ORDERABLES Fin al Result [facility] ([facility]) [address] [place] [address] * ENAII (SO) (12/23/2024 8:59 PM EDT) SSA-52 (RO52) (SAMIR) Antibody, IgG 2 0 - 40 AU/mL 12/26/2024 10:49 PM EDT [facility] ([facility]) SSA-60 (RO60) (SAMIR) Antibody, IgG 0 0 - 40 AU/mL 12/26/2024 10:49 PM EDT [facility] ([facility]) SSB (LA) (SAMIR) Antibody, IgG 0 0 - 40 AU/mL 12/26/2024 10:49 PM EDT [facility] ([facility]) Blood Venous blood specimen / Unknown Venipuncture / Unknown 12/23/2024 8:59 PM EDT 12/23/2024 9:16 PM EDT Narrative [facility] ([facility]) - 12/26/2024 10:49 PM EDT INTERPRETIVE INFORMATION: SSA-52 (Ro52) (SAMIR) Antibody, IgG 29 AU/mL or Less ............. Negative 30 - 40 AU/mL ................ Equivocal 41 AU/mL or Greater .......... Positive SSA-52 (Ro52) and/or SSA-60 (Ro60) antibodies are associated with a diagnosis of Sjogren syndrome, systemic lupus erythematosus (SLE), and systemic sclerosis. SSA-52 antibody overlaps significantly with the major SSc-related antibodies. SSA-52 (Ro52) antibody occurs frequently in patients with inflammatory myopathies, often in the presence of interstitial lung disease. REFERENCE INTERVAL: SSA-60 (Ro60) (SAMIR) Antibody, IgG 29 AU/mL or Less ............. Negative 30 - 40 AU/mL ................ Equivocal 41 AU/mL or Greater .......... Positive INTERPRETIVE INFORMATION: SSB (La) (SAMIR) Ab, IgG 29 AU/mL or Less ............. Negative 30 - 40 AU/mL ................ Equivocal 41 AU/mL or Greater .......... Positive SSB (La) antibody is seen in 50-60% of Sjogren syndrome cases and is specific if it is the only SAMIR antibody present. 15-25% of patients with systemic lupus erythematosus (SLE) and 5-10% of patients with progressive systemic sclerosis (PSS) also have this antibody. Performed By: [facility] [address] [place] [address] Water Manager: George Andersen MD, PhD CLIA Number: [id number] us Theodore Roper MD LAB BLOOD ORDERABLES Fin al Result [facility]) [address] [place] [address] * ANCA Vasculitis Profile (SO) (12/23/2024 8:59 PM EDT) Myeloperoxidase (MPO) Ab, IgG 0 0 - 19 AU/mL 12/26/2024 3:26 PM EDT [facility] ([facility]) Serine Proteinase 3 (PR3) Ab, IgG 0 0 - 19 AU/mL 12/26/2024 3:26 PM EDT [facility] ([facility]) ANCA IFA Titer <1:20 <1:20 12/26/2024 3:26 PM EDT [facility] ([facility]) ANCA IFA Pattern None Detected None Detected 12/26/2024 3:26 PM EDT [facility] ([facility]) Blood Venous blood specimen / Unknown Venipuncture / Unknown 12/23/2024 8:59 PM EDT 12/23/2024 9:16 PM EDT Narrative [facility] ([facility]) - 12/26/2024 3:26 PM EDT INTERPRETIVE INFORMATION: Myeloperoxidase Abs, IgG 19 AU/mL or Less ......... Negative 20-25 AU/mL .............. Equivocal 26 AU/mL or Greater ...... Positive Approximately 90% of patients with a P-ANCA pattern by IFA have antibodies specific for MPO. INTERPRETIVE INFORMATION: Serine Proteinase 3, IgG 19 AU/mL or Less ........ Negative 20-25 AU/mL ............. Equivocal 26 AU/mL or Greater ..... Positive Approximately 85% of patients with a C-ANCA pattern by IFA have antibodies specific for PR3. INTERPRETIVE INFORMATION: ANCA IFA Pattern Neutrophil Cytoplasmic Antibodies (C-ANCA = granular cytoplasmic staining, P-ANCA = perinuclear staining) are found in the serum of over 90 percent of patients with certain necrotizing systemic vasculitides, and usually in less than 5 percent of patients with collagen vascular disease or arthritis. Performed By: [facility] [address] [place] [address] Water Manager: George Andersen MD, PhD CLIA Number: [id number] us Theodore Roper MD LAB BLOOD ORDERABLES Fin al Result [facility]) [address] [place], [place] [id number] * (ABNORMAL) Antinuclear Antibody (RAJESH), HEp-2, IgG (SO) (12/23/2024 8:59 PM EDT) RAJESH INTERPRETIVE COMMENT See Note 12/26/2024 1:22 PM EDT [facility] ([facility]) Anti Nuc Ab Screen Detected( H) <1:80 12/26/2024 1:22 PM EDT [facility] ([facility]) Blood Venous blood specimen / Unknown Venipuncture / Unknown 12/23/2024 8:59 PM EDT 12/23/2024 9:16 PM EDT Narrative [facility]) - 12/26/2024 1:22 PM EDT Speckled Pattern Clinical associations: SLE, SSc, SjS, DM, PM, MCTD, UCTD. May also be found in healthy individuals Main autoantibodies: Anti-SSA-52 (Ro52), anti-SSA-60 (Ro60), anti-SS-B/LA, anti-Rafa-1 (anti-Scl-70), Campos, anti-U1-ACTUARIAL TECHNICIAN, anti-U2-ACTUARIAL TECHNICIAN, anti-Mi-2, anti-p155/140 (TIF1g), anti-Ku, anti-RNA polymerase, anti-DFS70/LEDGF-P75 List of Abbreviations Antimitochondrial antibodies (AMA), Antisynthetase syndrome (ARS), chronic active hepatitis (CAH), inflammatory myopathies (IM) [dermatomyositis (DM), polymyositis (PM), necrotizing autoimmune myopathy (NAM)], interstitial lung disease (ILD), juvenile idiopathic arthritis (ERIN), mixed connective tissue disease (MCTD), primary biliary cholangitis (PBC), rheumatoid arthritis (RA), systemic autoimmune rheumatic diseases (SARD), Sjogren syndrome (SjS), systemic lupus erythematosus (SLE), systemic sclerosis (SSc), undifferentiated connective tissue disease (UCTD). INTERPRETIVE INFORMATION: RAJESH Interpretive Comment Presence of antinuclear antibodies (RAJESH) is a hallmark feature of systemic autoimmune rheumatic diseases (SARD). However, RAJESH lacks diagnostic specificity and is associated with a variety of diseases (cancers, autoimmune, infectious, and inflammatory conditions) and may also occur in healthy individuals in varying prevalence. The lack of diagnostic specificity requires confirmation of positive RAJESH by more specific serologic tests. RAJESH (nuclear reactivity) positive patterns reported include centromere, homogeneous, nuclear dots, nucleolar, or speckled. RAJESH (cytoplasmic reactivity) positive patterns reported include reticular/AMA, discrete/GW body-like, polar/golgi-like, cytoplasmic speckled or rods and rings. All positive patterns are reported to endpoint titers (1:2560). Reported patterns may help guide differential diagnosis, although they may not be specific for individual antibodies or diseases. Mitotic staining patterns not reported. Negative results do not necessarily rule out SARD. Performed By: [facility] [address] [place] [address] Water Manager: George Andersen MD, PhD CLIA Number: [id number] us Theodore Roper MD LAB BLOOD ORDERABLES Fin al Result [facility] ([facility]) [address] [place] [address] * Angiotensin Converting Enzyme, Serum (SO) (12/23/2024 8:59 PM EDT) [facility] ANGIOTENSIN CONVERTING ENZYME 21 16 - 85 U/L 12/26/2024 7:31 AM EDT [facility] ([facility]) Blood Venous blood specimen / Unknown Venipuncture / Unknown 12/23/2024 8:59 PM EDT 12/23/2024 9:16 PM EDT Narrative [facility]) - 12/26/2024 7:31 AM EDT Performed By: [facility] [address] [place] [address] Water Manager: George Andersen MD, PhD CLIA Number: [id number] Theodore Roper MD LAB BLOOD ORDERABLES Fin al Result [facility]) [address] [place] [address] * Anti-Beta 2 Glycoprotein, IgG and IgM (12/23/2024 8:59 PM EDT) [facility] Anti-Beta 2 Glycoprotein 1, IgG <1.4 <20.0 U/mL 12/23/2024 10:29 PM EDT [facility] Anti-Beta 2 Glycoprotein IgG Interpretation Negative Negative 12/23/2024 10:29 PM EDT [facility] Anti-Beta 2 Glycoprotein 1, IgM <1.5 <20.0 U/mL 12/23/2024 10:29 PM EDT [facility] Anti-Beta 2 Glycoprotein IgM Interpretation Negative Negative 12/23/2024 10:29 PM EDT [facility] Blood Venous blood specimen / Unknown Venipuncture / Unknown 12/23/2024 8:59 PM EDT 12/23/2024 9:15 PM EDT Theodore Roper MD LAB BLOOD ORDERABLES Fin al Result [facility] [address] [place] [address] * Anticardiolipin IgG and IgM (12/23/2024 8:59 PM EDT) [facility] IgG Anticardiolipin <1.60 <20.00 GPL Units/mL 12/23/2024 10:29 PM EDT [facility] Anticardiolipin IgG Interpretation Negative Negative 12/23/2024 10:29 PM EDT [facility] IgM Anticardiolipin <1.50 <20.00 MPL Units/mL 12/23/2024 10:29 PM EDT [facility] Anticardiolipin IgM Interpretation Negative Negative 12/23/2024 10:29 PM EDT [facility] Blood Venous blood specimen / Unknown Venipuncture / Unknown 12/23/2024 8:59 PM EDT 12/23/2024 9:15 PM EDT Theodore Roper MD LAB BLOOD ORDERABLES Fin al Result Performing Organization Address City/[facility]/ZIP Co de Phone Number [facility] [address] [place] [address] * NMO/AQP4 FACS Serum (SO) (12/23/2024 8:59 PM EDT) NMO/AQP4 FACS,S Negative Negative 8:58 AM EDT [facility] ([facility]) Comment: Recommend repeat testing in 6 months if clinical suspicion is high. Negative result can occur in the setting of immunosuppression. ADDITIONAL INFORMATION This test was developed and its performance characteristics determined by [facility] in a manner consistent with CLIA requirements. This test has not been cleared or approved by the U.S. Food and Drug Administration. Test Performed by: [facility] - [address] [address] Consultant: Isa Espinoza Ph.D.; CLIA# [id number] Blood Venous blood specimen / Unknown Venipuncture / Unknown 12/23/2024 8:59 PM EDT 12/23/2024 9:20 PM EDT Theodore Roper MD LAB BLOOD ORDERABLES Fin al Result [facility]) * Toxoplasma gondii antibody, IgG (SO) (12/23/2024 8:59 PM EDT) TOXOPLASMA IGG AB <3.0 <=8.8 IU/mL 12/26/2024 4:40 AM EDT [facility] ([facility]) Blood Venous blood specimen / Unknown Venipuncture / Unknown 12/23/2024 8:59 PM EDT 12/23/2024 9:16 PM EDT Narrative [facility]) - 12/26/2024 4:40 AM EDT INTERPRETIVE INFORMATION: Toxoplasma Ab, IgG 7.1 IU/mL or less....... Not Detected 7.2-8.7 IU/mL .......... Indeterminate-Repeat testing in 10-14 days may be helpful. 8.8 IU/mL or greater ... Detected The best evidence for current infection is a significant change on two appropriately timed specimens, where both tests are done in the same laboratory at the same time. This test should not be used for blood donor screening, associated re-entry protocols, or for screening Human Cell, Tissues and Cellular and Tissue-Based Products (HCT/P). The magnitude of the measured result is not indicative of the amount of antibody present. Performed By: [facility] [address] [place] [address] Water Manager: George Andersen MD, PhD CLIA Number: [id number] Theodore Roper MD LAB BLOOD ORDERABLES Fin al Result [facility]) [address] [place] [address] * HIV 1 & 2 Antibody/Antigen Screen (12/23/2024 7:39 PM EDT) Pathologist [facility] HIV 1 & 2 Antibody/Antigen Screen Non Reactive Non Reactive 12/23/2024 8:37 PM EDT [facility] Comment:Screening for HIV 1 & 2 antibodies, and P24 antigen is NONREACTIVE. No confirmatory testing is required. Blood Venous blood specimen / Unknown Venipuncture / Unknown 12/23/2024 7:39 PM EDT 12/23/2024 7:55 PM EDT Theodore Roper MD LAB BLOOD ORDERABLES Fin analy Result Performing Organization Address [facility] Co de Phone Number [facility] [address] [place] [address] * Lupus Anticoagulant Profile (12/23/2024 7:39 PM EDT) Lupus Anticoagulant Result Lupus anticoagulant (LA) not detected by either LA-sensitive aPTT or dRVVT assays. If clinical suspicion for antiphospholipid syndrome is high, consider testing for antibodies against cardiolipin and muoq-2-ikldxiokfqc n I. 12/25/2024 11:37 AM EDT [facility] aPTT Lupus Anticoagulant Sensitive 33.4 <=41.0 sec LAB COAGULATION METHOD 12/25/2024 11:37 AM EDT [facility] DRVVT Screen 36.3 sec LAB COAGULATION METHOD 12/25/2024 11:37 AM EDT [facility] DRVVT Screen Ratio 0.92 <1.20 LAB COAGULATION METHOD 12/25/2024 11:37 AM EDT [facility] Blood Venous blood specimen / Unknown Venipuncture / Unknown 12/23/2024 7:39 PM EDT 12/23/2024 7:54 PM EDT Theodore Roper MD LAB BLOOD ORDERABLES Fin analy Result Performing Organization Address City/[facility] Co de Phone Number [facility] [address] [place] [address] * (ABNORMAL) Hemoglobin A1c (12/23/2024 7:39 PM EDT) Hemoglobin A1c 7.5(H) <5.7 % 12/23/2024 8:37 PM EDT [facility] Blood Venous blood specimen / Unknown Venipuncture / Unknown 12/23/2024 7:39 PM EDT 12/23/2024 7:55 PM EDT Narrative [facility] - 12/23/2024 8:37 PM EDT HA1C Interpretive Data: Diagnosis of Diabetes: Diabetic > or = 6.5% Pre-diabetic 5.7 to 6.4% Non-diabetic < or = 5.6% Glycemic Targets for Type I and Type II Diabetics: Non- Adults <7.0% Adults <6.0% Children and Adolescents <7.5% Source: [place] [employer]. Standards of medical care in diabetes,2017. Diabetes Care.2017:40 (suppl 1):S1-S135. us Theodore Roper MD LAB BLOOD ORDERABLES Fin al Result [facility] [address] [place] [address] * Cytomegalovirus Antibody IgM (SO) (12/23/2024 7:39 PM EDT) CMV ANTIBODY IGM <8.0 <=29.9 AU/mL 12/26/2024 5:27 AM EDT [facility] ([facility]) Blood Venous blood specimen / Unknown Venipuncture / Unknown 12/23/2024 7:39 PM EDT 12/23/2024 7:54 PM EDT Narrative [facility] ([facility]) - 12/26/2024 5:27 AM EDT INTERPRETIVE INFORMATION: Cytomegalovirus Antibody, IgM 29.9 AU/mL or Less ....... Not Detected 30.0-34.9 AU/mL........... Indeterminate-Repeat testing in 10-14 days may be helpful. 35.0 AU/mL or Greater .... Detected-IgM antibody to CMV detected which may indicate a current or recent infection. However, low levels of IgM antibodies may occasionally persist for more than 12 months post-infection. A negative result does not rule out primary infection, please correlate clinically. CMV serology is not useful for the evaluation of active or reactivated infection in immunocompromised patients. Molecular diagnostic tests (i.e. PCR)are preferred in these cases. This test should not be used for blood donor screening, associated re-entry protocols, or for screening Human Cell, Tissues and Cellular and Tissue-Based Products (HCT/P). Performed By: [facility] [address] [place] [address] Water Manager: George Andersen MD, PhD CLIA Number: [id number] Theodore Roper MD LAB BLOOD ORDERABLES Fin al Result Performing Organization Address [facility]/State/ZIP Co de Phone Number [facility] ([facility]) [address] [place] [address] * (ABNORMAL) Cytomegalovirus Antibody IgG (SO) (12/23/2024 7:39 PM EDT) CMV ANTIBODY IGG 2.90(H) <=0.70 U/mL 12/26/2024 5:24 AM EDT [facility] ([facility]) Blood Venous blood specimen / Unknown Venipuncture / Unknown 12/23/2024 7:39 PM EDT 12/23/2024 7:54 PM EDT Narrative [facility]) - 12/26/2024 5:24 AM EDT INTERPRETIVE INFORMATION: Cytomegalovirus Antibody, IgG 0.59 U/mL or less......... Not Detected 0.6 - 0.69 U/mL........... Indeterminate-Repeat testing in 10-14 days may be helpful. 0.70 U/mL or greater...... Detected In immunocompromised patients, CMV serology (IgG or IgM antibody titers) may not be reliable and may be misleading in the diagnosis of acute or reactivation CMV disease. The preferred method for diagnosis is culture of virus and/or demonstration of viral antigen in peripheral white cells (buffy coat), bronchoalveolar lavage (BAL) cells, or tissue biopsies. This test should not be used for blood donor screening, associated re-entry protocols, or for screening Human Cell, Tissues and Cellular and Tissue-Based Products (HCT/P). The best evidence for current infection is a significant change on two appropriately timed specimens, where both tests are done in the same laboratory at the same time. Performed By: [facility] [address] [place] [address] Water Manager: George Andersen MD, PhD CLIA Number: [id number] Theodore Roper MD LAB BLOOD ORDERABLES Fin al Result [facility] ([facility]) [address] [place] [address] * Toxoplasma gondii antibody, IgM (SO) (12/23/2024 7:39 PM EDT) TOXOPLASMA IGM AB <3.0 <=7.9 AU/mL 12/26/2024 5:06 AM EDT [facility] ([facility]) Blood Venous blood specimen / Unknown Venipuncture / Unknown 12/23/2024 7:39 PM EDT 12/23/2024 7:54 PM EDT Narrative [facility] ([facility]) - 12/26/2024 5:06 AM EDT INTERPRETIVE INFORMATION: Toxoplasma Ab, IgM 7.9 AU/mL or less .... Not Detected. 8.0-9.9 AU/mL ........ Indeterminate - Repeat testing in 10-14 days may be helpful. 10.0 AU/mL or greater. Detected - Significant level of Toxoplasma gondii IgM antibody detected and may indicate a current or recent infection. However, low levels of IgM antibodies may occasionally persist for more than 12 months post-infection. This test is performed using the [employer]. As suggested by the CDC, any indeterminate or detected Toxoplasma gondii IgM result should be retested in parallel with a specimen collected 1-3 weeks later. Further confirmation may be necessary using a different test from another reference laboratory specializing in toxoplasmosis testing where an IgM BRADY should be ordered. Caution should be exercised in the use of IgM antibody levels in screening. Any Toxoplasma gondii IgM in patients that have also been confirmed by a second reference laboratory should be evaluated by amniocentesis and PCR testing for Toxoplasma gondii. For male and non- female patients with indeterminate or detected Toxoplasma gondii IgM results, PCR may also be useful if a specimen can be collected from an affected body site. This test should not be used for blood donor screening, associated re-entry protocols, or for screening Human Cell, Tissues and Cellular and Tissue-Based Products (HCT/P). For additional information, refer to the CDC website: www.cdc.gov/parasites/toxoplasmosis/health_professionals/index.html . The magnitude of the measured result is not indicative of the amount of antibody present. Performed By: [facility] [address] [place] [address] Water Manager: George Andersen MD, PhD CLIA Number: [id number] us Theodore Roper MD LAB BLOOD ORDERABLES Fin al Result [facility] ([facility]) [address] [place] [address] * (ABNORMAL) Basic metabolic panel (12/23/2024 7:39 PM EDT) Pathologist [facility] Glucose, Plasma 103(H) 74 - 99 mg/dL 12/23/2024 8:10 PM EDT [facility] BUN, Plasma 16 8 - 23 mg/dL 12/23/2024 8:10 PM EDT [facility] Creatinine, Plasma 1.18 0.70 - 1.20 mg/dL 12/23/2024 8:10 PM EDT [facility] BUN/Creatinine Ratio 14 12/23/2024 8:10 PM EDT [facility] Sodium, Plasma 136 136 - 145 mmol/L 12/23/2024 8:10 PM EDT [facility] Potassium, Plasma 3.4(L) 3.6 - 4.9 mmol/L 12/23/2024 8:10 PM EDT [facility] Chloride, Plasma 101 97 - 107 mmol/L 12/23/2024 8:10 PM EDT [facility] CO2, Plasma 25 22 - 29 mmol/L 12/23/2024 8:10 PM EDT [facility] Anion Gap 10 6 - 16 mmol/L 12/23/2024 8:10 PM EDT [facility] Total Calcium, Plasma 9.3 8.9 - 10.2 mg/dL 12/23/2024 8:10 PM EDT [facility] eGFRcr 70.2 mL/min/1.7 3m*2 12/23/2024 8:10 PM EDT [facility] Comment:Reported eGFRcr in m L/min/1.73m2 is based the CKD-EPI 2020 equation that does not use a race coefficient. Blood Venous blood specimen / Unknown Venipuncture / Unknown 12/23/2024 7:39 PM EDT 12/23/2024 7:48 PM EDT us Carol Sue MD LAB BLOOD ORDERABLES Final Res ult [facility] [address] [place] [address] * (ABNORMAL) CBC (12/23/2024 7:39 PM EDT) WBC Count 6.39 3.70 - 10.30 10*3/uL LAB HEMATOLOGY METHOD 12/23/2024 7:50 PM EDT [facility] RBC Count 5.45 4.60 - 6.10 10*6/uL LAB HEMATOLOGY METHOD 12/23/2024 7:50 PM EDT [facility] HGB 14.9 13.7 - 17.5 g/dL LAB HEMATOLOGY METHOD 12/23/2024 7:50 PM EDT [facility] HCT 46.2 40.0 - 51.0 % LAB HEMATOLOGY METHOD 12/23/2024 7:50 PM EDT [facility] Platelet Count 205 155 - 369 10*3/uL LAB HEMATOLOGY METHOD 12/23/2024 7:50 PM EDT [facility] MCV 85 79 - 98 fL LAB HEMATOLOGY METHOD 12/23/2024 7:50 PM EDT [facility] MCH 27.3 26.0 - 32.0 pg LAB HEMATOLOGY METHOD 12/23/2024 7:50 PM EDT [facility] MCHC 32.3 30.7 - 35.5 g/dL LAB HEMATOLOGY METHOD 12/23/2024 7:50 PM EDT [facility] RDW 15.4(H) 11.5 - 14.5 % LAB HEMATOLOGY METHOD 12/23/2024 7:50 PM EDT [facility] MPV 9.0 8.8 - 12.5 fL LAB HEMATOLOGY METHOD 12/23/2024 7:50 PM EDT [facility] nRBC 0.0 <=0.0 per 100 WBCs LAB HEMATOLOGY METHOD 12/23/2024 7:50 PM EDT [facility] Blood Venous blood specimen / Unknown Venipuncture / Unknown 12/23/2024 7:39 PM EDT 12/23/2024 7:48 PM EDT us Carol Sue MD LAB BLOOD ORDERABLES Final Res ult [facility] [address] [place] [address] * POCT glucose meter (12/23/2024 7:38 PM EDT) POCT Glucose 99 74 - 99 mg/dL 12/23/2024 7:40 PM EDT [facility] Comment:Accuracy of a glucos e result obtained from a capillary whole blood specimen relies upon adequate, non-compromised capillary blood flow. If the capillary glucose result is not consistent with the patient's clinical signs and symptoms, glucose testing should be repeated with either an arterial or venous sample on the glucometer or sent to the main labortory for testing. Comment 12/23/2024 7:40 PM EDT [facility] Nozzle And Sleeve Worker ID Orquidea Shoemaker 12/23/2024 7:40 PM EDT [facility] Device ID [id number] 12/23/2024 7:40 PM EDT [facility] Specimen Type POC Capillary 12/23/2024 7:40 PM EDT [facility] Blood Capillary blood specimen / Unknown 12/23/2024 7:38 PM EDT 12/23/2024 7:40 PM EDT us Carol Sue MD LAB POINT OF CARE TE ST DOCKED DEVICE UNSOLICITED RESULTS Final Result Performing Organization Address City/[facility]/ZIP Co de Phone Number [facility] [address] [place] [address] * POCT glucose meter (12/23/2024 7:35 PM EDT) POCT Glucose 01/05/2025 1:52 PM EDT [facility] Comment: Accuracy of a glucose result obtained from a capillary whole blood specimen relies upon adequate, non-compromised capillary blood flow. If the capillary glucose result is not consistent with the patient's clinical signs and symptoms, glucose testing should be repeated with either an arterial or venous sample on the glucometer or sent to the main labortory for testing. Corrected result: Previously reported as 64 mg/dL on 12/23/2024 at 1937 EDT. Comment 01/05/2025 1:52 PM EDT [facility] No[employer] And Sleeve Worker ID Orquidea Shoemaker 01/05/2025 1:52 PM EDT [facility] Device ID [id number] 01/05/2025 1:52 PM EDT [facility] Specimen Type POC Capillary 01/05/2025 1:52 PM EDT [facility] Blood Capillary blood specimen / Unknown 12/23/2024 7:35 PM EDT 12/23/2024 7:37 PM EDT Narrative [facility] - 01/05/2025 1:52 PM EDT Testing Error per Yazmin Velázquez CLINICAL NURSE SPECIALIST Carol Sue MD LAB POINT OF CARE TE ST DOCKED DEVICE UNSOLICITED RESULTS Edited Result - Final Performing Organization Address City/State/[facility] Co de Phone Number [facility] [address] [place] [address] * CT Angio Neck (12/23/2024 5:00 PM EDT) Anatomical Region Laterality Modality Carotid Artery Computed Tomogra phy Impressions 12/23/2024 6:[address]: No acute large cortical infarct or intracranial hemorrhage. If any further evaluation for an acute infarct or for the etiology of the patient's symptoms is warranted clinically, an MR scan could be performed if not contraindicated. Neck CTA: No hemodynamically significant stenosis is present within the cervical carotid and vertebral systems. Head CTA: No hemodynamically significant intracranial arterial stenosis or aneurysm is present. CRITICAL RESULT: None. COMMUNICATION: Per this written report. Drafted by Kwadwo Gusman MD on 12/23/2024 6:11 PM Final report signed by Kwadwo Gusman MD on 12/23/2024 6:42 PM Narrative 12/23/2024 6:42 PM EDT CLINICAL INDICATION: Left sided vision loss papilledema TECHNIQUE: Head CT: Spiral axial CT images of the head were obtained without contrast administration. Head CTA: Axial images were obtained through the head during contrast bolus injection and multiplanar MIP images were created. Neck CTA: Axial images were obtained through the neck during bolus contrast injection and multiplanar reformatted and MIP images were created. 60 mL of Omnipaque 350 were administered intravenously. TOTAL DLP (Dose-Length Product): 1374.82 mGy.cm (accession [id number]), 1374.82 mGy.cm (accession [id number]), 1374.82 mGy.cm (accession [id number]). Please note: The reported value represents the total of one or more individual components during the CT acquisition on this date and at this time, and as such, the same value may appear in more than one CT report depending on the interpreting/reporting physicians. COMPARISON: None. FINDINGS: HEAD CT: Study Quality: Adequate. The ventricles and sulci are normal in size. Dilated perivascular space or old lacunar infarct within the posterior aspect of the left lentiform nucleus (images 16 series 5). There is no acute large cortical infarct, intracranial hemorrhage or large mass on this noncontrast study. Soft Tissues: No significant soft tissue swelling is present. Skull: There are no calvarial destructive lesions or fractures. Sinuses and Mastoids: The visualized portions of the paranasal sinuses are clear. The mastoid air cells are clear. Neck CTA: Diagnostic Quality: Adequate Aorta and Great Vessel Origins: Conventional branching pattern. No significant stenosis of the origins of the great arteries. Right Cervical Carotid System: No significant atherosclerotic plaque or evidence of dissection or pseudoaneurysm. 0% stenosis at the carotid bulb by NASCET criteria. Left Cervical Carotid System: Mild calcified atherosclerotic plaque at the common carotid bifurcation. 0% stenosis at the carotid bulb by NASCET criteria. Vertebral arteries: No evidence of a dissection, pseudoaneurysm, or significant stenosis of the vertebral arteries. Other Findings: Multilevel degenerative changes in the cervical spine. Head CTA: Diagnostic Quality: Adequate Vertebrobasilar System: Calcified atherosclerotic plaque at the intradural right vertebral artery with mild stenosis. The post PICA segment of the intradural left vertebral artery is markedly hypoplastic. The basilar artery and its major branches are within normal limits. There is no aneurysm. Carotid Arteries: Atherosclerosis: Moderate calcified atherosclerotic plaque. Right ICA: No significant stenosis. Left ICA: No significant stenosis. Other Findings: No aneurysm of either internal carotid artery. [place] and Major Peripheral Branches: There is no significant stenosis or occlusion. There is no aneurysm. Other Findings: None. Procedure Note Kwadwo Gusman MD - 12/23/2024 CLINICAL INDICATION: Left sided vision loss papilledema TECHNIQUE: Head CT: Spiral axial CT images of the head were obtained without contrastadministration. Head CTA: Axial images were obtained through the head during contrastbolus injection and multiplanar MIP images were created. Neck CTA: Axial images were obtained through the neck during boluscontrast injection and multiplanar reformatted and MIP images werecreated. 60 mL of Omnipaque 350 were administered intravenously. TOTAL DLP (Dose-Length Product): 1374.82 mGy.cm (accession [id number]),1374.82 mGy.cm (accession [id number]), 1374.82 mGy.cm (accession [id number]).Please note: The reported value represents the total of one or moreindividual components during the CT acquisition on this date and at thistime, and as such, the same value may appear in more than one CT reportdepending on the interpreting/reporting physicians. COMPARISON: None. FINDINGS: HEAD CT: Study Quality: Adequate. The ventricles and sulci are normal in size. Dilated perivascular space orold lacunar infarct within the posterior aspect of the left lentiformnucleus (images 16 series 5). There is no acute large cortical infarct, intracranial hemorrhage or largemass on this noncontrast study. Soft Tissues: No significant soft tissue swelling is present. Skull: There are no calvarial destructive lesions or fractures. Sinuses and Mastoids: The visualized portions of the paranasal sinuses areclear. The mastoid air cells are clear. Neck CTA: Diagnostic Quality: Adequate Aorta and Great Vessel Origins: Conventional branching pattern. Nosignificant stenosis of the origins of the great arteries. Right Cervical Carotid System: No significant atherosclerotic plaque orevidence of dissection or pseudoaneurysm. 0% stenosis at the carotid bulbby NASCET criteria. Left Cervical Carotid System: Mild calcified atherosclerotic plaque at thecommon carotid bifurcation. 0% stenosis at the carotid bulb by NASCETcriteria. Vertebral arteries: No evidence of a dissection, pseudoaneurysm, orsignificant stenosis of the vertebral arteries. Other Findings: Multilevel degenerative changes in the cervical spine. Head CTA: Diagnostic Quality: Adequate Vertebrobasilar System: Calcified atherosclerotic plaque at the intraduralright vertebral artery with mild stenosis. The post PICA segment of theintradural left vertebral artery is markedly hypoplastic. The basilarartery and its major branches are within normal limits. There is noaneurysm. Carotid Arteries: Atherosclerosis: Moderate calcified atherosclerotic plaque. Right ICA: No significant stenosis. Left ICA: No significant stenosis. Other Findings: No aneurysm of either internal carotid artery. [place] and Major Peripheral Branches: There is no significantstenosis or occlusion. There is no aneurysm. Other Findings: None. IMPRESSION: Head CT: No acute large cortical infarct or intracranial hemorrhage. If any further evaluation for an acute infarct or for the etiology of thepatient's symptoms is warranted clinically, an MR scan could be performedif not contraindicated. Neck CTA: No hemodynamically significant stenosis is present within the cervicalcarotid and vertebral systems. Head CTA: No hemodynamically significant intracranial arterial stenosis or aneurysmis present. CRITICAL RESULT: None. COMMUNICATION: Per this written report. Drafted by Kwadwo Gusman MD on 12/23/2024 6:11 PM Final report signed by Kwadwo Gusman MD on 12/23/2024 6:42 PM Gay Fabian MD IMG CT PROCEDURES Final Res ult * CT Angio Head (12/23/2024 5:00 PM EDT) Anatomical Region Laterality Modality [place] Computed Tomogr aphy Impressions 12/23/2024 6:[address]: No acute large cortical infarct or intracranial hemorrhage. If any further evaluation for an acute infarct or for the etiology of the patient's symptoms is warranted clinically, an MR scan could be performed if not contraindicated. Neck CTA: No hemodynamically significant stenosis is present within the cervical carotid and vertebral systems. Head CTA: No hemodynamically significant intracranial arterial stenosis or aneurysm is present. CRITICAL RESULT: None. COMMUNICATION: Per this written report. Drafted by Kwadwo Gusman MD on 12/23/2024 6:11 PM Final report signed by Kwadwo Gusman MD on 12/23/2024 6:42 PM Narrative 12/23/2024 6:42 PM EDT CLINICAL INDICATION: Left sided vision loss papilledema TECHNIQUE: Head CT: Spiral axial CT images of the head were obtained without contrast administration. Head CTA: Axial images were obtained through the head during contrast bolus injection and multiplanar MIP images were created. Neck CTA: Axial images were obtained through the neck during bolus contrast injection and multiplanar reformatted and MIP images were created. 60 mL of Omnipaque 350 were administered intravenously. TOTAL DLP (Dose-Length Product): 1374.82 mGy.cm (accession [id number]), 1374.82 mGy.cm (accession [id number]), 1374.82 mGy.cm (accession [id number]). Please note: The reported value represents the total of one or more individual components during the CT acquisition on this date and at this time, and as such, the same value may appear in more than one CT report depending on the interpreting/reporting physicians. COMPARISON: None. FINDINGS: HEAD CT: Study Quality: Adequate. The ventricles and sulci are normal in size. Dilated perivascular space or old lacunar infarct within the posterior aspect of the left lentiform nucleus (images 16 series 5). There is no acute large cortical infarct, intracranial hemorrhage or large mass on this noncontrast study. Soft Tissues: No significant soft tissue swelling is present. Skull: There are no calvarial destructive lesions or fractures. Sinuses and Mastoids: The visualized portions of the paranasal sinuses are clear. The mastoid air cells are clear. Neck CTA: Diagnostic Quality: Adequate Aorta and Great Vessel Origins: Conventional branching pattern. No significant stenosis of the origins of the great arteries. Right Cervical Carotid System: No significant atherosclerotic plaque or evidence of dissection or pseudoaneurysm. 0% stenosis at the carotid bulb by NASCET criteria. Left Cervical Carotid System: Mild calcified atherosclerotic plaque at the common carotid bifurcation. 0% stenosis at the carotid bulb by NASCET criteria. Vertebral arteries: No evidence of a dissection, pseudoaneurysm, or significant stenosis of the vertebral arteries. Other Findings: Multilevel degenerative changes in the cervical spine. Head CTA: Diagnostic Quality: Adequate Vertebrobasilar System: Calcified atherosclerotic plaque at the intradural right vertebral artery with mild stenosis. The post PICA segment of the intradural left vertebral artery is markedly hypoplastic. The basilar artery and its major branches are within normal limits. There is no aneurysm. Carotid Arteries: Atherosclerosis: Moderate calcified atherosclerotic plaque. Right ICA: No significant stenosis. Left ICA: No significant stenosis. Other Findings: No aneurysm of either internal carotid artery. [place] and Major Peripheral Branches: There is no significant stenosis or occlusion. There is no aneurysm. Other Findings: None. Procedure Note Kwadwo Gusman MD - 12/23/2024 CLINICAL INDICATION: Left sided vision loss papilledema TECHNIQUE: Head CT: Spiral axial CT images of the head were obtained without contrastadministration. Head CTA: Axial images were obtained through the head during contrastbolus injection and multiplanar MIP images were created. Neck CTA: Axial images were obtained through the neck during boluscontrast injection and multiplanar reformatted and MIP images werecreated. 60 mL of Omnipaque 350 were administered intravenously. TOTAL DLP (Dose-Length Product): 1374.82 mGy.cm (accession [id number]),1374.82 mGy.cm (accession [id number]), 1374.82 mGy.cm (accession [id number]).Please note: The reported value represents the total of one or moreindividual components during the CT acquisition on this date and at thistime, and as such, the same value may appear in more than one CT reportdepending on the interpreting/reporting physicians. COMPARISON: None. FINDINGS: HEAD CT: Study Quality: Adequate. The ventricles and sulci are normal in size. Dilated perivascular space orold lacunar infarct within the posterior aspect of the left lentiformnucleus (images 16 series 5). There is no acute large cortical infarct, intracranial hemorrhage or largemass on this noncontrast study. Soft Tissues: No significant soft tissue swelling is present. Skull: There are no calvarial destructive lesions or fractures. Sinuses and Mastoids: The visualized portions of the paranasal sinuses areclear. The mastoid air cells are clear. Neck CTA: Diagnostic Quality: Adequate Aorta and Great Vessel Origins: Conventional branching pattern. Nosignificant stenosis of the origins of the great arteries. Right Cervical Carotid System: No significant atherosclerotic plaque orevidence of dissection or pseudoaneurysm. 0% stenosis at the carotid bulbby NASCET criteria. Left Cervical Carotid System: Mild calcified atherosclerotic plaque at thecommon carotid bifurcation. 0% stenosis at the carotid bulb by NASCETcriteria. Vertebral arteries: No evidence of a dissection, pseudoaneurysm, orsignificant stenosis of the vertebral arteries. Other Findings: Multilevel degenerative changes in the cervical spine. Head CTA: Diagnostic Quality: Adequate Vertebrobasilar System: Calcified atherosclerotic plaque at the intraduralright vertebral artery with mild stenosis. The post PICA segment of theintradural left vertebral artery is markedly hypoplastic. The basilarartery and its major branches are within normal limits. There is noaneurysm. Carotid Arteries: Atherosclerosis: Moderate calcified atherosclerotic plaque. Right ICA: No significant stenosis. Left ICA: No significant stenosis. Other Findings: No aneurysm of either internal carotid artery. [place] and Major Peripheral Branches: There is no significantstenosis or occlusion. There is no aneurysm. Other Findings: None. IMPRESSION: Head CT: No acute large cortical infarct or intracranial hemorrhage. If any further evaluation for an acute infarct or for the etiology of thepatient's symptoms is warranted clinically, an MR scan could be performedif not contraindicated. Neck CTA: No hemodynamically significant stenosis is present within the cervicalcarotid and vertebral systems. Head CTA: No hemodynamically significant intracranial arterial stenosis or aneurysmis present. CRITICAL RESULT: None. COMMUNICATION: Per this written report. Drafted by Kwadwo Gusman MD on 12/23/2024 6:11 PM Final report signed by Kwadwo Gusman MD on 12/23/2024 6:42 PM Gay Fabian MD IMG CT PROCEDURES Final Res ult * CT Head wo IV Contrast (12/23/2024 5:00 PM EDT) Anatomical Region Laterality Modality Head Computed Tomogra phy Impressions 12/23/2024 6:[address]: No acute large cortical infarct or intracranial hemorrhage. If any further evaluation for an acute infarct or for the etiology of the patient's symptoms is warranted clinically, an MR scan could be performed if not contraindicated. Neck CTA: No hemodynamically significant stenosis is present within the cervical carotid and vertebral systems. Head CTA: No hemodynamically significant intracranial arterial stenosis or aneurysm is present. CRITICAL RESULT: None. COMMUNICATION: Per this written report. Drafted by Kwadwo Gusman MD on 12/23/2024 6:11 PM Final report signed by Kwadwo Gusman MD on 12/23/2024 6:42 PM Narrative 12/23/2024 6:42 PM EDT CLINICAL INDICATION: Left sided vision loss papilledema TECHNIQUE: Head CT: Spiral axial CT images of the head were obtained without contrast administration. Head CTA: Axial images were obtained through the head during contrast bolus injection and multiplanar MIP images were created. Neck CTA: Axial images were obtained through the neck during bolus contrast injection and multiplanar reformatted and MIP images were created. 60 mL of Omnipaque 350 were administered intravenously. TOTAL DLP (Dose-Length Product): 1374.82 mGy.cm (accession [id number]), 1374.82 mGy.cm (accession [id number]), 1374.82 mGy.cm (accession [id number]). Please note: The reported value represents the total of one or more individual components during the CT acquisition on this date and at this time, and as such, the same value may appear in more than one CT report depending on the interpreting/reporting physicians. COMPARISON: None. FINDINGS: HEAD CT: Study Quality: Adequate. The ventricles and sulci are normal in size. Dilated perivascular space or old lacunar infarct within the posterior aspect of the left lentiform nucleus (images 16 series 5). There is no acute large cortical infarct, intracranial hemorrhage or large mass on this noncontrast study. Soft Tissues: No significant soft tissue swelling is present. Skull: There are no calvarial destructive lesions or fractures. Sinuses and Mastoids: The visualized portions of the paranasal sinuses are clear. The mastoid air cells are clear. Neck CTA: Diagnostic Quality: Adequate Aorta and Great Vessel Origins: Conventional branching pattern. No significant stenosis of the origins of the great arteries. Right Cervical Carotid System: No significant atherosclerotic plaque or evidence of dissection or pseudoaneurysm. 0% stenosis at the carotid bulb by NASCET criteria. Left Cervical Carotid System: Mild calcified atherosclerotic plaque at the common carotid bifurcation. 0% stenosis at the carotid bulb by NASCET criteria. Vertebral arteries: No evidence of a dissection, pseudoaneurysm, or significant stenosis of the vertebral arteries. Other Findings: Multilevel degenerative changes in the cervical spine. Head CTA: Diagnostic Quality: Adequate Vertebrobasilar System: Calcified atherosclerotic plaque at the intradural right vertebral artery with mild stenosis. The post PICA segment of the intradural left vertebral artery is markedly hypoplastic. The basilar artery and its major branches are within normal limits. There is no aneurysm. Carotid Arteries: Atherosclerosis: Moderate calcified atherosclerotic plaque. Right ICA: No significant stenosis. Left ICA: No significant stenosis. Other Findings: No aneurysm of either internal carotid artery. [place] and Major Peripheral Branches: There is no significant stenosis or occlusion. There is no aneurysm. Other Findings: None. Procedure Note Kwadwo Gusman MD - 12/23/2024 CLINICAL INDICATION: Left sided vision loss papilledema TECHNIQUE: Head CT: Spiral axial CT images of the head were obtained without contrastadministration. Head CTA: Axial images were obtained through the head during contrastbolus injection and multiplanar MIP images were created. Neck CTA: Axial images were obtained through the neck during boluscontrast injection and multiplanar reformatted and MIP images werecreated. 60 mL of Omnipaque 350 were administered intravenously. TOTAL DLP (Dose-Length Product): 1374.82 mGy.cm (accession [id number]),1374.82 mGy.cm (accession [id number]), 1374.82 mGy.cm (accession [id number]).Please note: The reported value represents the total of one or moreindividual components during the CT acquisition on this date and at thistime, and as such, the same value may appear in more than one CT reportdepending on the interpreting/reporting physicians. COMPARISON: None. FINDINGS: HEAD CT: Study Quality: Adequate. The ventricles and sulci are normal in size. Dilated perivascular space orold lacunar infarct within the posterior aspect of the left lentiformnucleus (images 16 series 5). There is no acute large cortical infarct, intracranial hemorrhage or largemass on this noncontrast study. Soft Tissues: No significant soft tissue swelling is present. Skull: There are no calvarial destructive lesions or fractures. Sinuses and Mastoids: The visualized portions of the paranasal sinuses areclear. The mastoid air cells are clear. Neck CTA: Diagnostic Quality: Adequate Aorta and Great Vessel Origins: Conventional branching pattern. Nosignificant stenosis of the origins of the great arteries. Right Cervical Carotid System: No significant atherosclerotic plaque orevidence of dissection or pseudoaneurysm. 0% stenosis at the carotid bulbby NASCET criteria. Left Cervical Carotid System: Mild calcified atherosclerotic plaque at thecommon carotid bifurcation. 0% stenosis at the carotid bulb by NASCETcriteria. Vertebral arteries: No evidence of a dissection, pseudoaneurysm, orsignificant stenosis of the vertebral arteries. Other Findings: Multilevel degenerative changes in the cervical spine. Head CTA: Diagnostic Quality: Adequate Vertebrobasilar System: Calcified atherosclerotic plaque at the intraduralright vertebral artery with mild stenosis. The post PICA segment of theintradural left vertebral artery is markedly hypoplastic. The basilarartery and its major branches are within normal limits. There is noaneurysm. Carotid Arteries: Atherosclerosis: Moderate calcified atherosclerotic plaque. Right ICA: No significant stenosis. Left ICA: No significant stenosis. Other Findings: No aneurysm of either internal carotid artery. [place] and Major Peripheral Branches: There is no significantstenosis or occlusion. There is no aneurysm. Other Findings: None. IMPRESSION: Head CT: No acute large cortical infarct or intracranial hemorrhage. If any further evaluation for an acute infarct or for the etiology of thepatient's symptoms is warranted clinically, an MR scan could be performedif not contraindicated. Neck CTA: No hemodynamically significant stenosis is present within the cervicalcarotid and vertebral systems. Head CTA: No hemodynamically significant intracranial arterial stenosis or aneurysmis present. CRITICAL RESULT: None. COMMUNICATION: Per this written report. Drafted by Kwadwo Gusman MD on 12/23/2024 6:11 PM Final report signed by Kwadwo Gusman MD on 12/23/2024 6:42 PM Gay Fabian MD IMG CT PROCEDURES Final Res ult * Rheumatoid Factor, Plasma (12/23/2024 3:29 PM EDT) [facility] Rheumatoid Factor, Plasma <10 <14 IU/mL 12/23/2024 11:31 PM EDT [facility] Blood Venous blood specimen / Unknown Venipuncture / Unknown 12/23/2024 3:29 PM EDT 12/23/2024 3:34 PM EDT Theodore Roper MD LAB BLOOD ORDERABLES Fin al Result [facility] [address] [place] [address] * Myelin Oligodendrocyte Glycoprotein (MOG-IgG1) Fluorescence-Activated Cell Sorting (12/23/2024 3:29PM EDT) [facility] MOG FACS Negative Negative 12/29/2024 8:16 AM EDT [facility] ([facility]) Comment: No informative autoantibodies were detected in this evaluation. A negative result does not preclude a diagnosis of an inflammatory ANIMAL HERDER demyelinating disorder. ADDITIONAL INFORMATION This test was developed and its performance characteristics determined by [facility] in a manner consistent with CLIA requirements. This test has not been cleared or approved by the U.S. Food and Drug Administration. Test Performed by: [facility] [place] [address] As400 Consultant: Isa Espinoza Ph.D.; CLIA# [id number] Blood Venous blood specimen / Unknown Venipuncture / Unknown 12/23/2024 3:29 PM EDT 12/23/2024 4:29 PM EDT Gay Fabian MD LAB BLOOD ORDERABLES Final Result [facility] ([facility]) * Treponema Pallidum (Syphilis) Antibodies with Reflex to RPR and RPR Titer (Those with NO known Syphilis) (12/23/2024 3:29 PM EDT) [facility] Syphilis Antibody (IgG+IgM) Nonreactive Nonreactive 12/23/2024 5:01 PM EDT [facility] Comment:Nonreactive. No sero logic evidence of syphilis. No follow-up necessary unless clinically indicated (e.g., early syphilis). Blood Venous blood specimen / Unknown Venipuncture / Unknown 12/23/2024 3:29 PM EDT 12/23/2024 4:07 PM EDT Gay Fabian MD LAB BLOOD ORDERABLES Final Result [facility] [address] [place] [address] * Antinuclear Antibody (RAJESH) with HEp-2 Substrate, IgG by IFA (12/23/2024 3:29 PM EDT) [facility] RAJESH INTERPRETIVE COMMENT See Note 12/26/2024 1:22 PM EDT [facility] ([facility]) Anti Nuc Ab Screen <1:80 <1:80 12/26/2024 1:22 PM EDT [facility] ([facility]) Blood Venous blood specimen / Unknown Venipuncture / Unknown 12/23/2024 3:29 PM EDT 12/23/2024 4:06 PM EDT Narrative [facility] ([facility]) - 12/26/2024 1:22 PM EDT Antinuclear antibodies by IFA negative for homogeneous, speckled, nucleolar, centromere, and nuclear dots patterns. Cytoplasmic antibodies by IFA negative for reticular/AMA, discrete/GW body-like, polar/golgi-like, rods and rings, and cytoplasmic speckled patterns. INTERPRETIVE INFORMATION: RAJESH Interpretive Comment Presence of antinuclear antibodies (RAJESH) is a hallmark feature of systemic autoimmune rheumatic diseases (SARD). However, RAJESH lacks diagnostic specificity and is associated with a variety of diseases (cancers, autoimmune, infectious, and inflammatory conditions) and may also occur in healthy individuals in varying prevalence. The lack of diagnostic specificity requires confirmation of positive RAJESH by more specific serologic tests. RAJESH (nuclear reactivity) positive patterns reported include centromere, homogeneous, nuclear dots, nucleolar, or speckled. RAJESH (cytoplasmic reactivity) positive patterns reported include reticular/AMA, discrete/GW body-like, polar/golgi-like, cytoplasmic speckled or rods and rings. All positive patterns are reported to endpoint titers (1:2560). Reported patterns may help guide differential diagnosis, although they may not be specific for individual antibodies or diseases. Mitotic staining patterns not reported. Negative results do not necessarily rule out SARD. Performed By: [facility] [address] [place] [address] Water Manager: George Andersen MD, PhD CLIA Number: [id number] Gay Fabian MD LAB BLOOD ORDERABLES Final Result [facility]) [address] [place] [address] * C-reactive protein (12/23/2024 3:29 PM EDT) CRP, Plasma <3.0 <=8.0 mg/L 12/23/2024 3:56 PM EDT [facility] Blood Venous blood specimen / Unknown Venipuncture / Unknown 12/23/2024 3:29 PM EDT 12/23/2024 3:34 PM EDT Narrative [facility] - 12/23/2024 3:56 PM EDT This CRP test is appropriate for assessment of infection, systemic inflammation and/or tissue injury. To assess cardiovascular disease risk order high sensitivity CRP (CRPH). Gay Fabian MD LAB BLOOD ORDERABLES Final Result [facility] [address] [place] [address] * (ABNORMAL) Sed rate, automated (12/23/2024 3:29 PM EDT) Pathologist [facility] Sedimentation Rate 30(H) <20 mm/hr 2024 4:15 PM EDT [facility] Blood Venous blood specimen / Unknown Venipuncture / Unknown 12/23/2024 3:29 PM EDT 12/23/2024 3:33 PM EDT us Gay Fabian MD LAB BLOOD ORDERABLES Final Result [facility] [address] [place] [address] * (ABNORMAL) CBC w/diff (12/23/2024 3:29 PM EDT) Pathologist [facility] WBC Count 5.77 3.70 - 10.30 10*3/uL LAB HEMATOLOGY METHOD 12/23/2024 3:37 PM EDT [facility] RBC Count 5.17 4.60 - 6.10 10*6/uL LAB HEMATOLOGY METHOD 12/23/2024 3:37 PM EDT [facility] HGB 14.3 13.7 - 17.5 g/dL LAB HEMATOLOGY METHOD 12/23/2024 3:37 PM EDT [facility] HCT 43.6 40.0 - 51.0 % LAB HEMATOLOGY METHOD 12/23/2024 3:37 PM EDT [facility] Platelet Count 199 155 - 369 10*3/uL LAB HEMATOLOGY METHOD 12/23/2024 3:37 PM EDT [facility] MCV 84 79 - 98 fL LAB HEMATOLOGY METHOD 12/23/2024 3:37 PM EDT [facility] MCH 27.7 26.0 - 32.0 pg LAB HEMATOLOGY METHOD 12/23/2024 3:37 PM EDT [facility] MCHC 32.8 30.7 - 35.5 g/dL LAB HEMATOLOGY METHOD 12/23/2024 3:37 PM EDT [facility] RDW 15.2(H) 11.5 - 14.5 % LAB HEMATOLOGY METHOD 12/23/2024 3:37 PM EDT [facility] MPV 8.7(L) 8.8 - 12.5 fL LAB HEMATOLOGY METHOD 12/23/2024 3:37 PM EDT [facility] nRBC 0.0 <=0.0 per 100 WBCs LAB HEMATOLOGY METHOD 12/23/2024 3:37 PM EDT [facility] Differential Type Automated LAB HEMATOLOGY METHOD 12/23/2024 3:37 PM EDT [facility] Neutrophils % 39 % LAB HEMATOLOGY METHOD 12/23/2024 3:37 PM EDT [facility] Lymphocytes % 50 % LAB HEMATOLOGY METHOD 12/23/2024 3:37 PM EDT [facility] Monocytes % 8 % LAB HEMATOLOGY METHOD 12/23/2024 3:37 PM EDT [facility] Eosinophils % 2 % LAB HEMATOLOGY METHOD 12/23/2024 3:37 PM EDT [facility] Basophils % 1 % LAB HEMATOLOGY METHOD 12/23/2024 3:37 PM EDT [facility] Immature Granulocytes % 0 % LAB HEMATOLOGY METHOD 12/23/2024 3:37 PM EDT [facility] Neutrophils Absolute 2.27 1.60 - 6.10 10*3/uL LAB HEMATOLOGY METHOD 12/23/2024 3:37 PM EDT [facility] Lymphocytes Absolute 2.93 1.20 - 3.90 10*3/uL LAB HEMATOLOGY METHOD 12/23/2024 3:37 PM EDT [facility] Monocytes Absolute 0.44 0.30 - 0.90 10*3/uL LAB HEMATOLOGY METHOD 12/23/2024 3:37 PM EDT [facility] Eosinophils Absolute 0.09 0.00 - 0.50 10*3/uL LAB HEMATOLOGY METHOD 12/23/2024 3:37 PM EDT [facility] Basophils Absolute 0.03 0.00 - 0.10 10*3/uL LAB HEMATOLOGY METHOD 12/23/2024 3:37 PM EDT [facility] Immature Granulocytes Absolute 0.01 0.00 - 0.06 10*3/uL LAB HEMATOLOGY METHOD 12/23/2024 3:37 PM EDT [facility] Blood Venous blood specimen / Unknown Venipuncture / Unknown 12/23/2024 3:29 PM EDT 12/23/2024 3:33 PM EDT Narrative [facility] - 12/23/2024 3:37 PM EDT Therapeutic decision making should be based on absolute values, rather than percentages. us Gay Fabian MD LAB BLOOD ORDERABLES Final Result [facility] [address] [place] [address] * (ABNORMAL) CMP (12/23/2024 3:29 PM EDT) Glucose, Plasma 130(H) 74 - 99 mg/dL 12/23/2024 3:56 PM EDT [facility] BUN, Plasma 16 8 - 23 mg/dL 12/23/2024 3:56 PM EDT [facility] Creatinine, Plasma 1.19 0.70 - 1.20 mg/dL 12/23/2024 3:56 PM EDT [facility] BUN/Creatinine Ratio 13 12/23/2024 3:56 PM EDT [facility] Sodium, Plasma 137 136 - 145 mmol/L 12/23/2024 3:56 PM EDT [facility] Potassium, Plasma 3.8 3.6 - 4.9 mmol/L 12/23/2024 3:56 PM EDT [facility] Chloride, Plasma 103 97 - 107 mmol/L 12/23/2024 3:56 PM EDT [facility] CO2, Plasma 25 22 - 29 mmol/L 12/23/2024 3:56 PM EDT [facility] Anion Gap 9 6 - 16 mmol/L 12/23/2024 3:56 PM EDT [facility] Total Calcium, Plasma 9.1 8.9 - 10.2 mg/dL 12/23/2024 3:56 PM EDT [facility] Total Protein 7.0 6.3 - 7.9 g/dL 12/23/2024 3:56 PM EDT [facility] Albumin, Plasma 4.1 3.5 - 5.2 g/dL 12/23/2024 3:56 PM EDT [facility] AST, Plasma 19 10 - 50 U/L 12/23/2024 3:56 PM EDT [facility] ALT, Plasma 22 10 - 50 U/L 12/23/2024 3:56 PM EDT [facility] Alkaline Phosphatase, Plasma 35(L) 40 - 115 U/L 12/23/2024 3:56 PM EDT [facility] Total Bilirubin, Plasma 2.4(H) 0.2 - 1.1 mg/dL 12/23/2024 3:56 PM EDT [facility] eGFRcr 69.5 mL/min/1.7 3m*2 12/23/2024 3:56 PM EDT [facility] Comment:Reported eGFRcr in m L/min/1.73m2 is based the CKD-EPI 2020 equation that does not use a race coefficient. Blood Venous blood specimen / Unknown Venipuncture / Unknown 12/23/2024 3:29 PM EDT 12/23/2024 3:34 PM EDT us Gay Fabian MD LAB BLOOD ORDERABLES Final Result [facility] [address] [place] [address] * [facility] ED POCUS PROCDOC (12/23/2024 2:46 PM EDT) Narrative Theodore Roper MD - 12/23/2024 2:46 PM EDT Theodore Roper MD 12/23/2024 4:14 PM POC Ultrasound - Bedside Performed by: Francois Salinas MD Authorized by: Theodore Roper MD Procedure specific details: Ocular Ultrasound A focused ultrasound of the orbit was performed to evaluate for retinal detachment, lens dislocation, vitreous hemorrhage, and other ocular pathology. The ultrasound was performed with the following indications, as noted in the H&P: Vision changes Identified structures: Left eye Findings Exam of the above structures revealed the following findings: Left eye: Retina: Normal Lens: Normal; artificial lens from previous cataract surgery visualized Vitreous body: Anechoic Optic nerve sheath diameter: normal Foreign body: Not visualized Impression: Left eye: Normal ocular ultrasound The images were Saved in enEvolv. The study was technically adequate. 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 documented in this encounter Admitting Diagnoses Diagnosis Visual loss, left eye Unqualified visual loss, one eye documented in this encounter Administered Medications Inactive Administered Medications - up to 3 most recent administrations Medication Order MAR Action Action Date Dose Rate Site amLODIPine (Norvasc) tablet 5 mg 5 mg, Oral, Daily, First dose on Sat12/23/24 at 2000, Until Discontinued, Routine Given 12/25/2024 8:44 AM EDT 5 mg Given 12/24/2024 8:47 AM EDT 5 mg aspirin chewable tablet 81 mg 81 mg, Oral, Daily, First dose on Sat12/24/24 at 0900, Until Discontinued Given 12/25/2024 8:44 AM EDT 81 mg Given 12/24/2024 8:47 AM EDT 81 mg atenolol (Tenormin) tablet 100 mg 100 mg, Oral, 2 times daily, First dose on Sat12/23/24 at 2100, Until Discontinued, Routine Given 12/25/2024 8:45 AM EDT 100 mg Given 12/24/2024 8:35 PM EDT 100 mg Given 12/24/2024 8:48 AM EDT 100 mg cloNIDine (Catapres) tablet 0.1 mg 0.1 mg, Oral, 2 times daily, First dose on Sat12/23/24 at 2100, Until Discontinued, Routine Given 12/25/2024 8:44 AM EDT 0.1 mg Given 12/24/2024 8:35 PM EDT 0.1 mg Given 12/24/2024 8:48 AM EDT 0.1 mg dextrose 10 % (D10W) bolus 125 mL 125 mL, Intravenous, Every 15 min PRN, Starting on Sat12/23/24 at 2000, Until Sat12/25/24 at 1506, Administer over 15 Minutes, Routine, low blood sugar BG 51-89 mg/dL dextrose 10 % (D10W) bolus 250 mL 250 mL, Intravenous, Every 15 min PRN, Starting on Sat12/23/24 at 2000, Until Sat12/25/24 at 1506, Administer over 15 Minutes, Routine, PRN low blood sugar BG =/<50 mg/dL empagliflozin (Jardiance) tablet 25 mg 25 mg, Oral, Daily, First dose on Sat12/24/24 at 0900, Until Discontinued, RoutineIndications:Type 2 Diabetes Mellitus Given 12/25/2024 8:48 AM EDT 25 mg Given 12/24/2024 8:48 AM EDT 25 mg enoxaparin (Lovenox) syringe 40 mg 40 mg, Subcutaneous, Daily, First dose on Sat12/24/24 at 0900, Until Discontinued, Routine Given 12/25/2024 8:45 AM EDT 40 mg Left Lower Abdomen Given 12/24/2024 8:48 AM EDT 40 mg Le ft Lower Abdomen gadobutrol (Gadavist) injection 11.3 mL 11.3 mL (0.1 mL/kg 113 kg), Intravenous, Once in imaging, 1 dose, Starting on Sat12/24/24 at 0213, Until Sat12/24/24 at 0229, Routine, Imaging Protocol Orders Given 12/24/2024 2:29 AM EDT 11.3 mL glucagon (human recombinant) injection 1 mg 1 mg, Intramuscular, Every 15 min PRN, Starting on Sat12/23/24 at 2000, Until Sat12/25/24 at 1506, Routine, low blood sugar per Hypoglycemia Prevention and Treatment protocol glucose (Glutose) 40 % oral gel 15-30 grams of glucose 15-30 grams of glucose, Sublingual, Every 15 min PRN, Starting on Sat12/23/24 at 2000, Until Sat12/25/24 at 1506, Routine, low blood sugar, per Hypoglycemia Prevention and Treatment protocol hydroCHLOROthiazide (HYDRODiuril) tablet 25 mg 25 mg, Oral, Daily, First dose on Sat12/23/24 at 2000, Until Discontinued, Routine Given 12/25/2024 8:45 AM EDT 25 mg Given 12/24/2024 8:48 AM EDT 25 mg insulin lispro (Admelog) 100 units/mL injection - Correction - Standard Dose 0-5 Units, Subcutaneous, 3 times daily with meals, First dose on Sat12/24/24 at 0830, Until Discontinued, Routine Given 12/24/2024 4:45 PM EDT 1 Units Left Upper Arm (Back ) Given 12/24/2024 12:08 PM EDT 1 Units R ight Upper Arm (Back) insulin lispro (Admelog) injection - Correction - Nighttime Dose 0-3 Units, Subcutaneous, 2 times nightly (2100 & 0300), First dose on Sat12/23/24 at 2100, Until Discontinued, Routine iohexol (OMNIPaque) 350 MG/ML injection 60 mL 60 mL, Intravenous, Once in imaging, 1 dose, Starting on Sat12/23/24 at 1536, Until Sat12/23/24 at 1655, Routine, Imaging Protocol Orders Given 12/23/2024 4:55 PM EDT 60 mL losartan (Cozaar) tablet 100 mg 100 mg, Oral, Daily, First dose on Sat12/23/24 at 2000, Until Discontinued Given 12/25/2024 8:45 AM EDT 100 mg Given 12/24/2024 8:47 AM EDT 100 mg ocular lubricant (Artificial Tears) ophthalmic solution 1 drop 1 drop, Both Eyes, As needed, Starting on Sat12/24/24 at 1524, Until Sat12/25/24 at 1506, Routine, irritation Given 12/24/2024 8:43 PM EDT 1 drop pantoprazole (Protonix) EC tablet 40 mg 40 mg, Oral, Daily before breakfast, First dose on Sat12/24/24 at 0730, Until Discontinued Given 12/25/2024 8:30 AM EDT 40 mg Given 12/24/2024 8:30 AM EDT 40 mg potassium chloride (Klor-Con) packet 20 mEq 20 mEq, Oral, Once, 1 dose, On Sat12/24/24 at 1615, Routine Given 12/24/2024 4:12 PM EDT 20 mEq potassium chloride CR (Klor-Con) ER tablet 20 mEq 20 mEq, Oral, Once, 1 dose, On Sat12/25/24 at 1115, Routine Given 12/25/2024 12:15 PM EDT 20 mEq potassium chloride CR (Klor-Con) ER tablet 30 mEq 30 mEq, Oral, Once, 1 dose, On Sat12/25/24 at 0615, Routine Given 12/25/2024 6:19 AM EDT 30 mEq potassium chloride CR (Klor-Con) ER tablet 40 mEq 40 mEq, Oral, Once, 1 dose, On Sat12/25/24 at 0915, Routine Given 12/25/2024 8:44 AM EDT 40 mEq sodium chloride 0.9 % flush 10 mL 10 mL, Intravenous, Every 12 hours, First dose on Sat12/23/24 at 1925, Until Discontinued, Routine Given 12/25/2024 8:45 AM EDT 10 mL Given 12/24/2024 7:28 PM EDT 10 mL Given 12/24/2024 8:46 AM EDT 10 mL sodium chloride 0.9 % flush 10 mL 10 mL, Intravenous, As needed, Starting on Sat12/23/24 at 1917, Until Sat12/25/24 at 1506, Routine, line care tamsulosin (Flomax) 24 hr capsule 0.4 mg 0.4 mg, Oral, Nightly, First dose on Sat12/23/24 at 2100, Until Discontinued, Routine Given 12/24/2024 8:35 PM E DT 0.4 mg Given 12/23/2024 8:37 PM EDT 0.4 mg documented in this encounter Active and Recently Administered Medications Times are shown in EDT. Scheduled Medication Order 12/23/2024 12/24/2024 12/25/2024 amLODIPine (Norvasc) tablet 5 mg 5 mg, Oral, Daily, First dose on Sat12/23/24 at 2000, Until Discontinued, Routine 2032 (Not Given - Provider: Shanae Bloom RN - Reason: Patient/family refused - Comment: already took this am) 0847 (Given - Provider: Radha Carcamo RN) 0844 (Given - Provider: Radha Carcamo, KARLA) aspirin chewable tablet 81 mg 81 mg, Oral, Daily, First dose on Sat12/24/24 at 0900, Until Discontinued 08 (Given - Provider: Radha Carcamo RN) 0844 (Given - Provider: Radha Carcamo, KARLA) atenolol (Tenormin) tablet 100 mg 100 mg, Oral, 2 times daily, First dose on Sat12/23/24 at 2100, Until Discontinued, Routine 2031 (Given - Provider: Shanae Bloom RN) 0848 (Given - Provider: Radha Carcamo RN)2034 (Given - Provider: Joseph Haro RN) 0845 (Given - Provider: Radha Carcamo RN) cloNIDine (Catapres) tablet 0.1 mg 0.1 mg, Oral, 2 times daily, First dose on Sat12/23/24 at 2100, Until Discontinued, Routine 2030 (Given - Provider: Shanae Bloom RN) 0848 (Given - Provider: Radha Carcamo RN)2034 (Given - Provider: Joseph Haro RN) 0844 (Given - Provider: Radha Carcamo RN) empagliflozin (Jardiance) tablet 25 mg 25 mg, Oral, Daily, First dose on Sat12/24/24 at 0900, Until Discontinued, Routine 0848 (Given - Provider: Radha Carcamo RN) 0848 (Given - Provider: Radha Carcamo RN) enoxaparin (Lovenox) syringe 40 mg 40 mg, Subcutaneous, Daily, First dose on Sat12/24/24 at 0900, Until Discontinued, Routine 0848 (Given - Provider: Radha Carcamo RN) 0845 (Given - Provider: Radha Carcamo RN) gadobutrol (Gadavist) injection 11.3 mL (COMPLETED) 11.3 mL (0.1 mL/kg 113 kg), Intravenous, Once in imaging, 1 dose, Starting on Sat12/24/24 at 0213, Until Sat12/24/24 at 022, Routine, Imaging Protocol Orders 022 (Given - Provider: Silverio Penn) hydroCHLOROthiazide (HYDRODiuril) tablet 25 mg 25 mg, Oral, Daily, First dose on Sat12/23/24 at 2000, Until Discontinued, Routine 2033 (Not Given - Provider: Shanae Bloom RN - Reason: Patient/family refused) 0848 (Given - Provider: Radha Carcamo RN) 0845 (Given - Provider: Radha Carcamo RN) insulin lispro (Admelog) 100 units/mL injection - Correction - Standard Dose 0-5 Units, Subcutaneous, 3 times daily with meals, First dose on Sat12/24/24 at 0830, Until Discontinued, Routine 0839 (Not Given - Provider: Radha Carcamo RN - Reason: Order parameters not met - Comment: [phone] (Given - Provider: Radha Carcamo RN)1645 (Given - Provider: Radha Carcamo RN) 0845 (Not Given - Provider: Radha Carcamo RN - Reason: Order parameters not met - Comment: [phone] (Not Given - Provider: Radha Carcamo RN - Reason: Patient/family refused) insulin lispro (Admelog) injection - Correction - Nighttime Dose 0-3 Units, Subcutaneous, 2 times nightly (2100 & 0300), First dose on Sat12/23/24 at 2100, Until Discontinued, Routine 2002 (Not Given - Provider: Shanae Bloom RN - Reason: Order parameters not met) 224 (Not Given - Provider: Gianni Faith RN - Reason: Order parameters not met)2037 (Not Given - Provider: Joseph Haro RN - Reason: Order parameters not met - Comment: BS) 0312 (Not Given - Provider: Joseph Haro RN - Reason: Order parameters not met) iohexol (OMNIPaque) 350 MG/ML injection 60 mL (COMPLETED) 60 mL, Intravenous, Once in imaging, 1 dose, Starting on Sat12/23/24 at 1536, Until Sat12/23/24 at 1655, Routine, Imaging Protocol Orders 1655 (Given - Provider: Flaquita Eldridge) losartan (Cozaar) tablet 100 mg 100 mg, Oral, Daily, First dose on Sat12/23/24 at 2000, Until Discontinued 2033 (Not Given - Provider: Shanae Bloom RN - Reason: Patient/family refused - Comment: already took this am) 0847 (Given - Provider: Radha Carcamo RN) 0845 (Given - Provider: Radha Carcamo RN) pantoprazole (Protonix) EC tablet 40 mg 40 mg, Oral, Daily before breakfast, First dose on Lesli 12/24/24 at 0730, Until Discontinued 829 (Given - Provider: Radha Carcamo RN) 0830 (Given - Provider: Radha Carcamo RN) potassium chloride (Klor-Con) packet 20 mEq (COMPLETED) 20 mEq, Oral, Once, 1 dose, On Sat12/24/24 at 1615, Routine 1612 (Given - Provider: Sonja Peters LPN) potassium chloride CR (Klor-Con) ER tablet 20 mEq (COMPLETED)(Linked Group 1) 20 mEq, Oral, Once, 1 dose, On Sat12/25/24 at 1115, Routine 1215 (Given - Provider: Radha Carcamo RN) potassium chloride CR (Klor-Con) ER tablet 30 mEq (COMPLETED) 30 mEq, Oral, Once, 1 dose, On Sat12/25/24 at 0615, Routine 0619 (Given - Provider: Joseph Haro RN) potassium chloride CR (Klor-Con) ER tablet 40 mEq (COMPLETED)(Linked Group 1) 40 mEq, Oral, Once, 1 dose, On Sat12/25/24 at 0915, Routine 0844 (Given - Provider: Radha Carcamo RN) sodium chloride 0.9 % flush 10 mL(Linked Group 2) 10 mL, Intravenous, Every 12 hours, First dose on Sat12/23/24 at 1925, Until Discontinued, Routine 1928 (Given - Provider: Orquidea Shoemaker) 0846 (Given - Provider: Radha Carcamo, KARLA)1927 (Given - Provider: Joseph Haro, KARLA) 0845 (Given - Provider: Radha Carcamo RN) tamsulosin (Flomax) 24 hr capsule 0.4 mg 0.4 mg, Oral, Nightly, First dose on Sat12/23/24 at 2100, Until Discontinued, Routine 2036 (Given - Provider: Shanae Bloom RN) 2034 (Given - Provider: Joseph Haro RN) PRN Medication Order 12/23/2024 12/24/2024 12/25/2024 dextrose 10 % (D10W) bolus 125 mL(Linked Group 3) 125 mL, Intravenous, Every 15 min PRN, Starting on Sat12/23/24 at 2000, Until Sat12/25/24 at 1506, Administer over 15 Minutes, Routine, low blood sugar BG 51-89 mg/dL dextrose 10 % (D10W) bolus 250 mL(Linked Group 3) 250 mL, Intravenous, Every 15 min PRN, Starting on Sat12/23/24 at 2000, Until Sat12/25/24 at 1506, Administer over 15 Minutes, Routine, PRN low blood sugar BG =/<50 mg/dL glucagon (human recombinant) injection 1 mg(Linked Group 3) 1 mg, Intramuscular, Every 15 min PRN, Starting on Sat12/23/24 at 2000, Until Sat12/25/24 at 1506, Routine, low blood sugar per Hypoglycemia Prevention and Treatment protocol glucose (Glutose) 40 % oral gel 15-30 grams of glucose(Linked Group 3) 15-30 grams of glucose, Sublingual, Every 15 min PRN, Starting on Sat12/23/24 at 2000, Until Sat12/25/24 at 1506, Routine, low blood sugar, per Hypoglycemia Prevention and Treatment protocol ocular lubricant (Artificial Tears) ophthalmic solution 1 drop 1 drop, Both Eyes, As needed, Starting on Lesli 12/24/24 at 1524, Until Sat12/25/24 at 1506, Routine, irritation 2042 (Given - Provider: Joseph Haro RN) sodium chloride 0.9 % flush 10 mL(Linked Group 2) 10 mL, Intravenous, As needed, Starting on Sat12/23/24 at 1917, Until Sat12/25/24 at 1506, Routine, line care Linked Groups Order Group 1: potassium chloride CR (Klor-Con) ER tablet 40 mEq (COMPLETED)Jump to med 40 mEq, Oral, Once, 1 dose, On Sat12/25/24 at 0915, Routine Followed by potassium chloride CR (Klor-Con) ER tablet 20 mEq (COMPLETED)Jump to med 20 mEq, Oral, Once, 1 dose, On Sat12/25/24 at 1115, Routine Group 2: Insert peripheral IV (COMPLETED) Once, On Sat12/23/24 at 191, For 1 occurrence And Saline lock IV (COMPLETED) Once, On Sat12/23/24 at 191, For 1 occurrence And sodium chloride 0.9 % flush 10 mLJump to med 10 mL, Intravenous, Every 12 hours, First dose on Sat12/23/24 at 1925, Until Discontinued, Routine And sodium chloride 0.9 % flush 10 mLJump to med 10 mL, Intravenous, As needed, Starting on Sat12/23/24 at 191, Until Sat12/25/24 at 1506, Routine, line care Group 3: glucose (Glutose) 40 % oral gel 15-30 grams of glucoseJump to med 15-30 grams of glucose, Sublingual, Every 15 min PRN, Starting on Sat12/23/24 at 2000, Until Sat12/25/24 at 1506, Routine, low blood sugar, per Hypoglycemia Prevention and Treatment protocol Or dextrose 10 % (D10W) bolus 125 mLJump to med 125 mL, Intravenous, Every 15 min PRN, Starting on Sat12/23/24 at 2000, Until Sat12/25/24 at 1506, Administer over 15 Minutes, Routine, low blood sugar BG 51-89 mg/dL Or dextrose 10 % (D10W) bolus 250 mLJump to med 250 mL, Intravenous, Every 15 min PRN, Starting on Sat12/23/24 at 2000, Until Sat12/25/24 at 1506, Administer over 15 Minutes, Routine, PRN low blood sugar BG =/<50 mg/dL Or glucagon (human recombinant) injection 1 mgJump to med 1 mg, Intramuscular, Every 15 min PRN, Starting on Sat12/23/24 at 2001, Until Sat12/25/24 at 1506, Routine, low blood sugar per Hypoglycemia Prevention and Treatment protocol documented in this encounter Additional Health Concerns Assessment Noted Time PHQ-9 Depression Total Score: 0 08/10/19 10:44 AM EST A fall risk assessment has been complete d for the patient 12/01/2024 10:05 AM EDT A Body Mass Index follow-up plan has been documented for the patient 12/25/2024 12:42 PM EDT documented as of this encounter Care Teams Machine Stoppage Frequency Checker Relationship Specialty Start Date End Date Swathi Patino, [employer] [address] [place] [address] PCP - General 10/28/20 documented as of this encounter
[2025-02-03] VITALS (11 sets, daily range): BP systolic 113–129; BP diastolic 56–81; PULSE 63–85; RESP 18–20; TEMP 36.6; O2SAT 97–98
--- OUTSIDE RECORDS SUMMARY | 2025-02-03 08:52 | XMS_ITS | Encounter Summary ---
Author Organization Healthcare Address [address] [place] [address] Care Team Providers Care Yard Rigger Name Role Phone Swathi Patino SENIOR LEAD DEVELOPER Primary Care Provider [phone] Encounter Details Date Type Department Care Team (Late Contact Info) Description 12/07/2020 Lab Requisition [facility] [address] [place] [address] Red Sue, DPM [address] [place] [address] Cellulitis of right lower limb [...] Description 03/24/2025 10:45 AM EDT Office Visit [facility] [address] [place] [phone] Nadia Baxterkarasi, MD [address] [place] [address] 06/01/2025 10:20 AM EST [facility] Visit [facility] [address] [place] [address] Cristina Gaffney APRN [address] [place] [address] documented as of this encounter Procedures Procedure Name Priority Date/Time Associated Diagnosis Comments ROUTINE CULTURE AND GRAM STAIN Routine 12/06/2020 10:00 AM EDT Cellulitis of right lower limb documented in this encounter Results * Routine Culture and Gram Stain (12/06/2020 10:00 AM EDT) Culture No growth at day 2 2020 10:37 AM EDT [facility] Gram Stain Result Few Polymorphonuclear leukocytes 12/08/2020 10:37 AM EDT [facility] Gram Stain Result No organisms seen 12/08/2020 10:37 AM EDT [facility] Swab 12/06/2020 10:0 0 AM EDT 12/07/2020 9:10 AM EDT Red Sue DPM LAB MICROBIOLOGY - GENERAL ORD ERABLES Final Result [facility] [address] [place] [address] documented in this encounter Visit Diagnoses Diagnosis Cellulitis of right lower limb documented in this encounter Additional Health Concerns Assessment Noted Time PHQ-9 Depression Total Score: 5 11/24/19 21 8:22 AM EDT A fall risk assessment has been complete d for the patient 11/23/2020 8:24 AM EDT documented as of this encounter Care Teams Yard Rigger Relationship Specialty Start Date End Date Swathi Patino APRN [address] [place] [address] PCP - General 10/28/20 documented as of this encounter
--- OUTSIDE RECORDS SUMMARY | 2025-02-03 08:52 | XMS_ITS | Encounter Summary ---
Author Organization Healthcare Address [address] [place] [address] Care Team Providers Care Double End Tenoner Setter Name Role Phone Swathi Patino JUAN Primary Care Provider [phone] Reason for Visit * Reason Comments Med Refill Encounter Details Date Type Department Care Team (Late st Contact Info) Description 08/10/2024 Refill [facility] [address] [place] [address] Boris Macdonald PA [address] [facility] [address] [place] [address] Contact with and (suspected) exposure to human [...] Description 03/24/2025 10:45 AM EDT Office Visit [facility] [address] [place] [address] Paloma Baxter MD [address] [place] [address] 06/01/2025 10:20 AM EST Office Visit [facility] [address] [place] [address] Cristina Gaffney APRN [address] [place] [address] documented as of this encounter [...] documented as of this encounter Care Teams Double End Tenoner Setter Relationship Specialty Start Date End Date Swathi Patino, JUAN [address] [place] [address] PCP - General 10/28/20 documented as of this encounter
--- OUTSIDE RECORDS SUMMARY | 2025-02-03 08:52 | XMS_ITS ---
Author Organization [facility] Address [address] [place] [address] Care Team Providers Care Volunteer Services Manager Name Role Phone Swathi Patino APRN Primary Care Provider [phone] PrEP Status:Active (Active) Start date:02/06/2024 Enrollment date:02/06/2024 Continued Care and Services Coordination
--- OUTSIDE RECORDS SUMMARY | 2025-02-03 08:53 | XMS_ITS | Encounter Summary ---
Author Organization Healthcare Address [address] [place] [address] Care Team Providers Care Tying Machine Operator Name Role Phone Swathi Patino JUAN Primary Care Provider [phone] Encounter Details Date Type Department Care Team (Late st Contact Info) Description 12/01/2024 Telephone [facility] [address] [place] [address] George Clayton, Pharm[place] [address] Social History Tobacco Use Types Packs/Day Years [...] answer 12/25/2024 How often do you attend chur or mandaen services? Patient unable to answer 12/25/2024 Do you belong to any clubs o r organizations such as islam groups, unions, fraternal or athletic groups, or [...] and heating? Patient unable to answer 12/25/2024 [facility] - Occupational [...] any time in the past 12 m [facility], were you homeless or living in a custodial (including now)? Patient unable to answer 12/25/2024 [...] Patient unable to answer 12/25/2024 2:31 PM Kyrie Gibbs RN Q3: How often do you have six or more drinks on one occasion? Patient unable to answer 12/25/2024 2:31 PM JUANT Kyrie Argueta RN * Over the past 2 weeks, how often have you been bothered by any of the following problems? Question Answer Date of Assessment Author Little interest or pleasure in doing things Not at all 12/01/2024 10:05 AM EDT Barb Palencia Feeling down, depressed, or hopeless Not at all 12/01/2024 10:05 AM EDT Barb Palencia Patient Health Questionnaire -2 Score 0 12/01/2024 10:05 AM EDT Barb Palencia * Calculated C-SSRS Risk Score (Lifetime/Recent) Answer [...] Shoemaker RN documented as of this encounter Miscellaneous Notes [...] Description 03/24/2025 10:45 AM EDT Office Visit [facility] [address] [place] [address] Paloma Baxter MD [address] [place] [address] 06/01/2025 10:20 AM EST [facility] [address] [place] [address] Cristina Gaffney, PHARMACEUTICAL ASSISTANT [address] [place] [address] documented as of this encounter Visit Diagnoses [...] documented as of this encounter Care Teams Tying Machine Operator Relationship Specialty Start Date End Date Swathi Patino, PHARMACEUTICAL ASSISTANT [address] [place], [place] [id number] PCP - General 10/28/20 documented as of this encounter
--- OUTSIDE RECORDS SUMMARY | 2025-02-03 08:53 | XMS_ITS | Encounter Summary ---
Author Organization Healthcare Address [address] [place] [address] Care Team Providers Care Lieutenant Shift Supervisor Name Role Phone Swathi Patino JUAN Primary Care Provider [phone] Encounter Details Date Type Department Care Team (Late st Contact Info) Description 01/04/2025 [facility] [address] [place] [address] Paloma Baxter MD [address] [place] [address] Social History Tobacco Use Types Packs/Day Years [...] How often do you attend chur or catholic services? Patient unable to answer 12/25/2024 Do you belong to any clubs o r organizations such as restoration groups, unions, fraternal or athletic groups, or [...] and heating? Patient unable to answer 12/25/2024 [facility] - Occupational Stress Questionnaire Answer Date [...] any time in the past 12 m [facility], were you homeless or living in a residential (including now)? Patient unable to answer 12/25/2024 Utilities Answer Date Recorded In the past 12 months has th e [employer], gas, oil, or water [email or web address] threatened to shut off services in your [...] encounter Miscellaneous Notes * Telephone Encounter - Heaven Adam - 01/04/2025 11:50 AM EDT Spoke with patient who had questions in regards to his outpatient referrals from his ED stay. Advised patient to see his PCP within 2 weeks per referral from Dr. Bud Sue as well as the sleep medicine clinic. Patient is on priority waitlist for neuro ophth and will call back to check for any sooner appointments. Patient agreed with plan. Message forwarded to authorizing provider to discuss imaging. * Telephone Encounter - Luz Elena Campos - 01/04/2025 11:34 AM EDT Clinical Concern/Question Reason for Call: patient calling stated about ten days ago he was in the ED and has not heard back about any test or results, and was advised he needs to be seen by [facility] , would like call back stated it is for the optic nerve Best contact number: Other: [phone] Optimal time of day to reach caller: ANYTIME Additional comments/information from caller: None Note: Please do not reply to this message. Follow-up communication and further actions as a result of this message need to be communicated with the patient directly, if the patient is not active onMyChart. If the patient is active on MyChart, they will receive notification of the communication/outcome via [employer]. documented in this encounter Plan of Treatment Upcoming Encounters Date Type Department Care Team (Late st Contact Info) Description 03/24/2025 10:45 AM EDT Office Visit [facility] [address] [place] [address] Paloma Baxter MD [address] [place] [address] 06/01/2025 10:20 AM EST Office Visit [facility] [address] [place] [address] Cristina Gaffney, JUAN [address] [place] [address] documented as of this encounter [...] documented as of this encounter Care Teams Lieutenant Shift Supervisor Relationship Specialty Start Date End Date Swathi Patino APRN [facility] [place] [address] PCP - General 10/28/20 documented as of this encounter
--- OUTSIDE RECORDS SUMMARY | 2025-02-03 08:53 | XMS_ITS | Encounter Summary ---
Author Organization Healthcare Address [address] [place] [address] Care Team Providers Care Doll Maker Name Role Phone Swathi Patino RAYON WINDER Primary Care Provider [phone] Encounter Details Date Type Department Care Team [...] No Risk Indicated 12/23/2024 3:42 PM EDT Victorino brown, Orquidea Ann RN * Question Answer Date of Assessment Author 1. Wish to be (Past 1 Month) No 12/23/2024 3:42 PM EDT Robert Shoemaker RN 2. Non-Specific Active Suicidal Thoughts (Past 1 Month) No 12/23/2024 3:42 PM EDT Robert Shoemaker RN 6. Suicidal Behavior (Lifetime) No 12/23/2024 3:42 PM EDT Robert Shoemaker RN documented as of this encounter Plan of Treatment Upcoming Encounters Date Type Department Care Team (Late st Contact Info) Description 03/24/2025 10:45 AM EDT Office Visit [facility] [address] [place] [address] Paloma Baxter MD [address] [place] [address] 06/01/2025 10:20 AM EST Office Visit [facility] [address] [place] [address] Cristina Gaffney APRN [address] [place] [address] documented as of this encounter [...] documented as of this encounter Care Teams Doll Maker Relationship Specialty Start Date End Date Swathi Patino APRN [address] [place], [place] [address] PCP - General 10/28/20 documented as of this encounter
--- OUTSIDE RECORDS SUMMARY | 2025-02-03 08:53 | XMS_ITS | Encounter Summary ---
Author Organization Healthcare Address [address] [place] [address] Care Team Providers Care Twister In Name Role Phone Swathi Patino JUAN Primary Care Provider [phone] Encounter Details Date Type Department Care Team (Late st Contact Info) Description 12/02/2024 Orders Only [facility] [address] [place] [address] Provider, [place] [address] [place] [address] Social History Tobacco Use Types [...] Description 03/24/2025 10:45 AM EDT Office Visit [facility] [address] [place] [address] Paloma Baxter MD [address] [place] [address] 06/01/2025 10:20 AM EST Office Visit [facility] [address] [place] [address] Cristina Gaffney, JUAN [address] [place] [address] documented as of this encounter Procedures Procedure Name Priority Date/Time Associated Diagnosis Comments COMPLETE METABOLIC PROFILE (CMP) Routine 12/02/2024 4:57 PM EDT CBC WITH AUTO DIFFERENTIAL Routine 12/02/2024 4:57 PM EDT C-REACTIVE PROTEIN, PLASMA Routine 12/02/2024 4:57 PM EDT documented in this encounter Results * COMPLETE METABOLIC PROFILE (CMP) (12/02/2024 4:57 PM EDT) [facility] Provider LAB BLOOD ORDERABLES Final R esult * C-Reactive Protein, Plasma (12/02/2024 4:57 PM EDT) Blood Venous blood specimen / Unknown [facility] Provider LAB BLOOD ORDERABLES Final R esult * CBC and Differential (12/02/2024 4:57 PM EDT) Blood Venous blood specimen / Unknown [facility] Provider LAB BLOOD ORDERABLES Final R esult documented in this encounter Visit Diagnoses Not [...] documented as of this encounter Care Teams Twister In Relationship Specialty Start Date End Date Swathi Patino APRN [address] [place] [address] PCP - General 10/28/20 documented as of this encounter
--- OUTSIDE RECORDS SUMMARY | 2025-02-03 08:53 | XMS_ITS | Encounter Summary ---
Author Organization [facility] Address [address] [place] [address] Care Team Providers Care Ore Crushing Dust Collector Name Role Phone Swathi Patino UJAN Primary Care Provider [phone] Encounter Details Date Type Department Care Team [...] often do you attend [facility] or denominational services? Patient unable to answer 12/25/2024 Do you belong to any clubs o r organizations such as synagogue groups, unions, fraternal or athletic groups, or [...] and heating? Patient unable to answer 12/25/2024 [facility] Occupat ional Health - Occupational Stress [...] any time in the past 12 m [facility], were you homeless or living in a long-term (including now)? Patient unable to answer 12/25/2024 [...] Description 03/24/2025 10:45 AM EDT Office Visit [facility] [address] [place] [address] Paloma Baxter MD [address] [place] [address] 06/01/2025 10:20 AM EST Office Visit [facility] [address] [place] [address] Cristina Gaffney APRN [address] [place] [address] documented as of this encounter [...] documented as of this encounter Care Teams Ore Crushing Dust Collector Relationship Specialty Start Date End Date Swathi Patino APRN [address] [place] [address] PCP - General 10/28/20 documented as of this encounter
--- OUTSIDE RECORDS SUMMARY | 2025-02-03 08:53 | XMS_ITS | Encounter Summary ---
Author Organization [facility] Address [address] [place] [address] Care Team Providers Care General Office Dispatcher Name Role Phone Swathi Patino JUAN Primary Care Provider [phone] Encounter Details Date Type Department Care Team [...] answer 12/25/2024 How often do you attend [facility] or latter day services? Patient unable to answer 12/25/2024 Do you belong to any clubs o r organizations such as anabaptism groups, unions, fraternal or athletic groups, or [...] and heating? Patient unable to answer 12/25/2024 [facility] Occupat ional Health - Occupational [...] any time in the past 12 m [facility], were you homeless or living in a [facility] (including now)? Patient unable to answer 12/25/2024 [...] 12/25/2024 2:31 PM EDT Kyrie Argueta RN documented as of this encounter Plan of Treatment Upcoming Encounters Date Type Department Care Team (Late st Contact Info) Description 03/24/2025 10:45 AM EDT Office Visit [facility] [address] [place] [address] Paloma Baxter MD [address] [place] [address] 06/01/2025 10:20 AM EST Office Visit [facility] [address] [place] [address] Cristina Gaffney, JUAN [address] [facility] [address] [place] [address] documented as of this encounter [...] documented as of this encounter Care Teams General Office Dispatcher Relationship Specialty Start Date End Date Swathi Patino, [employer] [address] [place], [place] [phone] PCP - General 10/28/20 documented as of this encounter
--- OUTSIDE RECORDS SUMMARY | 2025-02-03 08:54 | XMS_ITS | Clinical Summary ---
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
--- OUTSIDE RECORDS SUMMARY | 2025-02-03 08:54 | XMS_ITS | Clinical Summary ---
Author Organization [facility] Address [address] [place] [address] Care Team Providers Care Sunglass Clip Attacher Name Role Phone Swathi Patino JUAN Primary Care Provider [phone] Allergies No known active allergies Medications amLODIPine (Norvasc) 5 MG tablet Take 1 tablet by mouth daily. Active atenolol (Tenormin) 100 MG tablet Take 1 tablet by mouth 2 times a day. Active cloNIDine (Catapres) 0.1 MG tablet Take 1 tablet by mouth 2 times a day. Active glyBURIDE (Diabeta) 5 MG tablet Take 1 tablet by mouth 2 times a day. Active hydroCHLOROthia zide (HYDRODiuril) 25 MG tablet Take 1 tablet [...] IV every 35 days 12 each 05/12/2024 Active Active Problems Problem Noted Date Diagnosed [...] Encounters Date Type Department Care Team Description 01/04/2025 Telephone [facility] [address] [place] [phone] Paloma Baxter MD 12/25/2024 Travel 12/24/2024 Travel 12/23/2024 3:31 PM EDT - 12/25/2024 1:06 PM EDT Hospital Encounter [facility] H Inpatient [address] [place] [address] Theodore Roper MD King, Richard D, MD Visual loss, left eye (Primary Dx); DAVID (obstructive sleep apnea); Diabetes mellitus type 2 without retinopathy ([facility]); Hypertension, unspecified type; 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 Discharge Disposition: Home or Self Care 12/23/2024 Travel 12/02/2024 Orders Only [facility] [address], [address] [place] [phone] Provider, Historical 12/01/2024 10:20 AM EDT Office Visit [facility] [address], [address] [place] [phone] Cristina Gaffney, PIPE COVERING MOLDER Psoriatic arthritis ([facility]) (Primary Dx); High risk medication use 12/01/2024 Telephone [facility] [address], [address] [place] [phone] George Clayton, PharmD 12/01/2024 Travel 11/25/2024 Travel 11/19/[address] [phone] Mariola Perry 11/12/[address] [phone] Boris Macdonald PA 11/12/[address] [phone] Mariola Perry 11/11/[address] [phone] Boris Macdonald PA from Last 3 Months Immunizations Immunization Administration Dates Next Due Hep A, Adult 05/08/2024 Hep B, adult 06/18/1996,01/15/1996 Influenza, injectable, MDCK, preservative free, quadrivalent 03/04/2020 Influenza, injectable, quadr ivalent, preservative free 04/08/2023,04/23/2022,04/04/2021 Influenza, seasonal, injectable 04/06/2024 [employer] COVID-19 Vac cine (Purple Cap) 12+ 04/04/2021 [...] answer 12/25/2024 How often do you attend [facility] or [facility] services? Patient unable to answer 12/25/2024 Do you belong to any clubs o r organizations such as congregational groups, unions, fraternal or athletic groups, or [...] and heating? Patient unable to answer 12/25/2024 [facility] - Occupational [...] any time in the past 12 m [facility], were you homeless or living in [...] Description 03/24/2025 10:45 AM EDT Office Visit [facility] [address] [place] [address] Paloma Baxter MD [address] [place] [phone] 06/01/2025 10:20 AM EST Office Visit [facility] [address], [address] [place] [phone] Gulshan Cristina M, PIPE COVERING MOLDER [address] [place] [phone] Health Maintenance Due Date Last Done Comments [facility]-Medicare Annual Wellness (AWV) 1965 [facility]-Infant/Child/Adol SDOH Screenings 1965 Diabetes: Dental Exam 1973 [facility]-Pneumococcal Vaccine: 50+ Years (1 of 2 - PCV) 1982 [facility]-Zoster Vaccines (1 of 2) 1982 CT Colonography 01/26/2008 Colonoscopy 01/26/2008 FIT-DNA 01/26/2008 FIT 01/26/2008 FOBT 01/26/2008 Sigmoidoscopy 01/26/2008 [facility]-Colorectal Cancer Screening 01/26/2008 [facility]-RSV Vaccine: 60+ Years or (1 - Risk 60-74 years 1-dose series) 2023 [id number] Vaccine (7 - Pfizer risk 2023- season) [...] this topic Medical Devices Implanted Type Area Color Matcher Device Identifier Shelf Expiration Date Model / Serial / Lot K-Wire Dual Trocar 045 X 152mm - [id number] - [id number] Implanted:Qty: 1 on 11/30/2020 by Red Sue DPM at [facility] Right: Foot [id number] 09/15/2024 1600-645 / [id number] / K-Wire Dual Trocar 045 X 152mm - [id number] - [id number] Implanted:Qty: 2 on 11/30/2020 by Red Sue DPM at [facility] Right: [id number] 09/05/2024 1600-645 / [id number] / Procedures Procedure Name Priority Date/Time Associated [...] PANEL, PLASMA STAT 12/23/2024 3:29 PM EDT [facility] ED POCUS PROCDOC Routine 12/23/2024 2:46 PM EDT COMPLETE METABOLIC PROFILE (CMP) Routine 12/02/2024 4:57 PM EDT C-REACTIVE PROTEIN, PLASMA Routine 12/02/2024 4:57 PM EDT CBC WITH AUTO DIFFERENTIAL Routine 12/02/2024 4:57 PM EDT HEPATITIS C ANTIBODY W/REFLEX TO HCV QUANT PCR Routine 02/06/2024 1:55 PM EDT Contact with and (suspected) exposure to human immunodeficiency virus (hiv) from Last 3 Months or Most Recently Relevant to Health Maintenance Results * (ABNORMAL) POCT glucose meter (12/25/2024 12:12 PM EDT) Only the most recent of8 resultswithin the time period is included. [facility] POCT Glucose 175(H) 74 - 99 mg/dL 12/25/2024 12:14 PM EDT [facility] Comment:Accuracy of a glucos e result [...] for testing. Comment 12/25/2024 12:14 PM EDT [facility] Welder Fitter Helper ID Bhavana Barahona 12/25/2024 12:14 PM EDT [facility] Device ID [id number] 12/25/2024 12:14 PM EDT [facility] Specimen Type POC Capillary 12/25/2024 12:14 PM EDT [facility] Blood Capillary blood specimen / Unknown 12/25/2024 12:12 PM EDT 12/25/2024 12:14 PM EDT us Bud Sue MD LAB POINT OF CARE TE ST DOCKED DEVICE UNSOLICITED RESULTS Final Result [facility] [address] [place] [address] * VAS US Carotid Duplex Bilateral (12/25/2024 [...] by Evan Fernandez MD, FACS, FSVS, RPVI on7/04/2025 2:33 PM us Bud Sue MD CV VASCULAR PROCEDURES Final R esult * (ABNORMAL) Lipid panel (12/25/2024 4:11 AM EDT) Cholesterol, Plasma 138 <200 mg/dL 12/25/2024 8:53 AM EDT [facility] Comment: Cholesterol Reference Range (age >17 years): Desirable <200 mg/dL Borderline 200 to 239 mg/dL Undesirable >239 mg/dL HDL 39(L) >=40 mg/dL 12/25/2024 8:53 AM EDT [facility] Comment: HDL Cholesterol Reference Ranges (age >17 years): Female, acceptable > or = 50 mg/dL Male, acceptable > or = 40 mg/dL Triglycerides, Plasma 156(H) <150 mg/dL 12/25/2024 8:53 AM EDT [facility] Comment: Triglyceride Reference Range (age >17 years): Desirable: <150 mg/dL Borderline high: 150 to 199 mg/dL High: 200 to 499 mg/dL Very high: >499 mg/dL Increased risk of pancreatitis: >1000 mg/dL Cholesterol/HDL Ratio 4 12/25/2024 8:53 AM EDT [facility] LDL, Calculated 72 <100 mg/dL 8:53 AM EDT [facility] Comment: LDL Cholesterol Reference Range (age [...] 12 hours? Unknown 12/25/2024 8:53 AM EDT [facility] Blood Venous blood specimen / Unknown Venipuncture / Unknown 12/25/2024 4:11 AM EDT 12/25/2024 4:28 AM EDT us Bud Sue MD LAB BLOOD ORDERABLES Final Res ult [facility] [address] [place] [address] * (ABNORMAL) Basic metabolic panel (12/25/2024 4:11 AM EDT) Only the most recent of2 resultswithin the time period is included. Glucose, Plasma 152(H) 74 - 99 mg/dL 12/25/2024 4:57 AM EDT [facility] BUN, Plasma 14 8 - 23 mg/dL 12/25/2024 4:57 AM EDT [facility] Creatinine, Plasma 1.15 0.70 - 1.20 mg/dL 12/25/2024 4:57 AM EDT [facility] BUN/Creatinine Ratio 12 12/25/2024 4:57 AM EDT [facility] Sodium, Plasma 139 136 - 145 mmol/L 12/25/2024 4:57 AM EDT [facility] Potassium, Plasma 3.4(L) 3.6 - 4.9 mmol/L 12/25/2024 4:57 AM EDT [facility] Chloride, Plasma 101 97 - 107 mmol/L 12/25/2024 4:57 AM EDT [facility] CO2, Plasma 25 22 - 29 mmol/L 12/25/2024 4:57 AM EDT [facility] Anion Gap 13 6 - 16 mmol/L 12/25/2024 4:57 AM EDT [facility] Total Calcium, Plasma 9.0 8.9 - 10.2 mg/dL 12/25/2024 4:57 AM EDT [facility] eGFRcr 72.4 mL/min/1.7 3m*2 12/25/2024 4:57 AM EDT [facility] Comment:Reported eGFRcr in m L/min/1.73m2 is based the CKD-EPI 2020 equation that does not use a race coefficient. Blood Venous blood specimen / Unknown Venipuncture / Unknown 12/25/2024 4:11 AM EDT 12/25/2024 4:28 AM EDT Bud Sue MD LAB BLOOD ORDERABLES Final Res ult [facility] [address] [place] [address] * MR Orbits w and wo IV [...] AU/mL 12/26/2024 3:26 PM EDT [facility] ([facility]) Serine Proteinase 3 (PR3) Ab, IgG 0 0 - 19 AU/mL 12/26/2024 3:26 PM EDT [facility] ([facility]) ANCA IFA Titer <1:20 <1:20 12/26/2024 3:26 PM EDT [facility] ([facility]) ANCA IFA Pattern None Detected None Detected 12/26/2024 3:26 PM EDT [facility] ([facility]) Blood Venous blood specimen / Unknown Venipuncture / Unknown 12/23/2024 8:59 PM EDT 12/23/2024 9:16 PM EDT Narrative [facility] ([facility]) - 12/26/2024 3:26 PM EDT INTERPRETIVE INFORMATION: [...] collagen vascular disease or arthritis. Performed By: [facility] [address] [place] [address] General Service Officer: George Andersen MD, PhD CLIA Number: [id number] Theodore Roper MD LAB BLOOD ORDERABLES Fin al Result Performing Organization Address City/[facility]/ZIP Co de Phone Number [facility] ([facility]) [address] [place] [address] * Anti-Beta 2 Glycoprotein, IgG and IgM (12/23/2024 8:59 PM EDT) Pathologist [facility] Anti-Beta 2 Glycoprotein 1, IgG <1.4 <20.0 U/mL 12/23/2024 10:29 PM EDT [facility] Anti-Beta 2 Glycoprotein IgG Interpretation Negative Negative 12/23/2024 10:29 PM EDT [facility] Anti-Beta 2 Glycoprotein 1, IgM <1.5 <20.0 U/mL 12/23/2024 10:29 PM EDT [facility] Anti-Beta 2 Glycoprotein IgM Interpretation Negative Negative 12/23/2024 10:29 PM EDT [facility] Blood Venous blood specimen / Unknown Venipuncture / Unknown 12/23/2024 8:59 PM EDT 12/23/2024 9:15 PM EDT Theodore Roper MD LAB BLOOD ORDERABLES Fin al Result Performing Organization Address City/[facility]/ZIP Co de Phone Number [facility] [address] [place] [address] * NMO/AQP4 FACS Serum (SO) (12/23/2024 8:59 PM EDT) NMO/AQP4 FACS,S Negative Negative 8:58 AM EDT [facility] ([facility]) Comment: Recommend repeat testing in 6 months if clinical suspicion is high. Negative result can occur in the setting of immunosuppression. ADDITIONAL INFORMATION This test was developed and its performance characteristics determined by [facility] in a manner consistent with CLIA requirements. This test has not been cleared or approved by the U.S. Food and Drug Administration. Test Performed by: [facility] - [address] [address] General Duty Nurse: Isa Espinoza Ph.D.; CLIA# [id number] Blood Venous blood specimen / Unknown Venipuncture / Unknown 12/23/2024 8:59 PM EDT 12/23/2024 9:20 PM EDT Theodore Roper MD LAB BLOOD ORDERABLES Fin al Result Performing Organization Address City/[facility] Co de Phone Number [facility] * (ABNORMAL) RAJESH Single Pattern (Reflex only) (12/23/2024 8:59 PM EDT) RAJESH Pattern Speckled(A ) 12/26/2024 1:22 PM EDT [facility] ([facility]) RAJESH Titer 1:80(A) 12/26/2024 1:22 PM EDT [facility] ([facility]) Blood Venous blood specimen / Unknown Venipuncture / Unknown 12/23/2024 8:59 PM EDT 12/23/2024 9:16 PM EDT Narrative [facility] ([facility]) - 12/26/2024 1:22 PM EDT Performed By: [facility] [address] [place] [id number] General Service Officer: George Andersen MD, PhD CLIA Number: [id number] Theodore Roper MD LAB BLOOD ORDERABLES Fin al Result Performing Organization Address [facility] Co de Phone Number [facility] ([facility]) [address] [place] [address] * ENAII (SO) (12/23/2024 8:59 PM EDT) SSA-52 (RO52) ([facility]IR) Antibody, IgG 2 0 - 40 AU/mL 12/26/2024 10:49 PM EDT [facility] ([facility]) SSA-60 (RO60) (SAMIR) Antibody, IgG 0 0 - 40 AU/mL 12/26/2024 10:49 PM EDT [facility] SSB (LA) (SAMIR) Antibody, IgG 0 0 - 40 AU/mL 12/26/2024 10:49 PM EDT [facility] ([facility]) Blood Venous blood specimen / Unknown Venipuncture / Unknown 12/23/2024 8:59 PM EDT 12/23/2024 9:16 PM EDT Narrative [facility] - 12/26/2024 10:49 PM EDT INTERPRETIVE [...] (PSS) also have this antibody. Performed By: [facility] [address] [place] [address] General Service Officer: George Andersen MD, PhD CLIA Number: [id number] Theodore Roper MD LAB BLOOD ORDERABLES Fin al Result Performing Organization Address [facility] de Phone Number [facility] ([facility]) [address] [place] [address] * Anticardiolipin IgG and IgM (12/23/2024 8:59 PM EDT) IgG Anticardiolipin <1.60 <20.00 GPL Units/mL 12/23/2024 10:29 PM EDT [facility] Anticardiolipin IgG Interpretation Negative Negative 12/23/2024 10:29 PM EDT [facility] IgM Anticardiolipin <1.50 <20.00 MPL Units/mL 12/23/2024 10:29 PM EDT [facility] Anticardiolipin IgM Interpretation Negative Negative 12/23/2024 10:29 PM EDT [facility] Blood Venous blood specimen / Unknown Venipuncture / Unknown 12/23/2024 8:59 PM EDT 12/23/2024 9:15 PM EDT Theodore Roper MD LAB BLOOD ORDERABLES Fin al Result Performing Organization Address [facility] Co de Phone Number [facility] [address] [place] [address] * Toxoplasma gondii antibody, IgG (SO) (12/23/2024 8:59 PM EDT) TOXOPLASMA IGG AB <3.0 <=8.8 IU/mL 12/26/2024 4:40 AM EDT [facility] ([facility]) Blood Venous blood specimen / Unknown Venipuncture / Unknown 12/23/2024 8:59 PM EDT 12/23/2024 9:16 PM EDT Narrative [facility] ([facility]) - 12/26/2024 4:40 AM EDT INTERPRETIVE INFORMATION: [...] the amount of antibody present. Performed By: [facility] [address] [place] [address] General Service Officer: George Andersen MD, PhD CLIA Number: [id number] Theodore Roper MD LAB BLOOD ORDERABLES Fin al Result Performing Organization Address [facility]/ZIP Co [place] [address] * Angiotensin Converting Enzyme, Serum (SO) (12/23/2024 8:59 PM EDT) ANGIOTENSIN CONVERTING ENZYME 21 16 - 85 U/L 12/26/2024 7:31 AM EDT [facility]) Blood Venous blood specimen / Unknown Venipuncture / Unknown 12/23/2024 8:59 PM EDT 12/23/2024 9:16 PM EDT Narrative [facility]) - 12/26/2024 7:31 AM EDT Performed By: [facility] [address] [place] [address] General Service Officer: George Andersen MD, PhD CLIA Number: [id number] Theodore Roper MD LAB BLOOD ORDERABLES Fin al Result Performing Organization Address City/[facility]/ZIP Co de Phone [place] [address] * (ABNORMAL) Antinuclear Antibody (RAJESH), HEp-2, IgG (SO) (12/23/2024 8:59 PM EDT) Only the most recent of2 resultswithin the time period is included. RAJESH INTERPRETIVE COMMENT See Note 12/26/2024 1:22 PM EDT [facility] ([facility]) Anti Nuc Ab Screen Detected( H) <1:80 12/26/2024 1:22 PM EDT [facility] ([facility]) Blood Venous blood specimen / Unknown Venipuncture / Unknown 12/23/2024 8:59 PM EDT 12/23/2024 9:16 PM EDT Narrative [facility] ([facility]) - 12/26/2024 1:22 PM EDT Speckled Pattern Clinical associations: SLE, SSc, SjS, DM, PM, MCTD, UCTD. May also be found in healthy individuals Main autoantibodies: Anti-SSA-52 (Ro52), anti-SSA-60 (Ro60), anti-SS-B/LA, anti-Rafa-1 (anti-Scl-70), Campos, anti-U1-TREAD BUILDER, anti-U2-TREAD BUILDER, anti-Mi-2, anti-p155/140 (TIF1g), anti-Ku, anti-RNA polymerase, anti-DFS70/LEDGF-P75 [...] not necessarily rule out SARD. Performed By: [facility] [address] [place] [id number] General Service Officer: George Andersen MD, PhD CLIA Number: [id number] Theodore Roper MD LAB BLOOD ORDERABLES Fin al Result Performing Organization Address [facility] Co de Phone Number [facility] ([facility]) [address] [place] [address] * HIV 1 & 2 Antibody/Antigen Screen (12/23/2024 7:39 PM EDT) [facility] HIV 1 & 2 Antibody/Antigen Screen Non Reactive Non Reactive 12/23/2024 8:37 PM EDT [facility] Comment:Screening for HIV 1 & 2 antibodies, and P24 antigen is NONREACTIVE. No confirmatory testing is required. Blood Venous blood specimen / Unknown Venipuncture / Unknown 12/23/2024 7:39 PM EDT 12/23/2024 7:55 PM EDT Theodore Roper MD LAB BLOOD ORDERABLES Fin al Result [facility] [address] [place] [address] * Toxoplasma gondii antibody, IgM (SO) (12/23/2024 7:39 PM EDT) [facility] TOXOPLASMA IGM AB <3.0 <=7.9 AU/mL 12/26/2024 5:06 AM EDT [facility] ([facility]) Blood Venous blood specimen / Unknown Venipuncture / Unknown 12/23/2024 7:39 PM EDT 12/23/2024 7:54 PM EDT Narrative [facility] ([facility]) - 12/26/2024 5:06 AM [...] post-infection. This test is performed using the [employer]. As suggested by the CDC, any [...] the amount of antibody present. Performed By: [facility] [address] [place] [id number] General Service Officer: George Andersen MD, PhD CLIA Number: [id number] us Theodore Roper MD LAB BLOOD ORDERABLES Fin al Result [facility]) [address] [place] [address] * Cytomegalovirus Antibody IgM (SO) (12/23/2024 7:39 PM EDT) CMV ANTIBODY IGM <8.0 <=29.9 AU/mL 12/26/2024 5:27 AM EDT [facility] ([facility]) Blood Venous blood specimen / Unknown Venipuncture / Unknown 12/23/2024 7:39 PM EDT 12/23/2024 7:54 PM EDT Narrative [facility]) - 12/26/2024 5:27 AM EDT INTERPRETIVE INFORMATION: [...] Cellular and Tissue-Based Products (HCT/P). Performed By: [facility] [address] [place] [address] General Service Officer: George Andersen MD, PhD CLIA Number: [id number] us Theodore Roper MD LAB BLOOD ORDERABLES Fin al Result [facility]) [address] [place], [place] [id number] * Lupus Anticoagulant Profile (12/23/2024 7:39 PM EDT) Lupus Anticoagulant Result Lupus anticoagulant (LA) not detected by either LA-sensitive aPTT or dRVVT assays. If clinical suspicion for antiphospholipid syndrome is high, consider testing for antibodies against cardiolipin and plzv-2-dbcbwzqiwev n I. 12/25/2024 11:37 AM EDT [facility] aPTT Lupus Anticoagulant Sensitive 33.4 <=41.0 sec LAB COAGULATION METHOD 12/25/2024 11:37 AM EDT [facility] DRVVT Screen 36.3 sec LAB COAGULATION METHOD 12/25/2024 11:37 AM EDT [facility] DRVVT Screen Ratio 0.92 <1.20 LAB COAGULATION METHOD 12/25/2024 11:37 AM EDT [facility] Blood Venous blood specimen / Unknown Venipuncture / Unknown 12/23/2024 7:39 PM EDT 12/23/2024 7:54 PM EDT us Theodore Roper MD LAB BLOOD ORDERABLES Fin al Result [facility] [address] [place] [address] * (ABNORMAL) Cytomegalovirus Antibody IgG (SO) (12/23/2024 7:39 PM EDT) CMV ANTIBODY IGG 2.90(H) <=0.70 U/mL 12/26/2024 5:24 AM EDT [facility] ([facility]) Blood Venous blood specimen / Unknown Venipuncture / Unknown 12/23/2024 7:39 PM EDT 12/23/2024 7:54 PM EDT Narrative [facility] ([facility]) - 12/26/2024 5:24 AM [...] laboratory at the same time. Performed By: [facility] [address] [place] [address] General Service Officer: George Andersen MD, PhD CLIA Number: [id number] us Theodore Roper MD LAB BLOOD ORDERABLES Fin al Result [facility] ([facility]) [address] [place] [address] * (ABNORMAL) CBC (12/23/2024 7:39 PM EDT) WBC Count 6.39 3.70 - 10.30 10*3/uL LAB HEMATOLOGY METHOD 12/23/2024 7:50 PM EDT [facility] RBC Count 5.45 4.60 - 6.10 10*6/uL LAB HEMATOLOGY METHOD 12/23/2024 7:50 PM EDT [facility] HGB 14.9 13.7 - 17.5 g/dL LAB HEMATOLOGY METHOD 12/23/2024 7:50 PM EDT [facility] HCT 46.2 40.0 - 51.0 % LAB HEMATOLOGY METHOD 12/23/2024 7:50 PM EDT [facility] Platelet Count 205 155 - 369 10*3/uL LAB HEMATOLOGY METHOD 12/23/2024 7:50 PM EDT [facility] MCV 85 79 - 98 fL LAB HEMATOLOGY METHOD 12/23/2024 7:50 PM EDT [facility] MCH 27.3 26.0 - 32.0 pg LAB HEMATOLOGY METHOD 12/23/2024 7:50 PM EDT [facility] MCHC 32.3 30.7 - 35.5 g/dL LAB HEMATOLOGY METHOD 12/23/2024 7:50 PM EDT [facility] RDW 15.4(H) 11.5 - 14.5 % LAB HEMATOLOGY METHOD 12/23/2024 7:50 PM EDT [facility] MPV 9.0 8.8 - 12.5 fL LAB HEMATOLOGY METHOD 12/23/2024 7:50 PM EDT [facility] nRBC 0.0 <=0.0 per 100 WBCs LAB HEMATOLOGY METHOD 12/23/2024 7:50 PM EDT [facility] Blood Venous blood specimen / Unknown Venipuncture / Unknown 12/23/2024 7:39 PM EDT 12/23/2024 7:48 PM EDT us Bud Sue MD LAB BLOOD ORDERABLES Final Res ult Performing Organization Address [facility]/ZIP Co de Phone Number [facility] [address] [place] [address] * (ABNORMAL) Hemoglobin A1c (12/23/2024 7:39 PM EDT) Hemoglobin A1c 7.5(H) <5.7 % 12/23/2024 8:37 PM EDT [facility] Blood Venous blood specimen / Unknown Venipuncture / Unknown 12/23/2024 7:39 PM EDT 12/23/2024 7:55 PM EDT Narrative [facility] - 12/23/2024 8:37 PM EDT HA1C Interpretive Data: Diagnosis of Diabetes: Diabetic > or = 6.5% Pre-diabetic 5.7 to 6.4% Non-diabetic < or = 5.6% Glycemic Targets for Type I and Type II Diabetics: Non- Adults <7.0% Adults <6.0% Children and Adolescents <7.5% Source: [place] [employer]. Standards of medical care in diabetes,2017. Diabetes Care.2017:40 (suppl 1):S1-S135. us Theodore Roper MD LAB BLOOD ORDERABLES Fin al Result Performing Organization Address City/[facility] Co de Phone Number [facility] [address] [place] [address] * CT Angio Neck (12/23/2024 5:00 PM [...] TOTAL DLP (Dose-Length Product): 1374.82 mGy.cm (accession [id number]), 1374.82 mGy.cm (accession [id number]), 1374.82 mGy.cm (accession [id number]). Please note: The reported value represents the [...] No aneurysm of either internal carotid artery. [place] of [place] and Major Peripheral Branches: There [...] TOTAL DLP (Dose-Length Product): 1374.82 mGy.cm (accession [id number]),1374.82 mGy.cm (accession [id number]), 1374.82 mGy.cm (accession [id number]).Please note: The reported value represents the total [...] No aneurysm of either internal carotid artery. [place] and Major Peripheral Branches: There [...] TOTAL DLP (Dose-Length Product): 1374.82 mGy.cm (accession [id number]), 1374.82 mGy.cm (accession [id number]), 1374.82 mGy.cm (accession [id number]). Please note: The reported value represents the [...] No aneurysm of either internal carotid artery. [place] and Major Peripheral Branches: There [...] TOTAL DLP (Dose-Length Product): 1374.82 mGy.cm (accession [id number]),1374.82 mGy.cm (accession [id number]), 1374.82 mGy.cm (accession [id number]).Please note: The reported value represents the total [...] No aneurysm of either internal carotid artery. [place] and Major Peripheral Branches: There [...] 5:00 PM EDT) Anatomical Region Laterality Modality [place] Computed Tomogr aphy Impressions 12/23/2024 [...] TOTAL DLP (Dose-Length Product): 1374.82 mGy.cm (accession [id number]), 1374.82 mGy.cm (accession [id number]), 1374.82 mGy.cm (accession [id number]). Please note: The reported value represents the [...] No aneurysm of either internal carotid artery. [place] and Major Peripheral Branches: There [...] TOTAL DLP (Dose-Length Product): 1374.82 mGy.cm (accession [id number]),1374.82 mGy.cm (accession [id number]), 1374.82 mGy.cm (accession [id number]).Please note: The reported value represents the total [...] No aneurysm of either internal carotid artery. [place] and Major Peripheral Branches: There [...] Fluorescence-Activated Cell Sorting (12/23/2024 3:29PM EDT) Pathologist [facility] MOG FACS Negative Negative 12/29/2024 8:16 AM EDT [facility] ([facility] Comment: No informative autoantibodies were detected in this evaluation. A negative result does not preclude a diagnosis of an inflammatory MIXER OPERATOR RAW SALT demyelinating disorder. ADDITIONAL INFORMATION This test was developed and its performance characteristics determined by [facility] in a manner consistent with CLIA requirements. This test has not been cleared or approved by the U.S. Food and Drug Administration. Test Performed by: [facility] [place] [address] General Duty Nurse: Isa Espinoza Ph.D.; CLIA# [id number] Blood Venous blood specimen / Unknown Venipuncture / Unknown 12/23/2024 3:29 PM EDT 12/23/2024 4:29 PM EDT Stephen Fabian MD LAB BLOOD ORDERABLES Final Result [facility] * Treponema Pallidum (Syphilis) Antibodies with Reflex to RPR and RPR Titer (Those with NO known Syphilis) (12/23/2024 3:29 PM EDT) [facility] Syphilis Antibody (IgG+IgM) Nonreactive Nonreactive 12/23/2024 5:01 PM EDT [facility] Comment:Nonreactive. No sero logic evidence of syphilis. No follow-up necessary unless clinically indicated (e.g., early syphilis). Blood Venous blood specimen / Unknown Venipuncture / Unknown 12/23/2024 3:29 PM EDT 12/23/2024 4:07 PM EDT Stephen Fabian MD LAB BLOOD ORDERABLES Final Result [facility] [address] [place] [address] * (ABNORMAL) Sed rate, automated (12/23/2024 3:29 PM EDT) Sedimentation Rate 30(H) <20 mm/hr 2024 4:15 PM EDT [facility] Blood Venous blood specimen / Unknown Venipuncture / Unknown 12/23/2024 3:29 PM EDT 12/23/2024 3:33 PM EDT Stephen Fabian MD LAB BLOOD ORDERABLES Final Result [facility] [address] [place] [address] * (ABNORMAL) CBC w/diff (12/23/2024 3:29 PM EDT) Only the most recent of2 resultswithin the time period is included. WBC Count 5.77 3.70 - 10.30 10*3/uL LAB HEMATOLOGY METHOD 12/23/2024 3:37 PM EDT [facility] RBC Count 5.17 4.60 - 6.10 10*6/uL LAB HEMATOLOGY METHOD 12/23/2024 3:37 PM EDT [facility] HGB 14.3 13.7 - 17.5 g/dL LAB HEMATOLOGY METHOD 12/23/2024 3:37 PM EDT [facility] HCT 43.6 40.0 - 51.0 % LAB HEMATOLOGY METHOD 12/23/2024 3:37 PM EDT [facility] Platelet Count 199 155 - 369 10*3/uL LAB HEMATOLOGY METHOD 12/23/2024 3:37 PM EDT [facility] MCV 84 79 - 98 fL LAB HEMATOLOGY METHOD 12/23/2024 3:37 PM EDT [facility] MCH 27.7 26.0 - 32.0 pg LAB HEMATOLOGY METHOD 12/23/2024 3:37 PM EDT [facility] MCHC 32.8 30.7 - 35.5 g/dL LAB HEMATOLOGY METHOD 12/23/2024 3:37 PM EDT [facility] RDW 15.2(H) 11.5 - 14.5 % LAB HEMATOLOGY METHOD 12/23/2024 3:37 PM EDT [facility] MPV 8.7(L) 8.8 - 12.5 fL LAB HEMATOLOGY METHOD 12/23/2024 3:37 PM EDT [facility] nRBC 0.0 <=0.0 per 100 WBCs LAB HEMATOLOGY METHOD 12/23/2024 3:37 PM EDT [facility] Differential Type Automated LAB HEMATOLOGY METHOD 12/23/2024 3:37 PM EDT [facility] Neutrophils % 39 % LAB HEMATOLOGY METHOD 12/23/2024 3:37 PM EDT [facility] Lymphocytes % 50 % LAB HEMATOLOGY METHOD 12/23/2024 3:37 PM EDT [facility] Monocytes % 8 % LAB HEMATOLOGY METHOD 12/23/2024 3:37 PM EDT [facility] Eosinophils % 2 % LAB HEMATOLOGY METHOD 12/23/2024 3:37 PM EDT [facility] Basophils % 1 % LAB HEMATOLOGY METHOD 12/23/2024 3:37 PM EDT [facility] Immature Granulocytes % 0 % LAB HEMATOLOGY METHOD 12/23/2024 3:37 PM EDT [facility] Neutrophils Absolute 2.27 1.60 - 6.10 10*3/uL LAB HEMATOLOGY METHOD 12/23/2024 3:37 PM EDT [facility] Lymphocytes Absolute 2.93 1.20 - 3.90 10*3/uL LAB HEMATOLOGY METHOD 12/23/2024 3:37 PM EDT [facility] Monocytes Absolute 0.44 0.30 - 0.90 10*3/uL LAB HEMATOLOGY METHOD 12/23/2024 3:37 PM EDT [facility] Eosinophils Absolute 0.09 0.00 - 0.50 10*3/uL LAB HEMATOLOGY METHOD 12/23/2024 3:37 PM EDT [facility] Basophils Absolute 0.03 0.00 - 0.10 10*3/uL LAB HEMATOLOGY METHOD 12/23/2024 3:37 PM EDT [facility] Immature Granulocytes Absolute 0.01 0.00 - 0.06 10*3/uL LAB HEMATOLOGY METHOD 12/23/2024 3:37 PM EDT [facility] Blood Venous blood specimen / Unknown Venipuncture / Unknown 12/23/2024 3:29 PM EDT 12/23/2024 3:33 PM EDT Narrative [facility] - 12/23/2024 3:37 PM EDT Therapeutic decision making should be based on absolute values, rather than percentages. Stephen Fabian MD LAB BLOOD ORDERABLES Final Result Performing Organization Address City/[facility] Co de Phone Number [facility] [address] [place] [address] * Rheumatoid Factor, Plasma (12/23/2024 3:29 PM EDT) Rheumatoid Factor, Plasma <10 <14 IU/mL 12/23/2024 11:31 PM EDT [facility] Blood Venous blood specimen / Unknown Venipuncture / Unknown 12/23/2024 3:29 PM EDT 12/23/2024 3:34 PM EDT Theodore Roper MD LAB BLOOD ORDERABLES Fin al Result Performing Organization Address [facility] [place] [address] * C-reactive protein (12/23/2024 3:29 PM EDT) Only the most recent of2 resultswithin the time period is included. CRP, Plasma <3.0 <=8.0 mg/L 12/23/2024 3:56 PM EDT [facility] Blood Venous blood specimen / Unknown Venipuncture / Unknown 12/23/2024 3:29 PM EDT 12/23/2024 3:34 PM EDT Narrative [facility] - 12/23/2024 3:56 PM EDT This CRP test is appropriate for assessment of infection, systemic inflammation and/or tissue injury. To assess cardiovascular disease risk order high sensitivity CRP (CRPH). Stephen Fabian MD LAB BLOOD ORDERABLES Final Result Performing Organization Address [facility] Co de Phone Number [facility] [address] [place] [address] * (ABNORMAL) CMP (12/23/2024 3:29 PM EDT) Glucose, Plasma 130(H) 74 - 99 mg/dL 12/23/2024 3:56 PM EDT [facility] BUN, Plasma 16 8 - 23 mg/dL 12/23/2024 3:56 PM EDT [facility] Creatinine, Plasma 1.19 0.70 - 1.20 mg/dL 12/23/2024 3:56 PM EDT [facility] BUN/Creatinine Ratio 13 12/23/2024 3:56 PM EDT [facility] Sodium, Plasma 137 136 - 145 mmol/L 12/23/2024 3:56 PM EDT [facility] Potassium, Plasma 3.8 3.6 - 4.9 mmol/L 12/23/2024 3:56 PM EDT [facility] Chloride, Plasma 103 97 - 107 mmol/L 12/23/2024 3:56 PM EDT [facility] CO2, Plasma 25 22 - 29 mmol/L 12/23/2024 3:56 PM EDT [facility] Anion Gap 9 6 - 16 mmol/L 12/23/2024 3:56 PM EDT [facility] Total Calcium, Plasma 9.1 8.9 - 10.2 mg/dL 12/23/2024 3:56 PM EDT [facility] Total Protein 7.0 6.3 - 7.9 g/dL 12/23/2024 3:56 PM EDT [facility] Albumin, Plasma 4.1 3.5 - 5.2 g/dL 12/23/2024 3:56 PM EDT [facility] AST, Plasma 19 10 - 50 U/L 12/23/2024 3:56 PM EDT [facility] ALT, Plasma 22 10 - 50 U/L 12/23/2024 3:56 PM EDT [facility] Alkaline Phosphatase, Plasma 35(L) 40 - 115 U/L 12/23/2024 3:56 PM EDT [facility] Total Bilirubin, Plasma 2.4(H) 0.2 - 1.1 mg/dL 12/23/2024 3:56 PM EDT [facility] eGFRcr 69.5 mL/min/1.7 3m*2 12/23/2024 3:56 PM EDT [facility] Comment:Reported eGFRcr in m L/min/1.73m2 is based the CKD-EPI 2020 equation that does not use a race coefficient. Blood Venous blood specimen / Unknown Venipuncture / Unknown 12/23/2024 3:29 PM EDT 12/23/2024 3:34 PM EDT Stephen Fabian MD LAB BLOOD ORDERABLES Final Result [facility] [address] [place] [address] * [facility] ED POCUS PROCDOC (12/23/2024 2:46 PM EDT) [...] ocular ultrasound The images were Saved in [employer]. The study was technically adequate. Alisha Salinas MD Emergency Medicine PGY-1 Theodore Roper MD IN CLINIC/BEDSIDE ORDERA BLES Final Result * COMPLETE METABOLIC PROFILE (CMP) (12/02/2024 4:57 PM EDT) Historical Provider LAB BLOOD ORDERABLES Final R esult * Hepatitis C Antibody w/Reflex to HCV Quant PCR (02/06/2024 1:55 PM EDT) Hepatitis C Antibody Negative Negative 02/06/2024 7:25 PM EDT [facility] Blood Venous blood specimen / Unknown Venipuncture / Unknown 02/06/2024 1:55 PM EDT 02/06/2024 1:55 PM EDT us Boris BELLAMY LAB BLOOD ORDERABLES Final Res [facility] [address] [place] [address] from Last 3 Months or Most Recently Relevant to Health Maintenance Insurance [employer] MEDICARE Advance Directives * Full Code (Latest Code Status on File) Date Activated Date Inactivated Comments 12/23/2024 7:20 PM 12/25/2024 3:11 PM Question Answer Comments Patient has decision-making capacity? Yes Care Teams Sunglass Clip Attacher Relationship Specialty Start Date End Date Swathi Patino APRN [address] [place] [address] PCP - General 10/28/20
--- OUTSIDE RECORDS SUMMARY | 2025-02-03 08:54 | XMS_ITS | Referral Summary ---
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
[2025-02-03 09:04] LABS: Hematocrit 44.4 % (42.0-52.0); Hemoglobin 14.4 g/dL (14.1-18.0); Immature Granulocytes % 0.2 %; Mean Corpuscular HGB Conc 32.4 g/dL (31.8-35.4); Mean Corpuscular Hemoglobin 27.1 pg (27.0-31.2); Mean Corpuscular Volume 83.6 fl (80-94); Nucleated Red Blood Cells % 0 %; Platelet Count 169 K/mm3 (142-424); Red Blood Count 5.31 M/mm3 (4.60-6.20); Red Cell Distribution Width-SD 45.9 fL; White Blood Count 5.3 K/mm3 (4.8-10.8)
[2025-02-03] MEDS: ACETAMINOPHEN 325MG TAB 650 MG PO (09:09)
[2025-02-03 09:10] LABS: Albumin Level 4.2 g/dl (3.5-5.0); Chloride 102 mmol/L (98-107)
[2025-02-03] MEDS: SODIUM CHLORIDE 0.9% 10ML FLUSH SYRINGE 10 ML IV (09:10)
[2025-02-03] MEDS: METHYLPREDNISOLONE SOD SUCC 40MG VIAL 40 MG IV (09:10)
[2025-02-03 09:11] LABS: Potassium 3.2 mmoL/L (3.5-5.1); Sodium 138 mmol/L (136-145)
[2025-02-03 09:13] LABS: Alanine Aminotransferase 32 U/L (12-78); Anion Gap 12.2 mEq/L (5-15); Aspartate Amino Transferase 34 U/L (17-59); Bilirubin,Unconjugated 2.2 mg/dL (0.0-1.1); Blood Urea Nitrogen 16 mg/dl (9-20); Carbon Dioxide 27 mmol/L (22.0-30.0); Creatinine,Serum 1.10 mg/dl (0.66-1.25); Estimated Glomerular Filt Rate 68 ml/min (>60); GFR (African American) 82 ML/MIN (>60); Total Protein,Serum 7.4 g/dl (6.3-8.2)
[2025-02-03 09:14] LABS: Alkaline Phosphatase 42 U/L (38-126); Bilirubin,Direct 0.1 mg/dl (0.0-0.4); Bilirubin,Indirect 2.2 mg/dL (0.0-0.9); Bilirubin,Total 2.3 mg/dl (0.2-1.3); Calcium 9.2 mg/dl (8.4-10.2); Glucose 185 mg/dl (74-100); Phosphorous 3.6 mg/dl (2.5-4.5)
[2025-02-03 09:22] LABS: C-Reactive Protein 1.2 mg/L (0-4)
[2025-02-03] MEDS: INFLIXIMAB IV (09:38)
[2025-02-03] MEDS: SODIUM CHLORIDE 0.9% IV (09:38)
== END 2025-02-03 13:00 | disposition home or self-care (01) ==
LOC: INF 08:44
PROVIDERS: PCP Nurse Practitioner Family; Visit Provider Nurse Practitioner Family
DX: L40.50 Arthropathic psoriasis, unspecified (principal)
CPT/HCPCS: 80069; 80076; 85025; 86140; 96413; 96415; J1745; J2919; J7040

== ENCOUNTER 2025-03-31 08:49 | Outpatient (CLI) | payer MEDICARE, SELFPAY ==
--- OUTSIDE RECORDS SUMMARY | 2025-03-24 07:40 | XMS_ITS | Encounter Summary ---
Author Organization Healthcare Address [address] [place] [address] Care Team Providers Care Spot Sprayer Name Role Phone Swathi Patino JUAN Primary Care Provider [phone] Encounter Details Date Type Department Care Team (Late st Contact Info) Description 03/24/2025 7:40 AM EDT Ancillary Procedure [facility] [address] [place] [address] Social History Tobacco Use Types Packs/Day Years [...] How often do you attend chur or latter-day services? Patient unable to answer 12/25/2024 Do you belong to any clubs o r organizations such as jehovah's witness groups, unions, fraternal or athletic groups, or [...] and heating? Patient unable to answer 12/25/2024 [facility] of Occupat ional Health - Occupational Stress [...] were you homeless or living in a assisted (including now)? 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 Scan locations included subfoveal. Findings include normal foveal contour. Left Eye Quality was good. Scan locations included subfoveal. Findings include normal foveal contour. us Paloma Keller MD OPHTH TOMOGRAPHY Final Result documented in this encounter Visit Diagnoses Not on filedocumented in this encounter Additional Health Concerns Assessment Noted Time PHQ-9 Depression Total Score: 0 08/10/19 25 10:44 AM EST A fall risk assessment has been complete d for the patient 03/24/2025 10:50 AM EDT A Body Mass Index follow-up plan has been documented for the patient 03/24/2025 12:40 PM EDT documented as of this encounter Care Teams Spot Sprayer Relationship Specialty Start Date End Date Swathi Patino APRN [address] [place] [address] [id number] PCP - General 10/28/20 documented as of this encounter
--- OUTSIDE RECORDS SUMMARY | 2025-03-24 07:40 | XMS_ITS | Encounter Summary ---
Author Organization Healthcare Address [address] [place] [address] Care Team Providers Care Office Messenger Name Role Phone Swathi aPtino JUAN Primary Care Provider [phone] Encounter Details Date Type Department Care Team (Late st Contact Info) Description 03/24/2025 7:40 AM EDT Ancillary Procedure [facility] [address] [place] [address] Social History Tobacco Use Types [...] How often do you attend chur or hindu services? Patient unable to answer 12/25/2024 Do you belong to any clubs o r organizations such as bahai groups, unions, fraternal or athletic groups, or [...] and heating? Patient unable to answer 12/25/2024 [facility] of Occupat ional Health - Occupational [...] were you homeless or living in a fdc (including now)? 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 Strategy was MAITE. Reliability was good. Foveal threshold was normal. Findings include normal observations. Left Eye Threshold was 24-2. Strategy was MAITE. Reliability was good. Foveal threshold was reduced. Findings include inferior altitudinal defect. Notes Right eye (OD): Full Left eye (OS): Inferior altitudinal defect Paloma Keller MD OPHTH VISUAL FIELD Final Result documented in this encounter Visit [...] documented as of this encounter Care Teams Office Messenger Relationship Specialty Start Date End Date Swathi Patino APRN [address] [place] [address] PCP - General 10/28/20 documented as of this encounter
--- OUTSIDE RECORDS SUMMARY | 2025-03-24 07:45 | XMS_ITS | Encounter Summary ---
Author Organization Healthcare Address [address] [place] [address] Care Team Providers Care Order Checker Packer Processer Name Role Phone Swathi Patino JUAN Primary Care Provider [phone] Encounter Details Date Type Department Care Team (Late st Contact Info) Description 03/24/2025 7:45 AM EDT Ancillary Procedure [facility] [address] [place] [address] Social History Tobacco Use Types [...] How often do you attend chur or mormonism services? Patient unable to answer 12/25/2024 Do [...] and heating? Patient unable to answer 12/25/2024 [facility] of Occupat ional Health - [...] Description 06/01/2025 10:20 AM EST Office Visit [place] [facility] [address] [place] [address] Cristina Gaffney, JUAN [address] [place] [address] 03/30/2026 10:00 AM EDT Office Visit [facility] [address] [place] [address] Paloma Baxter MD [address] [place] [address] documented as of this encounter Procedures Procedure Name Priority Date/Time Associated Diagnosis Comments OCT, OPTIC NERVE - OU - BOTH EYES Routine 03/24/2025 7:37 AM EDT 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 To assess optic nerve function and for use in future follow-up. Reliability: good and adequate. 104. Left Eye Images reviewed. To assess optic nerve function and for use in future follow-up. Reliability: good and adequate. 94. Notes Right eye (OD) - average RNFL measures 104 microns Left eye (OS) there is thinning of the retinal nerve fiber layer superiorly and nasally; there is thickening inferiorly from optic disc swelling- average RNFL measures 94 microns Right eye (OD): ganglion cell analysis is intact Left eye (OS): there is loss of ganglion cells. Paloma Keller MD OPHTH TOMOGRAPHY Final Result [...] documented as of this encounter Care Teams Order Checker Packer Processer Relationship Specialty Start Date End Date Swathi Patino APRN [address] [place] [address] PCP - General 10/28/20 documented as of this encounter
--- OUTSIDE RECORDS SUMMARY | 2025-03-24 10:45 | XMS_ITS | Encounter Summary ---
Author Organization [facility] Address [address] 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 Bud Sue MD [address] [address] Phone: tel: fax: [facility] [address] [place] [address] Phone: tel: fax: Referral ID Status Reason Start Date Expiration Date Visits Re quested Visits Authorized [id number] Closed 12/25/2024 06/26/2026 1 1 Encounter Details Date Type Department Care Team (Late st Contact Info) Description 03/24/2025 10:45 AM EDT Office Visit [facility] [address] [place] [address] Paloma Baxter MD [id number] [place] [address] 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 or yazidi services? Patient unable to answer 12/25/2024 Do you belong to any clubs o r organizations such as buddhism groups, unions, fraternal or athletic groups, or [...] and heating? Patient unable to answer 12/25/2024 [facility] [place] [facility] - Occupational Stress [...] any time in the past 12 m [facility], were you homeless or living in a detention (including now)? Patient unable to answer 12/25/2024 [...] encounter Miscellaneous Notes * Progress Notes - Paloma Baxter MD - 03/24/2025 10:45 AM EDT Images from the original note were not included. Referring provider : Bud Sue MD I am seeing this patient in consultation at the request of the above provider and my complete evaluation follows. Chief complaint: Hospital follow up for NAION left eye History of present illness Patient ID: Narinder Knapp is a 60 y.o. male with PMH of HTN, diabetes, psoriatic arthritis and recentdiagnosis of NAION left eye (12/2024). 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 History of Present Illness He reports that his blood pressure is well-managed, taking medication at 7 or 8 in the morning and again at 6 or 7 in the evening. His last recorded A1c level was 7.4, and he takes diabetes medication at the same times as his blood pressure medication. His vision is generally satisfactory, except when reading small print. He uses reading glasses witha 3.0 prescription intermittently. He does not experience double vision but has noticed an increasein floaters. He underwent cataract surgery in the past. He has psoriatic arthritis and is under the care of Dr. Evans at [facility], taking Remicade for this condition. When enquired about sleep apnea, he mentions that he has enlarged prostate, which exerts pressure on his bladder, causing him to wake up 5 to 6 times during the night to urinate. He is currently on medication for this condition. PAST OCULAR SURGERIES: Cataract surgery Past Medical History[1] Family medical history family history includes Anesthesia problems in an other family member; Cancer in his father and sister; Cataracts in his mother; Diabetes in his father; Malig Hyperthermia in an other family member. Social history reports that he has never smoked. He has been exposed to tobacco smoke. He has never used smokelesstobacco. Alcohol use questions deferred to the physician. He reports that he does not use drugs. Review of systems ROS Positive for: Neurological, Eyes Negative for: Constitutional, Gastrointestinal, Skin, Genitourinary, Musculoskeletal, HENT, Endocrine, Cardiovascular, Respiratory, Psychiatric, Allergic/Imm, Heme/Lymph Last edited by Daniel Cagle on 03/24/2025 10:48 AM. Review of systems: 14 point review of systems was negative except as documented above Allergies : Patient has no known allergies. Medications No current outpatient medications on file. (Ophthalmic Drugs) No current facility-administered medications for this visit. (Ophthalmic Drugs) Current Outpatient Medications (Other) Medication Sig amLODIPine (Norvasc) 5 MG tablet Take 1 tablet by mouth daily. atenolol (Tenormin) 100 MG tablet Take 1 tablet by mouth 2 times a day. cloNIDine (Catapres) 0.1 MG tablet Take 1 tablet by mouth 2 times a day. glyBURIDE (Diabeta) 5 MG tablet Take 1 tablet by mouth 2 times a day. hydroCHLOROthiazide (HYDRODiuril) 25 MG tablet Take 1 tablet by mouth daily. inFLIXimab (Remicade) 100 MG injection Infuse 10 mg/kg IV every 35 days Jardiance 25 MG Take 1 tablet by [...] capsule by mouth 2 times a day. (Patient taking differently: Take 2 capsules by mouth nightly.) No current facility-administered medications for this visit. (Other) Alert and oriented X 3, mood and affect normal Objective Base Eye Exam Visual Acuity (Snellen - Linear) Right Left Dist sc 20/20 -1 20/30 -1 Dist ph sc NI Near cc J10 20/400 Tonometry (Tonopen, 11:07 AM) Right Left Pressure 14 12 Pupils Shape React APD Right Round Brisk None Left Round Brisk Relative afferent pupillary defect (RAPD) OS Extraocular Movement Right Left Full, Ortho Full, Ortho Neuro/Psych Oriented x3: Yes Mood/Affect: Normal Dilation Both eyes: Additional Tests Color Right Left Ishihara 08/28 Stereo Fly: - Animals: 0/3 Circles: 0/9 Glare Testing (DIE ATTACHING MACHINE TENDER) Medium Right 1.35 Left 0.75 Strabismus Exam Observations: Ortho Distance Near Near +3DS N Bifocals Slit Lamp and Fundus Exam External Exam Right Left External Normal Normal Slit Lamp Exam Right Left Lids/Lashes Normal for age Normal for age Conjunctiva/Sclera Normal Normal Cornea Clear and compact Clear and compact Anterior Chamber Deep and quiet Deep and quiet Iris Normal pupil size and shape Normal pupil size and shape Lens PCIOL PCIOL Anterior Vitreous Normal Normal Fundus Exam Right Left Disc crowded segmental pallor in the superior nasal quadrant C/D Ratio 0.1 0.1 Macula Normal reflex; without edema Normal reflex; without edema Vessels Perfused; no tortuosity or abnormality Perfused; no tortuosity or abnormality Periphery Attached; no retinal or choroidal lesions Attached; no retinal or choroidal lesions Refraction Manifest Refraction (Auto) Sphere Cylinder [place] Dist VA Right +0.75 +0.50 175 20/20 Left [place] +0.25 099 20/30 On sensory motor exam extraocular motility was full. Ductions and versions are normal. Patient was orthophoric for distance . Saccades and smooth pursuit were within normal limits. I personally reviewed notes from referring provider and gathered information about the presenting condition. I personally reviewed imagin12/24/2024 MRI Brain w and wo : 12/24/2024 shows no abnormal enhancement I personally reviewed labs: 12/23/2024 : NMO and MOG antibodies negative ESR 30 CRP <3.0 Automated Visual Field, Extended - OU - Both Eyes Right Eye Threshold was 24-2. Strategy was MAITE. Reliability was good. Foveal threshold was normal. Findings include normal observations. Left Eye Threshold was 24-2. Strategy was MAITE. Reliability was good. Foveal threshold was reduced. Findingsinclude inferior altitudinal defect. Notes Right eye (OD): Full Left eye (OS): Inferior altitudinal defect Linked Images OCT, Retina - OU - Both Eyes Right Eye Quality was good. Scan locations included subfoveal. Findings include normal foveal contour. Left Eye Quality was good. Scan locations included subfoveal. Findings include normal foveal contour. OCT, Optic Nerve - OU - Both Eyes Component Average RNFL Today (OS) 94 Average RNFL Today (OD) 104 Right Eye Images reviewed. To assess optic [...] (OS): there is loss of ganglion cells. === 12/23/24 === MR ORBITS W AND WO IV CONTRAST - Narrative - CLINICAL INDICATION: Neuro deficit, acute, stroke suspected [...] osseous spur. Paranasal sinuses are grossly clear. - Impression - * There is no evidence of intracranial mass, hemorrhage, or acute infarction. * No orbital or retro-orbital anomaly identified. CRITICAL RESULT: No. COMMUNICATION: Per this written report. 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 male with PMH of HTN, diabetes, psoriatic arthritis and recent diagnosis of NAION left eye (12/2024). 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 On neuro-ophthalmology exam his best corrected visual acuity is 20/20 right eye (OD) 20/30 left eye(OS) , color vision is normal in the right eye and reduced in the left eye , contrast sensitivity is normal in the right eye and reduced in the left eye ,stereopsis is reduced. There was afferent pupillary defect in the left eye . Extraocular movements were full. The patient was orthophoric for dist ance. Anterior segment exam was unremarkable in both eyes . Fundus exam showed crowded optic disc with small C/D ratio in the right eye. Left eye shows optic disc pallor superiorly. Visual gomez showed full peripheral vision in the right eye and inferior altitudinal defect in theleft eye. Retinal nerve fiber analysis looked robust and was of normal thickness in the right eye. Retinal nerve fiber analysis shows thinning of the superior and nasal quadrants in the left eye . Ganglion cell analysis was intact in the right eye and there is drop off ganglion cells in the left eye . Macular OCT showed no abnormalities in both eyes . Impression: NAION -left eye Ganglion cell loss superiorly in the left eye that corresponds to inferior altitudinal defect in the left eye. Fundus exam showed crowded optic disc with small C/D ratio in the right eye which is a risk for NAION. Assessment & Plan # Ischemic optic neuropathy- left eye. This is likely due to a combination of vascular risk factors including diabetes, hypertension, hypercholesterolemia, and sleep apnea. The patient's blood pressure is well-managed, and his A1c level is 7.4. He has an anatomically crowded optic nerve, which increases the risk for NAION. There is a 10% risk of other eye involvement. Continue taking baby aspirin and simvastatin. # Hypertension. His blood pressure is well-managed. Avoid taking blood pressure medications very late at night. Continue current regimen. Follow-up in 8 months. Thank you for requesting this consult. I spent more than 80 minutes in this patient encounter which includes reviewing both external and internal historical documentation, reviewing the examination and investigations findings with patient, discussing management plan with the patient and documenting all the findings in the note: total time excludes separately reportable procedure and imaging time. [1] Past Medical History: Diagnosis Date Age-related nuclear cataract, unspecified eye Cataract, nuclear sclerotic senile Arthritis Esophageal candidiasis GERD (gastroesophageal reflux disease) Hypertension Joint pain Low back pain 2007 Osteoarthritis 2009 Personal history of diseases of the skin and subcutaneous tissue History of psoriasis Personal history of other endocrine, nutritional and metabolic disease History of diabetes mellitus Psoriatic arthritis (CMS/HCC) 1988 Sciatica 2010 Skin cancer Type 2 diabetes mellitus without complications Diabetes Unspecified cataract Cataract documented in this encounter Plan of Treatment Upcoming Encounters Date Type Department Care Team (Late st Contact Info) Description 06/01/2025 10:20 AM EST Office Visit [facility] [address] [place] [address] Cristina Gaffney, JUAN [address] [place] [address] 03/30/2026 10:00 AM EDT Office Visit [facility] [address] [place] [place] [address] Paloma Baxter MD [address] [place] [address] documented as of this encounter Procedures Procedure Name Priority Date/Time Associated Diagnosis Comments OCT, RETINA - OU - BOTH EYES Routine 03/24/2025 7:37 AM EDT 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 Scan locations included subfoveal. Findings include normal foveal contour. Left Eye Quality was good. Scan locations included subfoveal. Findings include normal foveal contour. 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- Primary Primary hypertension Unspecified essential hypertension Diabetes mellitus type 2 without retinopathy documented in this encounter Additional Health Concerns Assessment Noted Time PHQ-9 Depression Total Score: 0 08/10/ 25 10:44 AM EST A fall risk assessment has been complete d for the patient 03/24/2025 10:50 AM EDT A Body Mass Index follow-up plan has been documented for the patient 03/24/2025 12:40 PM EDT documented as of this encounter Care Teams Philosophy Faculty Member Relationship Specialty Start Date End Date Swathi Patino, JUAN [address] [place] [address] PCP - General 10/28/20 documented as of this encounter
[2025-03-31] VITALS (11 sets, daily range): BP systolic 117–142; BP diastolic 71–78; PULSE 60–79; RESP 16–17; O2SAT 98
[2025-03-31] MEDS: ACETAMINOPHEN 325MG TAB 650 MG (08:56)
[2025-03-31] MEDS: METHYLPREDNISOLONE SOD SUCC 40MG VIAL 40 MG (08:57)
--- OUTSIDE RECORDS SUMMARY | 2025-03-31 09:05 | XMS_ITS | Encounter Summary ---
Author Organization [facility] Address [address] [place] [address] Care Team Providers Care Pipe Installer Name Role Phone Swathi Patino LEAD ATHLETE Primary Care Provider [phone] Encounter Details Date Type Department Care Team (Late st Contact Info) Description 12/07/2020 Lab Requisition [facility] [address] [place] [address] Red Sue, DPM [address] [place] [address] Cellulitis of right lower limb [...] Visit [facility] [address] [place] [address] Cristina Gaffney, LEAD ATHLETE [address] [place] [address] 03/30/2026 10:00 AM EDT Office Visit [facility] [address] [place] [address] Paloma Baxter MD [address] [place] [address] documented as of this encounter Procedures Procedure Name Priority Date/Time Associated Diagnosis Comments ROUTINE CULTURE AND GRAM STAIN Routine 12/06/2020 10:00 AM EDT Cellulitis of right lower limb documented in this encounter Results * Routine Culture and Gram Stain (12/06/2020 10:00 AM EDT) Culture No growth at day 2 2020 10:37 AM EDT [facility] Gram Stain Result Few Polymorphonuclear leukocytes 12/08/2020 10:37 AM EDT [facility] Gram Stain Result No organisms seen 12/08/2020 10:37 AM EDT [facility] Swab 12/06/2020 10:0 0 AM EDT 12/07/2020 9:10 AM EDT Red Sue DPM LAB MICROBIOLOGY - GENERAL ORD ERABLES Final Result [facility] [address] [place] [address] documented in this encounter Visit Diagnoses Diagnosis Cellulitis of right lower limb documented in this encounter Additional Health Concerns Assessment Noted Time PHQ-9 Depression Total Score: 5 11/24/19 21 8:22 AM EDT A fall risk assessment has been complete d for the patient 11/23/2020 8:24 AM EDT documented as of this encounter Care Teams Pipe Installer Relationship Specialty Start Date End Date Swathi Patino APRN [address] [id number] PCP - General 10/28/20 documented as of this encounter
--- OUTSIDE RECORDS SUMMARY | 2025-03-31 09:05 | XMS_ITS ---
Author Organization [facility] Address [address] [place] [address] Care Team Providers Care Pluck Trimmer Name Role Phone Swathi Patino APRN Primary Care Provider [phone] PrEP Status:Active (Active) Start date:02/06/2024 Enrollment date:02/06/2024 Continued Care and Services Coordination
--- OUTSIDE RECORDS SUMMARY | 2025-03-31 09:05 | XMS_ITS | Encounter Summary ---
Author Organization [facility] Address [address] [place] [address] Care Team Providers Care Ditch Cleaner Name Role Phone Swathi Patino JUAN Primary Care Provider [phone] Encounter Details Date Type Department Care Team (Latest Contact Info) Description 03/24/2025 Travel Social History Tobacco Use Types Packs/Day [...] often do you attend [facility] or islam services? Patient unable to answer 12/25/2024 Do you belong to any clubs o r organizations such as amish groups, unions, fraternal or athletic groups, or [...] any time in the past 12 m [facility], were you homeless or living in [...] Description 06/01/2025 10:20 AM EST Office Visit [facility] [facility] [address] [place] [address] Cristina Gaffney, JUAN [address] [place] [address] 03/30/2026 10:00 AM EDT Office Visit [facility] [address] [place] [address] Paloma Baxter MD [address] [place] [address] documented as of this encounter [...] documented as of this encounter Care Teams Ditch Cleaner Relationship Specialty Start Date End Date Swathi Patino APRN [address] [place] [address] PCP - General 10/28/20 documented as of this encounter
--- OUTSIDE RECORDS SUMMARY | 2025-03-31 09:05 | XMS_ITS | Encounter Summary ---
Author Organization [facility] Address [address] [place] [address] Care Team Providers Care Technical Administrator Name Role Phone Swathi Patino JUAN Primary Care Provider [phone] Reason for Visit * Reason Comments Med Refill Encounter Details Date Type Department Care Team (Late st Contact Info) Description 08/10/2024 Refill [facility] [address] [place] [address] Boris Macdonald PA [address] [facility] [address] [place] [address] Contact with and (suspected) exposure to human [...] 0 08/10/2024 10:44 AM Stephanie Orourke * How difficult have these problems made it for you to do your work, take care of things at home, or get along with other people? Answer Date of Assessment Author Not difficult at all 08/10/2024 10:44 AM Stephanie Davis documented as of this encounter Miscellaneous Notes * Telephone Encounter - Josie Saenz RN - 08/10/2024 3:13 PM EST Duplicate request, filled per Boris BELLAMY today documented in this encounter Plan of Treatment Upcoming Encounters Date Type Department Care Team (Late st Contact Info) Description 06/01/2025 10:20 AM EST Office Visit [place] [facility] [address] [place] [address] Cristina Gaffney, JUAN [address] [place] [address] 03/30/2026 10:00 AM EDT Office Visit [facility] [address] [place] [address] Paloma Baxter MD [address] [place] [address] documented as of this encounter [...] documented as of this encounter Care Teams Technical Administrator Relationship Specialty Start Date End Date Swathi Patino, QUALITY ASSURANCE COACH [address] [place] [id number] PCP - General 10/28/20 documented as of this encounter
--- OUTSIDE RECORDS SUMMARY | 2025-03-31 09:06 | XMS_ITS | Clinical Summary ---
Author Organization [facility] Address [address] 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); Primary hypertension; Diabetes mellitus type 2 without retinopathy 03/24/2025 7:45 AM EDT Ancillary Procedure [facility] [place] [facility] [address] [place] [address] 03/24/2025 7:40 AM EDT Ancillary Procedure [facility] [address] [place] [address] 03/24/2025 7:40 AM EDT Ancillary Procedure [facility] [address] [place] [address] 03/24/2025 Travel 03/17/2025 Travel 02/03/2025 Orders Only [facility] [address] [place] [id number] Provider, Historical 01/04/2025 Telephone [facility] [address] [place] [address] Paloma Baxter MD from Last 3 Months Immunizations Immunization Administration Dates Next Due Hep A, Adult 05/08/2024 Hep B, adult 06/18/1996,01/15/1996 Influenza, injectable, MDCK, preservative free, quadrivalent 03/04/2020 Influenza, injectable, quadr ivalent, preservative free 04/08/2023,04/23/2022,04/04/2021 Influenza, seasonal, injectable 04/06/2024 [employer] COVID-19 Vac cine (Purple Cap) 12+ 04/04/2021 [...] 12/25/2024 How often do you attend [facility] or mu-ism services? Patient unable to answer 12/25/2024 Do you belong to any clubs o r organizations such as rastafarian groups, unions, [employer] or athletic groups, or school groups? Patient [...] and heating? Patient unable to answer 12/25/2024 [facility] - Occupational [...] any time in the past 12 m [facility], were you homeless or living in a m[facility]p (including now)? Patient unable to answer 12/25/2024 [...] Visit [facility] [address] [place] [address] Cristina Gaffney APRN [address] [place] [address] 03/30/2026 10:00 AM EDT Office Visit [facility] [address] [place] [address] Paloma Baxter MD [address] [place] [address] Health Maintenance Due Date Last [...] - Risk 60-74 years 1-dose series) 2023 [id number] Vaccine (7 - Pfizer risk 2023- season) [...] Additional history exists [facility]-Obesity Intervention Completed 025, 12/23/2024, 12/01/2024, Additional history exists HPV Vaccines Aged Out [...] this topic Medical Devices Implanted Type Area Desktop Specialist Device Identifier Shelf Expiration Date Model / Serial / Lot K-Wire Dual Trocar 045 X 152mm - [id number] - [id number] Implanted:Qty: 1 on 11/30/2020 by Red Sue DPM at [facility] Right: Foot [employer]-[id number] 1 09/15/2024 1600-645 / [id number] / K-Wire Dual Trocar 045 X 152mm - [id number] - [id number] Implanted:Qty: 2 on 11/30/2020 by Red Sue DPM at [facility] Right: Foot [employer]-[id number] 1 09/05/2024 [id number] / [id number] / Procedures Procedure Name Priority Date/Time Associated Diagnosis Comments AUTOMATED VISUAL FIELD, EXTENDED - OU - BOTH EYES Routine 03/24/2025 7:37 AM EDT 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 OCT, OPTIC NERVE - OU - BOTH EYES Routine 03/24/2025 7:37 AM EDT 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 OCT, RETINA - OU - BOTH EYES Routine 03/24/2025 7:37 AM EDT 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 HEPATIC FUNCTION PANEL Routine 12:45 PM EDT COMPLETE METABOLIC PROFILE (CMP) Routine 02/03/2025 12:45 PM EDT C-REACTIVE PROTEIN, PLASMA Routine 02/03/2025 12:45 PM EDT CBC WITH AUTO DIFFERENTIAL Routine 02/03/2025 12:45 PM EDT HIV 1/2 ANTIBODY/ANTIGEN SCREEN WITH REFLEX TO HIV I/II DIFFERENTIATION Routine 12/23/2024 7:39 PM EDT HEMOGLOBIN A1C Routine 12/23/2024 7:39 PM EDT HEPATITIS C ANTIBODY W/REFLEX TO HCV QUANT PCR Routine 02/06/2024 1:55 PM EDT Contact with and (suspected) exposure to human immunodeficiency virus (hiv) from Last 3 Months or Most Recently Relevant to Health Maintenance Results * OCT, Retina - OU - Both Eyes (03/24/2025 7:37 AM EDT) Anatomical Region Laterality Modality Head Optical Coherenc e Tomography Narrative 03/30/2025 3:46 PM EDT Right Eye Quality was good. Scan locations included subfoveal. Findings include normal foveal contour. Left Eye Quality was good. Scan locations included subfoveal. Findings include normal foveal contour. Mangruiz Keller MD OPHTH TOMOGRAPHY Final Result * OCT, Optic Nerve - [...] Keller MD OPHTH TOMOGRAPHY Final Result * Automated Visual Field, Extended - OU [...] Full Left eye (OS): Inferior altitudinal defect Result [facility] Paloma Keller MD OPH VISUAL FIELD Final Result * COMPLETE METABOLIC PROFILE (CMP) (02/03/2025 12:45 PM EDT) Historical Provider LAB BLOOD ORDERABLES Final R esult * CBC and Differential (02/03/2025 12:45 PM EDT) Blood Venous blood specimen / Unknown Result [facility] Provider LAB BLOOD ORDERABLES Final R esult * C-Reactive Protein, Plasma (02/03/2025 12:45 PM EDT) Blood Venous blood specimen / Unknown Result [facility] Provider LAB BLOOD ORDERABLES Final R esult * Hepatic Function Panel (02/03/2025 12:45 PM EDT) Blood Venous blood specimen / Unknown Result [facility] Provider LAB BLOOD ORDERABLES Final R esult * HIV 1 & 2 Antibody/Antigen Screen (12/23/2024 7:39 PM EDT) HIV 1 & 2 Antibody/Antigen Screen Non Reactive Non Reactive 12/23/2024 8:[address] [facility] Comment:Screening for HIV 1 & 2 antibodies, and P24 antigen is NONREACTIVE. No confirmatory testing is required. Blood Venous blood specimen / Unknown Venipuncture / Unknown 12/23/2024 7:39 PM EDT 12/23/2024 7:55 PM EDT Result [facility] Theodore Roper MD LAB BLOOD ORDERABLES Fin al Result [facility] [address] [place] [address] * (ABNORMAL) Hemoglobin A1c (12/23/2024 7:39 PM EDT) Hemoglobin A1c 7.5(H) <5.7 % 12/23/2024 8:[address] [facility] Blood Venous blood specimen / Unknown Venipuncture / Unknown 12/23/2024 7:39 PM EDT 12/23/2024 7:[address] [facility] - 12/23/2024 8:37 PM EDT HA1C Interpretive Data: Diagnosis of Diabetes: Diabetic > or = 6.5% Pre-diabetic 5.7 to 6.4% Non-diabetic < or = 5.6% Glycemic Targets for Type I and Type II Diabetics: Non- Adults <7.0% Adults <6.0% Children and Adolescents <7.5% Source: [place] [employer]. Standards of medical care in diabetes,2017. Diabetes Care.2017:40 (suppl 1):S1-S135. us Theodore Roper MD LAB BLOOD ORDERABLES Fin al Result [facility] [address] [place] [address] * Hepatitis C Antibody w/Reflex to HCV Quant PCR (02/06/2024 1:55 PM EDT) Hepatitis C Antibody Negative Negative 02/06/2024 7:25 PM EDT [facility] Blood Venous blood specimen / Unknown Venipuncture / Unknown 02/06/2024 1:55 PM EDT 02/06/2024 1:55 PM EDT us Boris BELLAMY LAB BLOOD ORDERABLES Final Res ult Performing Organization Address City/State/[facility] Co de Phone Number [facility] [address] [place] [address] from Last 3 Months or Most Recently Relevant to Health Maintenance Insurance [facility] MEDICARE Advance Directives * Full Code (Latest Code Status on File) Date Activated Date Inactivated Comments 12/23/2024 7:20 PM 12/25/2024 3:11 PM Question Answer Comments Patient has decision-making capacity? Yes Care Teams Laboratory Director Relationship Specialty Start Date End Date Swathi Patino APRN [address] [place] [address] PCP - General 10/28/20
--- OUTSIDE RECORDS SUMMARY | 2025-03-31 09:06 | XMS_ITS | Encounter Summary ---
Author Organization Healthcare Address [address] [place] [address] Care Team Providers Care Master Carpenter Name Role Phone Swathi Patino JUAN Primary Care Provider [phone] Encounter Details Date Type Department Care Team (Late st Contact Info) Description 02/03/2025 Orders Only [facility] [address] [place] [address] Provider, [place] [address] [place] [address] Social History Tobacco Use Types [...] How often do you attend chur or voodoo services? Patient unable to answer 12/25/2024 Do you belong to any clubs o r organizations such as restorationism groups, unions, fraternal or athletic groups, or [...] and heating? Patient unable to answer 12/25/2024 [facility] - Occupational Stress [...] time in the past 12 m [facility], were you homeless or living in a senior care (including now)? Patient unable to answer 12/25/2024 [...] Description 06/01/2025 10:20 AM EST Office Visit [facility] [address] [place] [address] Cristina Gaffney, JUAN [address] [place] [address] 03/30/2026 10:00 AM EDT Office Visit [facility] [address] [place] [address] Paloma Baxter MD [address] [place] [address] documented as of this encounter Procedures Procedure Name Priority Date/Time Associated Diagnosis Comments COMPLETE METABOLIC PROFILE (CMP) Routine 02/03/2025 12:45 PM EDT CBC WITH AUTO DIFFERENTIAL Routine 02/03/2025 12:45 PM EDT C-REACTIVE PROTEIN, PLASMA Routine 02/03/2025 12:45 PM EDT HEPATIC FUNCTION PANEL Routine 12:45 PM EDT documented in this encounter Results * Hepatic Function Panel (02/03/2025 12:45 PM EDT) Blood Venous blood specimen / Unknown Result [facility] Provider LAB BLOOD ORDERABLES Final R esult * COMPLETE METABOLIC PROFILE (CMP) (02/03/2025 12:45 PM EDT) [facility] Provider LAB BLOOD ORDERABLES Final R esult * C-Reactive Protein, Plasma (02/03/2025 12:45 PM EDT) Blood Venous blood specimen / Unknown Result [facility] Provider LAB BLOOD ORDERABLES Final R esult * CBC and Differential (02/03/2025 12:45 PM EDT) Blood Venous blood specimen / Unknown [facility] Provider LAB BLOOD ORDERABLES Final [...] documented as of this encounter Care Teams Master Carpenter Relationship Specialty Start Date End Date Swathi Patino APRN [address] [place] [address] PCP - General 10/28/20 documented as of this encounter
--- OUTSIDE RECORDS SUMMARY | 2025-03-31 09:06 | XMS_ITS | Encounter Summary ---
Author Organization [facility] Address [address] [place] [address] Care Team Providers Care Senior Production Planner Name Role Phone Swathi Patino JUAN Primary Care Provider [phone] Encounter Details Date Type Department Care Team (Latest Contact Info) Description 03/17/2025 Travel Social History Tobacco Use Types Packs/Day [...] answer 12/25/2024 How often do you attend [facility] or latter-day services? Patient unable to answer 12/25/2024 Do you belong to any clubs o r organizations such as tenriism groups, unions, fraternal or athletic groups, or [...] and heating? Patient unable to answer 12/25/2024 [facility] - Occupational [...] any time in the past 12 m [facility], were you homeless or living in [...] Visit [facility] [address] [place] [address] Cristina Gaffney, JUAN [address] [place] [address] 03/30/2026 10:00 AM EDT Office Visit [facility] [address] [place] [address] Paloma Baxter MD [address] [place] [address] documented as of this encounter [...] documented as of this encounter Care Teams Senior Production Planner Relationship Specialty Start Date End Date Swathi Patino APRN [address] [place] [address] PCP - General 10/28/20 documented as of this encounter
--- OUTSIDE RECORDS SUMMARY | 2025-03-31 09:06 | XMS_ITS | Referral Summary ---
Author Organization [employer] ([place], [place], [place], [place]) Address [address] [place] [address] Care Team Providers Care Mold Breaker Name Role Phone Unavailable Primary Care Provider [...] Date Arthur rded Speak language other than Guamanian at home Not on file 07/06/2023 Want help with school or training Not on file 07/06/2023 Substance Use Answer Date Recorded Used prescription meds for non-medical reasons N ot on file 07/06/2023 Used illegal drugs past 12 months Not on file 07/06/2023 Sex and Gender Information Value Date Recorded Sex Assigned at Not on file Legal Sex Male 2:21 PM PACU RN Gender Identity Not on file Sexual Orientation Not on file Plan of Treatment Not on file [place] [place] [address] MEDICARE PPO
--- OUTSIDE RECORDS SUMMARY | 2025-03-31 09:06 | XMS_ITS | Clinical Summary ---
Author Organization [employer] ([place], [place], [place], [place]) Address [address] [place] [address] Care Team Providers Care School Crossing Guard Name Role Phone Unavailable Primary Care Provider [...] Date Arthur rded Speak language other than Maldivian at home Not on file 07/06/2023 Want help with school or training Not on file 07/06/2023 Substance Use Answer Date Recorded Used prescription meds for non-medical reasons N ot on file 07/06/2023 Used illegal drugs past 12 months Not on file 07/06/2023 Sex and Gender Information Value Date Recorded Sex Assigned at Not on file Legal Sex Male 2:21 PM MARKETING DIRECTOR ASSISTED LIVING Gender Identity Not on file Sexual Orientation Not on file Plan of Treatment Not on file [place] [address] [address] MEDICARE PPO
[2025-03-31] MEDS: INFLIXIMAB IV (09:45)
[2025-03-31] MEDS: SODIUM CHLORIDE 0.9% IV (09:45)
== END 2025-03-31 23:59 | disposition home or self-care (01) ==
LOC: INF 08:51
PROVIDERS: PCP Nurse Practitioner Family; Visit Provider Nurse Practitioner Family
DX: L40.50 Arthropathic psoriasis, unspecified (principal)
CPT/HCPCS: 96413; 96415; J1745; J2919; J7040

== ENCOUNTER 2025-05-05 08:35 | Outpatient (CLI) | payer MEDICARE, SELFPAY ==
[2025-05-05] VITALS (9 sets, daily range): BP systolic 126–140; BP diastolic 71–78; PULSE 63–69; RESP 20; TEMP 36.7; O2SAT 97–98; BMI 35.2
[2025-05-05] MEDS: SODIUM CHLORIDE 0.9% 10ML FLUSH SYRINGE 10 ML IV (08:58)
[2025-05-05] MEDS: ACETAMINOPHEN 325MG TAB 650 MG PO (08:58)
[2025-05-05] MEDS: METHYLPREDNISOLONE SOD SUCC 40MG VIAL 40 MG IV (08:58)
[2025-05-05 09:00] LABS: Hematocrit 44.1 % (42.0-52.0); Hemoglobin 14.4 g/dL (14.1-18.0); Immature Granulocytes % 0.2 %; Mean Corpuscular HGB Conc 32.7 g/dL (31.8-35.4); Mean Corpuscular Hemoglobin 27.3 pg (27.0-31.2); Mean Corpuscular Volume 83.5 fl (80-94); Nucleated Red Blood Cells % 0 %; Platelet Count 173 K/mm3 (142-424); Red Blood Count 5.28 M/mm3 (4.60-6.20); Red Cell Distribution Width-SD 47.0 fL; White Blood Count 5.3 K/mm3 (4.8-10.8)
[2025-05-05 09:19] LABS: C-Reactive Protein 1.5 mg/L (0-4)
[2025-05-05] MEDS: SODIUM CHLORIDE 0.9% IV (09:35)
[2025-05-05] MEDS: INFLIXIMAB IV (09:35)
[2025-05-05 10:06] LABS: Alanine Aminotransferase 36 U/L (12-78); Albumin Level 4.3 g/dl (3.5-5.0); Alkaline Phosphatase 23 U/L (38-126); Anion Gap 10.4 mEq/L (5-15); Aspartate Amino Transferase 51 U/L (17-59); Bilirubin,Direct 0.1 mg/dl (0.0-0.4); Bilirubin,Indirect 2.4 mg/dL (0.0-0.9); Bilirubin,Total 2.5 mg/dl (0.2-1.3); Bilirubin,Unconjugated 2.4 mg/dL (0.0-1.1); Blood Urea Nitrogen 16 mg/dl (9-20); Calcium 9.4 mg/dl (8.4-10.2); Carbon Dioxide 27 mmol/L (22.0-30.0); Chloride 99 mmol/L (98-107); Creatinine Clearance Estimated 109 mL/min (50-200); Creatinine,Serum 1.10 mg/dl (0.66-1.25); Estimated Glomerular Filt Rate 68 ml/min (>60); GFR (African American) 82 ML/MIN (>60); Glucose 142 mg/dl (74-100); Phosphorous 4.2 mg/dl (2.5-4.5); Potassium 4.4 mmoL/L (3.5-5.1); Sodium 132 mmol/L (136-145); Total Protein,Serum 7.4 g/dl (6.3-8.2)
== END 2025-05-05 23:59 | disposition home or self-care (01) ==
LOC: INF 08:36
PROVIDERS: PCP Nurse Practitioner Family; Visit Provider Nurse Practitioner Family
DX: L40.50 Arthropathic psoriasis, unspecified (principal)
CPT/HCPCS: 80069; 80076; 85025; 86140; 96413; 96415; J1745; J2919; J7040